=== PATIENT | male | born 1930 | race Caucasian/White ===

== ENCOUNTER 2016-10-27 18:20 | Inpatient (IN) | payer BC, MEDICARE ==
[~2016-10-27] VITALS: Ht 177.8 cm; Wt 82.7 kg
[2016-10-27] VITALS (7 sets, daily range): BP systolic 141–197; BP diastolic 57–93
[~2016-10-27 18:20] MED LIST: ASPI-482 PO; ATOR40TA59 PO; Aspirin PO; CARB1TAB2 PO; HYDR-2678 PO; MEMA10TA PO; MIDO5TAB PO; PANT40TA5 PO
[2016-10-27 18:49] LABS: BASO % 1 % (0-3); EOS % 1 % (0-3); HEMATOCRIT 32.4 % (39.0-53.0); HEMOGLOBIN 11.3 g/dL (13.0-17.5); LYMPH # 0.8 x10^3/uL (1.0-4.8); LYMPH % 16 % (24-48); MEAN CORPUSCULAR HEMOGLOBIN 34 pg (25-35); MEAN CORPUSCULAR HGB CONC 35 g/dL (31-37); MEAN CORPUSCULAR VOLUME 96 fL (79-100); MONO % 12 % (0-9); NEUT % 71 % (31-73); PLATELET COUNT 121 x10^3/uL (140-400); RED BLOOD COUNT 3.36 x10^6/uL (4.30-5.70); RED CELL DISTRIBUTION WIDTH 13.5 % (11.5-14.5); WHITE BLOOD COUNT 5.3 x10^3/uL (4.0-11.0)
[2016-10-27 18:56] LABS: INR 1.1 (0.8-1.1); PROTHROMBIN TIME PATIENT 13.7 SEC (11.7-14.0)
[2016-10-27 18:58] LABS: CALCIUM 8.6 mg/dL (8.5-10.1); CREATININE 1.8 mg/dL (0.7-1.3); GFR 36.1; POTASSIUM 4.4 mmol/L (3.5-5.1)
[2016-10-27 19:02] LABS: NEG OBC FOB NEG; POS OBC FOB POS
[2016-10-27 19:03] LABS: ALBUMIN 3.8 g/dL (3.4-5.0); ALBUMIN/GLOBULIN RATIO 1.3 (1.0-1.7); TOTAL BILIRUBIN 0.4 mg/dL (0.2-1.0); TOTAL PROTEIN 6.8 g/dL (6.4-8.2)
--- NOTE | 2016-10-27 19:16 | ED.ADGEN ---
Past Medical History Past Medical History: Diabetes-Type II, Hypertension, [place], Other Additional Past Medical Histor: Parkinson's Past Surgical History: Cholecystectomy, Coronary Bypass Surgery, Hip Replacement, Tonsillectomy, Other Additional Past Surgical Histo: lumbar sx; L hip Alcohol Use: None Drug Use: None Adult General Chief Complaint Chief Complaint: BLOODY STOOL HPI HPI Patient is a 86 year old man, history of type 2 diabetes mellitus, Parkinson's disease, hypertension, CAD, who presents to the emergency department with a complaint of blood in stool times one episode. Patient states that he was at home, was feeling otherwise well, when he was taken to the bathroom for bowel movement, he states that he "had the runs", however when he had a bowel movement was noted to be primarily blood, with a small amount of brown stool. Patient denies any nausea or vomiting, he denies any abdominal pain, states that he has been eating and drinking normally, has been taking his medications as usual, he does take a daily baby aspirin but no other blood thinners. Has no history of previous GI bleeding, no complaint of constipation. No recent travel or surgery, no easy bruising, no rashes, no swelling extremities, no urinary complaints. Patient with family at bedside or as caretakers, they state that all is well home, no injuries or other events recently. Review of Systems Review of Systems Constitutional: Denies fever or chills. [] Eyes: Denies change in visual acuity. [] HENT: Denies nasal congestion or sore throat. [] Respiratory: Denies cough or shortness of breath. [] Cardiovascular: Denies chest pain or edema. [] GI: Denies abdominal pain, nausea, vomiting, one episode of atif blood in stool. : Denies dysuria. [] Musculoskeletal: Denies back pain or joint pain. [] Integument: Denies rash. [] Neurologic: Denies headache, focal weakness or sensory changes. [] Endocrine: Denies polyuria or polydipsia. [] Lymphatic: Denies swollen glands. [] Psychiatric: Denies depression or anxiety. [] Current Medications Current Medications Current Medications Medications (Trade) Dose Ordered Sig/Romel Start Time Stop Time Status Last Admin Dose Admin Sodium Chloride 500 ml @ 500 mls/hr 1X ONCE 10/27/16 19:30 10/27/16 20:29 DC 10/27/16 19:35 500 MLS/HR Allergies Allergies Allergies Coded Allergies Type Severity Reaction Last Updated Verified No Known Drug Allergies 10/17/14 No Physical Exam Physical Exam Constitutional: Well developed, well nourished, no acute distress, non-toxic appearance. [] HENT: Normocephalic, atraumatic, bilateral external ears normal, oropharynx moist, no oral exudates, nose normal. [] Eyes: PERRLA, EOMI, conjunctiva normal, no discharge. [] Neck: Normal range of motion, no tenderness, supple, no stridor. [] Cardiovascular:Heart rate regular rhythm, no murmur, S1, S2, rubs or gallops. [] Lungs & Thorax: Bilateral breath sounds clear to auscultation, no wheezing, rhonchi, rales. No chest or crepitus or tenderness. [] Abdomen: Bowel sounds normal, soft, no tenderness, no masses, no pulsatile masses. No rebound, rigidity, no guarding, [] Skin: Warm, dry, no erythema, no rash. [] Back: No tenderness, no CVA tenderness. [] Extremities: No tenderness, no cyanosis, no clubbing, ROM intact, no edema. [ Negative Homans sign. Patient with well-healed surgical incisions from previous bypass.] Neurologic: Alert and oriented X 3, normal motor function, normal sensory function, no focal deficits noted. [] Psychologic: Affect normal, judgement normal, mood normal. [] Rectal examination: Patient with red blood noted in vault, no stool. Good tone. Nontender. No hemorrhoids or other abnormality is identified. Current Patient Data Vital Signs Vital Signs Date Time Temp Pulse Resp B/P (MAP) Pulse Ox O2 Delivery O2 Flow Rate FiO2 10/27/16 20:08 70 16 216/100 (138) 97 Room Air 10/27/16 18:20 97.5 97.5 Lab Values Laboratory Tests Test 10/27/16 18:38 10/27/16 18:45 10/27/16 19:42 White Blood Count 5.3 x10^3/uL (4.0-11.0) Red Blood Count 3.36 x10^6/uL (4.30-5.70) L Hemoglobin 11.3 g/dL (13.0-17.5) L Hematocrit 32.4 % (39.0-53.0) L Mean Corpuscular Volume 96 fL (79-100) Mean Corpuscular Hemoglobin 34 pg (25-35) Mean Corpuscular Hemoglobin Concent 35 g/dL (31-37) Red Cell Distribution Width 13.5 % (11.5-14.5) Platelet Count 121 x10^3/uL (140-400) L Neutrophils (%) (Auto) 71 % (31-73) Lymphocytes (%) (Auto) 16 % (24-48) L Monocytes (%) (Auto) 12 % (0-9) H Eosinophils (%) (Auto) 1 % (0-3) Basophils (%) (Auto) 1 % (0-3) Neutrophils # (Auto) 3.8 x10^3uL (1.8-7.7) Lymphocytes # (Auto) 0.8 x10^3/uL (1.0-4.8) L Monocytes # (Auto) 0.6 x10^3/uL (0.0-1.1) Eosinophils # (Auto) 0.0 x10^3/uL (0.0-0.7) Basophils # (Auto) 0.0 x10^3/uL (0.0-0.2) Prothrombin Time 13.7 SEC (11.7-14.0) Prothrombin Time INR 1.1 (0.8-1.1) PTT 29 SEC (24-38) Sodium Level 140 mmol/L (136-145) Potassium Level 4.4 mmol/L (3.5-5.1) Chloride Level 104 mmol/L (98-107) Carbon Dioxide Level 23 mmol/L (21-32) Anion Gap 13 (6-14) Blood Urea Nitrogen 34 mg/dL (8-26) H Creatinine 1.8 mg/dL (0.7-1.3) H Estimated GFR (Cockcroft-Gault) 36.1 BUN/Creatinine Ratio 19 (6-20) Glucose Level 207 mg/dL (70-99) H Lactic Acid Level 3.2 mmol/L (0.4-2.0) H Calcium Level 8.6 mg/dL (8.5-10.1) Total Bilirubin 0.4 mg/dL (0.2-1.0) Aspartate Amino Transferase (AST) 13 U/L (15-37) L Alanine Aminotransferase (ALT) 12 U/L (16-63) L Alkaline Phosphatase 121 U/L (46-116) H Troponin I Quantitative < 0.017 ng/mL (0.000-0.055) Total Protein 6.8 g/dL (6.4-8.2) Albumin 3.8 g/dL (3.4-5.0) Albumin/Globulin Ratio 1.3 (1.0-1.7) Stool Occult Blood Positive (NEG) Urine Collection Type Unknown Urine Color Yellow Urine Clarity Clear Urine pH 5.0 Urine Specific [place] 1.020 Urine Protein Negative mg/dL (NEG-TRACE) Urine Glucose (UA) 250 mg/dL (NEG) Urine Ketones (Stick) Negative mg/dL (NEG) Urine Blood Negative (NEG) Urine Nitrite Negative (NEG) Urine Bilirubin Negative (NEG) Urine Urobilinogen Dipstick 1.0 mg/dL (0.2 mg/dL) Urine Leukocyte Esterase Negative (NEG) Urine RBC 0 /HPF (0-2) Urine WBC 0 /HPF (0-4) Urine Squamous Epithelial Cells Few /LPF Urine Bacteria 0 /HPF (0-FEW) Urine Hyaline Casts Few /HPF Urine Mucus Mod /LPF Laboratory Tests 10/27/16 18:38 Laboratory Tests 10/27/16 18:38 EKG EKG EC: Sinus rhythm, heart rate 75 beats/minute, left axis deviation, QTC of 519, IA 180, QRS of 162, patient with occasional PVCs noted, bifascicular block noted, contour normality is noted in the anterior and lateral leads, with elevation of 1 mm noted in lead 3, ST depressions noted in aVL 1 mm, with T- wave inversions in V2, and V3, abnormal ECG, does not meet STEMI criteria. As interpreted by me. [] Radiology/Procedures Radiology/Procedures [][facility] [address] [place] [address] IMAGING REPORT Signed PATIENT: KEV SALGUERO ACCOUNT: [id number] : 1930 LOCATION: ER AGE: 86 SEX: M EXAM STATUS: REG ER ORD. PHYSICIAN: RADHA KAM DO REASON: GI bleeding/elevated lactic PROCEDURE: CT ABDOMEN PELVIS WO CONTRAST CT abdomen and pelvis without contrast: Reason for examination: Abdominal pain with GI bleeding and elevated lactic acid. Helical images were obtained through the abdomen and pelvis with no contrast administered. Reconstruction was performed in sagittal and coronal planes. Exposure: One or more of the following individualized dose reduction techniques were utilized for this examination: 1. Automated exposure control 2. Adjustment of the mA and/or kV according to patient size 3. Use of iterative reconstruction technique. There appears to be a calcified granuloma at the right lung base. There is some dependent atelectasis. The heart size appears be enlarged with no pericardial effusion seen. No acute abnormality seen at the liver, gallbladder, pancreas or adrenal glands. The gallbladder surgically absent. The kidneys show no renal masses, renal calculi, hydronephrosis or evidence of obstructive uropathy. There is arteriosclerotic calcification in the aorta with no aneurysmal dilatation. There is also calcification in the proximal portion of the superior mesenteric artery and the renal arteries bilaterally. No abnormality seen at the inferior vena cava. There is a large stomach containing fluid. The small intestinal tract shows no abnormally dilated loops of bowel or small bowel obstruction. No abnormality seen at the appendix. There is diverticulosis in the sigmoid colon without evidence of diverticulitis. There is some artifact present in the pelvis from the left hip prosthesis but no gross abnormality seen at the bladder, prostate gland or seminal vesicles. No free fluid or free air is seen in the abdomen or pelvis. There has been vertebroplasty at the L1 vertebral body. There are also mild anterior wedge compression fractures of the T12 and L2 vertebral body. No other acute bony abnormalities are seen. IMPRESSION: Cardiomegaly. Diverticulosis in the sigmoid colon but no evidence of diverticulitis. Mild anterior wedge compression deformities at the T12 and L2 vertebral bodies. Arteriosclerotic calcification in the proximal superior mesenteric artery and the renal arteries bilaterally. Electronically signed by: Saturnino Cannon MD (10/27/2016 8:42 PM) [facility] DICTATED and SIGNED BY: SATURNINO CANNON MD DATE: 10/27/162031 CC: RADHA KAM DO; JEAN AKBAR MD ~ Course & Med Decision Making Course & Med Decision Making Pertinent Labs and Imaging studies reviewed. (See chart for details) Patient with gross blood noted from rectum, no melena. No abdominal pain or tenderness. 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 Patient's heart rate is in the 80s, oxygen saturation is 96-90% on room air, respiratory rate is 20 and unlabored. Patient agreeable to receiving laboratory studies, and imaging in the ED, laboratory studies reveal a lactic acidosis of 3.2, with a hemoglobin of 11.3, electrolytes are within normal limits, creatinine is 1.8 with a BUNs of 36. I did discuss findings as above with Dr. Moore, GI on-call, as patient does not have a GI physician. Based on patient's examination, history, and laboratory studies, will proceed with noncontrast CT of the abdomen and pelvis, concern for ischemic colitis. Patient initiated IV fluids. CT of abdomen and pelvis did not reveal any acutely concerning findings. Patient noted to have elevated blood pressure, up to 216/100, remains in the 80s, I spoke with Dr. Mireles of cardiology, discussed patient's history of labile blood pressures, due to concern for possible Shy-Drager's, recommended until we have additional information, patient be initiated on a Cardizem drip for blood pressure control which can be titrated depending on his hemodynamic state. Initiated in the ED, patient on 5 of Cardizem, with blood pressures of 180s over 80s, remains comfortable. No further episodes of bleeding in the ED. I did discuss findings as above with Dr. De Jesus, on-call for the patient's primary care provider Dr. Akbar, patient accepted on behalf of Dr. Akbar, for admission to the ICU, with repeat hemoglobin to be ordered along with repeat troponins at 12:30, no indication for transfusion at this time, with hemoglobin of 11.3, and a platelet count of 121, will continue to monitor, patient consented for transfusion in the ED. Consultations as stated above, bridge orders entered per discussion. Dragon Disclaimer Dragon Disclaimer This electronic medical record was generated, in whole or in part, using a voice recognition dictation system. Departure Impression: Primary Impression: Lower GI bleeding Additional Impression: Accelerated hypertension Disposition: 09 ADMITTED INPATIENT Admitting Physician: Jean Akbar Condition: IMPROVED Critical Care Time Critical care time was [15 minutes exclusive of procedures. Problem Qualifiers RADHA KAM DO Oct 27, 2016 19:16
[2016-10-27] MEDS ORDERED: IV NORMAL SALINE 500ML BAG 500 ML IV ONE (19:30)
[2016-10-27 19:49] LABS: BILIRUBIN,URINE NEGATIVE (NEG); GLUCOSE,URINE 250 mg/dL (NEG); NITRITE,URINE NEGATIVE (NEG); PROTEIN,URINE NEGATIVE (NEG-TRACE)
[2016-10-27 19:55] LABS: BACTERIA,URINE 0 /HPF (0-FEW); RBC,URINE 0 /HPF (0-2); SQUAMOUS EPITHELIAL CELL,UR FEW /LPF; WBC,URINE 0 /HPF (0-4)
--- NOTE | 2016-10-27 20:44 | RAD ---
CT abdomen and pelvis without contrast: Reason for examination: Abdominal pain with GI bleeding and elevated lactic acid. Helical images were obtained through the abdomen and pelvis with no contrast administered. Reconstruction was performed in sagittal and coronal planes. Exposure: One or more of the following individualized dose reduction techniques were utilized for this examination: 1. Automated exposure control 2. Adjustment of the mA and/or kV according to patient size 3. Use of iterative reconstruction technique. There appears to be a calcified granuloma at the right lung base. There is some dependent atelectasis. The heart size appears be enlarged with no pericardial effusion seen. No acute abnormality seen at the liver, gallbladder, pancreas or adrenal glands. The gallbladder surgically absent. The kidneys show no renal masses, renal calculi, hydronephrosis or evidence of obstructive uropathy. There is arteriosclerotic calcification in the aorta with no aneurysmal dilatation. There is also calcification in the proximal portion of the superior mesenteric artery and the renal arteries bilaterally. No abnormality seen at the inferior vena cava. There is a large stomach containing fluid. The small intestinal tract shows no abnormally dilated loops of bowel or small bowel obstruction. No abnormality seen at the appendix. There is diverticulosis in the sigmoid colon without evidence of diverticulitis. There is some artifact present in the pelvis from the left hip prosthesis but no gross abnormality seen at the bladder, prostate gland or seminal vesicles. No free fluid or free air is seen in the abdomen or pelvis. There has been vertebroplasty at the L1 vertebral body. There are also mild anterior wedge compression fractures of the T12 and L2 vertebral body. No other acute bony abnormalities are seen. IMPRESSION: Cardiomegaly. Diverticulosis in the sigmoid colon but no evidence of diverticulitis. Mild anterior wedge compression deformities at the T12 and L2 vertebral bodies. Arteriosclerotic calcification in the proximal superior mesenteric artery and the renal arteries bilaterally. Electronically signed by: Tosha Fishman MD (10/27/2016 8:42 PM) [facility]
[2016-10-27] MEDS ORDERED: ONDANSETRON PF 4 MG/2 ML VIAL. IV PRN (21:30)
[2016-10-27] MEDS ORDERED: fentaNYL PF VIAL 100 MCG/2 ML VIAL IV PRN (21:30)
[2016-10-27] MEDS: IV NORMAL SALINE 1000ML BAG 1,000 ML IV SCH (22:18)
[2016-10-28] VITALS (14 sets, daily range): BP systolic 122–177; BP diastolic 54–88
--- NOTE | 2016-10-28 01:32 | ACF ---
Admission Forms Criteria GASTROINTESTINAL BLEEDING Clinical Indications for Inpatient Care (Place 'X' for any and all applicable criteria): Ongoing inpatient care may be indicated for gastrointestinal bleeding with ANY ONE of the following (4)(20)(21)(22)(23)(24): [ X]I. Active bleeding (eg, fresh voluminous blood in emesis or nasogastric aspirate, or per rectum) [ ]II. Hemodynamic instability [ ]III. Anticoagulation therapy or coagulopathy ((eg, advanced liver disease, irreversible anticoagulation) [ ]IV. Ischemic colitis (22) [ ]V. Endoscopy showing arterial bleeding, adherent clot, nonbleeding visible vessel, varices, flat red spots, ulcer size greater than 2 cm, or portal hypertensive gastropathy [ ]. High-risk low platelet count [ ]VII. Anemia requiring inpatient care as indicated by ANY ONE of the following a)[ ] Cognitive impairment b)[ ] Syncope c)[ ] Heart failure d)[ ] Chest pain e)[ ] Dyspnea f)[ ] Other findings suggesting inadequate perfusion (eg, peripheral or myocardial ischemia, end organ dysfunction) [ ]VIII. High-risk low platelet count [ ]IX. Suspected variceal cause of bleeding as indicated by ANY ONE of the following(27)(28): a)[ ] Known varices b)[ ] Hepatomegaly or splenomegaly c)[ ] Ascites d)[ ] Jaundice or scleral icterus e)[ ] History of liver disease (eg, cirrhosis) f)[ ] Physical findings of portal hypertension (eg, caput medusa) g)[ ] Comorbid disorder indicating risk for portal vein thrombosis (eg , abdominal surgery, sepsis, shock, exchange transfusion, prior umbilical vein catheterization) Extended stay may be needed until ALL of the following are present(20)(38)(47): [ ]a) Hemodynamic stability [ ]b) No evidence of active bleeding (eg, stable Hematocrit) [ ]c) Platelet count, prothrombin time, and partial thromboplastin time acceptable for next level of care [ ]d) Surgical or other acute intervention not needed [ ]e) Oral hydration and diet tolerated The original [employer] content created by Rachel Sung has been revised. The portions of the content which have been revised are identified through the use of italic text or in bold, and Rachel Sung has neither reviewed nor approved the modified material. All other unmodified content is copyright [facility]. Please see references footnoted in the original [facility] edition 2016 Admission Criteria Met?: Yes NATALIYA MALIK Oct 28, 2016 01:32
[2016-10-28 04:16] LABS: BASO % 0 % (0-3); EOS % 1 % (0-3); HEMATOCRIT 30.5 % (39.0-53.0); HEMOGLOBIN 10.5 g/dL (13.0-17.5); LYMPH # 1.1 x10^3/uL (1.0-4.8); LYMPH % 27 % (24-48); MEAN CORPUSCULAR HEMOGLOBIN 34 pg (25-35); MEAN CORPUSCULAR HGB CONC 34 g/dL (31-37); MEAN CORPUSCULAR VOLUME 98 fL (79-100); MONO % 14 % (0-9); NEUT % 57 % (31-73); PLATELET COUNT 106 x10^3/uL (140-400); RED BLOOD COUNT 3.13 x10^6/uL (4.30-5.70); RED CELL DISTRIBUTION WIDTH 13.4 % (11.5-14.5)
[2016-10-28 04:22] LABS: CALCIUM 8.3 mg/dL (8.5-10.1); CREATININE 1.3 mg/dL (0.7-1.3); GFR 52.6; POTASSIUM 3.7 mmol/L (3.5-5.1)
[2016-10-28] MEDS: IV NORMAL SALINE 1000ML BAG 1,000 ML IV SCH (05:15)
--- NOTE | 2016-10-28 06:29 | EKG ---
[facility] [address] [place] [address] Test Date: 2016-10-27 Test Time: 18:30:18 Pat Name: KEV SALGUERO Department: Room: 108 1 Gender: M [employer]: : 1930 Requested By: RADHA KAM Order Number: [id number] Reading MD: Toshia Mohamud Measurements Intervals Independence Rate: 75 P: 90 NV: 180 QRS: -45 QRSD: 162 T: 81 QT: 462 QTc: 519 Interpretive Statements SINUS RHYTHM VENTRICULAR PREMATURE COMPLEX(ES) ATRIAL PREMATURE COMPLEX(ES) LEFT ANTERIOR FASCICULAR BLOCK RIGHT BUNDLE BRANCH BLOCK BIFASCICULAR BLOCK QRS(T) CONTOUR ABNORMALITY CONSISTENT WITH ANTEROSEPTAL INFARCT AGE UNDETERMINED Electronically Signed On 10-30-2016 12:21:46 CDT by Toshia Mohamud
--- NOTE | 2016-10-28 08:16 | RAD ---
Acute abdomen series with chest, 3 views, 10/27/2016: History: Abdominal pain, GI tract bleeding The abdominal gas pattern is unremarkable without evidence of obstruction. No free air is seen in the abdomen. There is no evidence of organomegaly. Extensive arterial calcifications are present. A left total hip prosthesis is in place. Vertebroplasty change is noted at the L1 level. The heart is mildly enlarged. The pulmonary vascularity is normal. There has been a previous median sternotomy. There is mild scarring in the left lateral costophrenic angle. A calcified granuloma is present in the right base. No acute infiltrates are seen. IMPRESSION: No acute abdominal abnormality is detected.
--- NOTE | 2016-10-28 09:22 | PDOC2 ---
GI CONSULT Reason For Consult: GI Bleed HPI: HPI: 86 y/o male admitted through the ER. Yesterday around 4:00 p.m. had an episode of rectal bleeding at home. History from pt and family, reports had a "runny stool" earlier in the day, then later on passed red blood that "filled the toilet." No previous episodes or recurrence. No chest pain, SOA, dizziness. No abd pain or n/v. H/o reflux controlled w/ PPI QD. No chronic issues w/ diarrhea or constipation. Prior to admission was eating and drinking normally, no weight loss. Takes ASA QD, otherwise denies NSAIDs, takes Tylenol PRN. Has had several previous EGDs and colonoscopies, recalls no significant findings. Has been hypertensive w/ some bradycardia. Cardiology consulted. H/o fluctuating BP, currently off meds. ER notes indicate rectal exam grossly positive for blood. Per [employer], no bleeding since arrival. Labs significant for Hgb 11.3 (now 10.5), plt 121 (now 106), lactic acid 3.2 ( now 1.1), BUN 34 (now 29), Cr 1.8 (now 1.3), and hemoccult positive stool. (H/ o of anemia/thrombocytopenia when labs back to 2015 [address].) CT A/P w/o contrast notes cardiomegaly, sigmoid diverticulosis, and arteriosclerotic calcification in proximal SMA and renal arteries bilaterally. PMH: PMH: CAD s/p CABG x 6, DM, HTN/hypotension, Parkinson's, tonsillectomy, cholecystectomy, left hip replacement, kyphoplasty FH: Family History: No pertinent hx Social History: Smoke: No ALCOHOL: none Drugs: None ROS: GEN: Denies fevers, chills, sweats HEENT: Denies blurred vision, sore throat CV: Denies chest pain RESP: Denies shortness of air, cough GI: Per HPI : Denies hematuria, dysuria ENDO: Denies weight changes NEURO: Denies confusion, dizziness MSK: Denies weakness, joint pain/swelling SKIN: Denies jaundice, pruritus Vitals: Vitals: Vital Signs Date Time Temp Pulse Resp B/P (MAP) Pulse Ox O2 Delivery O2 Flow Rate FiO2 10/28/16 07:57 Room Air 10/28/16 06:00 60 14 167/70 (102) 98 8/14/17 04:00 97.7 97.7 Labs: Labs: Laboratory Tests Test 10/27/16 18:38 10/27/16 18:45 10/27/16 19:42 10/27/16 22:43 White Blood Count 5.3 x10^3/uL (4.0-11.0) Red Blood Count 3.36 x10^6/uL (4.30-5.70) Hemoglobin 11.3 g/dL (13.0-17.5) Hematocrit 32.4 % (39.0-53.0) Mean Corpuscular Volume 96 fL (79-100) Mean Corpuscular Hemoglobin 34 pg (25-35) Mean Corpuscular Hemoglobin Concent 35 g/dL (31-37) Red Cell Distribution Width 13.5 % (11.5-14.5) Platelet Count 121 x10^3/uL (140-400) Neutrophils (%) (Auto) 71 % (31-73) Lymphocytes (%) (Auto) 16 % (24-48) Monocytes (%) (Auto) 12 % (0-9) Eosinophils (%) (Auto) 1 % (0-3) Basophils (%) (Auto) 1 % (0-3) Neutrophils # (Auto) 3.8 x10^3uL (1.8-7.7) Lymphocytes # (Auto) 0.8 x10^3/uL (1.0-4.8) Monocytes # (Auto) 0.6 x10^3/uL (0.0-1.1) Eosinophils # (Auto) 0.0 x10^3/uL (0.0-0.7) Basophils # (Auto) 0.0 x10^3/uL (0.0-0.2) Prothrombin Time 13.7 SEC (11.7-14.0) Prothromb Time International Ratio 1.1 (0.8-1.1) Activated Partial Thromboplast Time 29 SEC (24-38) Sodium Level 140 mmol/L (136-145) Potassium Level 4.4 mmol/L (3.5-5.1) Chloride Level 104 mmol/L (98-107) Carbon Dioxide Level 23 mmol/L (21-32) Anion Gap 13 (6-14) Blood Urea Nitrogen 34 mg/dL (8-26) Creatinine 1.8 mg/dL (0.7-1.3) Estimated GFR (Cockcroft-Gault) 36.1 BUN/Creatinine Ratio 19 (6-20) Glucose Level 207 mg/dL (70-99) Lactic Acid Level 3.2 mmol/L (0.4-2.0) 2.3 mmol/L (0.4-2.0) Calcium Level 8.6 mg/dL (8.5-10.1) Total Bilirubin 0.4 mg/dL (0.2-1.0) Aspartate Amino Transf (AST/SGOT) 13 U/L (15-37) Alanine Aminotransferase (ALT/SGPT) 12 U/L (16-63) Alkaline Phosphatase 121 U/L (46-116) Troponin I Quantitative < 0.017 ng/mL (0.000-0.055) Total Protein 6.8 g/dL (6.4-8.2) Albumin 3.8 g/dL (3.4-5.0) Albumin/Globulin Ratio 1.3 (1.0-1.7) Stool Occult Blood Positive (NEG) Urine Collection Type Unknown Urine Color Yellow Urine Clarity Clear Urine pH 5.0 Urine Specific Aldie 1.020 Urine Protein Negative mg/dL (NEG-TRACE) Urine Glucose (UA) 250 mg/dL (NEG) Urine Ketones (Stick) Negative mg/dL (NEG) Urine Blood Negative (NEG) Urine Nitrite Negative (NEG) Urine Bilirubin Negative (NEG) Urine Urobilinogen Dipstick 1.0 mg/dL (0.2 mg/dL) Urine Leukocyte Esterase Negative (NEG) Urine RBC 0 /HPF (0-2) Urine WBC 0 /HPF (0-4) Urine Squamous Epithelial Cells Few /LPF Urine Bacteria 0 /HPF (0-FEW) Urine Hyaline Casts Few /HPF Urine Mucus Mod /LPF Test 10/28/16 00:30 10/28/16 03:14 10/28/16 06:28 Troponin I Quantitative < 0.017 ng/mL (0.000-0.055) < 0.017 ng/mL (0.000-0.055) White Blood Count 4.0 x10^3/uL (4.0-11.0) Red Blood Count 3.13 x10^6/uL (4.30-5.70) Hemoglobin 10.5 g/dL (13.0-17.5) Hematocrit 30.5 % (39.0-53.0) Mean Corpuscular Volume 98 fL (79-100) Mean Corpuscular Hemoglobin 34 pg (25-35) Mean Corpuscular Hemoglobin Concent 34 g/dL (31-37) Red Cell Distribution Width 13.4 % (11.5-14.5) Platelet Count 106 x10^3/uL (140-400) Neutrophils (%) (Auto) 57 % (31-73) Lymphocytes (%) (Auto) 27 % (24-48) Monocytes (%) (Auto) 14 % (0-9) Eosinophils (%) (Auto) 1 % (0-3) Basophils (%) (Auto) 0 % (0-3) Neutrophils # (Auto) 2.3 x10^3uL (1.8-7.7) Lymphocytes # (Auto) 1.1 x10^3/uL (1.0-4.8) Monocytes # (Auto) 0.6 x10^3/uL (0.0-1.1) Eosinophils # (Auto) 0.0 x10^3/uL (0.0-0.7) Basophils # (Auto) 0.0 x10^3/uL (0.0-0.2) Sodium Level 141 mmol/L (136-145) Potassium Level 3.7 mmol/L (3.5-5.1) Chloride Level 107 mmol/L (98-107) Carbon Dioxide Level 25 mmol/L (21-32) Anion Gap 9 (6-14) Blood Urea Nitrogen 29 mg/dL (8-26) Creatinine 1.3 mg/dL (0.7-1.3) Estimated GFR (Cockcroft-Gault) 52.6 Glucose Level 140 mg/dL (70-99) Lactic Acid Level 1.1 mmol/L (0.4-2.0) Calcium Level 8.3 mg/dL (8.5-10.1) Allergies: Coded Allergies: No Known Drug Allergies (Unverified , 10/17/14) Medications: Current Medications Medications (Trade) Dose Ordered Sig/Romel Route PRN Reason Start Time Stop Time Status Last Admin Dose Admin Sodium Chloride 500 ml @ 500 mls/hr 1X ONCE IV 10/27/16 19:30 10/27/16 20:29 DC 10/27/16 19:35 Diltiazem HCl 125 mg/Dextrose 125 ml @ 0 mls/hr CONT PRN IV SEE I/O RECORD 10/27/16 21:00 10/27/16 20:44 Sodium Chloride 1,000 ml @ 125 mls/hr Q8H IV 10/27/16 21:15 10/28/16 21:14 10/28/16 05:15 Imaging: Imaging: Acute Abd Series IMPRESSION: No acute abdominal abnormality is detected. CT A/P w/o contrast IMPRESSION: Cardiomegaly. Diverticulosis in the sigmoid colon but no evidence of diverticulitis. Mild anterior wedge compression deformities at the T12 and L2 vertebral bodies. Arteriosclerotic calcification in the proximal superior mesenteric artery and the renal arteries bilaterally. PE: GEN: NAD HEENT: Atraumatic, PERRL LUNGS: CTAB anteriorly HEART: distant, bradycardic ABD: NABS, S/ND/NT EXTREMITY: No edema (BLE w/ SCDs) SKIN: No rashes, no jaundice NEURO/PSYCH: A & O 3 A/P: A/P: Rectal bleeding - no recurrence -one episode yesterday afternoon, was preceded by diarrhea/loose stool x 1 -has had several previous colonoscopies, note diverticulosis on CT Normocytic anemia, thrombocytopenia, hemoccult positive stool -some elevation in BUN/Cr GERD - controlled -on PPI at home CAD, HTN -per cardiology -on ASA QD -- ?diverticular bleed Will review w/ Dr. Moore. Will start IV H2 ron, continue NPO for now. DUNCAN SLAUGHTER Oct 28, 2016 09:22
--- NOTE | 2016-10-28 09:58 | PDOC2 ---
CARDIAC CONSULT DATE OF CONSULT Date of Consult DATE: 10/28/16 TIME: 09:46 REASON FOR CONSULT Reason for Consult: Hypertension REFERRING PHYSICIAN Referring Physician: Dr. Freed SOURCE Source: Chart review, Patient HISTORY OF PRESENT ILLNESS HISTORY OF PRESENT ILLNESS This is am 86 yo male who presented secondary to rectal bleeding. Yesterday afternoon, patient had BM and had significant amount of bright red blood in the stool. Denies any hematemesis. No dizziness, diaphoresis, SOA, palpitations, CP , or nausea/vomiting. No prior h/o rectal bleeding. BP significantly elevated upon arrival, which prompted this consult. Does have a history of Parkinson's Dx, CAD s/p CABG, along with fluctuating blood pressure and orthostatic hypotension. Was previously on ACEi and BB, but had to be discontinue do to significant orthostasis. Due to history of BP fluctuations , Cardizem gtt was initiated for BP control. Patient follows closely with Dr. Mireles with [facility]. PAST MEDICAL HISTORY Cardiovascular: CAD, HTN Pulmonary: No pertinent hx CENTRAL NERVOUS SYSTEM: Other (Parkinson's Dx) GI: GERD Heme/Onc: No pertinent hx Hepatobiliary: No pertinent hx Psych: Other (PTSD) Musculoskeletal: Osteoarthritis, Other (chronic back pain) Rheumatologic: No pertinent hx Infectious disease: No pertinent hx ENT: No pertinent hx Renal/: Chronic renal insuff Endocrine: Diabetes Dermatology: No pertinent hx PAST SURGICAL HISTORY Past Surgical History: Cholecystectomy, Total hip replacement (left ), Tonsillectomy, Other (right middle finger amputation) FAMILY HISTORY Family History: Coronary Artery Disease, Diabetes, Hypertension SOCIAL HISTORY Smoke: No ALCOHOL: none Drugs: None Lives: with Family CURRENT MEDICATIONS CURRENT MEDICATIONS Current Medications Medications (Trade) Dose Ordered Sig/Romel Route PRN Reason Start Time Stop Time Status Last Admin Dose Admin Sodium Chloride 500 ml @ 500 mls/hr 1X ONCE IV 10/27/16 19:30 10/27/16 20:29 DC 10/27/16 19:35 Diltiazem HCl 125 mg/Dextrose 125 ml @ 0 mls/hr CONT PRN IV SEE I/O RECORD 10/27/16 21:00 10/27/16 20:44 Sodium Chloride 1,000 ml @ 125 mls/hr Q8H IV 10/27/16 21:15 10/28/16 21:14 10/28/16 05:15 ALLERGIES ALLERGIES: Coded Allergies: No Known Drug Allergies (Unverified , 10/17/14) ROS Review of System 14 point ROS conducted with pertinent positives noted above in HPI. PHYSICAL EXAM General: Alert, Oriented X3, Cooperative, No acute distress HEENT: Atraumatic, Mucous membr. moist/pink Lungs: Clear to auscultation, Normal air movement Heart: Regular rate, Normal S1, Normal S2, Other (2/6 systolic murmur. tele: SB with PAC's ) Abdomen: Soft Extremities: No edema, Normal pulses Skin: No breakdown, No significant lesion Neuro: Normal speech, Sensation intact Psych/Mental Status: Mental status NL, Mood NL MUSCULOSKELETAL: No joint tenderness VITALS VITALS Vital Signs Date Time Temp Pulse Resp B/P (MAP) Pulse Ox O2 Delivery O2 Flow Rate FiO2 10/28/16 09:00 56 14 177/68 (104) 97 Room Air 10/28/16 04:00 97.7 97.7 LABS Lab: Laboratory Tests Test 10/27/16 18:38 10/27/16 18:45 10/27/16 19:42 10/27/16 22:43 White Blood Count 5.3 x10^3/uL (4.0-11.0) Red Blood Count 3.36 x10^6/uL (4.30-5.70) Hemoglobin 11.3 g/dL (13.0-17.5) Hematocrit 32.4 % (39.0-53.0) Mean Corpuscular Volume 96 fL (79-100) Mean Corpuscular Hemoglobin 34 pg (25-35) Mean Corpuscular Hemoglobin Concent 35 g/dL (31-37) Red Cell Distribution Width 13.5 % (11.5-14.5) Platelet Count 121 x10^3/uL (140-400) Neutrophils (%) (Auto) 71 % (31-73) Lymphocytes (%) (Auto) 16 % (24-48) Monocytes (%) (Auto) 12 % (0-9) Eosinophils (%) (Auto) 1 % (0-3) Basophils (%) (Auto) 1 % (0-3) Neutrophils # (Auto) 3.8 x10^3uL (1.8-7.7) Lymphocytes # (Auto) 0.8 x10^3/uL (1.0-4.8) Monocytes # (Auto) 0.6 x10^3/uL (0.0-1.1) Eosinophils # (Auto) 0.0 x10^3/uL (0.0-0.7) Basophils # (Auto) 0.0 x10^3/uL (0.0-0.2) Prothrombin Time 13.7 SEC (11.7-14.0) Prothromb Time International Ratio 1.1 (0.8-1.1) Activated Partial Thromboplast Time 29 SEC (24-38) Sodium Level 140 mmol/L (136-145) Potassium Level 4.4 mmol/L (3.5-5.1) Chloride Level 104 mmol/L (98-107) Carbon Dioxide Level 23 mmol/L (21-32) Anion Gap 13 (6-14) Blood Urea Nitrogen 34 mg/dL (8-26) Creatinine 1.8 mg/dL (0.7-1.3) Estimated GFR (Cockcroft-Gault) 36.1 BUN/Creatinine Ratio 19 (6-20) Glucose Level 207 mg/dL (70-99) Lactic Acid Level 3.2 mmol/L (0.4-2.0) 2.3 mmol/L (0.4-2.0) Calcium Level 8.6 mg/dL (8.5-10.1) Total Bilirubin 0.4 mg/dL (0.2-1.0) Aspartate Amino Transf (AST/SGOT) 13 U/L (15-37) Alanine Aminotransferase (ALT/SGPT) 12 U/L (16-63) Alkaline Phosphatase 121 U/L (46-116) Troponin I Quantitative < 0.017 ng/mL (0.000-0.055) Total Protein 6.8 g/dL (6.4-8.2) Albumin 3.8 g/dL (3.4-5.0) Albumin/Globulin Ratio 1.3 (1.0-1.7) Stool Occult Blood Positive (NEG) Urine Collection Type Unknown Urine Color Yellow Urine Clarity Clear Urine pH 5.0 Urine Specific Dudley 1.020 Urine Protein Negative mg/dL (NEG-TRACE) Urine Glucose (UA) 250 mg/dL (NEG) Urine Ketones (Stick) Negative mg/dL (NEG) Urine Blood Negative (NEG) Urine Nitrite Negative (NEG) Urine Bilirubin Negative (NEG) Urine Urobilinogen Dipstick 1.0 mg/dL (0.2 mg/dL) Urine Leukocyte Esterase Negative (NEG) Urine RBC 0 /HPF (0-2) Urine WBC 0 /HPF (0-4) Urine Squamous Epithelial Cells Few /LPF Urine Bacteria 0 /HPF (0-FEW) Urine Hyaline Casts Few /HPF Urine Mucus Mod /LPF Test 10/28/16 00:30 10/28/16 03:14 10/28/16 06:28 Troponin I Quantitative < 0.017 ng/mL (0.000-0.055) < 0.017 ng/mL (0.000-0.055) White Blood Count 4.0 x10^3/uL (4.0-11.0) Red Blood Count 3.13 x10^6/uL (4.30-5.70) Hemoglobin 10.5 g/dL (13.0-17.5) Hematocrit 30.5 % (39.0-53.0) Mean Corpuscular Volume 98 fL (79-100) Mean Corpuscular Hemoglobin 34 pg (25-35) Mean Corpuscular Hemoglobin Concent 34 g/dL (31-37) Red Cell Distribution Width 13.4 % (11.5-14.5) Platelet Count 106 x10^3/uL (140-400) Neutrophils (%) (Auto) 57 % (31-73) Lymphocytes (%) (Auto) 27 % (24-48) Monocytes (%) (Auto) 14 % (0-9) Eosinophils (%) (Auto) 1 % (0-3) Basophils (%) (Auto) 0 % (0-3) Neutrophils # (Auto) 2.3 x10^3uL (1.8-7.7) Lymphocytes # (Auto) 1.1 x10^3/uL (1.0-4.8) Monocytes # (Auto) 0.6 x10^3/uL (0.0-1.1) Eosinophils # (Auto) 0.0 x10^3/uL (0.0-0.7) Basophils # (Auto) 0.0 x10^3/uL (0.0-0.2) Sodium Level 141 mmol/L (136-145) Potassium Level 3.7 mmol/L (3.5-5.1) Chloride Level 107 mmol/L (98-107) Carbon Dioxide Level 25 mmol/L (21-32) Anion Gap 9 (6-14) Blood Urea Nitrogen 29 mg/dL (8-26) Creatinine 1.3 mg/dL (0.7-1.3) Estimated GFR (Cockcroft-Gault) 52.6 Glucose Level 140 mg/dL (70-99) Lactic Acid Level 1.1 mmol/L (0.4-2.0) Calcium Level 8.3 mg/dL (8.5-10.1) ASSESSMENT/PLAN ASSESSMENT/PLAN 1. Malignant hypertension, POA; improved. On Cardizem gtt- having bradycardia 2. GI bleed; Hemoccult positives. hgb stable. As per GI 3. Bradycardia; rate low 50's asymptomatic. CCB induced 4. H/o orthostatic hypotension and fluctuating BP 5. Lactic Acidosis 6. CAD s/p CABG; stable. CP free. 7. Diabetes Recommendations 1. Hold ASA due to GI bleeding. H2 ron initiated. 2. Continue secondary prevention measures as able. 3. Stop Cardizem due to bradycardia. Avoid AV philippe blocking agents. 4. Presently NPO. Add hydralazine IV PRN for SBP >180. Will allow for high normal BP given h/o significant orthostatic hypotension 5. Supportive care. 6. Further workup of GI bleed as per GI service. Problems: BRITNI PEOPLES APRN Oct 28, 2016 09:58
[2016-10-28] MEDS ORDERED: hydrALAZINE 20 MG/ML VIAL. IVP PRN (10:00)
--- NOTE | 2016-10-28 10:19 | PDOC ---
Provider Note Provider Note Pt seen .Full H&P to be dictated. #[id number] BURTON AKBAR MD Oct 28, 2016 10:19
[2016-10-28] MEDS: CARBIDOPA/LEVODOPA 25/100MG TABLET PO SCH ×3 (10:45→21:35)
[2016-10-28] MEDS: MEMANTINE 10 MG TABLET. PO SCH ×2 (10:45→21:34)
[2016-10-28] MEDS: FAMOTIDINE 20 MG/2 ML VIAL IVP SCH ×2 (10:46→21:34)
[2016-10-28] MEDS: PANTOPRAZOLE 40 MG TABLET.DR. PO SCH (10:46)
--- NOTE | 2016-10-28 18:16 | HP ---
ADMIT DATE: 10/27/2016 LOCATION: 108. REASON FOR ADMISSION TO THE HOSPITAL: Lower GI bleed. HISTORY OF PRESENT ILLNESS: The patient is an 86-year-old male patient known to me. Has a history of Parkinson disease, coronary artery disease, bypass surgery, dementia and he went to the bathroom, had a bowel movement and says he had the runs and had some bright red blood in the stool and patient was brought into the Emergency Room. Had a CT scan, showed some diverticulosis. Hemoglobin stable. Was admitted overnight to the ICU because of GI bleed. Was seen by Cardiology as well as GI. Has a history of heart bypass surgery, on aspirin. PAST MEDICAL HISTORY: As mentioned above. History of Parkinson disease, dementia, hypertension, hyperlipidemia, coronary artery disease, borderline diabetes. PAST SURGICAL HISTORY: Bypass surgery, hip replacement, tonsillectomy, gallbladder surgery and vertebroplasty of compression fracture of the lumbar spine. ALLERGIES: HE COULD NOT TOLERATE LOT OF BLOOD PRESSURE MEDICATIONS BECAUSE OF HYPERTENSION WELL CLEM AND ARB WORSENING KIDNEY FAILURE. PERSONAL HISTORY: No history of smoking, alcohol or drug abuse. SOCIAL HISTORY: Lives with his and the children help him. MEDICATIONS AT HOME: He is on aspirin 81 mg daily, levodopa, carbidopa, Sinemet 25/100 two tablets 3 times daily, Namenda 10 mg twice a day, Protonix 40 mg daily, hydrocodone p.r.n. for pain and aspirin 81 mg daily. FAMILY HISTORY: Positive for diabetes and heart disease. REVIEW OF SYMPTOMS: CARDIAC: No chest pain. LUNGS: No short of breath. GASTROINTESTINAL: No vomiting blood. There is some bright red blood per rectum after BM one time. Rest of the 14-system was reviewed and negative. PHYSICAL EXAMINATION: GENERAL: The patient is sitting in bed in the ICU, comfortable, not in any distress. VITAL SIGNS: Temperature 97, pulse 67, respirations 18, blood pressure 159/80 and 97 on room air. HEENT: Head is atraumatic. Pupils equal. Oral cavity: Dentures present. NECK: Supple. Thyroid not enlarged. JVD not elevated. CHEST: Symmetrical. Scar of heart surgery. CARDIOVASCULAR: S1 and S2. LUNGS: Clear to auscultation. No wheezing. ABDOMEN: Soft. Bowel sounds present. No mass palpable. EXTERNAL GENITALIA: No Valles. RECTAL: Deferred. EXTREMITIES: No calf tenderness. No edema. Pulses 1+. NEUROLOGIC: Oriented to place and person, responding to questions appropriately, moving all extremities. No focal deficit noted. LABORATORY DATA: Shows white count of 5.3, hemoglobin 11.3 and platelets 121. Electrolytes show sodium 140, potassium 4.4, chloride 104 and bicarb 23. BUN 34 and creatinine 1.8. Glucose 207. Lactic acid was 3.2, went down to 1.1. Creatinine came down to 1.3. Troponin 0.017. LFTs were normal. INR 1.1. Urine was negative for leukocytes. Stool for occult blood was positive. Acute abdominal series was negative. CT scan of the abdomen and pelvis without contrast shows some diverticulosis of the sigmoid colon. FINAL IMPRESSION: 1. Lower gastrointestinal bleed. Bright red blood per rectum one time.diverticular bleed vs hemorrhoids. 2. Coronary artery disease. History of bypass surgery on Asa 81 mg. 3. Parkinson disease, on medication.stable 4. Acute renal insufficiency secondary to diarrhea, corrected with the IV fluids. 5. Dementia. 6. Lactic acidosis, improved. PLAN: At this time was admit to ICU. Seen by GI. Hemoglobin stable. No further bleeding. Seen also by Cardiology and initially put on Cardizem for blood pressure control, now blood pressure is controlled. He went into sinus bradycardia, was stopped and see how the patient's condition improves. Clear liquid diet, advance as tolerated. Probably could go home in the next 24 hours. Hold aspirin for the time being. BURTON AKBAR MD DR: NEGRITA/jay JOB#: [id number] / [id number] JEREMIAS
[2016-10-29 02:40] VITALS: BP 167/80
[2016-10-29 07:22] VITALS: BP 186/73
[2016-10-29] MEDS: PANTOPRAZOLE 40 MG TABLET.DR. PO SCH (08:06)
[2016-10-29] MEDS: FAMOTIDINE 20 MG/2 ML VIAL IVP SCH (09:00)
[2016-10-29] MEDS: MEMANTINE 10 MG TABLET. PO SCH (09:00)
[2016-10-29] MEDS: CARBIDOPA/LEVODOPA 25/100MG TABLET PO SCH (09:00)
--- NOTE | 2016-10-29 10:27 | PDOC ---
PROGRESS NOTES Subjective Subjective feeling ok,no more loose stools ,no blood in stool Objective Objective Vital Signs Date Time Temp Pulse Resp B/P (MAP) Pulse Ox O2 Delivery O2 Flow Rate FiO2 10/29/16 07:22 98.1 72 19 186/73 (110) 97 Room Air 98.1 Intake and Output 10/29/16 06:59 Intake Total 781 ml Output Total 975 ml Balance -194 ml Intake Oral 50 ml IV Total 731 ml Output Urine Total 975 ml Physical Exam Abdomen: Soft Heart: Regular rate, Normal S1, Normal S2, Other (2/6 systolic murmur. tele: SB with PAC's ) Extremities: No edema, Normal pulses General: Alert, Oriented X3, Cooperative, No acute distress HEENT: Atraumatic, Mucous membr. moist/pink Lungs: Clear to auscultation, Normal air movement MUSCULOSKELETAL: No joint tenderness Neuro: Normal speech, Sensation intact Psych/Mental Status: Mental status NL, Mood NL Skin: No breakdown, No significant lesion Diagnosis Problem List Problems Medical Problems: (1) Accelerated hypertension Status: Acute (2) Lower GI bleeding Status: Acute Assessment Assessment Problems Medical Problems: (1) Accelerated hypertension Status: Acute (2) Lower GI bleeding Status: Acute FINAL IMPRESSION: 1. Lower gastrointestinal bleed. Bright red blood per rectum one time.hemorrhoids? 2. Coronary artery disease. History of bypass surgery. 3. Parkinson disease, on medication. 4. Acute renal insufficiency secondary to diarrhea, corrected with the IV fluids. 5. Dementia. 6. Lactic acidosis, improved. PLAN: no more bleed . no loose stools. hb stable kidney function stable. d/c home with home health. At this time was admit to ICU. Seen by GI. Hemoglobin stable. No further bleeding. Seen also by Cardiology and initially put on Cardizem for blood pressure control, now blood pressure is controlled. He went into sinus bradycardia, was stopped and see how the patient's condition improves. Clear liquid diet, advance as tolerated. Probably could go home in the next 24 hours. Hold aspirin for the time being. Problems: Plan Plan of Care Problems Medical Problems: (1) Accelerated hypertension Status: Acute (2) Lower GI bleeding Status: Acute Comment Review of Relevant I have reviewed the following items kiana (where applicable) has been applied. Medications Current Medications Carbidopa/Levodopa (Sinemet 25/100) 2 tab TID PO Last administered on 8/15/ 17at 09:00; Start 10/28/16 at 11:00 Memantine (Namenda) 10 mg BID PO Last administered on 10/29/16 09:00; Start at 11:00 Pantoprazole Sodium (Protonix) 40 mg DAILYAC PO Last administered on 10/29/16 08:06; Start 10/28/16 at 11:00 Vitals/I & O Vital Sign - Last 24 Hours 10/28/16 10/28/16 10/28/16 10/28/16 11:10 15:06 19:53 20:00 Temp 97.5 97.5 Pulse 55 57 71 Resp 15 16 18 B/P (MAP) 170/72 (104) 135/61 (85) 122/59 (80) Pulse Ox 98 97 97 O2 Delivery Room Air Room Air Room Air Room Air 10/28/16 10/29/16 10/29/16 22:56 02:40 07:22 Temp 97.5 98.1 98.1 97.5 98.1 98.1 Pulse 67 59 72 Resp 18 18 19 B/P (MAP) 176/88 (117) 167/80 (109) 186/73 (110) Pulse Ox 94 96 97 O2 Delivery Room Air Room Air Room Air Intake and Output 10/28/16 10/28/16 10/29/16 14:59 22:59 06:59 Intake Total 731 ml 50 ml Output Total 125 ml 850 ml Balance 606 ml -800 ml BURTON AKBAR MD Oct 29, 2016 10:26
[2016-10-29 10:56] VITALS: BP 111/58
--- NOTE | 2016-10-29 11:41 | PDOC ---
Subjective: Subjective: Denies bleeding. Feeling better. Objective: Objective: Per RN - DC today, no further bleeding. Vital Signs: Vital Signs Date Time Temp Pulse Resp B/P (MAP) Pulse Ox O2 Delivery O2 Flow Rate FiO2 10/29/16 10:56 97.3 61 19 111/58 (75) 97 Room Air 97.3 PE: GEN: NAD, up to chair LUNGS: clear HEART: RRR ABD: S/ND/NT NEURO/PSYCH: A & O 3 A/P: Rectal bleeding - no recurrence -has had previous colonoscopies, diverticulosis on CT -on PPI for GERD -- Bleeding resolved. DC per primary. DUNCAN SLAUGHTER Oct 29, 2016 11:41
--- NOTE | 2016-10-30 22:20 | PDOC ---
Provider Note Provider Note Discharge summary dictated. #[id number] BURTON AKBAR MD Oct 30, 2016 22:20
--- NOTE | 2016-10-30 22:44 | DS ---
DATE OF DISCHARGE: 10/29/2016 REASON FOR ADMISSION TO THE HOSPITAL: Lower GI bleed, bright red blood per rectum. CONSULTATIONS: 1. Dr. Emerson, GI. 2. Cardiology. PROCEDURES DONE: CT scan of the abdomen and pelvis. COMPLICATIONS NOTED: None. HOSPITAL COURSE: The patient is an 86-year-old male with history of Parkinson disease, history of bypass surgery and he had runs with diarrhea with bright red blood per rectum, came to the Emergency Room, was admitted with the diagnosis of lower GI bleed. CT scan showed diverticulosis, no diverticulitis, and the patient was monitored in the ICU overnight and hemoglobin remained stable, vitals stable, was moved to medical floor, started on clear liquid diet, advanced as tolerated. Because of his general debility and ill health, it was decided to not to pursue further GI procedures. Hemoglobin remained stable and in the past, he had EGD and colonoscopies. The patient was seen by Cardiology, had history of bypass surgery, remained stable and the patient was discharged home the following day. FINAL DIAGNOSES: 1. Lower gastrointestinal bleed, possible internal hemorrhoid bleed versus diverticular bleed, unlikely. 2. CT scan shows diverticulosis. 3. History of bypass surgery. 4. Parkinson's disease. 5. History of orthostatic hypotension and general debility. PLAN: At this time, was discharged home. His kidney function improved with IV fluids from 1.3-1.1 and seen by Physical Therapy. BURTON AKBAR MD DR: NEGRITA/jay JOB#: [id number] / [id number] JEREMIAS
== END 2016-10-29 12:06 | disposition home health service (06) | DRG 394 ==
LOC: ER 18:20 → 1 WEST ICU 20:21 → 6 SOUTH 10-28 15:39
PROVIDERS: ADMIT Internal Medicine; ATTEND Internal Medicine
DX: K64.8 Other hemorrhoids (principal); N17.9 Acute kidney failure, unspecified; E87.2 Acidosis; D69.6 Thrombocytopenia, unspecified; G20 Parkinson's disease; I10 Essential (primary) hypertension; E11.9 Type 2 diabetes mellitus without complications; D64.9 Anemia, unspecified; I25.10 Atherosclerotic heart disease of native coronary artery without angina pectoris; E78.5 Hyperlipidemia, unspecified; N28.9 Disorder of kidney and ureter, unspecified; K21.9 Gastro-esophageal reflux disease without esophagitis; G89.29 Other chronic pain; F43.10 Post-traumatic stress disorder, unspecified; F02.80 Dementia in other diseases classified elsewhere, unspecified severity, without behavioral disturbance, psychotic disturbance, mood disturbance, and anxiety; R00.1 Bradycardia, unspecified; Z96.642 Presence of left artificial hip joint; Z95.1 Presence of aortocoronary bypass graft; Z90.49 Acquired absence of other specified parts of digestive tract; Z79.899 Other long term (current) drug therapy; Z79.82 Long term (current) use of aspirin; Z83.3 Family history of diabetes mellitus; Z82.49 Family history of ischemic heart disease and other diseases of the circulatory system; Z89.021 Acquired absence of right finger(s); K57.90 Diverticulosis of intestine, part unspecified, without perforation or abscess without bleeding
CPT/HCPCS: 36415; 74022; 74176; 80048; 80053; 81001; 82274; 83605; 84484; 85025; 85610; 85730; 86850; 86900; 86901; 87641; 93005; 96365; J3490; J7030; J7040; S0028; 97116; 97530; 97535; 99285-25

== ENCOUNTER 2016-10-31 10:34 | Inpatient (IN) | payer BC ==
[~2016-10-31] VITALS: Ht 177.8 cm; Wt 113.4 kg
[2016-10-31 11:18] LABS: BASO % 0 % (0-3); EOS % 1 % (0-3); HEMATOCRIT 28.5 % (39.0-53.0); HEMOGLOBIN 9.9 g/dL (13.0-17.5); LYMPH # 0.6 x10^3/uL (1.0-4.8); LYMPH % 11 % (24-48); MEAN CORPUSCULAR HEMOGLOBIN 34 pg (25-35); MEAN CORPUSCULAR HGB CONC 35 g/dL (31-37); MEAN CORPUSCULAR VOLUME 97 fL (79-100); MONO % 9 % (0-9); NEUT % 79 % (31-73); PLATELET COUNT 121 x10^3/uL (140-400); RED BLOOD COUNT 2.95 x10^6/uL (4.30-5.70); RED CELL DISTRIBUTION WIDTH 13.2 % (11.5-14.5); WHITE BLOOD COUNT 5.7 x10^3/uL (4.0-11.0)
[2016-10-31 11:24] LABS: CALCIUM 8.9 mg/dL (8.5-10.1); CREATININE 1.6 mg/dL (0.7-1.3); GFR 41.4; POTASSIUM 4.6 mmol/L (3.5-5.1)
[2016-10-31 11:29] LABS: ALBUMIN 3.5 g/dL (3.4-5.0); ALBUMIN/GLOBULIN RATIO 1.1 (1.0-1.7); MAGNESIUM 1.8 mg/dL (1.8-2.4); TOTAL BILIRUBIN 0.4 mg/dL (0.2-1.0); TOTAL PROTEIN 6.7 g/dL (6.4-8.2)
[2016-10-31 11:39] LABS: NEG OBC FOB NEG; POS OBC FOB POS
[2016-10-31 11:43] LABS: INR 1.2 (0.8-1.1); PROTHROMBIN TIME PATIENT 14.8 SEC (11.7-14.0)
--- NOTE | 2016-10-31 11:48 | PHYS DOC ---
Past Medical History Past Medical History: Diabetes-Type II, Hypertension, AL, Other Additional Past Medical Histor: Parkinson's Past Surgical History: Cholecystectomy, Coronary Bypass Surgery, Hip Replacement, Tonsillectomy, Other Additional Past Surgical Histo: lumbar sx; L hip Alcohol Use: None Drug Use: None Adult General Chief Complaint Chief Complaint: RECTAL BLEED [facility] HPI Patient is a 86 year old male presenting to the emergency department for evaluation of rectal bleeding that was first noted last week and he was admitted Friday through Friday for a GI bleed. CT scan did not show any definitive etiology. Patient had relatively stable hemoglobin and was sent home. And is on no blood thinners and has had no new events but he has had blood clots from his rectum since yesterday and said he had a near syncopal episode today where she had to catch him before he hit the ground. Review of Systems Review of Systems Constitutional: Denies fever or chills [] Eyes: Denies change in visual acuity, redness, or eye pain [] HENT: Denies nasal congestion or sore throat [] Respiratory: Denies cough or shortness of breath [] Cardiovascular: No additional information not addressed in HPI [] GI: Denies abdominal pain, nausea, vomiting. + bloody stools : Denies dysuria or hematuria [] Musculoskeletal: Denies back pain or joint pain [] Integument: Denies rash or skin lesions [] Neurologic: Denies headache, focal weakness or sensory changes [] Current Medications Current Medications Current Medications Medications (Trade) Dose Ordered Sig/Romel Start Time Stop Time Status Last Admin Dose Admin Ondansetron HCl (Zofran) 4 mg PRN Q8HRS PRN 10/31/16 12:00 11/01/16 11:59 Allergies Allergies Allergies Coded Allergies Type Severity Reaction Last Updated Verified No Known Drug Allergies 10/17/14 No Physical Exam Physical Exam Constitutional: Well developed, well nourished, no acute distress, non-toxic appearance. [] HENT: Normocephalic, atraumatic, bilateral external ears normal, oropharynx moist, no oral exudates, nose normal. [] Eyes: PERRLA, EOMI, conjunctiva normal, no discharge. [] Neck: Normal range of motion, no tenderness, supple, no stridor. [] Cardiovascular:Heart rate regular rhythm, no murmur [] Lungs & Thorax: Bilateral breath sounds clear to auscultation [] Abdomen: Bowel sounds normal, soft, no tenderness, no masses, no pulsatile masses. Positive gross blood on Hemoccult exam. No tenderness or masses noted. Skin: Warm, dry, no erythema, no rash. [] Back: No tenderness, no CVA tenderness. [] Extremities: No tenderness, no cyanosis, no clubbing, ROM intact, no edema. [] Neurologic: Alert and oriented X 3 Current Patient Data Vital Signs Vital Signs Date Time Temp Pulse Resp B/P (MAP) Pulse Ox O2 Delivery O2 Flow Rate FiO2 10/31/16 11:30 54 16 167/72 (103) 97 10/31/16 10:54 97.3 Room Air 97.3 Lab Values Laboratory Tests Test 10/31/16 10:53 10/31/16 10:56 White Blood Count 5.7 x10^3/uL (4.0-11.0) Red Blood Count 2.95 x10^6/uL (4.30-5.70) L Hemoglobin 9.9 g/dL (13.0-17.5) L Hematocrit 28.5 % (39.0-53.0) L Mean Corpuscular Volume 97 fL (79-100) Mean Corpuscular Hemoglobin 34 pg (25-35) Mean Corpuscular Hemoglobin Concent 35 g/dL (31-37) Red Cell Distribution Width 13.2 % (11.5-14.5) Platelet Count 121 x10^3/uL (140-400) L Neutrophils (%) (Auto) 79 % (31-73) H Lymphocytes (%) (Auto) 11 % (24-48) L Monocytes (%) (Auto) 9 % (0-9) Eosinophils (%) (Auto) 1 % (0-3) Basophils (%) (Auto) 0 % (0-3) Neutrophils # (Auto) 4.4 x10^3uL (1.8-7.7) Lymphocytes # (Auto) 0.6 x10^3/uL (1.0-4.8) L Monocytes # (Auto) 0.5 x10^3/uL (0.0-1.1) Eosinophils # (Auto) 0.0 x10^3/uL (0.0-0.7) Basophils # (Auto) 0.0 x10^3/uL (0.0-0.2) Prothrombin Time 14.8 SEC (11.7-14.0) H Prothrombin Time INR 1.2 (0.8-1.1) H PTT 32 SEC (24-38) Sodium Level 140 mmol/L (136-145) Potassium Level 4.6 mmol/L (3.5-5.1) Chloride Level 104 mmol/L (98-107) Carbon Dioxide Level 24 mmol/L (21-32) Anion Gap 12 (6-14) Blood Urea Nitrogen 32 mg/dL (8-26) H Creatinine 1.6 mg/dL (0.7-1.3) H Estimated GFR (Cockcroft-Gault) 41.4 BUN/Creatinine Ratio 20 (6-20) Glucose Level 209 mg/dL (70-99) H Calcium Level 8.9 mg/dL (8.5-10.1) Magnesium Level 1.8 mg/dL (1.8-2.4) Total Bilirubin 0.4 mg/dL (0.2-1.0) Aspartate Amino Transferase (AST) 12 U/L (15-37) L Alanine Aminotransferase (ALT) 7 U/L (16-63) L Alkaline Phosphatase 106 U/L (46-116) Total Protein 6.7 g/dL (6.4-8.2) Albumin 3.5 g/dL (3.4-5.0) Albumin/Globulin Ratio 1.1 (1.0-1.7) Stool Occult Blood Positive (NEG) Laboratory Tests 10/31/16 10:53 Laboratory Tests 10/31/16 10:53 EKG EKG [] Radiology/Procedures Radiology/Procedures [] Course & Med Decision Making Course & Med Decision Making Patient's hemoglobin is trending slightly downwards. I will speak to Dr. Carballo. He recommended admission with bleeding scan with interventional radiology consultation. Patient admitted in stable condition. Dragon Disclaimer Dragon Disclaimer This electronic medical record was generated, in whole or in part, using a voice recognition dictation system. Departure Departure Impression: Primary Impression: GI bleed Additional Impression: Anemia Disposition: 09 ADMITTED INPATIENT Admitting Physician: Burton Carballo Condition: STABLE Referrals: BURTON CARBALLO MD (PCP) Problem Qualifiers Primary Impression: GI bleed GI bleed type/associated pathology: unspecified gastrointestinal hemorrhage type Qualified Codes: K92.2 - Gastrointestinal hemorrhage, unspecified DIANA LUJAN DO Oct 31, 2016 11:48
[2016-10-31] MEDS ORDERED: ONDANSETRON PF 4 MG/2 ML VIAL. IV PRN (12:00)
--- NOTE | 2016-10-31 14:54 | ACF ---
Admit Criteria Forms Admit Criteria Forms Admit Criteria Forms GASTROINTESTINAL BLEEDING, LOWER Clinical Indications for Admission to Inpatient Care ( grindstone/check or initial the applicablecondition/criteria): Admission is indicated for 1 or more of the following(1)(2)(3)(4)(5): (X)I. Active gross bleeding per rectum II. Failure to control bleeding after colonoscopy III. Unstable comorbid illness (eg, hepatic, pulmonary,or cardiac) IV. Coagulopathy(eg, advanced liver disease, irreversible anticoagulation) V. Suspected or known ischemic colitis(6) . Previous aortic graft placement or known aortic aneurysm (X)VII. Inpatient admission required rather than observation care (Also use Gastrointestinal Bleeding, Lower: Observation Care as appropriate) because of 1 or more of the following(7 )(8): a) Hemodynamic instability that is severe or persistent X)b) Anemia requiring inpatient admission as indicated by ALL of the followin) Presence of significant clinical finding indicated by 1 or more of the following: A. Tachycardia for age B. Orthostatic vital sign changes C. Cognitive impairment D. Heart failure E. Chest pain F. Exertional dyspnea X) G. Other findings suggesting inadequate perfusion (eg, peripheral or myocardial ischemia, end organ dysfunction) 2) Initial (eg, emergency department, observation care) treatment with transfusion or volume replacement is judged inappropriate (due to severity of the finding) or has been ineffective c) Severe pain requiring acute inpatient management d) Altered mental status that is severe or persistent e) Absent bowel sounds with complete ileus f) Signs of intestinal obstruction or peritonitis [A] g) High-risk low platelet count h) Severe electrolyte abnormalities requiring inpatient care i) Acute renal failure j) High fever or infection requiring inpatient admission as indicated by 1 or more of the following(10)11): 1) Appropriate outpatient or observation care antimicrobial treatment unavailable, not effective, or not feasible 2) Documented bacteremia 3) Temperature greater than 104.9 degrees F (40.5 degrees C) (oral) 4) Temperature greater than 103.1 degrees F (39.5 degrees C) (oral) or less than 96.8 degrees F (36 degrees C) (rectal) that does not respond to all emergency treatment measures k) Immediate inpatient surgery needed l) Parenteral nutrition regimen that must be implemented on inpatient basis m) Other condition, treatment or monitoring requiring inpatient admission Extended stay beyond goal length of stay may be needed for(3)(4)(24): a) Emergency surgery b) Coagulation abnormalities(26) c) Recurrent or persistent bleeding, continued vital sign instability(20)(25) (27)(28) d) Active comorbidities (eg, renal insufficiency, heart failure, pre- existing liver disease)(22) The original [employer] [facility] content created by [employer] has been revised. The portions of the content which have been revised are identified through the use of italic text or in bold, and [facility] has neither reviewed nor approved the modified material. All other unmodified content is copyright [employer] [facility]. Please see references footnoted in the original [employer] [facility] edition 2017 HANNAH FOURNIER Oct 31, 2016 14:54
--- NOTE | 2016-10-31 15:26 | RAD ---
Radionuclide GI bleeding scan, 10/31/2016: History: Bloody stool The study was performed utilizing 33 mCi of technetium 99m and a labeled red blood cell technique. Imaging of the abdomen and pelvis out to one hour showed no abnormal accumulation of activity in the GI tract to suggest active GI tract bleeding. Increased activity in the perineal region is presumably related to the penis. IMPRESSION: Negative radionuclide GI bleeding scan.
--- NOTE | 2016-10-31 15:27 | PDOC ---
Subjective: Subjective: See GI consult from 10/28/16: admitted 10/27 w/ rectal bleeding at home, no recurrence once admitted, Hgb from 11.3 to 10.5, CT w/ diverticulosis and arteriosclerotic disease, discharged 10/29. H/o reflux controlled w/ PPI. Takes ASA QD. Several previous EGDs and colonoscopies. Rectal bleeding recurred at home on 10/30 followed by a normal-colored stool. This morning had an "episode" (h/o orthostasis) and noted passage of red blood clots in his brief. Objective: Vital Signs: Vital Signs Date Time Temp Pulse Resp B/P (MAP) Pulse Ox O2 Delivery O2 Flow Rate FiO2 10/31/16 13:13 56 20 194/79 (117) 98 Room Air 10/31/16 10:54 97.3 97.3 Labs: Laboratory Tests Test 10/31/16 10:53 10/31/16 10:56 White Blood Count 5.7 x10^3/uL Red Blood Count 2.95 x10^6/uL Hemoglobin 9.9 g/dL Hematocrit 28.5 % Mean Corpuscular Volume 97 fL Mean Corpuscular Hemoglobin 34 pg Mean Corpuscular Hemoglobin Concent 35 g/dL Red Cell Distribution Width 13.2 % Platelet Count 121 x10^3/uL Neutrophils (%) (Auto) 79 % Lymphocytes (%) (Auto) 11 % Monocytes (%) (Auto) 9 % Eosinophils (%) (Auto) 1 % Basophils (%) (Auto) 0 % Neutrophils # (Auto) 4.4 x10^3uL Lymphocytes # (Auto) 0.6 x10^3/uL Monocytes # (Auto) 0.5 x10^3/uL Eosinophils # (Auto) 0.0 x10^3/uL Basophils # (Auto) 0.0 x10^3/uL Prothrombin Time 14.8 SEC Prothromb Time International Ratio 1.2 Activated Partial Thromboplast Time 32 SEC Sodium Level 140 mmol/L Potassium Level 4.6 mmol/L Chloride Level 104 mmol/L Carbon Dioxide Level 24 mmol/L Anion Gap 12 Blood Urea Nitrogen 32 mg/dL Creatinine 1.6 mg/dL Estimated GFR (Cockcroft-Gault) 41.4 BUN/Creatinine Ratio 20 Glucose Level 209 mg/dL Calcium Level 8.9 mg/dL Magnesium Level 1.8 mg/dL Total Bilirubin 0.4 mg/dL Aspartate Amino Transf (AST/SGOT) 12 U/L Alanine Aminotransferase (ALT/SGPT) 7 U/L Alkaline Phosphatase 106 U/L Total Protein 6.7 g/dL Albumin 3.5 g/dL Albumin/Globulin Ratio 1.1 Stool Occult Blood Positive Imaging: Reviewed. GI Bleed Scan 10/31/16 Negative. PE: GEN: LUNGS: HEART: bradycardic ABD: NEURO/PSYCH: A/P: Recurrent rectal bleeding w/ normocytic anemia -one episode 10/27, recurred 10/30- -has had several previous EGDs and colonoscopies -diverticulosis and arteriosclerotic disease on CT earlier this week -h/o CAD on ASA, GERD on PPI -this week: Hgb from 11.3 to 10.5 to 9.9 -bleeding scan neg -- EGD and colonoscopy following tomorrow a.m. following prep. NPO at midnight. D/w 8 family members in room and RN. DUNCAN SLAUGHTER Oct 31, 2016 15:27
[2016-10-31 15:44] VITALS: BP 187/74
[2016-10-31] MEDS ORDERED: PEG 3350/NA SULF,BICARB,CL/KCL 4,000 ML SOLUTION. PO ONE (16:15)
[2016-10-31] MEDS: IV NORMAL SALINE 1000ML BAG 1,000 ML IV SCH (16:21)
[2016-10-31 17:36] VITALS: BP 187/74
[2016-10-31 19:00] VITALS: BP 178/65
[2016-10-31 23:00] VITALS: BP 172/77
[2016-11-01] VITALS (11 sets, daily range): BP systolic 88–192; BP diastolic 45–81
[2016-11-01] MEDS: IV NORMAL SALINE 1000ML BAG 1,000 ML IV SCH ×3 (00:15→21:26)
[2016-11-01 06:17] LABS: BASO % 0 % (0-3); EOS % 1 % (0-3); HEMATOCRIT 25.1 % (39.0-53.0); HEMOGLOBIN 8.9 g/dL (13.0-17.5); LYMPH # 0.9 x10^3/uL (1.0-4.8); LYMPH % 24 % (24-48); MEAN CORPUSCULAR HEMOGLOBIN 34 pg (25-35); MEAN CORPUSCULAR HGB CONC 35 g/dL (31-37); MEAN CORPUSCULAR VOLUME 96 fL (79-100); MONO % 12 % (0-9); NEUT % 62 % (31-73); PLATELET COUNT 107 x10^3/uL (140-400); RED BLOOD COUNT 2.62 x10^6/uL (4.30-5.70); RED CELL DISTRIBUTION WIDTH 13.3 % (11.5-14.5); WHITE BLOOD COUNT 3.7 x10^3/uL (4.0-11.0)
[2016-11-01 06:36] LABS: CALCIUM 8.4 mg/dL (8.5-10.1); CREATININE 1.1 mg/dL (0.7-1.3); GFR 63.8; POTASSIUM 3.7 mmol/L (3.5-5.1)
[2016-11-01] MEDS ORDERED: IV RINGERS,LACTATED 1000ML 1,000 ML IV ONE (09:00)
[2016-11-01] MEDS ORDERED: PROPOFOL 20 ML IV ONE (09:30)
[2016-11-01] MEDS ORDERED: LIDOCAINE 2% PF Vial for OR 5 ML VIAL. ONE (09:30)
--- NOTE | 2016-11-01 10:04 | PDOC4 ---
Operative Note Operative Note Colonoscopy with cold polypectomy/EGD Meds propofol per anesthesia Pre-op dx acute blood loss anemia/hematochezia Post-op dx erosive gastritis internal hemorrhoids diverticulosis of sigmoid and descending colon- most likely source of bleed transverse colon polyp S/P polypectomy Plan resume diet if rebleeding occurs, left sided colectomy would be recommended ENID AMADO MD Nov 01, 2016 10:04
--- NOTE | 2016-11-01 10:16 | PDOC ---
Provider Note Provider Note H&P dictated. #[id number] BURTON AKBAR MD Nov 01, 2016 10:16
[2016-11-01] MEDS: PANTOPRAZOLE 40 MG TABLET.DR. PO SCH (11:16)
[2016-11-01] MEDS: MEMANTINE 10 MG TABLET. PO SCH ×2 (11:16→21:22)
[2016-11-01] MEDS: HYDROcodone/APAP 5/325MG 1 TAB TABLET PO PRN ×2 (11:22→21:23)
--- NOTE | 2016-11-01 11:27 | HP ---
ADMIT DATE: 10/31/2016 PATIENT LOCATION: [facility]. REASON FOR ADMISSION TO THE HOSPITAL: Recurrent lower gastrointestinal bleed. HISTORY OF PRESENT ILLNESS: The patient is an 86-year-old male patient known to me, was admitted last week for lower GI bleed. At that time, he was admitted to the hospital and his bleeding stopped and he was feeling better and because of his comorbid conditions, family did not want further investigation done at this point, the patient was discharged last Friday. The patient had another episode of bleeding yesterday, lot of amount of blood in the stool. The patient was brought to the hospital again, had a GI bleeding scan negative for acute bleeding, seen by GI, scheduled for EGD and colonoscopy today. PAST MEDICAL HISTORY: He had history of coronary artery disease, bypass surgery, Parkinson disease, dementia, hypertension, mild renal insufficiency. PAST SURGICAL HISTORY: Had a gallbladder surgery, heart bypass surgery, hip replacement, tonsillectomy and vertebroplasty of the lumbar spine. ALLERGIES: THE PATIENT IS SENSITIVE TO LOT OF BLOOD PRESSURE MEDICATIONS INCLUDING BETA BLOCKERS, CLEM INHIBITORS AND CAUSING HYPOTENSION AND KIDNEY FAILURE PERSONAL HISTORY: No history of smoking, alcohol or drug abuse. MEDICATIONS AT HOME: Sinemet 25/100 two tablets 3 times daily, hydrocodone q. 6 for pain, Namenda 10 mg twice a day, Protonix 40 mg daily, aspirin was on hold since last week. REVIEW OF SYMPTOMS: CARDIAC: No chest pain. LUNGS: No cough or sputum. GASTROINTESTINAL: Bright red blood per rectum. Rest of the 14-system was reviewed and negative. PHYSICAL EXAMINATION: VITAL SIGNS: Temperature 97, pulse 58, respirations 16, blood pressure 90/83, 98% on room air. HEENT: Head is atraumatic. Pupils equal. Oral cavity: Dentures. NECK: Supple. Thyroid not enlarged. Scar of heart surgery. CARDIOVASCULAR: S1, S2. LUNGS: Clear to auscultation. ABDOMEN: Soft, slight tender in the lower abdomen. Otherwise benign. EXTERNAL GENITALIA: No Valles. RECTAL: Deferred. EXTREMITIES: No calf tenderness. No edema. NEUROLOGIC: The patient has Parkinson's features with some tremors of the hands. LABORATORY DATA: Shows a white count of 5, hemoglobin 10, platelets 121. This morning, hemoglobin dropped down to 9, INR is 1.2, BUN 32, creatinine 1.6, with hydration came down to 23 and 1.1 today. GI nuclear bleeding scan was negative for acute bleed. FINAL IMPRESSION: 1. Lower gastrointestinal bleed secondary to possible diverticular bleed. 2. Coronary artery disease, bypass surgery. 3. Parkinson disease. 4. Hypertension. 5. Dementia. PLAN: At this time, was admitted to the hospital, seen by GI, scheduled for EGD and colonoscopy today, which revealed internal hemorrhoids as well as diverticular bleed and see how the patient's condition improves. Monitor hemoglobin and holding aspirin and avail Lovenox, use SCDs for DVT prophylaxis. BURTON AKBAR MD DR: NEGRITA/jay JOB#: [id number] / [id number] JEREMIAS
[2016-11-01] MEDS: CARBIDOPA/LEVODOPA 25/100MG TABLET PO SCH ×2 (14:28→21:22)
[2016-11-02] VITALS (23 sets, daily range): BP systolic 71–171; BP diastolic 33–82
[2016-11-02 04:56] LABS: BASO % 0 % (0-3); EOS % 0 % (0-3); LYMPH # 0.5 x10^3/uL (1.0-4.8); LYMPH % 9 % (24-48); MEAN CORPUSCULAR HEMOGLOBIN 34 pg (25-35); MEAN CORPUSCULAR HGB CONC 34 g/dL (31-37); MEAN CORPUSCULAR VOLUME 100 fL (79-100); MONO % 5 % (0-9); NEUT % 86 % (31-73); PLATELET COUNT 102 x10^3/uL (140-400); RED BLOOD COUNT 1.74 x10^6/uL (4.30-5.70); RED CELL DISTRIBUTION WIDTH 13.5 % (11.5-14.5); WHITE BLOOD COUNT 5.1 x10^3/uL (4.0-11.0)
[2016-11-02 05:01] LABS: HEMATOCRIT 17.3 % (39.0-53.0); HEMOGLOBIN 5.8 g/dL (13.0-17.5)
[2016-11-02 05:14] LABS: CALCIUM 7.4 mg/dL (8.5-10.1); CREATININE 1.3 mg/dL (0.7-1.3); GFR 52.6; POTASSIUM 4.1 mmol/L (3.5-5.1)
[2016-11-02] MEDS: PANTOPRAZOLE 40 MG TABLET.DR. PO SCH (07:00)
[2016-11-02] MEDS: IV NORMAL SALINE 1000ML BAG 1,000 ML IV SCH ×4 (08:00→23:10)
[2016-11-02] MEDS: MEMANTINE 10 MG TABLET. PO SCH ×2 (09:00→13:33)
[2016-11-02] MEDS: CARBIDOPA/LEVODOPA 25/100MG TABLET PO SCH ×2 (09:00→13:33)
--- NOTE | 2016-11-02 09:21 | PDOC2 ---
CONSULT Date of Consult Date of Consult DATE: 11/02/16 TIME: 09:13 Reason for Consult Reason for Consult: Rectal bleeding Referring Physician Referring Physician: Haris Identification/Chief Complaint Chief Complaint Bloody stools Problems: Source Source: Caregiver, Patient History of Present Illness Reason for Visit: 86 yo male who had bloody stools a week ago and was admitted to the hospital at that time the bleeding stopped. Was admitted yesterday to have EGD and colonoscopy. EGD showed gastritis and Colonoscopy showed diverticulosis but no bleeding or blood. Bleeding scan on 10/31 did not show any active bleeding. Hgb is 5 today and he has received 1 unit of PRBC so far. Past Medical History Cardiovascular: CAD, HTN Pulmonary: No pertinent hx CENTRAL NERVOUS SYSTEM: Other GI: GERD Heme/Onc: No pertinent hx Hepatobiliary: No pertinent hx Psych: Other Musculoskeletal: Osteoarthritis, Other Rheumatologic: No pertinent hx Infectious disease: No pertinent hx Renal/: Chronic renal insuff Endocrine: Diabetes Past Surgical History Past Surgical History: Cholecystectomy, CABG, Total hip replacement, Tonsillectomy, Other Family History Family History: Coronary Artery Disease, Diabetes, Hypertension Social History ALCOHOL: none Drugs: None Lives: with Family Current Problem List Problem List Problems Medical Problems: (1) Anemia Status: Acute (2) GI bleed Status: Acute Current Medications Current Medications Current Medications Ondansetron HCl (Zofran) 4 mg PRN Q8HRS PRN IV NAUSEA/VOMITING; Start 10/31/16 at 12:00; Stop 11/01/16 at 11:59; Status DC Sodium Chloride 1,000 ml @ 125 mls/hr Q8H IV Last administered on 11/01/16 21 :26; Start 10/31/16 at 14:15 Sodium Cl/Sod Bicarb/Potass Cl/ PEG (Golytely) 4,000 ml 1X ONCE PO Last administered on 10/31/16 16:56; Start 10/31/16 at 16:15; Stop 10/31/16 at 16:16 ; Status DC Ringer's Solution 1,000 ml @ 75 mls/hr 1X ONCE IV Last administered on 08:54; Start 11/01/16 at 09:00; Stop 11/01/16 at 22:19; Status DC Propofol 20 ml @ As Directed STK-MED ONCE IV ; Start 11/01/16 at 09:30; Stop at 09:31; Status DC Lidocaine HCl (Lidocaine Pf 2% Vial) 5 ml STK-MED ONCE .ROUTE ; Start 11/01/16 at 09:30; Stop 11/01/16 at 09:31; Status DC Carbidopa/Levodopa (Sinemet 25/100) 2 tab TID PO Last administered on 21:22; Start 11/01/16 at 14:00 Acetaminophen/ Hydrocodone Bitart (Lortab 5/325) 1 tab PRN Q6HRS PRN PO PAIN Last administered on 11/01/16 21:23; Start 11/01/16 at 10:15 Memantine (Namenda) 10 mg BID PO Last administered on 11/01/16 21:22; Start at 11:00 Pantoprazole Sodium (Protonix) 40 mg DAILY07 PO Last administered on 11/01/16 11:16; Start 11/01/16 at 10:30 Active Scripts Active Lortab 5-325 mg Tablet (Hydrocodone/Acetaminophen) 1 Each Tablet 1 Tab PO PRN Q6HRS PRN [Aspirin] 81 MG Tablet.dr 81 Mg PO DAILY 30 Days Reported Sinemet 25-100 Mg Tablet (Carbidopa/Levodopa) 1 Each Tablet 2 Tab PO TID Namenda (Memantine Hcl) 10 Mg Tablet 1 Tab PO BID Pantoprazole Sodium 40 Mg Tablet.dr 1 Tab PO DAILY Allergies Allergies: Coded Allergies: No Known Drug Allergies (Unverified , 11/01/16) ROS Gastrointestinal: Yes Melena Physical Exam General: Alert, Oriented X3, Cooperative, No acute distress HEENT: PERRLA, EOMI Lungs: Clear to auscultation, Normal air movement Heart: Regular rate, No murmurs Abdomen: Normal bowel sounds, Soft, No tenderness Extremities: No edema Skin: No significant lesion Neuro: Normal speech Vitals VITALS Vital Signs Date Time Temp Pulse Resp B/P (MAP) Pulse Ox O2 Delivery O2 Flow Rate FiO2 11/02/16 07:00 97.9 67 16 111/43 (65) 100 Room Air 97.9 Labs Labs Laboratory Tests Test 10/31/16 10:53 10/31/16 10:56 11/01/16 04:40 11/02/16 04:05 White Blood Count 5.7 x10^3/uL (4.0-11.0) 3.7 x10^3/uL (4.0-11.0) 5.1 x10^3/uL (4.0-11.0) Red Blood Count 2.95 x10^6/uL (4.30-5.70) 2.62 x10^6/uL (4.30-5.70) 1.74 x10^6/uL (4.30-5.70) Hemoglobin 9.9 g/dL (13.0-17.5) 8.9 g/dL (13.0-17.5) 5.8 g/dL (13.0-17.5) Hematocrit 28.5 % (39.0-53.0) 25.1 % (39.0-53.0) 17.3 % (39.0-53.0) Mean Corpuscular Volume 97 fL (79-100) 96 fL (79-100) 100 fL (79-100) Mean Corpuscular Hemoglobin 34 pg (25-35) 34 pg (25-35) 34 pg (25-35) Mean Corpuscular Hemoglobin Concent 35 g/dL (31-37) 35 g/dL (31-37) 34 g/dL (31-37) Red Cell Distribution Width 13.2 % (11.5-14.5) 13.3 % (11.5-14.5) 13.5 % (11.5-14.5) Platelet Count 121 x10^3/uL (140-400) 107 x10^3/uL (140-400) 102 x10^3/uL (140-400) Neutrophils (%) (Auto) 79 % (31-73) 62 % (31-73) 86 % (31-73) Lymphocytes (%) (Auto) 11 % (24-48) 24 % (24-48) 9 % (24-48) Monocytes (%) (Auto) 9 % (0-9) 12 % (0-9) 5 % (0-9) Eosinophils (%) (Auto) 1 % (0-3) 1 % (0-3) 0 % (0-3) Basophils (%) (Auto) 0 % (0-3) 0 % (0-3) 0 % (0-3) Neutrophils # (Auto) 4.4 x10^3uL (1.8-7.7) 2.3 x10^3uL (1.8-7.7) 4.3 x10^3uL (1.8-7.7) Lymphocytes # (Auto) 0.6 x10^3/uL (1.0-4.8) 0.9 x10^3/uL (1.0-4.8) 0.5 x10^3/uL (1.0-4.8) Monocytes # (Auto) 0.5 x10^3/uL (0.0-1.1) 0.5 x10^3/uL (0.0-1.1) 0.2 x10^3/uL (0.0-1.1) Eosinophils # (Auto) 0.0 x10^3/uL (0.0-0.7) 0.1 x10^3/uL (0.0-0.7) 0.0 x10^3/uL (0.0-0.7) Basophils # (Auto) 0.0 x10^3/uL (0.0-0.2) 0.0 x10^3/uL (0.0-0.2) 0.0 x10^3/uL (0.0-0.2) Prothrombin Time 14.8 SEC (11.7-14.0) Prothromb Time International Ratio 1.2 (0.8-1.1) Activated Partial Thromboplast Time 32 SEC (24-38) Sodium Level 140 mmol/L (136-145) 143 mmol/L (136-145) 145 mmol/L (136-145) Potassium Level 4.6 mmol/L (3.5-5.1) 3.7 mmol/L (3.5-5.1) 4.1 mmol/L (3.5-5.1) Chloride Level 104 mmol/L (98-107) 107 mmol/L (98-107) 111 mmol/L (98-107) Carbon Dioxide Level 24 mmol/L (21-32) 24 mmol/L (21-32) 24 mmol/L (21-32) Anion Gap 12 (6-14) 12 (6-14) 10 (6-14) Blood Urea Nitrogen 32 mg/dL (8-26) 23 mg/dL (8-26) 27 mg/dL (8-26) Creatinine 1.6 mg/dL (0.7-1.3) 1.1 mg/dL (0.7-1.3) 1.3 mg/dL (0.7-1.3) Estimated GFR (Cockcroft-Gault) 41.4 63.8 52.6 BUN/Creatinine Ratio 20 (6-20) Glucose Level 209 mg/dL (70-99) 115 mg/dL (70-99) 237 mg/dL (70-99) Calcium Level 8.9 mg/dL (8.5-10.1) 8.4 mg/dL (8.5-10.1) 7.4 mg/dL (8.5-10.1) Magnesium Level 1.8 mg/dL (1.8-2.4) Total Bilirubin 0.4 mg/dL (0.2-1.0) Aspartate Amino Transf (AST/SGOT) 12 U/L (15-37) Alanine Aminotransferase (ALT/SGPT) 7 U/L (16-63) Alkaline Phosphatase 106 U/L (46-116) Total Protein 6.7 g/dL (6.4-8.2) Albumin 3.5 g/dL (3.4-5.0) Albumin/Globulin Ratio 1.1 (1.0-1.7) Stool Occult Blood Positive (NEG) Laboratory Tests Test 11/02/16 04:05 White Blood Count 5.1 x10^3/uL (4.0-11.0) Red Blood Count 1.74 x10^6/uL (4.30-5.70) Hemoglobin 5.8 g/dL (13.0-17.5) Hematocrit 17.3 % (39.0-53.0) Mean Corpuscular Volume 100 fL (79-100) Mean Corpuscular Hemoglobin 34 pg (25-35) Mean Corpuscular Hemoglobin Concent 34 g/dL (31-37) Red Cell Distribution Width 13.5 % (11.5-14.5) Platelet Count 102 x10^3/uL (140-400) Neutrophils (%) (Auto) 86 % (31-73) Lymphocytes (%) (Auto) 9 % (24-48) Monocytes (%) (Auto) 5 % (0-9) Eosinophils (%) (Auto) 0 % (0-3) Basophils (%) (Auto) 0 % (0-3) Neutrophils # (Auto) 4.3 x10^3uL (1.8-7.7) Lymphocytes # (Auto) 0.5 x10^3/uL (1.0-4.8) Monocytes # (Auto) 0.2 x10^3/uL (0.0-1.1) Eosinophils # (Auto) 0.0 x10^3/uL (0.0-0.7) Basophils # (Auto) 0.0 x10^3/uL (0.0-0.2) Sodium Level 145 mmol/L (136-145) Potassium Level 4.1 mmol/L (3.5-5.1) Chloride Level 111 mmol/L (98-107) Carbon Dioxide Level 24 mmol/L (21-32) Anion Gap 10 (6-14) Blood Urea Nitrogen 27 mg/dL (8-26) Creatinine 1.3 mg/dL (0.7-1.3) Estimated GFR (Cockcroft-Gault) 52.6 Glucose Level 237 mg/dL (70-99) Calcium Level 7.4 mg/dL (8.5-10.1) Assessment/Plan Assessment/Plan GI bleed with acute blood lose anemia Transfuse PRBC Obtain bleeding scan for further evaluation for bleeding site May need surgical intervention for GI bleed and at this point would favor left colon, high surgical risk for complications. Discussed with family. JOSE DEAN MD Nov 02, 2016 09:21
[2016-11-02 10:17] LABS: PLT ESTIMATE DECREASED (ADEQUATE)
--- NOTE | 2016-11-02 11:24 | PDOC ---
PROGRESS NOTES Subjective Subjective moved to ICU this am ,last night active gi bleed lower, hb low at 6.0 Objective Objective Vital Signs Date Time Temp Pulse Resp B/P (MAP) Pulse Ox O2 Delivery O2 Flow Rate FiO2 11/02/16 10:00 97.7 72 18 126/53 (77) 100 Nasal Cannula 2.0 97.7 Intake and Output 11/02/16 07:00 Intake Total 2440 ml Output Total 200 ml Balance 2240 ml Intake Oral 1440 ml IV Total 1000 ml Output Urine Total 200 ml # Voids 5 # Bowel Movements 4 Physical Exam Abdomen: Normal bowel sounds, Soft, No tenderness Heart: Regular rate, No murmurs Extremities: No edema General: Cooperative, Other (confused) HEENT: PERRLA, EOMI Lungs: Clear to auscultation, Normal air movement MUSCULOSKELETAL: No joint tenderness Neuro: Normal speech Skin: No breakdown, No significant lesion Diagnosis Problem List Problems Medical Problems: (1) Anemia Status: Acute (2) GI bleed Status: Acute Assessment Assessment Problems Medical Problems: (1) Anemia Status: Acute (2) GI bleed Status: Acute FINAL IMPRESSION: recurrent lower gi bleed-diverticular bleed 1. Lower gastrointestinal bleed secondary to possible diverticular bleed. 2. Coronary artery disease, bypass surgery. 3. Parkinson disease. 4. Hypertension. 5. Dementia. PLAN: colonoscopy yesterday showed diverticular bled transferred to ICU for active lower gi bleed Hb droped down to 6.0. hypotensive surgical consult appreciated high risk for surgery. Hg check q 8 hours transfuse to keep above 8.0 At this time, was admitted to the hospital, seen by GI, scheduled for EGD and colonoscopy today, which revealed internal hemorrhoids as well as diverticular bleed and see how the patient's condition improves. Monitor hemoglobin and holding aspirin and avail Lovenox, use SCDs for DVT prophylaxis. Problems: Plan Plan of Care Problems Medical Problems: (1) Anemia Status: Acute (2) GI bleed Status: Acute Comment Review of Relevant I have reviewed the following items kiana (where applicable) has been applied. Labs Laboratory Tests Test 11/02/16 04:05 White Blood Count 5.1 x10^3/uL (4.0-11.0) Red Blood Count 1.74 x10^6/uL (4.30-5.70) Hemoglobin 5.8 g/dL (13.0-17.5) Hematocrit 17.3 % (39.0-53.0) Mean Corpuscular Volume 100 fL (79-100) Mean Corpuscular Hemoglobin 34 pg (25-35) Mean Corpuscular Hemoglobin Concent 34 g/dL (31-37) Red Cell Distribution Width 13.5 % (11.5-14.5) Platelet Count 102 x10^3/uL (140-400) Neutrophils (%) (Auto) 86 % (31-73) Lymphocytes (%) (Auto) 9 % (24-48) Monocytes (%) (Auto) 5 % (0-9) Eosinophils (%) (Auto) 0 % (0-3) Basophils (%) (Auto) 0 % (0-3) Neutrophils # (Auto) 4.3 x10^3uL (1.8-7.7) Lymphocytes # (Auto) 0.5 x10^3/uL (1.0-4.8) Monocytes # (Auto) 0.2 x10^3/uL (0.0-1.1) Eosinophils # (Auto) 0.0 x10^3/uL (0.0-0.7) Basophils # (Auto) 0.0 x10^3/uL (0.0-0.2) Segmented Neutrophils % 94 % (35-66) Lymphocytes % 3 % (24-48) Monocytes % 3 % (0-10) Platelet Estimate Decreased (ADEQUATE) Sodium Level 145 mmol/L (136-145) Potassium Level 4.1 mmol/L (3.5-5.1) Chloride Level 111 mmol/L (98-107) Carbon Dioxide Level 24 mmol/L (21-32) Anion Gap 10 (6-14) Blood Urea Nitrogen 27 mg/dL (8-26) Creatinine 1.3 mg/dL (0.7-1.3) Estimated GFR (Cockcroft-Gault) 52.6 Glucose Level 237 mg/dL (70-99) Calcium Level 7.4 mg/dL (8.5-10.1) Medications Current Medications Carbidopa/Levodopa (Sinemet 25/100) 2 tab TID PO Last administered on t 21:22; Start 11/01/16 at 14:00 Vitals/I & O Vital Sign - Last 24 Hours 11/01/16 11/01/16 11/01/16 11/01/16 11:30 12:00 12:30 15:00 Temp 97.8 97.8 Pulse 64 69 64 52 Resp 20 20 20 20 B/P (MAP) 192/80 (117) 178/76 (110) 148/51 (83) 135/55 (81) Pulse Ox 96 95 96 96 O2 Delivery Room Air Room Air Room Air Room Air 11/01/16 11/01/16 11/01/16 11/01/16 19:59 20:16 21:23 22:24 Temp 97.6 97.6 Pulse 59 Resp 18 18 18 B/P (MAP) 119/53 (75) Pulse Ox 92 92 92 O2 Delivery Room Air Room Air Room Air Room Air 11/01/16 11/02/16 11/02/16 11/02/16 23:59 03:42 06:49 07:00 Temp 98.1 98.4 97.9 97.9 98.1 98.4 97.9 97.9 Pulse 70 66 65 67 Resp 18 16 16 16 B/P (MAP) 88/45 (59) 82/33 (49) 95/37 111/43 (65) Pulse Ox 97 98 100 O2 Delivery Room Air Room Air Room Air 11/02/16 11/02/16 11/02/16 11/02/16 08:00 08:00 09:00 09:15 Temp 98.9 98.9 98.9 98.9 Pulse 67 69 64 Resp 13 16 16 B/P (MAP) 113/44 (67) 71/42 (52) 124/48 (73) Pulse Ox 100 100 100 O2 Delivery Nasal Cannula Nasal Cannula Nasal Cannula Nasal Cannula O2 Flow Rate 2.0 2.0 2.0 2.0 11/02/16 11/02/16 09:30 10:00 Temp 97.7 97.7 Pulse 66 72 Resp 18 B/P (MAP) 116/44 (68) 126/53 (77) Pulse Ox 100 100 O2 Delivery Nasal Cannula Nasal Cannula O2 Flow Rate 2.0 2.0 Intake and Output 11/01/16 11/01/16 11/02/16 15:00 23:00 07:00 Intake Total 300 ml 900 ml 1240 ml Output Total 200 ml Balance 100 ml 900 ml 1240 ml KODOSKAR,CAROLYNAYA K MD Nov 02, 2016 11:24
[2016-11-02 13:39] LABS: HEMATOCRIT 21.6 % (39.0-53.0); HEMOGLOBIN 7.3 g/dL (13.0-17.5); RED BLOOD COUNT 2.32 x10^6/uL (4.30-5.70); RED CELL DISTRIBUTION WIDTH 16.9 % (11.5-14.5); WHITE BLOOD COUNT 10.5 x10^3/uL (4.0-11.0)
[2016-11-02] MEDS ORDERED: ALBUMIN HUMAN 25% 100 ML IV ONE (16:30)
--- NOTE | 2016-11-02 16:51 | RAD ---
Indication: Blood in stool this morning. Technique: Nuclear medicine GI blood loss study was performed utilizing 30 mCi technetium 99m labeled RBC IV. Comparison is a CT from October 27, 2016. Findings: The exam is positive for bowel activity within a loop of bowel left far lateral, probably splenic flexure and descending colon. Activity progresses to the sigmoid colon. Impression: Exam is positive for GI bleed, likely in the splenic flexure. Critical result was called to the patient's nurse, Rhona, at 1632 hours.
--- NOTE | 2016-11-02 17:25 | PDOC ---
Subjective: Subjective: Bleeding scan positive. receiving blood Objective: Vital Signs: Vital Signs Date Time Temp Pulse Resp B/P (MAP) Pulse Ox O2 Delivery O2 Flow Rate FiO2 11/02/16 16:00 Nasal Cannula 2.0 11/02/16 16:00 70 19 104/57 (73) 100 11/02/16 15:00 98.6 98.6 Labs: Laboratory Tests Test 11/02/16 04:05 11/02/16 13:30 White Blood Count 5.1 x10^3/uL (4.0-11.0) 10.5 x10^3/uL (4.0-11.0) Red Blood Count 1.74 x10^6/uL (4.30-5.70) 2.32 x10^6/uL (4.30-5.70) Hemoglobin 5.8 g/dL (13.0-17.5) 7.3 g/dL (13.0-17.5) Hematocrit 17.3 % (39.0-53.0) 21.6 % (39.0-53.0) Mean Corpuscular Volume 100 fL (79-100) 93 fL (79-100) Mean Corpuscular Hemoglobin 34 pg (25-35) 31 pg (25-35) Mean Corpuscular Hemoglobin Concent 34 g/dL (31-37) 34 g/dL (31-37) Red Cell Distribution Width 13.5 % (11.5-14.5) 16.9 % (11.5-14.5) Platelet Count 102 x10^3/uL (140-400) 102 x10^3/uL (140-400) Neutrophils (%) (Auto) 86 % (31-73) Lymphocytes (%) (Auto) 9 % (24-48) Monocytes (%) (Auto) 5 % (0-9) Eosinophils (%) (Auto) 0 % (0-3) Basophils (%) (Auto) 0 % (0-3) Neutrophils # (Auto) 4.3 x10^3uL (1.8-7.7) Lymphocytes # (Auto) 0.5 x10^3/uL (1.0-4.8) Monocytes # (Auto) 0.2 x10^3/uL (0.0-1.1) Eosinophils # (Auto) 0.0 x10^3/uL (0.0-0.7) Basophils # (Auto) 0.0 x10^3/uL (0.0-0.2) Segmented Neutrophils % 94 % (35-66) Lymphocytes % 3 % (24-48) Monocytes % 3 % (0-10) Platelet Estimate Decreased (ADEQUATE) Sodium Level 145 mmol/L (136-145) Potassium Level 4.1 mmol/L (3.5-5.1) Chloride Level 111 mmol/L (98-107) Carbon Dioxide Level 24 mmol/L (21-32) Anion Gap 10 (6-14) Blood Urea Nitrogen 27 mg/dL (8-26) Creatinine 1.3 mg/dL (0.7-1.3) Estimated GFR (Cockcroft-Gault) 52.6 Glucose Level 237 mg/dL (70-99) Calcium Level 7.4 mg/dL (8.5-10.1) Physical Exam: Physical Exam: PE: GEN: LUNGS: HEART: bradycardic ABD: NEURO/PSYCH: Assessment & Plan: Assessment : A/P: Recurrent rectal bleeding w/ normocytic anemia -one episode 10/27, recurred 10/30- -has had several previous EGDs and colonoscopies -diverticulosis and arteriosclerotic disease on CT earlier this week -h/o CAD on ASA, GERD on PPI EGD and colonoscopy unrevealing bleed scan positive today: Exam is positive for GI bleed, likely in the splenic flexure. Plan: D/w dr May. Consult IR Problems: MARCY DEUTSCH MD Nov 02, 2016 17:25
[2016-11-02] MEDS ORDERED: FUROSEMIDE 20 MG/2 ML VIAL. IVP ONE (18:00)
--- NOTE | 2016-11-02 18:29 | PDOC ---
SURGICAL PROGRESS NOTE Subjective Resting comfortably. Vital Signs Vital Signs Date Time Temp Pulse Resp B/P (MAP) Pulse Ox O2 Delivery O2 Flow Rate FiO2 11/02/16 18:00 67 16 154/78 (103) 100 Nasal Cannula 2.0 11/02/16 15:00 98.6 98.6 I&O Intake and Output 11/02/16 07:00 Intake Total 2440 ml Output Total 200 ml Balance 2240 ml Intake Oral 1440 ml IV Total 1000 ml Output Urine Total 200 ml # Voids 5 # Bowel Movements 4 PATIENT HAS A RECIO: Yes General: No acute distress Abdomen: Normal bowel sounds, Soft, No tenderness Labs Laboratory Tests Test 11/01/16 04:40 11/02/16 04:05 11/02/16 13:30 White Blood Count 3.7 x10^3/uL (4.0-11.0) 5.1 x10^3/uL (4.0-11.0) 10.5 x10^3/uL (4.0-11.0) Red Blood Count 2.62 x10^6/uL (4.30-5.70) 1.74 x10^6/uL (4.30-5.70) 2.32 x10^6/uL (4.30-5.70) Hemoglobin 8.9 g/dL (13.0-17.5) 5.8 g/dL (13.0-17.5) 7.3 g/dL (13.0-17.5) Hematocrit 25.1 % (39.0-53.0) 17.3 % (39.0-53.0) 21.6 % (39.0-53.0) Mean Corpuscular Volume 96 fL (79-100) 100 fL (79-100) 93 fL (79-100) Mean Corpuscular Hemoglobin 34 pg (25-35) 34 pg (25-35) 31 pg (25-35) Mean Corpuscular Hemoglobin Concent 35 g/dL (31-37) 34 g/dL (31-37) 34 g/dL (31-37) Red Cell Distribution Width 13.3 % (11.5-14.5) 13.5 % (11.5-14.5) 16.9 % (11.5-14.5) Platelet Count 107 x10^3/uL (140-400) 102 x10^3/uL (140-400) 102 x10^3/uL (140-400) Neutrophils (%) (Auto) 62 % (31-73) 86 % (31-73) Lymphocytes (%) (Auto) 24 % (24-48) 9 % (24-48) Monocytes (%) (Auto) 12 % (0-9) 5 % (0-9) Eosinophils (%) (Auto) 1 % (0-3) 0 % (0-3) Basophils (%) (Auto) 0 % (0-3) 0 % (0-3) Neutrophils # (Auto) 2.3 x10^3uL (1.8-7.7) 4.3 x10^3uL (1.8-7.7) Lymphocytes # (Auto) 0.9 x10^3/uL (1.0-4.8) 0.5 x10^3/uL (1.0-4.8) Monocytes # (Auto) 0.5 x10^3/uL (0.0-1.1) 0.2 x10^3/uL (0.0-1.1) Eosinophils # (Auto) 0.1 x10^3/uL (0.0-0.7) 0.0 x10^3/uL (0.0-0.7) Basophils # (Auto) 0.0 x10^3/uL (0.0-0.2) 0.0 x10^3/uL (0.0-0.2) Sodium Level 143 mmol/L (136-145) 145 mmol/L (136-145) Potassium Level 3.7 mmol/L (3.5-5.1) 4.1 mmol/L (3.5-5.1) Chloride Level 107 mmol/L (98-107) 111 mmol/L (98-107) Carbon Dioxide Level 24 mmol/L (21-32) 24 mmol/L (21-32) Anion Gap 12 (6-14) 10 (6-14) Blood Urea Nitrogen 23 mg/dL (8-26) 27 mg/dL (8-26) Creatinine 1.1 mg/dL (0.7-1.3) 1.3 mg/dL (0.7-1.3) Estimated GFR (Cockcroft-Gault) 63.8 52.6 Glucose Level 115 mg/dL (70-99) 237 mg/dL (70-99) Calcium Level 8.4 mg/dL (8.5-10.1) 7.4 mg/dL (8.5-10.1) Segmented Neutrophils % 94 % (35-66) Lymphocytes % 3 % (24-48) Monocytes % 3 % (0-10) Platelet Estimate Decreased (ADEQUATE) Laboratory Tests Test 11/02/16 04:05 11/02/16 13:30 White Blood Count 5.1 x10^3/uL (4.0-11.0) 10.5 x10^3/uL (4.0-11.0) Red Blood Count 1.74 x10^6/uL (4.30-5.70) 2.32 x10^6/uL (4.30-5.70) Hemoglobin 5.8 g/dL (13.0-17.5) 7.3 g/dL (13.0-17.5) Hematocrit 17.3 % (39.0-53.0) 21.6 % (39.0-53.0) Mean Corpuscular Volume 100 fL (79-100) 93 fL (79-100) Mean Corpuscular Hemoglobin 34 pg (25-35) 31 pg (25-35) Mean Corpuscular Hemoglobin Concent 34 g/dL (31-37) 34 g/dL (31-37) Red Cell Distribution Width 13.5 % (11.5-14.5) 16.9 % (11.5-14.5) Platelet Count 102 x10^3/uL (140-400) 102 x10^3/uL (140-400) Neutrophils (%) (Auto) 86 % (31-73) Lymphocytes (%) (Auto) 9 % (24-48) Monocytes (%) (Auto) 5 % (0-9) Eosinophils (%) (Auto) 0 % (0-3) Basophils (%) (Auto) 0 % (0-3) Neutrophils # (Auto) 4.3 x10^3uL (1.8-7.7) Lymphocytes # (Auto) 0.5 x10^3/uL (1.0-4.8) Monocytes # (Auto) 0.2 x10^3/uL (0.0-1.1) Eosinophils # (Auto) 0.0 x10^3/uL (0.0-0.7) Basophils # (Auto) 0.0 x10^3/uL (0.0-0.2) Segmented Neutrophils % 94 % (35-66) Lymphocytes % 3 % (24-48) Monocytes % 3 % (0-10) Platelet Estimate Decreased (ADEQUATE) Sodium Level 145 mmol/L (136-145) Potassium Level 4.1 mmol/L (3.5-5.1) Chloride Level 111 mmol/L (98-107) Carbon Dioxide Level 24 mmol/L (21-32) Anion Gap 10 (6-14) Blood Urea Nitrogen 27 mg/dL (8-26) Creatinine 1.3 mg/dL (0.7-1.3) Estimated GFR (Cockcroft-Gault) 52.6 Glucose Level 237 mg/dL (70-99) Calcium Level 7.4 mg/dL (8.5-10.1) Problem List Problems Medical Problems: (1) Anemia Status: Acute (2) GI bleed Status: Acute Assessment/Plan Bleeding scan positive for splenic flexure bleed. Hgb 7.2 after 3 units of PRBC' s Discussed the case with Dr Evelyn CRAWLEY who agreed to try arteriogram and selective embolization If unsuccessful may need surgical intervention. Problems: JOSE DEAN MD Nov 02, 2016 18:29
[2016-11-02] MEDS ORDERED: LIDOCAINE 1% / SOD BICARB 8.4% 20 ML VIAL. IJ ONE ×2 (18:42→19:45)
[2016-11-02] MEDS ORDERED: IOHEXOL 300 MG/ML 100ML VIAL. ONE ×2 (18:42→19:52)
[2016-11-02] MEDS ORDERED: HEPARIN for ARTERIAL LINE 1,500 ML ONE (18:43)
[2016-11-02] MEDS ORDERED: MIDAZOLAM HCL/PF 2 MG/2 ML VIAL. ONE (19:56)
[2016-11-02] MEDS ORDERED: fentaNYL PF VIAL 100 MCG/2 ML VIAL ONE (19:57)
[2016-11-02] MEDS ORDERED: CONTRAST GIVEN MC PRN (20:00)
[2016-11-02] MEDS ORDERED: IOHEXOL 300 MG/ML 100ML VIAL. IART ONE (20:00)
[2016-11-02] MEDS ORDERED: MIDAZOLAM HCL/PF 2 MG/2 ML VIAL. IV ONE (20:15)
[2016-11-02] MEDS ORDERED: fentaNYL PF VIAL 100 MCG/2 ML VIAL IV ONE (20:15)
[2016-11-02] MEDS ORDERED: GELATIN SPONGE SIZE 12-7MM SPONGE. ONE (20:23)
[2016-11-02] MEDS ORDERED: NITROGLYCERIN 200 MCG/2 ML SYRINGE FOR CATH/VASC LAB. IART ONE (20:30)
--- NOTE | 2016-11-02 21:42 | RAD ---
Procedure: Mesenteric arteriogram and embolization of the middle colic artery x3 Clinical Indication: 86-year-old with active lower intestinal gastrointestinal bleeding following recent distal transverse colon polyp biopsy Sedation: Conscious sedation was administered for 69 minutes. The patient was monitored by a qualified independent observer throughout the time of sedation. Please refer to the medical record for exact doses of medications utilized to achieve moderate sedation. Antibiotics: Antibiotic was administered intravenously within 1 hour of the procedure start time. Exposure: Kerma-Area Product: 445 Gycm2 Contrast: 121 cc of Visipaque 320 contrast media Sterility: All elements of maximal sterile barrier technique including the use of a cap, mask, sterile gown, sterile gloves, large sterile sheet, appropriate hand hygiene, and 2% chlorhexidine for cutaneous antisepsis (or acceptable alternative antiseptic per current guidelines) were followed for this procedure. Consent: The procedure was explained in its entirety to the patient or the patients designated commercial pest control representative by a member of the treatment team, including a discussion of the risks, benefits and commonly accepted alternatives to the procedure, as well as the expected consequences of no therapy whatsoever. Discussion of the risks included, but was not limited to, those that are most frequent and those that are rare but possibly severe or life-threatening, as well as the possibility of unforeseen complications. Technique and Findings: Following informed consent, the patient was prepped and draped in usual sterile fashion. Ultrasound interrogation of the right groin revealed patency of the right common femoral artery. A Hardcopy ultrasound image was recorded. A 21-gauge micropuncture needle was used to gain access to this vessel. The needle was exchanged over wire for 5 Nepali sheath. A Sos Omni catheter was then advanced into the abdominal aorta and used to engage the left gastric artery whose direct origin comes from the aorta. Contrast angiography was performed demonstrating no arterial vascular abnormality. The catheter was then used to engage the superior mesenteric artery and contrast angiography was performed using the power injector. There is no active arterial extravasation, vascular malformation, aneurysm, or pseudoaneurysm identified. There are a cluster of abnormal vascular stains in the region of the splenic flexure, without active arterial extravasation. Appropriate microcatheter was then used in conjunction with microwire to select the middle colic artery and selective angiography was performed. This further delineates the aforementioned cluster of 5-6 regions of mucosal vascular staining without active extravasation clustered splenic flexure. The microcatheter was then advanced into a terminal branch of the middle colic artery, constituting a third order division of the superior mesenteric artery, and select of angiography nicely demonstrated persistent vascular staining from this location. Gelfoam embolization to stasis followed by coil embolization of this small branch was performed. The catheter was then advanced into a second artery and contrast angiography revealed additional parenchymal stains, and this branch was also embolized with Gelfoam and a small coil. The catheter was then advanced into a third small artery, revealing similar findings, with similar treatment. Post embolization angiogram of the middle colic artery demonstrated excellent angiographic appearance of the treated vessels, with no persistent abnormal parenchymal staining or vascular abnormality. There is small branch which appears to perfuse the distal transverse colon, which does have a couple of small areas of similar-appearing parenchymal stains, however catheter access into this branch could not be achieved. The microcatheter was removed. Multiple attempt to engage the inferior mesenteric artery were all unsuccessful as well, likely due to extensive atherosclerotic disease throughout the aorta. The ELADIA may be occluded. The catheter was then removed, and contrast angiography of the right groin was performed to assess for suitability of a closure device. The sheath was exchanged for a minx closure device which was successfully utilized to obtain hemostasis. Complications: No immediate Impression: 1. Multiple areas of abnormal parenchymal staining clustered in the region of the splenic flexure, without active arterial extravasation, vascular malformation, aneurysm, or pseudoaneurysm. These findings are likely inflammatory changes associated with the patient's recent biopsy. Inflammatory neoplasm or other acute inflammatory disease could have a similar appearance. 3 of 4 contributing small arteries were embolized which abdomen coils, resulting in markedly improved angiographic appearance.
[2016-11-02 23:43] LABS: CALCIUM 6.8 mg/dL (8.5-10.1); CREATININE 1.8 mg/dL (0.7-1.3); GFR 36.1; POTASSIUM 3.7 mmol/L (3.5-5.1)
[2016-11-03] VITALS (26 sets, daily range): BP systolic 119–162; BP diastolic 35–81
[2016-11-03 05:48] LABS: CALCIUM 7.3 mg/dL (8.5-10.1); CREATININE 1.5 mg/dL (0.7-1.3); GFR 44.6; POTASSIUM 3.6 mmol/L (3.5-5.1)
[2016-11-03 05:53] LABS: BASO % 0 % (0-3); EOS % 0 % (0-3); HEMATOCRIT 21.1 % (39.0-53.0); HEMOGLOBIN 7.4 g/dL (13.0-17.5); LYMPH # 0.8 x10^3/uL (1.0-4.8); LYMPH % 8 % (24-48); MEAN CORPUSCULAR HEMOGLOBIN 30 pg (25-35); MEAN CORPUSCULAR HGB CONC 35 g/dL (31-37); MEAN CORPUSCULAR VOLUME 86 fL (79-100); MONO % 12 % (0-9); NEUT % 79 % (31-73); PLATELET COUNT 82 x10^3/uL (140-400); RED BLOOD COUNT 2.45 x10^6/uL (4.30-5.70); RED CELL DISTRIBUTION WIDTH 18.5 % (11.5-14.5); WHITE BLOOD COUNT 8.9 x10^3/uL (4.0-11.0)
[2016-11-03] MEDS: PANTOPRAZOLE 40 MG TABLET.DR. PO SCH (07:00)
[2016-11-03] MEDS: CARBIDOPA/LEVODOPA 25/100MG TABLET PO SCH ×3 (09:00→21:00)
[2016-11-03] MEDS: MEMANTINE 10 MG TABLET. PO SCH ×2 (09:00→21:00)
--- NOTE | 2016-11-03 11:13 | PDOC ---
SURGICAL PROGRESS NOTE Subjective Feeling better today, only one small bm since IR procedure. Vital Signs Vital Signs Date Time Temp Pulse Resp B/P (MAP) Pulse Ox O2 Delivery O2 Flow Rate FiO2 11/03/16 11:00 70 17 141/52 (81) 98 Room Air 11/03/16 08:00 98.0 98.0 11/03/16 01:00 2.0 I&O Intake and Output 11/03/16 07:00 Intake Total 4853 ml Output Total 1055 ml Balance 3798 ml IV Total 1530 ml Blood Product 938 ml Blood Product IV Normal Saline Flush 150 ml Other 2235 ml Output Urine Total 1055 ml # Bowel Movements 4 PATIENT HAS A RECIO: Yes General: Alert, Oriented X3, Cooperative, mild distress Abdomen: Normal bowel sounds, Soft, No tenderness Labs Laboratory Tests Test 11/02/16 04:05 11/02/16 06:52 11/02/16 13:30 11/02/16 23:00 White Blood Count 5.1 x10^3/uL (4.0-11.0) 10.5 x10^3/uL (4.0-11.0) Red Blood Count 1.74 x10^6/uL (4.30-5.70) 2.32 x10^6/uL (4.30-5.70) Hemoglobin 5.8 g/dL (13.0-17.5) 7.3 g/dL (13.0-17.5) 7.7 g/dL (13.0-17.5) Hematocrit 17.3 % (39.0-53.0) 21.6 % (39.0-53.0) Mean Corpuscular Volume 100 fL (79-100) 93 fL (79-100) Mean Corpuscular Hemoglobin 34 pg (25-35) 31 pg (25-35) Mean Corpuscular Hemoglobin Concent 34 g/dL (31-37) 34 g/dL (31-37) Red Cell Distribution Width 13.5 % (11.5-14.5) 16.9 % (11.5-14.5) Platelet Count 102 x10^3/uL (140-400) 102 x10^3/uL (140-400) Neutrophils (%) (Auto) 86 % (31-73) Lymphocytes (%) (Auto) 9 % (24-48) Monocytes (%) (Auto) 5 % (0-9) Eosinophils (%) (Auto) 0 % (0-3) Basophils (%) (Auto) 0 % (0-3) Neutrophils # (Auto) 4.3 x10^3uL (1.8-7.7) Lymphocytes # (Auto) 0.5 x10^3/uL (1.0-4.8) Monocytes # (Auto) 0.2 x10^3/uL (0.0-1.1) Eosinophils # (Auto) 0.0 x10^3/uL (0.0-0.7) Basophils # (Auto) 0.0 x10^3/uL (0.0-0.2) Segmented Neutrophils % 94 % (35-66) Lymphocytes % 3 % (24-48) Monocytes % 3 % (0-10) Platelet Estimate Decreased (ADEQUATE) Sodium Level 145 mmol/L (136-145) 146 mmol/L (136-145) Potassium Level 4.1 mmol/L (3.5-5.1) 3.7 mmol/L (3.5-5.1) Chloride Level 111 mmol/L (98-107) 113 mmol/L (98-107) Carbon Dioxide Level 24 mmol/L (21-32) 22 mmol/L (21-32) Anion Gap 10 (6-14) 11 (6-14) Blood Urea Nitrogen 27 mg/dL (8-26) 36 mg/dL (8-26) Creatinine 1.3 mg/dL (0.7-1.3) 1.8 mg/dL (0.7-1.3) Estimated GFR (Cockcroft-Gault) 52.6 36.1 Glucose Level 237 mg/dL (70-99) 177 mg/dL (70-99) Calcium Level 7.4 mg/dL (8.5-10.1) 6.8 mg/dL (8.5-10.1) Nasal Screen MRSA (PCR) Negative (Negative) Test 11/03/16 04:00 White Blood Count 8.9 x10^3/uL (4.0-11.0) Red Blood Count 2.45 x10^6/uL (4.30-5.70) Hemoglobin 7.4 g/dL (13.0-17.5) Hematocrit 21.1 % (39.0-53.0) Mean Corpuscular Volume 86 fL (79-100) Mean Corpuscular Hemoglobin 30 pg (25-35) Mean Corpuscular Hemoglobin Concent 35 g/dL (31-37) Red Cell Distribution Width 18.5 % (11.5-14.5) Platelet Count 82 x10^3/uL (140-400) Neutrophils (%) (Auto) 79 % (31-73) Lymphocytes (%) (Auto) 8 % (24-48) Monocytes (%) (Auto) 12 % (0-9) Eosinophils (%) (Auto) 0 % (0-3) Basophils (%) (Auto) 0 % (0-3) Neutrophils # (Auto) 7.0 x10^3uL (1.8-7.7) Lymphocytes # (Auto) 0.8 x10^3/uL (1.0-4.8) Monocytes # (Auto) 1.1 x10^3/uL (0.0-1.1) Eosinophils # (Auto) 0.0 x10^3/uL (0.0-0.7) Basophils # (Auto) 0.0 x10^3/uL (0.0-0.2) Sodium Level 148 mmol/L (136-145) Potassium Level 3.6 mmol/L (3.5-5.1) Chloride Level 115 mmol/L (98-107) Carbon Dioxide Level 21 mmol/L (21-32) Anion Gap 12 (6-14) Blood Urea Nitrogen 35 mg/dL (8-26) Creatinine 1.5 mg/dL (0.7-1.3) Estimated GFR (Cockcroft-Gault) 44.6 Glucose Level 157 mg/dL (70-99) Calcium Level 7.3 mg/dL (8.5-10.1) Laboratory Tests Test 11/02/16 13:30 11/02/16 23:00 11/03/16 04:00 White Blood Count 10.5 x10^3/uL (4.0-11.0) 8.9 x10^3/uL (4.0-11.0) Red Blood Count 2.32 x10^6/uL (4.30-5.70) 2.45 x10^6/uL (4.30-5.70) Hemoglobin 7.3 g/dL (13.0-17.5) 7.7 g/dL (13.0-17.5) 7.4 g/dL (13.0-17.5) Hematocrit 21.6 % (39.0-53.0) 21.1 % (39.0-53.0) Mean Corpuscular Volume 93 fL (79-100) 86 fL (79-100) Mean Corpuscular Hemoglobin 31 pg (25-35) 30 pg (25-35) Mean Corpuscular Hemoglobin Concent 34 g/dL (31-37) 35 g/dL (31-37) Red Cell Distribution Width 16.9 % (11.5-14.5) 18.5 % (11.5-14.5) Platelet Count 102 x10^3/uL (140-400) 82 x10^3/uL (140-400) Sodium Level 146 mmol/L (136-145) 148 mmol/L (136-145) Potassium Level 3.7 mmol/L (3.5-5.1) 3.6 mmol/L (3.5-5.1) Chloride Level 113 mmol/L (98-107) 115 mmol/L (98-107) Carbon Dioxide Level 22 mmol/L (21-32) 21 mmol/L (21-32) Anion Gap 11 (6-14) 12 (6-14) Blood Urea Nitrogen 36 mg/dL (8-26) 35 mg/dL (8-26) Creatinine 1.8 mg/dL (0.7-1.3) 1.5 mg/dL (0.7-1.3) Estimated GFR (Cockcroft-Gault) 36.1 44.6 Glucose Level 177 mg/dL (70-99) 157 mg/dL (70-99) Calcium Level 6.8 mg/dL (8.5-10.1) 7.3 mg/dL (8.5-10.1) Neutrophils (%) (Auto) 79 % (31-73) Lymphocytes (%) (Auto) 8 % (24-48) Monocytes (%) (Auto) 12 % (0-9) Eosinophils (%) (Auto) 0 % (0-3) Basophils (%) (Auto) 0 % (0-3) Neutrophils # (Auto) 7.0 x10^3uL (1.8-7.7) Lymphocytes # (Auto) 0.8 x10^3/uL (1.0-4.8) Monocytes # (Auto) 1.1 x10^3/uL (0.0-1.1) Eosinophils # (Auto) 0.0 x10^3/uL (0.0-0.7) Basophils # (Auto) 0.0 x10^3/uL (0.0-0.2) Problem List Problems Medical Problems: (1) Anemia Status: Acute (2) GI bleed Status: Acute Assessment/Plan Lower GI Bleed splenic flexure s/p IR embolization Hgb stable No surgical indications currently will follow. Problems: JOSE DEAN MD Nov 03, 2016 11:13
--- NOTE | 2016-11-03 13:40 | PDOC ---
PROGRESS NOTES Subjective Subjective agitated and confused at times Objective Objective Vital Signs Date Time Temp Pulse Resp B/P (MAP) Pulse Ox O2 Delivery O2 Flow Rate FiO2 11/03/16 12:00 Room Air 11/03/16 12:00 98.2 79 18 154/56 (88) 99 98.2 11/03/16 01:00 2.0 Intake and Output 11/03/16 07:00 Intake Total 4853 ml Output Total 1055 ml Balance 3798 ml IV Total 1530 ml Blood Product 938 ml Blood Product IV Normal Saline Flush 150 ml Other 2235 ml Output Urine Total 1055 ml # Bowel Movements 4 Physical Exam Abdomen: Normal bowel sounds, Soft, No tenderness Heart: Regular rate, No murmurs Extremities: No edema General: Oriented X3, mild distress HEENT: PERRLA, EOMI Lungs: Clear to auscultation, Normal air movement MUSCULOSKELETAL: No joint tenderness Neuro: Normal speech Skin: No breakdown, No significant lesion Diagnosis Problem List Problems Medical Problems: (1) Anemia Status: Acute (2) GI bleed Status: Acute Assessment Assessment Problems Medical Problems: (1) Anemia Status: Acute (2) GI bleed Status: Acute FINAL IMPRESSION: recurrent lower gi bleed-diverticular bleed. colon polyp removed 1. Lower gastrointestinal bleed secondary to possible diverticular bleed. 2. Coronary artery disease, bypass surgery. 3. Parkinson disease. 4. Hypertension. 5. Dementia. PLAN: Procedure: Mesenteric arteriogram and embolization of the middle colic artery x3 done 11/02/18. total of 4 units of PRBC given, hb 7.3 today. no more active GI bleed. spoke with family encephalopathy due to underlying parkinsons with demnetia colonoscopy 11/01 showed diverticular bled , colon polyp was removed transferred to ICU for active lower gi bleed Hb droped down to 6.0. hypotensive surgical consult appreciated high risk for surgery. Hg check q 8 hours transfuse to keep above 7.0 Problems: Plan Plan of Care Problems Medical Problems: (1) Anemia Status: Acute (2) GI bleed Status: Acute Comment Review of Relevant I have reviewed the following items kiana (where applicable) has been applied. Labs Laboratory Tests Test 11/02/16 23:00 11/03/16 04:00 Hemoglobin 7.7 g/dL (13.0-17.5) 7.4 g/dL (13.0-17.5) Sodium Level 146 mmol/L (136-145) 148 mmol/L (136-145) Potassium Level 3.7 mmol/L (3.5-5.1) 3.6 mmol/L (3.5-5.1) Chloride Level 113 mmol/L (98-107) 115 mmol/L (98-107) Carbon Dioxide Level 22 mmol/L (21-32) 21 mmol/L (21-32) Anion Gap 11 (6-14) 12 (6-14) Blood Urea Nitrogen 36 mg/dL (8-26) 35 mg/dL (8-26) Creatinine 1.8 mg/dL (0.7-1.3) 1.5 mg/dL (0.7-1.3) Estimated GFR (Cockcroft-Gault) 36.1 44.6 Glucose Level 177 mg/dL (70-99) 157 mg/dL (70-99) Calcium Level 6.8 mg/dL (8.5-10.1) 7.3 mg/dL (8.5-10.1) White Blood Count 8.9 x10^3/uL (4.0-11.0) Red Blood Count 2.45 x10^6/uL (4.30-5.70) Hematocrit 21.1 % (39.0-53.0) Mean Corpuscular Volume 86 fL (79-100) Mean Corpuscular Hemoglobin 30 pg (25-35) Mean Corpuscular Hemoglobin Concent 35 g/dL (31-37) Red Cell Distribution Width 18.5 % (11.5-14.5) Platelet Count 82 x10^3/uL (140-400) Neutrophils (%) (Auto) 79 % (31-73) Lymphocytes (%) (Auto) 8 % (24-48) Monocytes (%) (Auto) 12 % (0-9) Eosinophils (%) (Auto) 0 % (0-3) Basophils (%) (Auto) 0 % (0-3) Neutrophils # (Auto) 7.0 x10^3uL (1.8-7.7) Lymphocytes # (Auto) 0.8 x10^3/uL (1.0-4.8) Monocytes # (Auto) 1.1 x10^3/uL (0.0-1.1) Eosinophils # (Auto) 0.0 x10^3/uL (0.0-0.7) Basophils # (Auto) 0.0 x10^3/uL (0.0-0.2) Medications Current Medications Albumin Human 100 ml @ 100 mls/hr 1X ONCE IV Last administered on 11/02/16 15:46; Start 11/02/16 at 16:30; Stop 11/02/16 at 17:29; Status DC Cefazolin Sodium 50 ml @ 100 mls/hr 1X ONCE IV Last administered on 19:30; Start 11/02/16 at 19:45; Stop 11/02/16 at 20:14; Status DC Cefazolin Sodium 50 ml @ As Directed STK-MED ONCE IV ; Start 11/02/16 at 19:35; Stop 11/02/16 at 19:36; Status DC Fentanyl Citrate (Fentanyl 2ml Vial) 100 mcg 1X ONCE IV Last administered on 21:00; Start 11/02/16 at 20:15; Stop 11/02/16 at 20:16; Status DC Fentanyl Citrate (Fentanyl 2ml Vial) 100 mcg STK-MED ONCE .ROUTE ; Start at 19:57; Stop 11/02/16 at 19:58; Status DC Furosemide (Lasix) 20 mg 1X ONCE IVP Last administered on 11/02/16 17:50; Start 11/02/16 at 18:00; Stop 11/02/16 at 18:01; Status DC Gelatin (Gelfoam Size 12-7mm) 1 each STK-MED ONCE .ROUTE ; Start 11/02/16 at 20 :23; Stop 11/02/16 at 20:24; Status DC Heparin Sodium/ Sodium Chloride 1,000 unit 1X ONCE IART Last administered on 20:59; Start 11/02/16 at 19:45; Stop 11/02/16 at 19:46; Status DC Heparin Sodium/ Sodium Chloride 1,500 ml @ As Directed STK-MED ONCE .ROUTE ; Start 11/02/16 at 18:43; Stop 11/02/16 at 18:44; Status DC Info (Do NOT chart on this entry -- for MONITORING) 1 each PRN DAILY PRN MC SEE COMMENTS; Start 11/02/16 at 20:00; Stop 11/04/16 at 19:59 Iohexol (Omnipaque 300 Mg/ml) 100 ml 1X ONCE IART Last administered on 21:00; Start 11/02/16 at 20:00; Stop 11/02/16 at 20:01; Status DC Iohexol (Omnipaque 300 Mg/ml) 100 ml STK-MED ONCE .ROUTE ; Start 11/02/16 at 18: 42; Stop 11/02/16 at 18:43; Status DC Iohexol (Omnipaque 300 Mg/ml) 100 ml STK-MED ONCE .ROUTE ; Start 11/02/16 at 19: 52; Stop 11/02/16 at 19:53; Status DC Lidocaine/Sodium Bicarbonate (Buffered Lidocaine 1%) 20 ml 1X ONCE IJ Last administered on 11/02/16 20:59; Start 11/02/16 at 19:45; Stop 11/02/16 at 19:46 ; Status DC Lidocaine/Sodium Bicarbonate (Buffered Lidocaine 1%) 20 ml STK-MED ONCE IJ ; Start 11/02/16 at 18:42; Stop 11/02/16 at 18:43; Status DC Midazolam HCl (Versed) 2 mg 1X ONCE IV Last administered on 11/02/16 21:01; Start 11/02/16 at 20:15; Stop 11/02/16 at 20:16; Status DC Midazolam HCl (Versed) 2 mg STK-MED ONCE .ROUTE ; Start 11/02/16 at 19:56; Stop 11/02/16 at 19:57; Status DC Nitroglycerin (Nitroglycerin) 200 mcg 1X ONCE IART Last administered on 20:30; Start 11/02/16 at 20:30; Stop 11/02/16 at 20:33; Status DC Vitals/I & O Vital Sign - Last 24 Hours 11/02/16 11/02/16 11/02/16 11/02/16 14:00 15:00 16:00 16:00 Temp 98.6 98.6 Pulse 70 70 70 Resp 16 13 19 B/P (MAP) 96/41 (59) 115/47 (69) 104/57 (73) Pulse Ox 100 99 100 O2 Delivery Nasal Cannula Nasal Cannula Nasal Cannula Nasal Cannula O2 Flow Rate 2.0 2.0 2.0 2.0 11/02/16 11/02/16 11/02/16 11/02/16 17:00 18:00 19:00 20:00 Temp 98.9 98.9 Pulse 65 67 75 Resp 18 16 20 B/P (MAP) 133/47 (75) 154/78 (103) 162/65 Pulse Ox 100 100 O2 Delivery Nasal Cannula Nasal Cannula Nasal Cannula O2 Flow Rate 2.0 2.0 2.0 11/02/16 11/02/16 11/02/16 11/02/16 20:57 21:00 21:10 21:25 Temp 97.6 97.6 Pulse 73 71 69 Resp 20 19 13 B/P (MAP) 166/64 (98) 143/55 (84) Pulse Ox 99 99 100 100 O2 Delivery Nasal Cannula Nasal Cannula Nasal Cannula Nasal Cannula O2 Flow Rate 2.0 2.0 2.0 2.0 11/02/16 11/02/16 11/02/16 11/02/16 21:30 21:40 21:55 23:00 Pulse 68 68 73 Resp 16 17 12 20 B/P (MAP) 144/51 (82) 150/56 (87) 132/60 (84) Pulse Ox 100 100 100 O2 Delivery Nasal Cannula Nasal Cannula Nasal Cannula Nasal Cannula O2 Flow Rate 2.0 2.0 2.0 2.0 11/02/16 11/03/16 11/03/16 11/03/16 23:42 00:00 01:00 02:00 Temp 97.9 97.9 Pulse 68 68 66 Resp 26 12 10 B/P (MAP) 156/65 (95) 162/66 (98) 148/70 (96) Pulse Ox 100 99 100 O2 Delivery Nasal Cannula Nasal Cannula Nasal Cannula Room Air O2 Flow Rate 2.0 2.0 2.0 11/03/16 11/03/16 11/03/16 11/03/16 03:00 04:00 04:00 05:00 Temp 98.4 98.4 Pulse 69 71 72 Resp 24 19 15 B/P (MAP) 157/72 (100) 148/67 (94) 149/56 (87) Pulse Ox 100 96 96 O2 Delivery Room Air Room Air Room Air Room Air 11/03/16 11/03/16 11/03/1620/17 06:00 07:00 08:00 08:00 Temp 98.0 98.0 Pulse 69 71 75 Resp 23 B/P (MAP) 145/57 (86) 146/66 (92) 149/50 (83) Pulse Ox 99 96 100 O2 Delivery Room Air Room Air Room Air Room Air 11/03/16 11/03/16 11/03/16 11/03/16 09:00 10:00 11:00 12:00 Temp 98.2 98.2 Pulse 72 71 70 79 Resp 18 B/P (MAP) 160/35 (76) 151/81 (104) 141/52 (81) 154/56 (88) Pulse Ox 99 99 98 99 O2 Delivery Room Air Room Air Room Air Room Air 11/03/16 12:00 O2 Delivery Room Air Intake and Output 11/02/16 11/02/16 11/03/16 15:00 23:00 07:00 Intake Total 150 ml 3173 ml 1530 ml Output Total 625 ml 430 ml Balance 150 ml 2548 ml 1100 ml BURTON AKBAR MD Nov 03, 2016 13:40
[2016-11-03] MEDS ORDERED: HALOPERIDOL LACTATE 5 MG/ML VIAL. IVP PRN (14:00)
--- NOTE | 2016-11-03 15:08 | PDOC ---
Subjective: Subjective: events noted Objective: Vital Signs: Vital Signs Date Time Temp Pulse Resp B/P (MAP) Pulse Ox O2 Delivery O2 Flow Rate FiO2 11/03/16 14:00 77 22 138/55 (82) 96 Room Air 11/03/16 12:00 98.2 98.2 11/03/16 01:00 2.0 Labs: Laboratory Tests Test 11/02/16 23:00 11/03/16 04:00 Hemoglobin 7.7 g/dL (13.0-17.5) 7.4 g/dL (13.0-17.5) Sodium Level 146 mmol/L (136-145) 148 mmol/L (136-145) Potassium Level 3.7 mmol/L (3.5-5.1) 3.6 mmol/L (3.5-5.1) Chloride Level 113 mmol/L (98-107) 115 mmol/L (98-107) Carbon Dioxide Level 22 mmol/L (21-32) 21 mmol/L (21-32) Anion Gap 11 (6-14) 12 (6-14) Blood Urea Nitrogen 36 mg/dL (8-26) 35 mg/dL (8-26) Creatinine 1.8 mg/dL (0.7-1.3) 1.5 mg/dL (0.7-1.3) Estimated GFR (Cockcroft-Gault) 36.1 44.6 Glucose Level 177 mg/dL (70-99) 157 mg/dL (70-99) Calcium Level 6.8 mg/dL (8.5-10.1) 7.3 mg/dL (8.5-10.1) White Blood Count 8.9 x10^3/uL (4.0-11.0) Red Blood Count 2.45 x10^6/uL (4.30-5.70) Hematocrit 21.1 % (39.0-53.0) Mean Corpuscular Volume 86 fL (79-100) Mean Corpuscular Hemoglobin 30 pg (25-35) Mean Corpuscular Hemoglobin Concent 35 g/dL (31-37) Red Cell Distribution Width 18.5 % (11.5-14.5) Platelet Count 82 x10^3/uL (140-400) Neutrophils (%) (Auto) 79 % (31-73) Lymphocytes (%) (Auto) 8 % (24-48) Monocytes (%) (Auto) 12 % (0-9) Eosinophils (%) (Auto) 0 % (0-3) Basophils (%) (Auto) 0 % (0-3) Neutrophils # (Auto) 7.0 x10^3uL (1.8-7.7) Lymphocytes # (Auto) 0.8 x10^3/uL (1.0-4.8) Monocytes # (Auto) 1.1 x10^3/uL (0.0-1.1) Eosinophils # (Auto) 0.0 x10^3/uL (0.0-0.7) Basophils # (Auto) 0.0 x10^3/uL (0.0-0.2) Physical Exam: Physical Exam: GEN: NAD HEENT: OP clear CV: S1S2 without murmurs, rubs, or gallops RESP: CTAB without wheezing, rhonchi, or crackles ABD: NABS, SNT/ND EXT: No edema NEURO: AAO x 3 Assessment & Plan: Assessment : A/P: Recurrent rectal bleeding w/ normocytic anemia -one episode 10/27, recurred 10/30- -has had several previous EGDs and colonoscopies -diverticulosis and arteriosclerotic disease on CT earlier this week -h/o CAD on ASA, GERD on PPI EGD and colonoscopy unrevealing bleed scan positive for GI bleed, likely in the splenic flexure. now s/p Procedure: Mesenteric arteriogram and embolization of the middle colic artery x3 done 11/02/18. total of 4 units of PRBC given, hb 7.3 today. no more active GI bleed. Plan: monitor Hgb Problems: MARCY DEUTSCH MD Nov 03, 2016 15:08
[2016-11-03] MEDS: IV 1/2 NORMAL SALINE 1,000 ML IV SCH (17:32)
[2016-11-03] MEDS ORDERED: FUROSEMIDE 20 MG/2 ML VIAL. IVP ONE (21:30)
[2016-11-04] VITALS (44 sets, daily range): BP systolic 79–210; BP diastolic 25–85
[2016-11-04] MEDS: IV 1/2 NORMAL SALINE 1,000 ML IV SCH ×3 (01:30→17:56)
--- NOTE | 2016-11-04 08:12 | PDOC ---
Subjective: Subjective: Feeling okay. Denies pain. Objective: Objective: Reviewed chart. D/w RNs - no bleeding yesterday; this morning had a stool mixed w/ dark red blood and then when moved blood "poured out." Vital Signs: Vital Signs Date Time Temp Pulse Resp B/P (MAP) Pulse Ox O2 Delivery O2 Flow Rate FiO2 11/04/16 06:00 61 15 134/55 (81) 98 Room Air 11/04/16 04:02 97.7 97.7 11/04/16 03:00 2.0 Labs: Laboratory Tests Test 11/03/16 19:50 11/03/16 21:55 Hemoglobin 6.5 g/dL 6.4 g/dL Today's labs pending. PE: GEN: NAD LUNGS: CTAB anteriorly HEART: RRR ABD: NABS, S/ND/NT NEURO/PSYCH: A & O 3 A/P: Recurrent rectal bleeding -s/p EGD and colonoscopy 11/01: erosive gastritis, transverse colon polyp s/p polypectomy, diverticulosis (sigmoid and descending), internal hemorrhoids -s/p IR intervention 11/02: multiple areas of abnormal parenchymal staining clustered in the region of the splenic flexure likely inflammatory changes associated with the patient's recent biopsy; 3 of 4 contributing small arteries were embolized which abdomen coils, resulting in markedly improved angiographic appearance -has transfused 6 units pRBC total -- Await this morning's labs although it appears bleeding has continued. ?repeat bleeding scan - will defer to surgery Continue transfusional support. DUNCAN SLAUGHTER Nov 04, 2016 08:12
[2016-11-04 08:18] LABS: BASO % 0 % (0-3); EOS % 0 % (0-3); HEMATOCRIT 24.8 % (39.0-53.0); HEMOGLOBIN 8.5 g/dL (13.0-17.5); LYMPH % 11 % (24-48); MEAN CORPUSCULAR HEMOGLOBIN 30 pg (25-35); MEAN CORPUSCULAR HGB CONC 34 g/dL (31-37); MEAN CORPUSCULAR VOLUME 88 fL (79-100); MONO % 11 % (0-9); NEUT % 78 % (31-73); PLATELET COUNT 75 x10^3/uL (140-400); RED BLOOD COUNT 2.82 x10^6/uL (4.30-5.70); RED CELL DISTRIBUTION WIDTH 17.6 % (11.5-14.5); WHITE BLOOD COUNT 9.3 x10^3/uL (4.0-11.0)
[2016-11-04 08:35] LABS: CALCIUM 7.6 mg/dL (8.5-10.1); CREATININE 1.6 mg/dL (0.7-1.3); GFR 41.4; POTASSIUM 3.3 mmol/L (3.5-5.1)
[2016-11-04] MEDS: MEMANTINE 10 MG TABLET. PO SCH ×2 (09:00→21:00)
[2016-11-04] MEDS ORDERED: FAMOTIDINE 20 MG/2 ML VIAL IVP SCH (09:00)
[2016-11-04] MEDS: CARBIDOPA/LEVODOPA 25/100MG TABLET PO SCH ×3 (09:00→21:00)
[2016-11-04 09:47] LABS: INR 1.6 (0.8-1.1); PROTHROMBIN TIME PATIENT 18.3 SEC (11.7-14.0)
[2016-11-04] MEDS: PANTOPRAZOLE IV PUSH 40 MG VIAL. IVP SCH (10:49)
--- NOTE | 2016-11-04 11:10 | PDOC ---
SURGICAL PROGRESS NOTE Subjective significant bleeding this AM received platelets Vital Signs Vital Signs Date Time Temp Pulse Resp B/P (MAP) Pulse Ox O2 Delivery O2 Flow Rate FiO2 11/04/16 06:00 61 15 134/55 (81) 98 Room Air 11/04/16 04:02 97.7 97.7 11/04/16 03:00 2.0 I&O Intake and Output 11/04/16 07:00 Intake Total 4607 ml Output Total 2020 ml Balance 2587 ml IV Total 2539 ml Blood Product IV Normal Saline Flush 2068 ml Output Urine Total 2020 ml General: No acute distress, Other (awake) Abdomen: Soft, No tenderness Labs Laboratory Tests Test 11/02/16 13:30 11/02/16 23:00 11/03/16 04:00 11/03/16 19:50 White Blood Count 10.5 x10^3/uL (4.0-11.0) 8.9 x10^3/uL (4.0-11.0) Red Blood Count 2.32 x10^6/uL (4.30-5.70) 2.45 x10^6/uL (4.30-5.70) Hemoglobin 7.3 g/dL (13.0-17.5) 7.7 g/dL (13.0-17.5) 7.4 g/dL (13.0-17.5) 6.5 g/dL (13.0-17.5) Hematocrit 21.6 % (39.0-53.0) 21.1 % (39.0-53.0) Mean Corpuscular Volume 93 fL (79-100) 86 fL (79-100) Mean Corpuscular Hemoglobin 31 pg (25-35) 30 pg (25-35) Mean Corpuscular Hemoglobin Concent 34 g/dL (31-37) 35 g/dL (31-37) Red Cell Distribution Width 16.9 % (11.5-14.5) 18.5 % (11.5-14.5) Platelet Count 102 x10^3/uL (140-400) 82 x10^3/uL (140-400) Sodium Level 146 mmol/L (136-145) 148 mmol/L (136-145) Potassium Level 3.7 mmol/L (3.5-5.1) 3.6 mmol/L (3.5-5.1) Chloride Level 113 mmol/L (98-107) 115 mmol/L (98-107) Carbon Dioxide Level 22 mmol/L (21-32) 21 mmol/L (21-32) Anion Gap 11 (6-14) 12 (6-14) Blood Urea Nitrogen 36 mg/dL (8-26) 35 mg/dL (8-26) Creatinine 1.8 mg/dL (0.7-1.3) 1.5 mg/dL (0.7-1.3) Estimated GFR (Cockcroft-Gault) 36.1 44.6 Glucose Level 177 mg/dL (70-99) 157 mg/dL (70-99) Calcium Level 6.8 mg/dL (8.5-10.1) 7.3 mg/dL (8.5-10.1) Neutrophils (%) (Auto) 79 % (31-73) Lymphocytes (%) (Auto) 8 % (24-48) Monocytes (%) (Auto) 12 % (0-9) Eosinophils (%) (Auto) 0 % (0-3) Basophils (%) (Auto) 0 % (0-3) Neutrophils # (Auto) 7.0 x10^3uL (1.8-7.7) Lymphocytes # (Auto) 0.8 x10^3/uL (1.0-4.8) Monocytes # (Auto) 1.1 x10^3/uL (0.0-1.1) Eosinophils # (Auto) 0.0 x10^3/uL (0.0-0.7) Basophils # (Auto) 0.0 x10^3/uL (0.0-0.2) Test 11/03/16 21:55 11/04/16 07:55 11/04/16 09:30 Hemoglobin 6.4 g/dL (13.0-17.5) 8.5 g/dL (13.0-17.5) White Blood Count 9.3 x10^3/uL (4.0-11.0) Red Blood Count 2.82 x10^6/uL (4.30-5.70) Hematocrit 24.8 % (39.0-53.0) Mean Corpuscular Volume 88 fL (79-100) Mean Corpuscular Hemoglobin 30 pg (25-35) Mean Corpuscular Hemoglobin Concent 34 g/dL (31-37) Red Cell Distribution Width 17.6 % (11.5-14.5) Platelet Count 75 x10^3/uL (140-400) Neutrophils (%) (Auto) 78 % (31-73) Lymphocytes (%) (Auto) 11 % (24-48) Monocytes (%) (Auto) 11 % (0-9) Eosinophils (%) (Auto) 0 % (0-3) Basophils (%) (Auto) 0 % (0-3) Neutrophils # (Auto) 7.2 x10^3uL (1.8-7.7) Lymphocytes # (Auto) 1.0 x10^3/uL (1.0-4.8) Monocytes # (Auto) 1.0 x10^3/uL (0.0-1.1) Eosinophils # (Auto) 0.0 x10^3/uL (0.0-0.7) Basophils # (Auto) 0.0 x10^3/uL (0.0-0.2) Sodium Level 147 mmol/L (136-145) Potassium Level 3.3 mmol/L (3.5-5.1) Chloride Level 113 mmol/L (98-107) Carbon Dioxide Level 23 mmol/L (21-32) Anion Gap 11 (6-14) Blood Urea Nitrogen 27 mg/dL (8-26) Creatinine 1.6 mg/dL (0.7-1.3) Estimated GFR (Cockcroft-Gault) 41.4 Glucose Level 133 mg/dL (70-99) Calcium Level 7.6 mg/dL (8.5-10.1) Prothrombin Time 18.3 SEC (11.7-14.0) Prothromb Time International Ratio 1.6 (0.8-1.1) Activated Partial Thromboplast Time 31 SEC (24-38) Laboratory Tests Test 11/03/16 19:50 11/03/16 21:55 11/04/16 07:55 11/04/16 09:30 Hemoglobin 6.5 g/dL (13.0-17.5) 6.4 g/dL (13.0-17.5) 8.5 g/dL (13.0-17.5) White Blood Count 9.3 x10^3/uL (4.0-11.0) Red Blood Count 2.82 x10^6/uL (4.30-5.70) Hematocrit 24.8 % (39.0-53.0) Mean Corpuscular Volume 88 fL (79-100) Mean Corpuscular Hemoglobin 30 pg (25-35) Mean Corpuscular Hemoglobin Concent 34 g/dL (31-37) Red Cell Distribution Width 17.6 % (11.5-14.5) Platelet Count 75 x10^3/uL (140-400) Neutrophils (%) (Auto) 78 % (31-73) Lymphocytes (%) (Auto) 11 % (24-48) Monocytes (%) (Auto) 11 % (0-9) Eosinophils (%) (Auto) 0 % (0-3) Basophils (%) (Auto) 0 % (0-3) Neutrophils # (Auto) 7.2 x10^3uL (1.8-7.7) Lymphocytes # (Auto) 1.0 x10^3/uL (1.0-4.8) Monocytes # (Auto) 1.0 x10^3/uL (0.0-1.1) Eosinophils # (Auto) 0.0 x10^3/uL (0.0-0.7) Basophils # (Auto) 0.0 x10^3/uL (0.0-0.2) Sodium Level 147 mmol/L (136-145) Potassium Level 3.3 mmol/L (3.5-5.1) Chloride Level 113 mmol/L (98-107) Carbon Dioxide Level 23 mmol/L (21-32) Anion Gap 11 (6-14) Blood Urea Nitrogen 27 mg/dL (8-26) Creatinine 1.6 mg/dL (0.7-1.3) Estimated GFR (Cockcroft-Gault) 41.4 Glucose Level 133 mg/dL (70-99) Calcium Level 7.6 mg/dL (8.5-10.1) Prothrombin Time 18.3 SEC (11.7-14.0) Prothromb Time International Ratio 1.6 (0.8-1.1) Activated Partial Thromboplast Time 31 SEC (24-38) Problem List Problems Medical Problems: (1) Anemia Status: Acute (2) GI bleed Status: Acute Assessment/Plan GI bleed, ongoing bleeding platelets infused Will order FFP, INR 1.6 Dr May aware, will see pt Problems: LAURITA BEATTY [employer] Nov 04, 2016 11:10
[2016-11-04 12:26] LABS: RED BLOOD COUNT 1.98 x10^6/uL (4.30-5.70); RED CELL DISTRIBUTION WIDTH 16.4 % (11.5-14.5); WHITE BLOOD COUNT 12.3 x10^3/uL (4.0-11.0)
[2016-11-04 12:27] LABS: HEMOGLOBIN 5.8 g/dL (13.0-17.5)
[2016-11-04 12:28] LABS: HEMATOCRIT 17.3 % (39.0-53.0)
--- NOTE | 2016-11-04 12:36 | PDOC ---
SURGICAL PROGRESS NOTE Subjective Resting comfortably Vital Signs Vital Signs Date Time Temp Pulse Resp B/P (MAP) Pulse Ox O2 Delivery O2 Flow Rate FiO2 11/04/16 06:00 61 15 134/55 (81) 98 Room Air 11/04/16 04:02 97.7 97.7 11/04/16 03:00 2.0 I&O Intake and Output 11/04/16 07:00 Intake Total 4607 ml Output Total 2020 ml Balance 2587 ml IV Total 2539 ml Blood Product IV Normal Saline Flush 2068 ml Output Urine Total 2020 ml PATIENT HAS A RECIO: Yes Labs Laboratory Tests Test 11/02/16 13:30 11/02/16 23:00 11/03/16 04:00 11/03/16 19:50 White Blood Count 10.5 x10^3/uL (4.0-11.0) 8.9 x10^3/uL (4.0-11.0) Red Blood Count 2.32 x10^6/uL (4.30-5.70) 2.45 x10^6/uL (4.30-5.70) Hemoglobin 7.3 g/dL (13.0-17.5) 7.7 g/dL (13.0-17.5) 7.4 g/dL (13.0-17.5) 6.5 g/dL (13.0-17.5) Hematocrit 21.6 % (39.0-53.0) 21.1 % (39.0-53.0) Mean Corpuscular Volume 93 fL (79-100) 86 fL (79-100) Mean Corpuscular Hemoglobin 31 pg (25-35) 30 pg (25-35) Mean Corpuscular Hemoglobin Concent 34 g/dL (31-37) 35 g/dL (31-37) Red Cell Distribution Width 16.9 % (11.5-14.5) 18.5 % (11.5-14.5) Platelet Count 102 x10^3/uL (140-400) 82 x10^3/uL (140-400) Sodium Level 146 mmol/L (136-145) 148 mmol/L (136-145) Potassium Level 3.7 mmol/L (3.5-5.1) 3.6 mmol/L (3.5-5.1) Chloride Level 113 mmol/L (98-107) 115 mmol/L (98-107) Carbon Dioxide Level 22 mmol/L (21-32) 21 mmol/L (21-32) Anion Gap 11 (6-14) 12 (6-14) Blood Urea Nitrogen 36 mg/dL (8-26) 35 mg/dL (8-26) Creatinine 1.8 mg/dL (0.7-1.3) 1.5 mg/dL (0.7-1.3) Estimated GFR (Cockcroft-Gault) 36.1 44.6 Glucose Level 177 mg/dL (70-99) 157 mg/dL (70-99) Calcium Level 6.8 mg/dL (8.5-10.1) 7.3 mg/dL (8.5-10.1) Neutrophils (%) (Auto) 79 % (31-73) Lymphocytes (%) (Auto) 8 % (24-48) Monocytes (%) (Auto) 12 % (0-9) Eosinophils (%) (Auto) 0 % (0-3) Basophils (%) (Auto) 0 % (0-3) Neutrophils # (Auto) 7.0 x10^3uL (1.8-7.7) Lymphocytes # (Auto) 0.8 x10^3/uL (1.0-4.8) Monocytes # (Auto) 1.1 x10^3/uL (0.0-1.1) Eosinophils # (Auto) 0.0 x10^3/uL (0.0-0.7) Basophils # (Auto) 0.0 x10^3/uL (0.0-0.2) Test 11/03/16 21:55 11/04/16 07:55 11/04/16 09:30 11/04/16 12:10 Hemoglobin 6.4 g/dL (13.0-17.5) 8.5 g/dL (13.0-17.5) 5.8 g/dL (13.0-17.5) White Blood Count 9.3 x10^3/uL (4.0-11.0) 12.3 x10^3/uL (4.0-11.0) Red Blood Count 2.82 x10^6/uL (4.30-5.70) 1.98 x10^6/uL (4.30-5.70) Hematocrit 24.8 % (39.0-53.0) 17.3 % (39.0-53.0) Mean Corpuscular Volume 88 fL (79-100) 88 fL (79-100) Mean Corpuscular Hemoglobin 30 pg (25-35) 30 pg (25-35) Mean Corpuscular Hemoglobin Concent 34 g/dL (31-37) 34 g/dL (31-37) Red Cell Distribution Width 17.6 % (11.5-14.5) 16.4 % (11.5-14.5) Platelet Count 75 x10^3/uL (140-400) 110 x10^3/uL (140-400) Neutrophils (%) (Auto) 78 % (31-73) Lymphocytes (%) (Auto) 11 % (24-48) Monocytes (%) (Auto) 11 % (0-9) Eosinophils (%) (Auto) 0 % (0-3) Basophils (%) (Auto) 0 % (0-3) Neutrophils # (Auto) 7.2 x10^3uL (1.8-7.7) Lymphocytes # (Auto) 1.0 x10^3/uL (1.0-4.8) Monocytes # (Auto) 1.0 x10^3/uL (0.0-1.1) Eosinophils # (Auto) 0.0 x10^3/uL (0.0-0.7) Basophils # (Auto) 0.0 x10^3/uL (0.0-0.2) Sodium Level 147 mmol/L (136-145) Potassium Level 3.3 mmol/L (3.5-5.1) Chloride Level 113 mmol/L (98-107) Carbon Dioxide Level 23 mmol/L (21-32) Anion Gap 11 (6-14) Blood Urea Nitrogen 27 mg/dL (8-26) Creatinine 1.6 mg/dL (0.7-1.3) Estimated GFR (Cockcroft-Gault) 41.4 Glucose Level 133 mg/dL (70-99) Calcium Level 7.6 mg/dL (8.5-10.1) Prothrombin Time 18.3 SEC (11.7-14.0) Prothromb Time International Ratio 1.6 (0.8-1.1) Activated Partial Thromboplast Time 31 SEC (24-38) Laboratory Tests Test 11/03/16 19:50 11/03/16 21:55 11/04/16 07:55 11/04/16 09:30 Hemoglobin 6.5 g/dL (13.0-17.5) 6.4 g/dL (13.0-17.5) 8.5 g/dL (13.0-17.5) White Blood Count 9.3 x10^3/uL (4.0-11.0) Red Blood Count 2.82 x10^6/uL (4.30-5.70) Hematocrit 24.8 % (39.0-53.0) Mean Corpuscular Volume 88 fL (79-100) Mean Corpuscular Hemoglobin 30 pg (25-35) Mean Corpuscular Hemoglobin Concent 34 g/dL (31-37) Red Cell Distribution Width 17.6 % (11.5-14.5) Platelet Count 75 x10^3/uL (140-400) Neutrophils (%) (Auto) 78 % (31-73) Lymphocytes (%) (Auto) 11 % (24-48) Monocytes (%) (Auto) 11 % (0-9) Eosinophils (%) (Auto) 0 % (0-3) Basophils (%) (Auto) 0 % (0-3) Neutrophils # (Auto) 7.2 x10^3uL (1.8-7.7) Lymphocytes # (Auto) 1.0 x10^3/uL (1.0-4.8) Monocytes # (Auto) 1.0 x10^3/uL (0.0-1.1) Eosinophils # (Auto) 0.0 x10^3/uL (0.0-0.7) Basophils # (Auto) 0.0 x10^3/uL (0.0-0.2) Sodium Level 147 mmol/L (136-145) Potassium Level 3.3 mmol/L (3.5-5.1) Chloride Level 113 mmol/L (98-107) Carbon Dioxide Level 23 mmol/L (21-32) Anion Gap 11 (6-14) Blood Urea Nitrogen 27 mg/dL (8-26) Creatinine 1.6 mg/dL (0.7-1.3) Estimated GFR (Cockcroft-Gault) 41.4 Glucose Level 133 mg/dL (70-99) Calcium Level 7.6 mg/dL (8.5-10.1) Prothrombin Time 18.3 SEC (11.7-14.0) Prothromb Time International Ratio 1.6 (0.8-1.1) Activated Partial Thromboplast Time 31 SEC (24-38) Test 11/04/16 12:10 White Blood Count 12.3 x10^3/uL (4.0-11.0) Red Blood Count 1.98 x10^6/uL (4.30-5.70) Hemoglobin 5.8 g/dL (13.0-17.5) Hematocrit 17.3 % (39.0-53.0) Mean Corpuscular Volume 88 fL (79-100) Mean Corpuscular Hemoglobin 30 pg (25-35) Mean Corpuscular Hemoglobin Concent 34 g/dL (31-37) Red Cell Distribution Width 16.4 % (11.5-14.5) Platelet Count 110 x10^3/uL (140-400) Problem List Problems Medical Problems: (1) Anemia Status: Acute (2) GI bleed Status: Acute Assessment/Plan Has had some bloody BM's this morning. Elevated INR and low plt's will give 2 units FFP and PLT's. Stat Hgb 5.8 will transfuse 2 units PRBC. Will recheck coags, plt and Hgb once all transfused if not improved then surgery for colon resection with colostomy. Discussed this plan with the family and answered all their questions. Discussed the high risk of surgery for post op complications including being on the vent. and possibly . The family seems to understand and want to proceed with surgery if needed. Problems: JOSE DEAN MD Nov 04, 2016 12:36
[2016-11-04] MEDS ORDERED: NOREPINEPHRIN PREMIX 250 ML IV ONE (13:17)
--- NOTE | 2016-11-04 13:31 | PDOC ---
PROGRESS NOTES Subjective Subjective pt still continue to bleed per rectum Objective Objective Vital Signs Date Time Temp Pulse Resp B/P (MAP) Pulse Ox O2 Delivery O2 Flow Rate FiO2 11/04/16 06:00 61 15 134/55 (81) 98 Room Air 11/04/16 04:02 97.7 97.7 11/04/16 03:00 2.0 Intake and Output 11/04/16 06:59 Intake Total 4607 ml Output Total 2060 ml Balance 2547 ml IV Total 2539 ml Blood Product IV Normal Saline Flush 2068 ml Output Urine Total 2060 ml Physical Exam Abdomen: Soft, No tenderness Heart: Regular rate, No murmurs Extremities: No edema General: No acute distress, Other (awake) HEENT: PERRLA, EOMI Lungs: Clear to auscultation, Normal air movement MUSCULOSKELETAL: No joint tenderness Neuro: Normal speech Skin: No breakdown, No significant lesion Diagnosis Problem List Problems Medical Problems: (1) Anemia Status: Acute (2) GI bleed Status: Acute Assessment Assessment Problems Medical Problems: (1) Anemia Status: Acute (2) GI bleed Status: Acute FINAL IMPRESSION:Active lower GI bleed recurrent lower gi bleed-diverticular bleed. colon polyp removed 1. Lower gastrointestinal bleed secondary to possible diverticular bleed. 2. Coronary artery disease, bypass surgery. 3. Parkinson disease. 4. Hypertension. 5. Dementia. PLAN: FFP and platelets transfused. will need surgery, colon resection,as pt continue to bleed. 4 more units transfused over night. Procedure: Mesenteric arteriogram and embolization of the middle colic artery x3 done 11/02/18. total of 4 units of PRBC given, hb 7.3 today. no more active GI bleed. spoke with family encephalopathy due to underlying parkinsons with demnetia colonoscopy 11/01 showed diverticular bled , colon polyp was removed transferred to ICU for active lower gi bleed Hb droped down to 6.0. hypotensive surgical consult appreciated high risk for surgery. Hg check q 8 hours transfuse to keep above 7.0 Problems: Plan Plan of Care Problems Medical Problems: (1) Anemia Status: Acute (2) GI bleed Status: Acute Comment Review of Relevant I have reviewed the following items kiana (where applicable) has been applied. Labs Laboratory Tests Test 11/03/16 19:50 11/03/16 21:55 11/04/16 07:55 11/04/16 09:30 Hemoglobin 6.5 g/dL (13.0-17.5) 6.4 g/dL (13.0-17.5) 8.5 g/dL (13.0-17.5) White Blood Count 9.3 x10^3/uL (4.0-11.0) Red Blood Count 2.82 x10^6/uL (4.30-5.70) Hematocrit 24.8 % (39.0-53.0) Mean Corpuscular Volume 88 fL (79-100) Mean Corpuscular Hemoglobin 30 pg (25-35) Mean Corpuscular Hemoglobin Concent 34 g/dL (31-37) Red Cell Distribution Width 17.6 % (11.5-14.5) Platelet Count 75 x10^3/uL (140-400) Neutrophils (%) (Auto) 78 % (31-73) Lymphocytes (%) (Auto) 11 % (24-48) Monocytes (%) (Auto) 11 % (0-9) Eosinophils (%) (Auto) 0 % (0-3) Basophils (%) (Auto) 0 % (0-3) Neutrophils # (Auto) 7.2 x10^3uL (1.8-7.7) Lymphocytes # (Auto) 1.0 x10^3/uL (1.0-4.8) Monocytes # (Auto) 1.0 x10^3/uL (0.0-1.1) Eosinophils # (Auto) 0.0 x10^3/uL (0.0-0.7) Basophils # (Auto) 0.0 x10^3/uL (0.0-0.2) Sodium Level 147 mmol/L (136-145) Potassium Level 3.3 mmol/L (3.5-5.1) Chloride Level 113 mmol/L (98-107) Carbon Dioxide Level 23 mmol/L (21-32) Anion Gap 11 (6-14) Blood Urea Nitrogen 27 mg/dL (8-26) Creatinine 1.6 mg/dL (0.7-1.3) Estimated GFR (Cockcroft-Gault) 41.4 Glucose Level 133 mg/dL (70-99) Calcium Level 7.6 mg/dL (8.5-10.1) Prothrombin Time 18.3 SEC (11.7-14.0) Prothromb Time International Ratio 1.6 (0.8-1.1) Activated Partial Thromboplast Time 31 SEC (24-38) Test 11/04/16 12:10 White Blood Count 12.3 x10^3/uL (4.0-11.0) Red Blood Count 1.98 x10^6/uL (4.30-5.70) Hemoglobin 5.8 g/dL (13.0-17.5) Hematocrit 17.3 % (39.0-53.0) Mean Corpuscular Volume 88 fL (79-100) Mean Corpuscular Hemoglobin 30 pg (25-35) Mean Corpuscular Hemoglobin Concent 34 g/dL (31-37) Red Cell Distribution Width 16.4 % (11.5-14.5) Platelet Count 110 x10^3/uL (140-400) Medications Current Medications Famotidine (Pepcid) 20 mg DAILY IVP Last administered on 11/04/16 10:49; Start 11/04/16 at 09:00 Furosemide (Lasix) 20 mg 1X ONCE IVP Last administered on 11/03/16 21:11; Start 11/03/16 at 21:30; Stop 11/03/16 at 21:31; Status DC Haloperidol Lactate (Haldol) 1 mg PRN Q6HRS PRN IVP AGITATION Last administered on 11/03/16 21:10; Start 11/03/16 at 14:00 Norepinephrine Bitartrate 250 ml @ As Directed STK-MED ONCE IV ; Start at 13:17; Stop 11/04/16 at 13:18; Status DC Pantoprazole Sodium (Protonix Vial) 40 mg DAILY IVP Last administered on 10:49; Start 11/04/16 at 09:00 Sodium Chloride 1,000 ml @ 125 mls/hr Q8H IV Last administered on 11/04/16 11 :54; Start 11/03/16 at 15:00 Vitals/I & O Vital Sign - Last 24 Hours 11/03/16 11/03/16 11/03/16 11/03/16 14:00 15:00 16:00 16:00 Temp 98.5 98.5 Pulse 77 78 72 Resp 22 24 20 B/P (MAP) 138/55 (82) 138/79 (98) 137/56 (83) Pulse Ox 96 95 96 O2 Delivery Room Air Room Air Room Air Room Air 11/03/16 11/03/16 11/03/16 11/03/16 17:00 18:00 19:00 20:00 Temp 99.4 99.4 Pulse 73 70 68 70 Resp 20 25 23 22 B/P (MAP) 140/60 (86) 134/56 (82) 123/57 (79) 134/56 (82) Pulse Ox 95 97 96 96 O2 Delivery Room Air Room Air Room Air Room Air 11/03/16 11/03/16 11/03/16 11/03/16 20:00 21:00 22:00 23:00 Temp 98.0 98.0 Pulse 68 60 Resp 16 20 B/P (MAP) 119/53 (75) 144/54 (84) 131/56 (81) Pulse Ox 95 97 98 O2 Delivery Room Air Room Air Room Air Room Air 11/03/16 11/03/16 11/04/16 11/04/16 23:21 23:35 00:00 00:00 Temp 98.3 98.0 98.3 98.0 Pulse 61 74 76 Resp 16 16 20 B/P (MAP) 131/56 119/50 119/49 (72) Pulse Ox 99 O2 Delivery Room Air Room Air 11/04/16 11/04/16 11/04/16 11/04/16 01:00 01:30 02:00 02:17 Temp 97.5 97.5 97.5 97.5 Pulse 60 65 62 66 Resp 20 10 15 19 B/P (MAP) 110/46 (67) 132/51 134/55 (81) 100/60 Pulse Ox 98 97 O2 Delivery Room Air Room Air 11/04/16 11/04/16 11/04/16 11/04/16 02:32 03:00 04:00 04:00 Temp 97.7 97.7 Pulse 62 59 53 Resp 17 24 13 B/P (MAP) 132/51 104/47 (66) 132/51 (78) Pulse Ox 93 93 O2 Delivery Room Air Room Air Room Air O2 Flow Rate 2.0 11/04/16 11/04/16 11/04/16 04:02 05:00 06:00 Temp 97.7 97.7 Pulse 57 59 61 Resp 13 15 15 B/P (MAP) 128/60 126/56 (79) 134/55 (81) Pulse Ox 97 98 O2 Delivery Room Air Room Air Intake and Output 11/03/16 11/03/16 11/04/16 14:59 22:59 06:59 Intake Total 1539 ml 3068 ml Output Total 600 ml 575 ml 885 ml Balance -600 ml 964 ml 2183 ml BURTON AKBAR MD Nov 04, 2016 13:31
--- NOTE | 2016-11-04 13:38 | PATHOLOGY ---
PATHOLOGY REPORT * * * * * * * * FINAL DIAGNOSIS: Colon biopsies, transverse colon polyp: - Tubular adenoma. (JPM:vy; 11/04/2016) COMMENT: There is no high-grade dysplasia or evidence of malignancy. REPORT ELECTRONICALLY SIGNED BY: Clark Dickey M.D. DATE/TIME: 11/04/2016 13:37 * * * * * * * * GROSS PATHOLOGY: Received in formalin labeled "Kev Snyder, transverse colon polyp," are three segments of briggs soft tissue, each measuring 0.4 cm in maximum dimension. The specimen is submitted entirely in cassette A1. (JPM; 11/01/16) INITIAL CPT CODE(S): A; 37970 Professional services performed by [facility] [place] [address] Technical services performed by [facility] at [address] [place] [address] [address], [place] [address]. SPECIMEN(S) RECEIVED: A.Transverse colon polyp CLINICAL HISTORY: GI bleed PATIENT: KEV SNYDER /AGE: 8 1930 (Age: 86) PATIENT #: [id number] ALT CASE #: SPECIMEN COLLECTION DATE: 11/01/2016 SPECIMEN RECEIVED DATE: 11/01/2016 [facility] - [address] [place] [address] - PHONE: [phone] * * * END OF REPORT * * *
[2016-11-04] MEDS ORDERED: SUCCINYLCHOLINE 200 MG/10 ML VIAL. ONE (13:41)
[2016-11-04] MEDS ORDERED: VECURONIUM BOLUS 10 MG VIAL. IV ONE (13:41)
[2016-11-04] MEDS ORDERED: ETOMIDATE 20 MG/10 ML VIAL. IV ONE (13:41)
[2016-11-04] MEDS ORDERED: PHENYLEPHRINE 10 MG/ML VIAL. ONE (13:44)
[2016-11-04] MEDS ORDERED: fentaNYL PF VIAL 100 MCG/2 ML VIAL ONE ×2 (14:31→15:50)
[2016-11-04] MEDS ORDERED: ONDANSETRON PF 4 MG/2 ML VIAL. ONE (15:01)
[2016-11-04] MEDS ORDERED: DESFLURANE 61 TO 120 MINUTES IH ONE (15:01)
[2016-11-04] MEDS ORDERED: GLYCOPYRROLATE 1 MG/5 ML VIAL. ONE (15:02)
[2016-11-04] MEDS ORDERED: SURGICEL HEMOSTAT 4X8 EACH. ONE (15:04)
[2016-11-04] MEDS ORDERED: SURGICEL HEMOSTAT 4X8 EACH. TP ONE (15:24)
[2016-11-04] MEDS ORDERED: LIDOCAINE 2% PF Vial for OR 5 ML VIAL. ONE (15:53)
--- NOTE | 2016-11-04 16:13 | PDOC4 ---
Operative Note Operative Note Date: 11/04/2016 Preoperative diagnosis: Lower GI bleed Postoperative diagnosis: Splenic flexure infarct of the colon Procedure: Exploratory laparotomy with left colon resection including splenic flexure in colostomy Surgeon: Lalo Specimen: Left colon splenic flexure Fluids: 1 unit packed red blood cells 1 unit FFP 700 mL of crystalloid Dictation: 86-year-old male with recurrent lower GI bleed status post interventional radiology procedure to embolize bleeding vessels, patient became unstable with more bleeding. Procedure of exploratory laparotomy with left colon resection and colostomy was explained to the patient and his family in detail all risks benefits were also discussed including bleeding infection postoperative complications including . Patient and family seemed understanding gave both verbal and written consent to have the procedure performed. Patient was taken to the operating room placed in the supine position general anesthesia was initiated once patient was asleep and intubated anesthesia placed a heart line and central line his abdomen was then prepped and draped usual sterile fashion using ChloraPrep. Midline incision was made from the xiphoid to the umbilicus with a 10 blade scalpel this was carried down through the subcutaneous and his tissue using electrocautery to provide hemostasis down to the fascia fascia was further opened with electrocautery and the peritoneum open Metzenbaum scissors the perineum was further or open electrocautery to completely open the incision. Bookwalter retractor was then placed. The left colon was freed up from the white line of Toldt with electrocautery and blunt dissection up to the splenic flexure mid left colon was stapled and transected with a 70 mm ARY stapler. A transverse colon at about the midportion was also stapled and transected the mesentery was taken down with the impact LigaSure to the splenic flexure the splenic flexure was taken down with electrocautery. Specimen sent for pathology who opened the specimen within the operating room showing an area right at the splenic flexure that was noted showing necrosis. No malignancy was noted. There was a small bleeder on the spleen which was controlled with Surgicel and Arestra powder. At this point a circular incision was made in the left mid abdomen for the colostomy placement the in transverse colon was brought up through the circular incision using 3-0 Vicryl stick ties the colon was attached to the anterior abdominal wall. The fascia was then closed with a running #1 looped PDS skin was reapproximated with lucero. The colostomy was then matured with 3-0 Vicryl. Last meal plans was applied. Patient was awakened and taken to the ICU in stable condition all sponge instrument and needle counts were listed as correct. Estimated blood loss 60 mL. JOSE DEAN MD Nov 04, 2016 16:13
--- NOTE | 2016-11-04 16:48 | RAD ---
Chest x-ray Indication: Central line placement Technique: Portable semiupright AP chest x-ray Comparison: Study from 10/27/2016 Findings: Tip of the central venous catheter is seen in the mid SVC. NG tube is seen with its tip within the body of stomach. Sternotomy changes noted. Heart is moderately enlarged in size. Right lung and left upper lung zone is clear. Evaluation of left lower lung zone limited due to overlying cardiac silhouette. Impression: Tip of the central venous catheter within mid SVC.
[2016-11-04 16:50] LABS: ART BE ISTAT -8 mmol/L (0-3); ART GLUC ISTAT 213 mg/dL (70-99); ART HCO3 ISTAT 18 mmol/L (21-28); ART HCT ISTAT 21 % (37-52); ART HGB ISTAT 7.1 g/dL (14-18); ART K ISTAT 3.5 mmol/L (3.5-5.0); ART NA ISTAT 143 mmol/L (135-145); ART PCO2 ISTAT 36 mmHg (35-45); ART PO2 ISTAT 348 mmHg (75-100); ART SAT O2 SAT 100 % (95-99); ART TCO2 ISTAT 19 mmol/L (21-32); TOSPEC ART
[2016-11-04] MEDS ORDERED: IV RINGERS,LACTATED 1000ML 1,000 ML IV SCH (17:12)
[2016-11-04] MEDS ORDERED: fentaNYL PF VIAL 100 MCG/2 ML VIAL IV PRN ×2 (17:15)
[2016-11-04] MEDS ORDERED: PROCHLORPERAZINE 10 MG/2 ML VIAL. IV PRN (17:15)
[2016-11-04] MEDS ORDERED: HYDROmorphone 2 MG/ML VIAL IV PRN (17:15)
[2016-11-04] MEDS ORDERED: LIDOCAINE 1% 1 ML SYRINGE. ID PRN (17:15)
[2016-11-04] MEDS ORDERED: MORPHINE SULFATE 2 MG/ML DISP.SYRIN. IV PRN (17:15)
[2016-11-04] MEDS: fentaNYL PF VIAL 100 MCG/2 ML VIAL IV PRN ×2 (20:06→21:57)
[2016-11-05] VITALS (30 sets, daily range): BP systolic 115–178; BP diastolic 45–95
[2016-11-05] MEDS: fentaNYL PF VIAL 100 MCG/2 ML VIAL IV PRN ×4 (00:28→19:28)
[2016-11-05] MEDS: IV 1/2 NORMAL SALINE 1,000 ML IV SCH ×3 (00:28→16:21)
[2016-11-05 05:35] LABS: BASO % 0 % (0-3); EOS % 0 % (0-3); HEMOGLOBIN 7.2 g/dL (13.0-17.5); LYMPH # 0.4 x10^3/uL (1.0-4.8); LYMPH % 6 % (24-48); MEAN CORPUSCULAR HEMOGLOBIN 30 pg (25-35); MEAN CORPUSCULAR HGB CONC 35 g/dL (31-37); MEAN CORPUSCULAR VOLUME 84 fL (79-100); MONO % 17 % (0-9); NEUT % 78 % (31-73); PLATELET COUNT 75 x10^3/uL (140-400); RED BLOOD COUNT 2.43 x10^6/uL (4.30-5.70); RED CELL DISTRIBUTION WIDTH 14.9 % (11.5-14.5); WHITE BLOOD COUNT 7.7 x10^3/uL (4.0-11.0)
[2016-11-05 05:43] LABS: HEMATOCRIT 20.4 % (39.0-53.0)
[2016-11-05 05:50] LABS: CALCIUM 6.7 mg/dL (8.5-10.1); CREATININE 1.3 mg/dL (0.7-1.3); GFR 52.6; INR 1.5 (0.8-1.1); POTASSIUM 3.1 mmol/L (3.5-5.1); PROTHROMBIN TIME PATIENT 16.9 SEC (11.7-14.0)
[2016-11-05] MEDS ORDERED: POTASSIUM CHLORIDE 20MEQ 50 ML IV ONE (07:00)
[2016-11-05] MEDS: CARBIDOPA/LEVODOPA 25/100MG TABLET PO SCH ×3 (07:36→20:48)
[2016-11-05] MEDS: MEMANTINE 10 MG TABLET. PO SCH ×2 (07:36→20:48)
[2016-11-05] MEDS: PANTOPRAZOLE IV PUSH 40 MG VIAL. IVP SCH (07:39)
--- NOTE | 2016-11-05 09:51 | PDOC ---
Subjective: Subjective: Abd pain, thirsty. Objective: Objective: D/w RN - doing better, transfusions planned. Vital Signs: Vital Signs Date Time Temp Pulse Resp B/P (MAP) Pulse Ox O2 Delivery O2 Flow Rate FiO2 11/05/16 06:00 71 20 124/65 (84) 98 Room Air 11/05/16 04:00 99.1 99.1 11/05/16 01:00 2.0 Labs: Laboratory Tests Test 11/04/16 12:10 11/04/16 15:21 11/04/16 22:00 11/05/16 05:25 White Blood Count 12.3 x10^3/uL 7.7 x10^3/uL Red Blood Count 1.98 x10^6/uL 2.43 x10^6/uL Hemoglobin 5.8 g/dL 7.9 g/dL 7.2 g/dL Hematocrit 17.3 % 20.4 % Mean Corpuscular Volume 88 fL 84 fL Mean Corpuscular Hemoglobin 30 pg 30 pg Mean Corpuscular Hemoglobin Concent 34 g/dL 35 g/dL Red Cell Distribution Width 16.4 % 14.9 % Platelet Count 110 x10^3/uL 75 x10^3/uL Bedside Hemoglobin (Calculated) 7.1 g/dL Bedside Hematocrit 21 % Bedside Arterial pH 7.30 Arterial Blood pH (Temp corrected) 7.29 Bedside Arterial pCO2 36 mmHg Arterial Blood pCO2 (Temp correct) 37 mmHg Bedside Arterial pO2 348 mmHg Arterial Blood pO2 (Temp corrected) 351 mmHg Bedside Arterial HCO3 18 mmol/L Bedside Arterial Total CO2 19 mmol/L Arterial Bld O2 Saturation (Measur) 100 % Bedside Arterial Blood Base Excess -8 mmol/L Bedside FiO2 100.0 Bedside Sodium 143 mmol/L Bedside Potassium 3.5 mmol/L Glucose Level 213 mg/dL 158 mg/dL Bedside Ionized Calcium (Itzel) 1.00 mmol/L Neutrophils (%) (Auto) 78 % Lymphocytes (%) (Auto) 6 % Monocytes (%) (Auto) 17 % Eosinophils (%) (Auto) 0 % Basophils (%) (Auto) 0 % Neutrophils # (Auto) 6.0 x10^3uL Lymphocytes # (Auto) 0.4 x10^3/uL Monocytes # (Auto) 1.3 x10^3/uL Eosinophils # (Auto) 0.0 x10^3/uL Basophils # (Auto) 0.0 x10^3/uL Prothrombin Time 16.9 SEC Prothromb Time International Ratio 1.5 Activated Partial Thromboplast Time 33 SEC Fibrinogen 401 mg/dL D-Dimer (Delmy) 1.19 ug/mlFEU Sodium Level 143 mmol/L Potassium Level 3.1 mmol/L Chloride Level 112 mmol/L Carbon Dioxide Level 21 mmol/L Anion Gap 10 Blood Urea Nitrogen 26 mg/dL Creatinine 1.3 mg/dL Estimated GFR (Cockcroft-Gault) 52.6 Calcium Level 6.7 mg/dL PE: GEN: NAD LUNGS: clear HEART: RRR ABD: soft NEURO/PSYCH: A & O 3 A/P: Lower GI bleed s/p expl lap w/ left colon resection including splenic flexure in colostomy 11/04/16 -- Improved post-op, will follow. Has IV PPI, will continue this. DUNCAN SLAUGHTER Nov 05, 2016 09:51
--- NOTE | 2016-11-05 10:06 | PDOC ---
PROGRESS NOTES Subjective Subjective comfortable today, had colon surgery yesterday Objective Objective Vital Signs Date Time Temp Pulse Resp B/P (MAP) Pulse Ox O2 Delivery O2 Flow Rate FiO2 11/05/16 06:00 71 20 124/65 (84) 98 Room Air 11/05/16 04:00 99.1 99.1 11/05/16 01:00 2.0 Intake and Output 11/05/16 07:00 Intake Total 4515 ml Output Total 963 ml Balance 3552 ml IV Total 2525 ml Blood Product 1730 ml Blood Product IV Normal Saline Flush 260 ml Output Urine Total 953 ml Stool Total 10 ml Physical Exam Abdomen: Soft, Other (colostomy bag) Heart: Regular rate, Normal S1, Normal S2, No murmurs Extremities: No edema General: No acute distress, Other (awake) HEENT: PERRLA, EOMI Lungs: Clear to auscultation, Normal air movement MUSCULOSKELETAL: No joint tenderness Neuro: Normal speech Skin: No breakdown, No significant lesion Diagnosis Problem List Problems Medical Problems: (1) Anemia Status: Acute (2) GI bleed Status: Acute Assessment Assessment Problems Medical Problems: (1) Anemia Status: Acute (2) GI bleed Status: Acute FINAL IMPRESSION:Active lower GI bleed recurrent lower gi bleed-diverticular bleed. colon polyp removed 1. Lower gastrointestinal bleed secondary to possible diverticular bleed. 2. Coronary artery disease, bypass surgery. 3. Parkinson disease. 4. Hypertension. 5. Dementia. PLAN: Post op day #1,stable HB 7.3 pot 3.1 replace platelets 75 low FFP and platelet transfusion. Operative Note Date: 11/04/2016 Preoperative diagnosis: Lower GI bleed Postoperative diagnosis: Splenic flexure infarct of the colon Procedure: Exploratory laparotomy with left colon resection including splenic flexure in colostomy Surgeon: Lalo Specimen: Left colon splenic flexure FFP and platelets transfused. will need surgery, colon resection,as pt continue to bleed. 4 more units transfused over night. Procedure: Mesenteric arteriogram and embolization of the middle colic artery x3 done 11/02/18. total of 4 units of PRBC given, hb 7.3 today. no more active GI bleed. spoke with family encephalopathy due to underlying parkinsons with demnetia colonoscopy 11/01 showed diverticular bled , colon polyp was removed transferred to ICU for active lower gi bleed Hb droped down to 6.0. hypotensive surgical consult appreciated high risk for surgery. Hg check q 8 hours transfuse to keep above 7.0 Problems: Plan Plan of Care Problems Medical Problems: (1) Anemia Status: Acute (2) GI bleed Status: Acute Comment Review of Relevant I have reviewed the following items kiana (where applicable) has been applied. Labs Laboratory Tests Test 11/04/16 12:10 11/04/16 15:21 11/04/16 22:00 11/05/16 05:25 White Blood Count 12.3 x10^3/uL (4.0-11.0) 7.7 x10^3/uL (4.0-11.0) Red Blood Count 1.98 x10^6/uL (4.30-5.70) 2.43 x10^6/uL (4.30-5.70) Hemoglobin 5.8 g/dL (13.0-17.5) 7.9 g/dL (13.0-17.5) 7.2 g/dL (13.0-17.5) Hematocrit 17.3 % (39.0-53.0) 20.4 % (39.0-53.0) Mean Corpuscular Volume 88 fL (79-100) 84 fL (79-100) Mean Corpuscular Hemoglobin 30 pg (25-35) 30 pg (25-35) Mean Corpuscular Hemoglobin Concent 34 g/dL (31-37) 35 g/dL (31-37) Red Cell Distribution Width 16.4 % (11.5-14.5) 14.9 % (11.5-14.5) Platelet Count 110 x10^3/uL (140-400) 75 x10^3/uL (140-400) Bedside Hemoglobin (Calculated) 7.1 g/dL (14-18) Bedside Hematocrit 21 % (37-52) Bedside Arterial pH 7.30 (7.35-7.45) Arterial Blood pH (Temp corrected) 7.29 Bedside Arterial pCO2 36 mmHg (35-45) Arterial Blood pCO2 (Temp correct) 37 mmHg Bedside Arterial pO2 348 mmHg (75-100) Arterial Blood pO2 (Temp corrected) 351 mmHg Bedside Arterial HCO3 18 mmol/L (21-28) Bedside Arterial Total CO2 19 mmol/L (21-32) Arterial Bld O2 Saturation (Measur) 100 % (95-99) Bedside Arterial Blood Base Excess -8 mmol/L (0-3) Bedside FiO2 100.0 Bedside Sodium 143 mmol/L (135-145) Bedside Potassium 3.5 mmol/L (3.5-5.0) Glucose Level 213 mg/dL (70-99) 158 mg/dL (70-99) Bedside Ionized Calcium (Itzel) 1.00 mmol/L (1.13-1.32) Neutrophils (%) (Auto) 78 % (31-73) Lymphocytes (%) (Auto) 6 % (24-48) Monocytes (%) (Auto) 17 % (0-9) Eosinophils (%) (Auto) 0 % (0-3) Basophils (%) (Auto) 0 % (0-3) Neutrophils # (Auto) 6.0 x10^3uL (1.8-7.7) Lymphocytes # (Auto) 0.4 x10^3/uL (1.0-4.8) Monocytes # (Auto) 1.3 x10^3/uL (0.0-1.1) Eosinophils # (Auto) 0.0 x10^3/uL (0.0-0.7) Basophils # (Auto) 0.0 x10^3/uL (0.0-0.2) Prothrombin Time 16.9 SEC (11.7-14.0) Prothromb Time International Ratio 1.5 (0.8-1.1) Activated Partial Thromboplast Time 33 SEC (24-38) Fibrinogen 401 mg/dL (200-440) D-Dimer (Delmy) 1.19 ug/mlFEU (0.00-0.50) Sodium Level 143 mmol/L (136-145) Potassium Level 3.1 mmol/L (3.5-5.1) Chloride Level 112 mmol/L (98-107) Carbon Dioxide Level 21 mmol/L (21-32) Anion Gap 10 (6-14) Blood Urea Nitrogen 26 mg/dL (8-26) Creatinine 1.3 mg/dL (0.7-1.3) Estimated GFR (Cockcroft-Gault) 52.6 Calcium Level 6.7 mg/dL (8.5-10.1) Medications Current Medications Cefazolin Sodium/ Dextrose 50 ml @ 100 mls/hr 1X ONCE IV ; Start 11/04/16 at 14:15; Stop 11/04/16 at 14:44; Status DC Cellulose 1 each STK-MED ONCE .ROUTE Last administered on 11/04/16 15:05; Start 11/04/16 at 15:04; Stop 11/04/16 at 15:05; Status DC Cellulose 1 each STK-MED ONCE TP Last administered on 11/04/16 15:24; Start at 15:24; Stop 11/04/16 at 16:39; Status DC Desflurane (Suprane) 60 ml STK-MED ONCE IH ; Start 11/04/16 at 15:01; Stop 11/04 at 15:02; Status DC Etomidate (Amidate) 20 mg STK-MED ONCE IV ; Start 11/04/16 at 13:41; Stop at 13:42; Status DC Fentanyl Citrate (Fentanyl 2ml Vial) 25 mcg PRN Q5MIN PRN IV MILD PAIN Last administered on 11/04/16 17:18; Start 11/04/16 at 17:15; Stop 11/05/16 at 17:14 Fentanyl Citrate (Fentanyl 2ml Vial) 50 mcg PRN Q1HR PRN IV PAIN Last administered on 11/05/16 02:44; Start 11/04/16 at 17:15 Fentanyl Citrate (Fentanyl 2ml Vial) 50 mcg PRN Q5MIN PRN IV MODERATE PAIN; Start 11/04/16 at 17:15; Stop 11/05/16 at 17:14 Fentanyl Citrate (Fentanyl 2ml Vial) 100 mcg STK-MED ONCE .ROUTE ; Start at 14:31; Stop 11/04/16 at 14:32; Status DC Fentanyl Citrate (Fentanyl 2ml Vial) 100 mcg STK-MED ONCE .ROUTE ; Start at 15:50; Stop 11/04/16 at 15:51; Status DC Glycopyrrolate (Robinul) 1 mg STK-MED ONCE .ROUTE ; Start 11/04/16 at 15:02; Stop 11/04/16 at 15:03; Status DC Hydromorphone HCl (Dilaudid) 0.5 mg PRN Q10MIN PRN IV SEV PAIN, Second choice; Start 11/04/16 at 17:15; Stop 11/05/16 at 17:14 Lidocaine HCl 2 ml PRN 1X PRN ID PRIOR TO IV START; Start 11/04/16 at 17:15; Stop 11/05/16 at 17:14 Lidocaine HCl (Lidocaine Pf 2% Vial) 5 ml STK-MED ONCE .ROUTE ; Start 11/04/16 at 15:53; Stop 11/04/16 at 15:54; Status DC Morphine Sulfate 1 mg PRN Q10MIN PRN IV SEVERE PAIN; Start 11/04/16 at 17:15; Stop 11/05/16 at 17:14 Norepinephrine Bitartrate 250 ml @ As Directed STK-MED ONCE IV ; Start at 13:17; Stop 11/04/16 at 13:18; Status DC Ondansetron HCl (Zofran) 4 mg STK-MED ONCE .ROUTE ; Start 11/04/16 at 15:01; Stop 11/04/16 at 15:02; Status DC Phenylephrine HCl (Adán-Synephrine Inj) 10 mg STK-MED ONCE .ROUTE ; Start at 13:44; Stop 11/04/16 at 13:45; Status DC Potassium Chloride 50 ml @ 50 mls/hr 1X ONCE IV Last administered on t 06:32; Start 11/05/16 at 07:00; Stop 11/05/16 at 07:59; Status DC Prochlorperazine Edisylate (Compazine) 5 mg PACU PRN PRN IV NAUSEA, MRX1; Start 11/04/16 at 17:15; Stop 11/05/16 at 17:14 Ringer's Solution 1,000 ml @ 30 mls/hr Q24H IV ; Start 11/04/16 at 17:12; Stop 11/05/16 at 05:11; Status DC Succinylcholine Chloride (Anectine) 200 mg STK-MED ONCE .ROUTE ; Start 11/04/16 at 13:41; Stop 11/04/16 at 13:42; Status DC Vecuronium [place] (Norcuron Bolus) 10 mg STK-MED ONCE IV ; Start 11/04/16 at 13 :41; Stop 11/04/16 at 13:42; Status DC Vitals/I & O Vital Sign - Last 24 Hours 11/04/16 11/04/16 11/04/16 11/04/16 10:15 10:30 10:45 11:00 Pulse 64 66 64 68 Resp 20 20 14 25 B/P (MAP) 90/37 (54) 120/46 (70) 92/36 (54) 119/49 (72) Pulse Ox 100 99 100 100 O2 Delivery Room Air Room Air Room Air Room Air 11/04/16 11/04/16 11/04/16 11/04/16 11:15 11:30 11:45 12:00 Pulse 68 66 66 Resp 19 16 18 B/P (MAP) 86/40 (55) 79/41 (54) 98/41 (60) Pulse Ox 99 100 100 O2 Delivery Room Air Room Air Room Air Room Air 11/04/16 11/04/16 11/04/16 11/04/16 12:00 12:15 12:30 12:45 Temp 97.9 97.9 Pulse 66 70 70 68 Resp 24 25 20 19 B/P (MAP) 102/41 (61) 104/47 (66) 106/48 (67) 109/44 (65) Pulse Ox 100 100 100 100 O2 Delivery Room Air Room Air Room Air Room Air 11/04/16 11/04/16 11/04/16 11/04/16 13:00 13:15 13:30 13:45 Pulse 70 72 74 72 Resp 24 25 18 23 B/P (MAP) 104/51 (68) 106/45 (65) 112/42 (65) 123/25 (57) Pulse Ox 100 100 100 98 O2 Delivery Room Air Room Air Room Air Room Air 11/04/16 11/04/16 11/04/16 11/04/16 14:00 16:15 16:17 16:33 Temp 98.6 98.6 Pulse 72 73 68 Resp 19 21 25 B/P (MAP) 123/50 (74) 176/78 (110) 173/84 (113) Pulse Ox 99 99 100 O2 Delivery Room Air Mask Simple Mask Simple Mask O2 Flow Rate 8.0 8.0 8.0 11/04/16 11/04/16 11/04/16 11/04/16 16:35 16:45 17:15 17:18 Pulse 66 76 Resp 19 20 18 B/P (MAP) 210/54 (105) 176/64 (101) 174/82 (112) Pulse Ox 100 100 99 O2 Delivery Simple Mask Nasal Cannula Nasal Cannula O2 Flow Rate 8.0 6.0 8.0 11/04/16 11/04/16 11/04/16 11/04/16 17:48 18:00 19:00 19:44 Pulse 64 71 Resp 17 21 20 B/P (MAP) 152/63 (92) 168/71 (103) Pulse Ox 100 100 100 O2 Delivery Nasal Cannula Nasal Cannula Nasal Cannula Nasal Cannula O2 Flow Rate 4.0 4.0 4.0 4.0 11/04/16 11/04/16 11/04/16 11/04/16 20:00 20:00 20:06 21:00 Temp 100.0 100.0 Pulse 76 71 Resp 19 25 22 B/P (MAP) 154/66 (95) 199/56 (103) 140/64 (89) Pulse Ox 100 100 99 O2 Delivery Nasal Cannula Nasal Cannula Nasal Cannula O2 Flow Rate 4.0 4.0 4.0 11/04/16 11/04/16 11/04/16 11/05/16 21:57 22:00 23:00 00:00 Pulse 67 64 Resp 24 18 16 B/P (MAP) 144/60 (88) 124/52 (76) 153/58 (89) Pulse Ox 98 100 O2 Delivery Nasal Cannula Nasal Cannula Nasal Cannula O2 Flow Rate 4.0 2.0 2.0 11/05/16 11/05/16 11/05/16 11/05/16 00:00 00:00 00:28 00:58 Temp 100.2 100.2 Pulse 66 Resp 20 28 B/P (MAP) 136/60 (85) Pulse Ox 100 100 O2 Delivery Nasal Cannula Nasal Cannula Nasal Cannula O2 Flow Rate 2.0 2.0 2.0 2.0 11/05/16 11/05/16 11/05/16 11/05/16 01:00 02:00 02:44 03:00 Pulse 69 75 73 Resp 18 26 26 16 B/P (MAP) 155/69 (97) 149/69 (95) 139/58 (85) Pulse Ox 100 99 97 98 O2 Delivery Nasal Cannula Room Air Room Air Room Air O2 Flow Rate 2.0 11/05/16 11/05/16 11/05/16 11/05/16 03:14 03:51 04:00 04:00 Temp 99.1 99.1 Pulse 75 Resp 16 24 B/P (MAP) 148/58 (88) 178/46 (90) Pulse Ox 99 99 O2 Delivery Room Air Room Air Room Air 11/05/16 11/05/16 05:00 06:00 Pulse 73 71 Resp 18 20 B/P (MAP) 142/61 (88) 124/65 (84) Pulse Ox 98 98 O2 Delivery Room Air Room Air Intake and Output 11/04/16 11/04/16 11/05/16 15:00 23:00 07:00 Intake Total 260 ml 1730 ml 2525 ml Output Total 300 ml 403 ml 260 ml Balance -40 ml 1327 ml 2265 ml BURTON AKBAR MD Nov 05, 2016 10:06
--- NOTE | 2016-11-05 11:17 | PDOC ---
SURGICAL PROGRESS NOTE Subjective Much more alert. Denies pain. Vital Signs Vital Signs Date Time Temp Pulse Resp B/P (MAP) Pulse Ox O2 Delivery O2 Flow Rate FiO2 11/05/16 10:00 66 18 136/60 (85) 99 Room Air 11/05/16 09:25 98.1 98.1 11/05/16 01:00 2.0 I&O Intake and Output 11/05/16 07:00 Intake Total 4515 ml Output Total 963 ml Balance 3552 ml IV Total 2525 ml Blood Product 1730 ml Blood Product IV Normal Saline Flush 260 ml Output Urine Total 953 ml Stool Total 10 ml PATIENT HAS A RECIO: Yes General: Alert, Cooperative, mild distress Abdomen: Soft, Other (incisional tenderness, good ostomy output ) Labs Laboratory Tests Test 11/03/16 19:50 11/03/16 21:55 11/04/16 07:55 11/04/16 09:30 Hemoglobin 6.5 g/dL (13.0-17.5) 6.4 g/dL (13.0-17.5) 8.5 g/dL (13.0-17.5) White Blood Count 9.3 x10^3/uL (4.0-11.0) Red Blood Count 2.82 x10^6/uL (4.30-5.70) Hematocrit 24.8 % (39.0-53.0) Mean Corpuscular Volume 88 fL (79-100) Mean Corpuscular Hemoglobin 30 pg (25-35) Mean Corpuscular Hemoglobin Concent 34 g/dL (31-37) Red Cell Distribution Width 17.6 % (11.5-14.5) Platelet Count 75 x10^3/uL (140-400) Neutrophils (%) (Auto) 78 % (31-73) Lymphocytes (%) (Auto) 11 % (24-48) Monocytes (%) (Auto) 11 % (0-9) Eosinophils (%) (Auto) 0 % (0-3) Basophils (%) (Auto) 0 % (0-3) Neutrophils # (Auto) 7.2 x10^3uL (1.8-7.7) Lymphocytes # (Auto) 1.0 x10^3/uL (1.0-4.8) Monocytes # (Auto) 1.0 x10^3/uL (0.0-1.1) Eosinophils # (Auto) 0.0 x10^3/uL (0.0-0.7) Basophils # (Auto) 0.0 x10^3/uL (0.0-0.2) Sodium Level 147 mmol/L (136-145) Potassium Level 3.3 mmol/L (3.5-5.1) Chloride Level 113 mmol/L (98-107) Carbon Dioxide Level 23 mmol/L (21-32) Anion Gap 11 (6-14) Blood Urea Nitrogen 27 mg/dL (8-26) Creatinine 1.6 mg/dL (0.7-1.3) Estimated GFR (Cockcroft-Gault) 41.4 Glucose Level 133 mg/dL (70-99) Calcium Level 7.6 mg/dL (8.5-10.1) Prothrombin Time 18.3 SEC (11.7-14.0) Prothromb Time International Ratio 1.6 (0.8-1.1) Activated Partial Thromboplast Time 31 SEC (24-38) Test 11/04/16 12:10 11/04/16 15:21 11/04/16 22:00 11/05/16 05:25 White Blood Count 12.3 x10^3/uL (4.0-11.0) 7.7 x10^3/uL (4.0-11.0) Red Blood Count 1.98 x10^6/uL (4.30-5.70) 2.43 x10^6/uL (4.30-5.70) Hemoglobin 5.8 g/dL (13.0-17.5) 7.9 g/dL (13.0-17.5) 7.2 g/dL (13.0-17.5) Hematocrit 17.3 % (39.0-53.0) 20.4 % (39.0-53.0) Mean Corpuscular Volume 88 fL (79-100) 84 fL (79-100) Mean Corpuscular Hemoglobin 30 pg (25-35) 30 pg (25-35) Mean Corpuscular Hemoglobin Concent 34 g/dL (31-37) 35 g/dL (31-37) Red Cell Distribution Width 16.4 % (11.5-14.5) 14.9 % (11.5-14.5) Platelet Count 110 x10^3/uL (140-400) 75 x10^3/uL (140-400) Bedside Hemoglobin (Calculated) 7.1 g/dL (14-18) Bedside Hematocrit 21 % (37-52) Bedside Arterial pH 7.30 (7.35-7.45) Arterial Blood pH (Temp corrected) 7.29 Bedside Arterial pCO2 36 mmHg (35-45) Arterial Blood pCO2 (Temp correct) 37 mmHg Bedside Arterial pO2 348 mmHg (75-100) Arterial Blood pO2 (Temp corrected) 351 mmHg Bedside Arterial HCO3 18 mmol/L (21-28) Bedside Arterial Total CO2 19 mmol/L (21-32) Arterial Bld O2 Saturation (Measur) 100 % (95-99) Bedside Arterial Blood Base Excess -8 mmol/L (0-3) Bedside FiO2 100.0 Bedside Sodium 143 mmol/L (135-145) Bedside Potassium 3.5 mmol/L (3.5-5.0) Glucose Level 213 mg/dL (70-99) 158 mg/dL (70-99) Bedside Ionized Calcium (Itzel) 1.00 mmol/L (1.13-1.32) Neutrophils (%) (Auto) 78 % (31-73) Lymphocytes (%) (Auto) 6 % (24-48) Monocytes (%) (Auto) 17 % (0-9) Eosinophils (%) (Auto) 0 % (0-3) Basophils (%) (Auto) 0 % (0-3) Neutrophils # (Auto) 6.0 x10^3uL (1.8-7.7) Lymphocytes # (Auto) 0.4 x10^3/uL (1.0-4.8) Monocytes # (Auto) 1.3 x10^3/uL (0.0-1.1) Eosinophils # (Auto) 0.0 x10^3/uL (0.0-0.7) Basophils # (Auto) 0.0 x10^3/uL (0.0-0.2) Prothrombin Time 16.9 SEC (11.7-14.0) Prothromb Time International Ratio 1.5 (0.8-1.1) Activated Partial Thromboplast Time 33 SEC (24-38) Fibrinogen 401 mg/dL (200-440) D-Dimer (Delmy) 1.19 ug/mlFEU (0.00-0.50) Sodium Level 143 mmol/L (136-145) Potassium Level 3.1 mmol/L (3.5-5.1) Chloride Level 112 mmol/L (98-107) Carbon Dioxide Level 21 mmol/L (21-32) Anion Gap 10 (6-14) Blood Urea Nitrogen 26 mg/dL (8-26) Creatinine 1.3 mg/dL (0.7-1.3) Estimated GFR (Cockcroft-Gault) 52.6 Calcium Level 6.7 mg/dL (8.5-10.1) Laboratory Tests Test 11/04/16 12:10 11/04/16 15:21 11/04/16 22:00 11/05/16 05:25 White Blood Count 12.3 x10^3/uL (4.0-11.0) 7.7 x10^3/uL (4.0-11.0) Red Blood Count 1.98 x10^6/uL (4.30-5.70) 2.43 x10^6/uL (4.30-5.70) Hemoglobin 5.8 g/dL (13.0-17.5) 7.9 g/dL (13.0-17.5) 7.2 g/dL (13.0-17.5) Hematocrit 17.3 % (39.0-53.0) 20.4 % (39.0-53.0) Mean Corpuscular Volume 88 fL (79-100) 84 fL (79-100) Mean Corpuscular Hemoglobin 30 pg (25-35) 30 pg (25-35) Mean Corpuscular Hemoglobin Concent 34 g/dL (31-37) 35 g/dL (31-37) Red Cell Distribution Width 16.4 % (11.5-14.5) 14.9 % (11.5-14.5) Platelet Count 110 x10^3/uL (140-400) 75 x10^3/uL (140-400) Bedside Hemoglobin (Calculated) 7.1 g/dL (14-18) Bedside Hematocrit 21 % (37-52) Bedside Arterial pH 7.30 (7.35-7.45) Arterial Blood pH (Temp corrected) 7.29 Bedside Arterial pCO2 36 mmHg (35-45) Arterial Blood pCO2 (Temp correct) 37 mmHg Bedside Arterial pO2 348 mmHg (75-100) Arterial Blood pO2 (Temp corrected) 351 mmHg Bedside Arterial HCO3 18 mmol/L (21-28) Bedside Arterial Total CO2 19 mmol/L (21-32) Arterial Bld O2 Saturation (Measur) 100 % (95-99) Bedside Arterial Blood Base Excess -8 mmol/L (0-3) Bedside FiO2 100.0 Bedside Sodium 143 mmol/L (135-145) Bedside Potassium 3.5 mmol/L (3.5-5.0) Glucose Level 213 mg/dL (70-99) 158 mg/dL (70-99) Bedside Ionized Calcium (Itzel) 1.00 mmol/L (1.13-1.32) Neutrophils (%) (Auto) 78 % (31-73) Lymphocytes (%) (Auto) 6 % (24-48) Monocytes (%) (Auto) 17 % (0-9) Eosinophils (%) (Auto) 0 % (0-3) Basophils (%) (Auto) 0 % (0-3) Neutrophils # (Auto) 6.0 x10^3uL (1.8-7.7) Lymphocytes # (Auto) 0.4 x10^3/uL (1.0-4.8) Monocytes # (Auto) 1.3 x10^3/uL (0.0-1.1) Eosinophils # (Auto) 0.0 x10^3/uL (0.0-0.7) Basophils # (Auto) 0.0 x10^3/uL (0.0-0.2) Prothrombin Time 16.9 SEC (11.7-14.0) Prothromb Time International Ratio 1.5 (0.8-1.1) Activated Partial Thromboplast Time 33 SEC (24-38) Fibrinogen 401 mg/dL (200-440) D-Dimer (Delmy) 1.19 ug/mlFEU (0.00-0.50) Sodium Level 143 mmol/L (136-145) Potassium Level 3.1 mmol/L (3.5-5.1) Chloride Level 112 mmol/L (98-107) Carbon Dioxide Level 21 mmol/L (21-32) Anion Gap 10 (6-14) Blood Urea Nitrogen 26 mg/dL (8-26) Creatinine 1.3 mg/dL (0.7-1.3) Estimated GFR (Cockcroft-Gault) 52.6 Calcium Level 6.7 mg/dL (8.5-10.1) Problem List Problems Medical Problems: (1) Anemia Status: Acute (2) GI bleed Status: Acute Assessment/Plan S/P xlap with colon resection and colostomy for GI bleed Stable will D/C ngt speech for swallow eval prior to starting diet. Problems: JOSE DEAN MD Nov 05, 2016 11:17
[2016-11-05 12:25] LABS: BASO % 0 % (0-3); EOS % 0 % (0-3); LYMPH # 0.4 x10^3/uL (1.0-4.8); LYMPH % 6 % (24-48); MEAN CORPUSCULAR HEMOGLOBIN 30 pg (25-35); MEAN CORPUSCULAR HGB CONC 36 g/dL (31-37); MEAN CORPUSCULAR VOLUME 85 fL (79-100); MONO % 19 % (0-9); NEUT % 75 % (31-73); PLATELET COUNT 107 x10^3/uL (140-400); RED BLOOD COUNT 2.05 x10^6/uL (4.30-5.70); RED CELL DISTRIBUTION WIDTH 14.8 % (11.5-14.5); WHITE BLOOD COUNT 7.2 x10^3/uL (4.0-11.0)
[2016-11-05 12:28] LABS: HEMATOCRIT 17.4 % (39.0-53.0); HEMOGLOBIN 6.2 g/dL (13.0-17.5)
[2016-11-05 12:40] LABS: INR 1.4 (0.8-1.1); PROTHROMBIN TIME PATIENT 16.6 SEC (11.7-14.0)
[2016-11-06] VITALS (23 sets, daily range): BP systolic 130–167; BP diastolic 53–99
[2016-11-06] MEDS: IV 1/2 NORMAL SALINE 1,000 ML IV SCH ×3 (00:28→17:27)
[2016-11-06 06:28] LABS: BASO % 0 % (0-3); EOS % 1 % (0-3); HEMATOCRIT 21.2 % (39.0-53.0); HEMOGLOBIN 7.4 g/dL (13.0-17.5); LYMPH # 0.5 x10^3/uL (1.0-4.8); LYMPH % 5 % (24-48); MEAN CORPUSCULAR HEMOGLOBIN 30 pg (25-35); MEAN CORPUSCULAR HGB CONC 35 g/dL (31-37); MEAN CORPUSCULAR VOLUME 86 fL (79-100); MONO % 17 % (0-9); NEUT % 77 % (31-73); PLATELET COUNT 115 x10^3/uL (140-400); RED BLOOD COUNT 2.47 x10^6/uL (4.30-5.70); WHITE BLOOD COUNT 9.3 x10^3/uL (4.0-11.0)
[2016-11-06 06:36] LABS: CALCIUM 7.8 mg/dL (8.5-10.1); CREATININE 1.1 mg/dL (0.7-1.3); GFR 63.8; POTASSIUM 3.1 mmol/L (3.5-5.1)
[2016-11-06] MEDS: MEMANTINE 10 MG TABLET. PO SCH ×2 (07:54→21:44)
[2016-11-06] MEDS: CARBIDOPA/LEVODOPA 25/100MG TABLET PO SCH ×3 (07:54→21:44)
--- NOTE | 2016-11-06 10:05 | PDOC ---
PROGRESS NOTES Subjective Subjective confused ,awake ,not in distress Objective Objective Vital Signs Date Time Temp Pulse Resp B/P (MAP) Pulse Ox O2 Delivery O2 Flow Rate FiO2 11/06/16 06:00 79 24 158/68 (98) 99 Room Air 11/06/16 04:00 99.2 99.2 11/05/16 19:41 Intake and Output 11/06/16 07:00 Intake Total 2469.88 ml Output Total 1099 ml Balance 1370.88 ml Intake Oral 20 ml IV Total 2309.88 ml Blood Product IV Normal Saline Flush 140 ml Output Urine Total 839 ml Stool Total 260 ml Physical Exam Abdomen: Soft, Other (incisional tenderness, good ostomy output ) Heart: Regular rate, Normal S1, Normal S2, No murmurs Extremities: No edema General: Alert, Cooperative, mild distress HEENT: PERRLA, EOMI Lungs: Clear to auscultation, Normal air movement MUSCULOSKELETAL: No joint tenderness Neuro: Normal speech Skin: No breakdown, No significant lesion COMMENT francie present Diagnosis Problem List Problems Medical Problems: (1) Anemia Status: Acute (2) GI bleed Status: Acute Assessment Assessment Problems Medical Problems: (1) Anemia Status: Acute (2) GI bleed Status: Acute FINAL IMPRESSION:Active lower GI bleed, from 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 colon polyp removed 1. Lower gastrointestinal bleed secondary to possible diverticular bleed. 2. Coronary artery disease, bypass surgery. 3. Parkinson disease. 4. Hypertension. 5. Dementia. PLAN: Post op day #2,stable HB 7.4stable pot 3.2 replace improving dvt prevention pt/ot iv fluids Operative Note Date: 11/04/2016 Preoperative diagnosis: Lower GI bleed Postoperative diagnosis: Splenic flexure infarct of the colon Procedure: Exploratory laparotomy with left colon resection including splenic flexure in colostomy Surgeon: Lalo Specimen: Left colon splenic flexure Procedure: Mesenteric arteriogram and embolization of the middle colic artery x3 done 11/02/18. encephalopathy due to underlying parkinsonism with dementia colonoscopy 11/01 showed diverticular bled , colon polyp was removed Problems: Plan Plan of Care Problems Medical Problems: (1) Anemia Status: Acute (2) GI bleed Status: Acute Comment Review of Relevant I have reviewed the following items kiana (where applicable) has been applied. Labs Laboratory Tests Test 11/05/16 12:15 11/05/16 22:00 11/06/16 06:17 White Blood Count 7.2 x10^3/uL (4.0-11.0) 9.3 x10^3/uL (4.0-11.0) Red Blood Count 2.05 x10^6/uL (4.30-5.70) 2.47 x10^6/uL (4.30-5.70) Hemoglobin 6.2 g/dL (13.0-17.5) 7.2 g/dL (13.0-17.5) 7.4 g/dL (13.0-17.5) Hematocrit 17.4 % (39.0-53.0) 21.2 % (39.0-53.0) Mean Corpuscular Volume 85 fL (79-100) 86 fL (79-100) Mean Corpuscular Hemoglobin 30 pg (25-35) 30 pg (25-35) Mean Corpuscular Hemoglobin Concent 36 g/dL (31-37) 35 g/dL (31-37) Red Cell Distribution Width 14.8 % (11.5-14.5) 15.0 % (11.5-14.5) Platelet Count 107 x10^3/uL (140-400) 115 x10^3/uL (140-400) Neutrophils (%) (Auto) 75 % (31-73) 77 % (31-73) Lymphocytes (%) (Auto) 6 % (24-48) 5 % (24-48) Monocytes (%) (Auto) 19 % (0-9) 17 % (0-9) Eosinophils (%) (Auto) 0 % (0-3) 1 % (0-3) Basophils (%) (Auto) 0 % (0-3) 0 % (0-3) Neutrophils # (Auto) 5.4 x10^3uL (1.8-7.7) 7.1 x10^3uL (1.8-7.7) Lymphocytes # (Auto) 0.4 x10^3/uL (1.0-4.8) 0.5 x10^3/uL (1.0-4.8) Monocytes # (Auto) 1.3 x10^3/uL (0.0-1.1) 1.5 x10^3/uL (0.0-1.1) Eosinophils # (Auto) 0.0 x10^3/uL (0.0-0.7) 0.1 x10^3/uL (0.0-0.7) Basophils # (Auto) 0.0 x10^3/uL (0.0-0.2) 0.0 x10^3/uL (0.0-0.2) Prothrombin Time 16.6 SEC (11.7-14.0) Prothromb Time International Ratio 1.4 (0.8-1.1) Sodium Level 143 mmol/L (136-145) Potassium Level 3.1 mmol/L (3.5-5.1) Chloride Level 110 mmol/L (98-107) Carbon Dioxide Level 22 mmol/L (21-32) Anion Gap 11 (6-14) Blood Urea Nitrogen 19 mg/dL (8-26) Creatinine 1.1 mg/dL (0.7-1.3) Estimated GFR (Cockcroft-Gault) 63.8 Glucose Level 97 mg/dL (70-99) Calcium Level 7.8 mg/dL (8.5-10.1) Medications Current Medications Potassium Chloride 50 ml @ 50 mls/hr Q1H IV ; Start 11/06/16 at 10:00; Stop at 11:59 Vitals/I & O Vital Sign - Last 24 Hours 11/05/16 11/05/16 11/05/16 11/05/16 10:25 10:45 11:00 11:23 Temp 98.7 98.7 98.7 98.7 Pulse 68 66 64 Resp 16 21 18 20 B/P (MAP) 142/61 140/58 142/57 (85) Pulse Ox 99 99 O2 Delivery Room Air Room Air 11/05/16 11/05/16 11/05/16 11/05/16 12:00 12:00 12:45 13:00 Temp 98.9 98.9 98.9 98.9 Pulse 68 72 70 Resp 15 20 21 B/P (MAP) 128/60 (82) 142/71 142/57 (85) Pulse Ox 98 98 O2 Delivery Room Air Room Air Room Air 11/05/16 11/05/16 11/05/1617 13:00 13:30 14:00 14:00 Temp 98.9 98.8 98.7 98.9 98.8 98.7 Pulse 70 68 70 70 Resp 21 21 20 26 B/P (MAP) 142/57 144/63 133/55 (81) 133/55 Pulse Ox 99 O2 Delivery Room Air 11/05/16 11/05/16 11/05/16 11/05/16 15:00 16:00 16:00 17:00 Temp 98.9 98.9 Pulse 69 70 74 Resp 19 21 20 B/P (MAP) 149/73 (98) 147/61 (89) 165/75 (105) Pulse Ox 98 99 99 O2 Delivery Room Air Room Air Room Air Room Air 11/05/16 11/05/16 11/05/16 11/05/16 18:00 19:00 19:28 19:41 Pulse 73 72 Resp 20 24 18 B/P (MAP) 160/77 (104) 151/73 (99) Pulse Ox 98 98 99 O2 Delivery Room Air Room Air Room Air Room Air O2 Flow Rate 11/05/16 11/05/16 11/05/16 11/05/16 19:58 20:00 21:00 22:00 Temp 99.2 99.2 Pulse 73 75 68 Resp 22 20 18 19 B/P (MAP) 150/95 (113) 153/75 (101) 141/60 (87) Pulse Ox 99 98 99 99 O2 Delivery Room Air Room Air Room Air Room Air 11/05/16 11/05/16 11/06/16 11/06/16 23:00 23:31 00:00 01:00 Temp 99.6 99.6 Pulse 75 80 79 Resp 20 22 18 B/P (MAP) 145/64 (91) 155/81 (105) 165/95 (118) Pulse Ox 99 98 99 O2 Delivery Room Air Room Air Room Air Room Air 11/06/16 11/06/16 11/06/16 11/06/16 02:00 03:00 04:00 04:00 Temp 99.2 99.2 Pulse 72 72 79 Resp 20 15 24 B/P (MAP) 149/66 (93) 132/99 (110) 130/53 (78) Pulse Ox 98 98 97 O2 Delivery Room Air Room Air Room Air Room Air 11/06/16 11/06/16 05:00 06:00 Pulse 75 79 Resp 23 24 B/P (MAP) 158/76 (103) 158/68 (98) Pulse Ox 100 99 O2 Delivery Room Air Room Air Intake and Output 11/05/16 11/05/16 11/06/16 15:00 23:00 07:00 Intake Total 140 ml 1611.88 ml 718 ml Output Total 450 ml 474 ml 175 ml Balance -310 ml 1137.88 ml 543 ml BURTON AKBAR MD Nov 06, 2016 10:05
--- NOTE | 2016-11-06 10:17 | PDOC ---
SURGICAL PROGRESS NOTE Subjective Awake and alert. Vital Signs Vital Signs Date Time Temp Pulse Resp B/P (MAP) Pulse Ox O2 Delivery O2 Flow Rate FiO2 11/06/16 06:00 79 24 158/68 (98) 99 Room Air 11/06/16 04:00 99.2 99.2 11/05/16 19:41 I&O Intake and Output 11/06/16 07:00 Intake Total 2469.88 ml Output Total 1099 ml Balance 1370.88 ml Intake Oral 20 ml IV Total 2309.88 ml Blood Product IV Normal Saline Flush 140 ml Output Urine Total 839 ml Stool Total 260 ml PATIENT HAS A RECIO: Yes General: Alert, Oriented X3, Cooperative, mild distress Abdomen: Normal bowel sounds, Soft, No tenderness, Other (viable ostomy with output) Labs Laboratory Tests Test 11/04/16 12:10 11/04/16 15:21 11/04/16 22:00 11/05/16 05:25 White Blood Count 12.3 x10^3/uL (4.0-11.0) 7.7 x10^3/uL (4.0-11.0) Red Blood Count 1.98 x10^6/uL (4.30-5.70) 2.43 x10^6/uL (4.30-5.70) Hemoglobin 5.8 g/dL (13.0-17.5) 7.9 g/dL (13.0-17.5) 7.2 g/dL (13.0-17.5) Hematocrit 17.3 % (39.0-53.0) 20.4 % (39.0-53.0) Mean Corpuscular Volume 88 fL (79-100) 84 fL (79-100) Mean Corpuscular Hemoglobin 30 pg (25-35) 30 pg (25-35) Mean Corpuscular Hemoglobin Concent 34 g/dL (31-37) 35 g/dL (31-37) Red Cell Distribution Width 16.4 % (11.5-14.5) 14.9 % (11.5-14.5) Platelet Count 110 x10^3/uL (140-400) 75 x10^3/uL (140-400) Bedside Hemoglobin (Calculated) 7.1 g/dL (14-18) Bedside Hematocrit 21 % (37-52) Bedside Arterial pH 7.30 (7.35-7.45) Arterial Blood pH (Temp corrected) 7.29 Bedside Arterial pCO2 36 mmHg (35-45) Arterial Blood pCO2 (Temp correct) 37 mmHg Bedside Arterial pO2 348 mmHg (75-100) Arterial Blood pO2 (Temp corrected) 351 mmHg Bedside Arterial HCO3 18 mmol/L (21-28) Bedside Arterial Total CO2 19 mmol/L (21-32) Arterial Bld O2 Saturation (Measur) 100 % (95-99) Bedside Arterial Blood Base Excess -8 mmol/L (0-3) Bedside FiO2 100.0 Bedside Sodium 143 mmol/L (135-145) Bedside Potassium 3.5 mmol/L (3.5-5.0) Glucose Level 213 mg/dL (70-99) 158 mg/dL (70-99) Bedside Ionized Calcium (Itzel) 1.00 mmol/L (1.13-1.32) Neutrophils (%) (Auto) 78 % (31-73) Lymphocytes (%) (Auto) 6 % (24-48) Monocytes (%) (Auto) 17 % (0-9) Eosinophils (%) (Auto) 0 % (0-3) Basophils (%) (Auto) 0 % (0-3) Neutrophils # (Auto) 6.0 x10^3uL (1.8-7.7) Lymphocytes # (Auto) 0.4 x10^3/uL (1.0-4.8) Monocytes # (Auto) 1.3 x10^3/uL (0.0-1.1) Eosinophils # (Auto) 0.0 x10^3/uL (0.0-0.7) Basophils # (Auto) 0.0 x10^3/uL (0.0-0.2) Prothrombin Time 16.9 SEC (11.7-14.0) Prothromb Time International Ratio 1.5 (0.8-1.1) Activated Partial Thromboplast Time 33 SEC (24-38) Fibrinogen 401 mg/dL (200-440) D-Dimer (Delmy) 1.19 ug/mlFEU (0.00-0.50) Sodium Level 143 mmol/L (136-145) Potassium Level 3.1 mmol/L (3.5-5.1) Chloride Level 112 mmol/L (98-107) Carbon Dioxide Level 21 mmol/L (21-32) Anion Gap 10 (6-14) Blood Urea Nitrogen 26 mg/dL (8-26) Creatinine 1.3 mg/dL (0.7-1.3) Estimated GFR (Cockcroft-Gault) 52.6 Calcium Level 6.7 mg/dL (8.5-10.1) Test 11/05/16 12:15 11/05/16 22:00 11/06/16 06:17 White Blood Count 7.2 x10^3/uL (4.0-11.0) 9.3 x10^3/uL (4.0-11.0) Red Blood Count 2.05 x10^6/uL (4.30-5.70) 2.47 x10^6/uL (4.30-5.70) Hemoglobin 6.2 g/dL (13.0-17.5) 7.2 g/dL (13.0-17.5) 7.4 g/dL (13.0-17.5) Hematocrit 17.4 % (39.0-53.0) 21.2 % (39.0-53.0) Mean Corpuscular Volume 85 fL (79-100) 86 fL (79-100) Mean Corpuscular Hemoglobin 30 pg (25-35) 30 pg (25-35) Mean Corpuscular Hemoglobin Concent 36 g/dL (31-37) 35 g/dL (31-37) Red Cell Distribution Width 14.8 % (11.5-14.5) 15.0 % (11.5-14.5) Platelet Count 107 x10^3/uL (140-400) 115 x10^3/uL (140-400) Neutrophils (%) (Auto) 75 % (31-73) 77 % (31-73) Lymphocytes (%) (Auto) 6 % (24-48) 5 % (24-48) Monocytes (%) (Auto) 19 % (0-9) 17 % (0-9) Eosinophils (%) (Auto) 0 % (0-3) 1 % (0-3) Basophils (%) (Auto) 0 % (0-3) 0 % (0-3) Neutrophils # (Auto) 5.4 x10^3uL (1.8-7.7) 7.1 x10^3uL (1.8-7.7) Lymphocytes # (Auto) 0.4 x10^3/uL (1.0-4.8) 0.5 x10^3/uL (1.0-4.8) Monocytes # (Auto) 1.3 x10^3/uL (0.0-1.1) 1.5 x10^3/uL (0.0-1.1) Eosinophils # (Auto) 0.0 x10^3/uL (0.0-0.7) 0.1 x10^3/uL (0.0-0.7) Basophils # (Auto) 0.0 x10^3/uL (0.0-0.2) 0.0 x10^3/uL (0.0-0.2) Prothrombin Time 16.6 SEC (11.7-14.0) Prothromb Time International Ratio 1.4 (0.8-1.1) Sodium Level 143 mmol/L (136-145) Potassium Level 3.1 mmol/L (3.5-5.1) Chloride Level 110 mmol/L (98-107) Carbon Dioxide Level 22 mmol/L (21-32) Anion Gap 11 (6-14) Blood Urea Nitrogen 19 mg/dL (8-26) Creatinine 1.1 mg/dL (0.7-1.3) Estimated GFR (Cockcroft-Gault) 63.8 Glucose Level 97 mg/dL (70-99) Calcium Level 7.8 mg/dL (8.5-10.1) Laboratory Tests Test 11/05/16 12:15 11/05/16 22:00 11/06/16 06:17 White Blood Count 7.2 x10^3/uL (4.0-11.0) 9.3 x10^3/uL (4.0-11.0) Red Blood Count 2.05 x10^6/uL (4.30-5.70) 2.47 x10^6/uL (4.30-5.70) Hemoglobin 6.2 g/dL (13.0-17.5) 7.2 g/dL (13.0-17.5) 7.4 g/dL (13.0-17.5) Hematocrit 17.4 % (39.0-53.0) 21.2 % (39.0-53.0) Mean Corpuscular Volume 85 fL (79-100) 86 fL (79-100) Mean Corpuscular Hemoglobin 30 pg (25-35) 30 pg (25-35) Mean Corpuscular Hemoglobin Concent 36 g/dL (31-37) 35 g/dL (31-37) Red Cell Distribution Width 14.8 % (11.5-14.5) 15.0 % (11.5-14.5) Platelet Count 107 x10^3/uL (140-400) 115 x10^3/uL (140-400) Neutrophils (%) (Auto) 75 % (31-73) 77 % (31-73) Lymphocytes (%) (Auto) 6 % (24-48) 5 % (24-48) Monocytes (%) (Auto) 19 % (0-9) 17 % (0-9) Eosinophils (%) (Auto) 0 % (0-3) 1 % (0-3) Basophils (%) (Auto) 0 % (0-3) 0 % (0-3) Neutrophils # (Auto) 5.4 x10^3uL (1.8-7.7) 7.1 x10^3uL (1.8-7.7) Lymphocytes # (Auto) 0.4 x10^3/uL (1.0-4.8) 0.5 x10^3/uL (1.0-4.8) Monocytes # (Auto) 1.3 x10^3/uL (0.0-1.1) 1.5 x10^3/uL (0.0-1.1) Eosinophils # (Auto) 0.0 x10^3/uL (0.0-0.7) 0.1 x10^3/uL (0.0-0.7) Basophils # (Auto) 0.0 x10^3/uL (0.0-0.2) 0.0 x10^3/uL (0.0-0.2) Prothrombin Time 16.6 SEC (11.7-14.0) Prothromb Time International Ratio 1.4 (0.8-1.1) Sodium Level 143 mmol/L (136-145) Potassium Level 3.1 mmol/L (3.5-5.1) Chloride Level 110 mmol/L (98-107) Carbon Dioxide Level 22 mmol/L (21-32) Anion Gap 11 (6-14) Blood Urea Nitrogen 19 mg/dL (8-26) Creatinine 1.1 mg/dL (0.7-1.3) Estimated GFR (Cockcroft-Gault) 63.8 Glucose Level 97 mg/dL (70-99) Calcium Level 7.8 mg/dL (8.5-10.1) Problem List Problems Medical Problems: (1) Anemia Status: Acute (2) GI bleed Status: Acute Assessment/Plan S/P xlap with colon resection for GI bleed Stable Continue supportive care. Problems: JOSE DEAN MD Nov 06, 2016 10:17
[2016-11-06] MEDS: PANTOPRAZOLE IV PUSH 40 MG VIAL. IVP SCH (11:52)
[2016-11-06] MEDS: POTASSIUM CHLORIDE 20MEQ 50 ML IV SCH ×2 (11:57→11:58)
--- NOTE | 2016-11-06 13:01 | PDOC ---
Subjective: Subjective: "Better than nothing." +flatus yesterday Objective: Objective: D/w RN - to contact primary re: nutrition, failed swallow eval but tolerating pills w/ thick liquids. Vital Signs: Vital Signs Date Time Temp Pulse Resp B/P (MAP) Pulse Ox O2 Delivery O2 Flow Rate FiO2 11/06/16 06:00 79 24 158/68 (98) 99 Room Air 11/06/16 04:00 99.2 99.2 11/05/16 19:41 Labs: Laboratory Tests Test 11/05/16 22:00 11/06/16 06:17 Hemoglobin 7.2 g/dL 7.4 g/dL White Blood Count 9.3 x10^3/uL Red Blood Count 2.47 x10^6/uL Hematocrit 21.2 % Mean Corpuscular Volume 86 fL Mean Corpuscular Hemoglobin 30 pg Mean Corpuscular Hemoglobin Concent 35 g/dL Red Cell Distribution Width 15.0 % Platelet Count 115 x10^3/uL Neutrophils (%) (Auto) 77 % Lymphocytes (%) (Auto) 5 % Monocytes (%) (Auto) 17 % Eosinophils (%) (Auto) 1 % Basophils (%) (Auto) 0 % Neutrophils # (Auto) 7.1 x10^3uL Lymphocytes # (Auto) 0.5 x10^3/uL Monocytes # (Auto) 1.5 x10^3/uL Eosinophils # (Auto) 0.1 x10^3/uL Basophils # (Auto) 0.0 x10^3/uL Sodium Level 143 mmol/L Potassium Level 3.1 mmol/L Chloride Level 110 mmol/L Carbon Dioxide Level 22 mmol/L Anion Gap 11 Blood Urea Nitrogen 19 mg/dL Creatinine 1.1 mg/dL Estimated GFR (Cockcroft-Gault) 63.8 Glucose Level 97 mg/dL Calcium Level 7.8 mg/dL Imaging: [facility] Bedside Swallow Eval Bedside swallow eval completed. Solids NT d/t recent abd surgery. Pt w/ multiple s/s aspiration on small amts of puree, honey thick liquid and single ice chips. Reduced and possibly delayed hyolaryngeal excursion noted w/aphonia p.swallow, wet quality phonation, and inconsistent subtle throat clearing present following trials of each consistency. IMPRESSIONS: Multiple s/s aspiration, SILENT in nature given no cough present despite wet phonation, etc. No safe consistency identified. High risk of silent aspiration. Pt has dx of PD, denies hx dysphagia but questionable historian. Suspect general weakness w/PD as contributing factors to current dysphagia. Time NPO required is unclear. Will f/u to determine progress toward po over next few days. RECOMMENDATIONS: NPO meds and nutrition. [facility] will f/u per POC. PE: GEN: NAD LUNGS: clear HEART: RRR ABD: soft, tender, quiet BS NEURO/PSYCH: A & O 3 A/P: Lower GI bleed s/p resection -Hgb stable Dysphagia -swallow eval above, taking pills -- Await continued swallow evals. If taking pills, could change to PO PPI. DUNCAN SLAUGHTER Nov 06, 2016 13:00
--- NOTE | 2016-11-06 13:28 | PATHOLOGY ---
PATHOLOGY REPORT * * * * * * * * FINAL DIAGNOSIS: Segment of colon and attached mesocolon, splenic flexure of colon segmental resection: - Segmental focus of ischemic colitis with mucosal necrosis, submucosal and inner muscular wall necrosis, and transmural acute inflammation. - Additional small focus of ischemic colitis. - Proximal and distal margins of resection are viable. - Few diverticuli with mild chronic diverticulitis. COMMENT: There is no evidence of malignancy. (JPM:mgr; 11/06/2016) REPORT ELECTRONICALLY SIGNED BY: Clark Dickey M.D. DATE/TIME: 11/06/2016 13:27 * * * * * * * * GROSS PATHOLOGY: The specimen is received fresh for intraoperative consultation and is designated "colon splenic flexure." This consists of a segment of colon with attached mesocolon. The segment is stapled closed at both ends. The segment measures 32 cm in length. The attached mesocolon measures up to 4 cm in depth. There is an area of yellowish de la garza discoloration of the serosa of the mid portion of the segment. The remaining serosa on either side of this area is pinkish briggs to pinkish de la garza. The segment is opened along the antimesocolon. There is reddish purple blood and blood clot present within the lumen. Within the mid portion of the segment, there is a segmental area of yellow-green and reddish purple mucosal necrosis measuring up to approximately 6 cm in length. There is an additional small irregular area of apparent mucosal necrosis measuring up to 2 cm located between this central area and one of the resection margins. The mucosa is otherwise pink-briggs and transversely folded and appears viable. The mucosa of each stapled margin appears viable. There appear to be a few diverticula within the segment. There is no evidence of malignancy. (JPM:mgr; 11/04/2016) Belly Roller sections are submitted as follows: A1-A2 - margins A3 - smaller area of mucosal necrosis A4-A5 - larger segmental area of mucosal necrosis A6 - diverticula. (JWP; 11/05/2016) INTRAOPERATIVE CONSULTATION (Tanya Dickey M.D.) Segment of colon and attached mesocolon, splenic flexure of colon segmental resection: - Segmental area of mucosal necrosis-no gross evidence of malignancy. - Proximal and distal margins appear viable. The results are displayed to Dr. May in the operating room. The specimen is fixed in formalin prior to additional sectioning. (JPM:mgr; 11/04/2016) Testing performed by [facility] [place] [address] INITIAL CPT CODE(S): A; 15386, 04891 Professional services performed [place] [facility] [place] [address] Technical services performed by [facility] at [address] [place] [address], [facility] [address] [address]. SPECIMEN(S) RECEIVED: A.Colon-splenic flexure CLINICAL HISTORY: GI bleed PATIENT: KEV SALGUERO /AGE: 8 1930 (Age: 86) PATIENT #: [id number] ALT CASE #: SPECIMEN COLLECTION DATE: 11/04/2016 SPECIMEN RECEIVED DATE: 11/04/2016 [facility] - [address] [place] [address] - PHONE: [phone] * * * END OF REPORT * * *
[2016-11-07] VITALS (12 sets, daily range): BP systolic 138–174; BP diastolic 51–70
[2016-11-07] MEDS: IV 1/2 NORMAL SALINE 1,000 ML IV SCH ×3 (02:05→17:18)
[2016-11-07 05:35] LABS: BASO % 0 % (0-3); EOS % 1 % (0-3); HEMOGLOBIN 7.8 g/dL (13.0-17.5); LYMPH # 0.4 x10^3/uL (1.0-4.8); LYMPH % 4 % (24-48); MEAN CORPUSCULAR HEMOGLOBIN 30 pg (25-35); MEAN CORPUSCULAR HGB CONC 34 g/dL (31-37); MEAN CORPUSCULAR VOLUME 88 fL (79-100); MONO % 13 % (0-9); NEUT % 82 % (31-73); PLATELET COUNT 127 x10^3/uL (140-400); RED BLOOD COUNT 2.61 x10^6/uL (4.30-5.70); RED CELL DISTRIBUTION WIDTH 15.4 % (11.5-14.5); WHITE BLOOD COUNT 10.8 x10^3/uL (4.0-11.0)
[2016-11-07 05:49] LABS: CALCIUM 7.7 mg/dL (8.5-10.1); GFR 71.2; POTASSIUM 3.2 mmol/L (3.5-5.1)
[2016-11-07] MEDS: PANTOPRAZOLE IV PUSH 40 MG VIAL. IVP SCH (08:17)
[2016-11-07] MEDS: MEMANTINE 10 MG TABLET. PO SCH ×2 (08:17→21:08)
[2016-11-07] MEDS: CARBIDOPA/LEVODOPA 25/100MG TABLET PO SCH ×3 (08:17→21:08)
--- NOTE | 2016-11-07 08:36 | PDOC ---
SURGICAL PROGRESS NOTE Subjective Feeling better, more alert. Denies pain Vital Signs Vital Signs Date Time Temp Pulse Resp B/P (MAP) Pulse Ox O2 Delivery O2 Flow Rate FiO2 11/07/16 05:00 64 16 160/70 (100) 100 Room Air 11/07/16 04:00 98.9 98.9 I&O Intake and Output 11/07/16 07:00 Intake Total 2294 ml Output Total 1875 ml Balance 419 ml IV Total 2294 ml Output Urine Total 600 ml Stool Total 1275 ml PATIENT HAS A RECIO: Yes General: Alert, Oriented X3, Cooperative, mild distress Abdomen: Normal bowel sounds, Soft, Other (mild incisional tenderness, ostomy viable with stool) Extremities: Other Labs Laboratory Tests Test 11/05/16 12:15 11/05/16 22:00 11/06/16 06:17 11/07/16 05:15 White Blood Count 7.2 x10^3/uL (4.0-11.0) 9.3 x10^3/uL (4.0-11.0) 10.8 x10^3/uL (4.0-11.0) Red Blood Count 2.05 x10^6/uL (4.30-5.70) 2.47 x10^6/uL (4.30-5.70) 2.61 x10^6/uL (4.30-5.70) Hemoglobin 6.2 g/dL (13.0-17.5) 7.2 g/dL (13.0-17.5) 7.4 g/dL (13.0-17.5) 7.8 g/dL (13.0-17.5) Hematocrit 17.4 % (39.0-53.0) 21.2 % (39.0-53.0) 23.0 % (39.0-53.0) Mean Corpuscular Volume 85 fL (79-100) 86 fL (79-100) 88 fL (79-100) Mean Corpuscular Hemoglobin 30 pg (25-35) 30 pg (25-35) 30 pg (25-35) Mean Corpuscular Hemoglobin Concent 36 g/dL (31-37) 35 g/dL (31-37) 34 g/dL (31-37) Red Cell Distribution Width 14.8 % (11.5-14.5) 15.0 % (11.5-14.5) 15.4 % (11.5-14.5) Platelet Count 107 x10^3/uL (140-400) 115 x10^3/uL (140-400) 127 x10^3/uL (140-400) Neutrophils (%) (Auto) 75 % (31-73) 77 % (31-73) 82 % (31-73) Lymphocytes (%) (Auto) 6 % (24-48) 5 % (24-48) 4 % (24-48) Monocytes (%) (Auto) 19 % (0-9) 17 % (0-9) 13 % (0-9) Eosinophils (%) (Auto) 0 % (0-3) 1 % (0-3) 1 % (0-3) Basophils (%) (Auto) 0 % (0-3) 0 % (0-3) 0 % (0-3) Neutrophils # (Auto) 5.4 x10^3uL (1.8-7.7) 7.1 x10^3uL (1.8-7.7) 8.9 x10^3uL (1.8-7.7) Lymphocytes # (Auto) 0.4 x10^3/uL (1.0-4.8) 0.5 x10^3/uL (1.0-4.8) 0.4 x10^3/uL (1.0-4.8) Monocytes # (Auto) 1.3 x10^3/uL (0.0-1.1) 1.5 x10^3/uL (0.0-1.1) 1.4 x10^3/uL (0.0-1.1) Eosinophils # (Auto) 0.0 x10^3/uL (0.0-0.7) 0.1 x10^3/uL (0.0-0.7) 0.1 x10^3/uL (0.0-0.7) Basophils # (Auto) 0.0 x10^3/uL (0.0-0.2) 0.0 x10^3/uL (0.0-0.2) 0.0 x10^3/uL (0.0-0.2) Prothrombin Time 16.6 SEC (11.7-14.0) Prothromb Time International Ratio 1.4 (0.8-1.1) Sodium Level 143 mmol/L (136-145) 140 mmol/L (136-145) Potassium Level 3.1 mmol/L (3.5-5.1) 3.2 mmol/L (3.5-5.1) Chloride Level 110 mmol/L (98-107) 108 mmol/L (98-107) Carbon Dioxide Level 22 mmol/L (21-32) 22 mmol/L (21-32) Anion Gap 11 (6-14) 10 (6-14) Blood Urea Nitrogen 19 mg/dL (8-26) 16 mg/dL (8-26) Creatinine 1.1 mg/dL (0.7-1.3) 1.0 mg/dL (0.7-1.3) Estimated GFR (Cockcroft-Gault) 63.8 71.2 Glucose Level 97 mg/dL (70-99) 92 mg/dL (70-99) Calcium Level 7.8 mg/dL (8.5-10.1) 7.7 mg/dL (8.5-10.1) Laboratory Tests Test 11/07/16 05:15 White Blood Count 10.8 x10^3/uL (4.0-11.0) Red Blood Count 2.61 x10^6/uL (4.30-5.70) Hemoglobin 7.8 g/dL (13.0-17.5) Hematocrit 23.0 % (39.0-53.0) Mean Corpuscular Volume 88 fL (79-100) Mean Corpuscular Hemoglobin 30 pg (25-35) Mean Corpuscular Hemoglobin Concent 34 g/dL (31-37) Red Cell Distribution Width 15.4 % (11.5-14.5) Platelet Count 127 x10^3/uL (140-400) Neutrophils (%) (Auto) 82 % (31-73) Lymphocytes (%) (Auto) 4 % (24-48) Monocytes (%) (Auto) 13 % (0-9) Eosinophils (%) (Auto) 1 % (0-3) Basophils (%) (Auto) 0 % (0-3) Neutrophils # (Auto) 8.9 x10^3uL (1.8-7.7) Lymphocytes # (Auto) 0.4 x10^3/uL (1.0-4.8) Monocytes # (Auto) 1.4 x10^3/uL (0.0-1.1) Eosinophils # (Auto) 0.1 x10^3/uL (0.0-0.7) Basophils # (Auto) 0.0 x10^3/uL (0.0-0.2) Sodium Level 140 mmol/L (136-145) Potassium Level 3.2 mmol/L (3.5-5.1) Chloride Level 108 mmol/L (98-107) Carbon Dioxide Level 22 mmol/L (21-32) Anion Gap 10 (6-14) Blood Urea Nitrogen 16 mg/dL (8-26) Creatinine 1.0 mg/dL (0.7-1.3) Estimated GFR (Cockcroft-Gault) 71.2 Glucose Level 92 mg/dL (70-99) Calcium Level 7.7 mg/dL (8.5-10.1) Problem List Problems Medical Problems: (1) Anemia Status: Acute (2) GI bleed Status: Acute Assessment/Plan S/P colon resection with colostomy for GI Bleed Stable with improving Hgb Supportive care. Problems: JOSE DEAN MD Nov 07, 2016 08:36
--- NOTE | 2016-11-07 10:32 | PDOC ---
PROGRESS NOTES Subjective Subjective no more bleeding from GI tract Objective Objective Vital Signs Date Time Temp Pulse Resp B/P (MAP) Pulse Ox O2 Delivery O2 Flow Rate FiO2 11/07/16 05:00 64 16 160/70 (100) 100 Room Air 11/07/16 04:00 98.9 98.9 Intake and Output 11/07/16 06:59 Intake Total 2294 ml Output Total 1875 ml Balance 419 ml IV Total 2294 ml Output Urine Total 600 ml Stool Total 1275 ml Physical Exam Abdomen: Normal bowel sounds, Soft, Other (mild incisional tenderness, ostomy viable with stool) Heart: Regular rate, Normal S1, Normal S2, No murmurs Extremities: Other General: Alert, Oriented X3, Cooperative, mild distress HEENT: PERRLA, EOMI Lungs: Clear to auscultation, Normal air movement MUSCULOSKELETAL: No joint tenderness Neuro: Normal speech Skin: No breakdown, No significant lesion COMMENT francie present Diagnosis Problem List Problems Medical Problems: (1) Anemia Status: Acute (2) GI bleed Status: Acute Assessment Assessment Problems Medical Problems: (1) Anemia Status: Acute (2) GI bleed Status: Acute FINAL IMPRESSION:Active lower GI bleed, from 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 colon polyp removed 1. Lower gastrointestinal bleed secondary to possible diverticular bleed. 2. Coronary artery disease, bypass surgery. 3. Parkinson disease. 4. Hypertension. 5. Dementia. PLAN: Post op day #3,stable speech consult ,? vedio swallow test HB 7.8stable pot 3.2 replace today [id number] improving dvt prevention pt/ot iv fluids Operative Note Date: 11/04/2016 Preoperative diagnosis: Lower GI bleed Postoperative diagnosis: Splenic flexure infarct of the colon Procedure: Exploratory laparotomy with left colon resection including splenic flexure in colostomy Surgeon: Lalo Specimen: Left colon splenic flexure Procedure: Mesenteric arteriogram and embolization of the middle colic artery x3 done 11/02/18. encephalopathy due to underlying parkinsonism with dementia colonoscopy 11/01 showed diverticular bled , colon polyp was removed Problems: Plan Plan of Care Problems Medical Problems: (1) Anemia Status: Acute (2) GI bleed Status: Acute Comment Review of Relevant I have reviewed the following items kiana (where applicable) has been applied. Labs Laboratory Tests Test 11/07/16 05:15 White Blood Count 10.8 x10^3/uL (4.0-11.0) Red Blood Count 2.61 x10^6/uL (4.30-5.70) Hemoglobin 7.8 g/dL (13.0-17.5) Hematocrit 23.0 % (39.0-53.0) Mean Corpuscular Volume 88 fL (79-100) Mean Corpuscular Hemoglobin 30 pg (25-35) Mean Corpuscular Hemoglobin Concent 34 g/dL (31-37) Red Cell Distribution Width 15.4 % (11.5-14.5) Platelet Count 127 x10^3/uL (140-400) Neutrophils (%) (Auto) 82 % (31-73) Lymphocytes (%) (Auto) 4 % (24-48) Monocytes (%) (Auto) 13 % (0-9) Eosinophils (%) (Auto) 1 % (0-3) Basophils (%) (Auto) 0 % (0-3) Neutrophils # (Auto) 8.9 x10^3uL (1.8-7.7) Lymphocytes # (Auto) 0.4 x10^3/uL (1.0-4.8) Monocytes # (Auto) 1.4 x10^3/uL (0.0-1.1) Eosinophils # (Auto) 0.1 x10^3/uL (0.0-0.7) Basophils # (Auto) 0.0 x10^3/uL (0.0-0.2) Sodium Level 140 mmol/L (136-145) Potassium Level 3.2 mmol/L (3.5-5.1) Chloride Level 108 mmol/L (98-107) Carbon Dioxide Level 22 mmol/L (21-32) Anion Gap 10 (6-14) Blood Urea Nitrogen 16 mg/dL (8-26) Creatinine 1.0 mg/dL (0.7-1.3) Estimated GFR (Cockcroft-Gault) 71.2 Glucose Level 92 mg/dL (70-99) Calcium Level 7.7 mg/dL (8.5-10.1) Vitals/I & O Vital Sign - Last 24 Hours 11/06/16 11/06/16 11/06/16 11/06/16 11:00 12:00 12:00 13:00 Pulse 79 79 79 Resp 24 B/P (MAP) 165/71 (102) 163/78 (106) 161/66 (97) Pulse Ox 99 99 99 O2 Delivery Room Air Room Air Room Air Room Air 11/06/16 11/06/16 11/06/16 11/06/16 14:00 15:00 16:00 16:00 Pulse 79 79 79 Resp 24 B/P (MAP) 153/70 (97) 151/62 (91) 150/64 (92) Pulse Ox 99 99 99 O2 Delivery Room Air Room Air Room Air Room Air 11/06/16 11/06/16 11/06/16 11/06/16 17:00 18:00 19:00 20:00 Pulse 64 72 67 Resp 20 20 20 B/P (MAP) 151/72 (98) 167/73 (104) Pulse Ox 96 96 99 O2 Delivery Room Air Room Air Room Air Room Air 11/06/16 11/06/16 11/06/16 11/06/16 20:00 21:00 22:00 23:00 Temp 98.5 98.5 Pulse 71 70 69 68 Resp 21 16 16 16 B/P (MAP) 162/80 (107) 161/72 (101) 166/85 (112) 148/74 (98) Pulse Ox 99 99 98 97 O2 Delivery Room Air Room Air Room Air Room Air 11/07/16 11/07/16 11/07/16 11/07/16 00:00 00:00 01:00 02:00 Temp 97.9 97.9 Pulse 68 66 60 Resp 16 16 16 B/P (MAP) 149/63 (91) 151/65 (93) 153/55 (87) Pulse Ox 100 100 100 O2 Delivery Room Air Room Air Room Air Room Air 11/07/16 11/07/16 11/07/16 11/07/16 03:00 04:00 04:00 05:00 Temp 98.9 98.9 Pulse 60 64 64 Resp 16 16 16 B/P (MAP) 153/55 (87) 153/55 (87) 160/70 (100) Pulse Ox 100 99 100 O2 Delivery Room Air Room Air Room Air Room Air Intake and Output 11/06/16 11/06/16 11/07/16 14:59 22:59 06:59 Intake Total 1377 ml 917 ml Output Total 1425 ml 450 ml Balance -48 ml 467 ml BURTON AKBAR MD Nov 07, 2016 10:32
[2016-11-07] MEDS: POTASSIUM CHLORIDE 20MEQ 50 ML IV SCH ×2 (11:00→12:00)
--- NOTE | 2016-11-07 11:11 | PDOC ---
Subjective: Subjective: Doing okay. Objective: Objective: Per RN - taking pills w/ thickened liquids, to have videoswallow today, liquid stool in ostomy. Vital Signs: Vital Signs Date Time Temp Pulse Resp B/P (MAP) Pulse Ox O2 Delivery O2 Flow Rate FiO2 11/07/16 05:00 64 16 160/70 (100) 100 Room Air 11/07/16 04:00 98.9 98.9 Labs: Laboratory Tests Test 11/07/16 05:15 White Blood Count 10.8 x10^3/uL Red Blood Count 2.61 x10^6/uL Hemoglobin 7.8 g/dL Hematocrit 23.0 % Mean Corpuscular Volume 88 fL Mean Corpuscular Hemoglobin 30 pg Mean Corpuscular Hemoglobin Concent 34 g/dL Red Cell Distribution Width 15.4 % Platelet Count 127 x10^3/uL Neutrophils (%) (Auto) 82 % Lymphocytes (%) (Auto) 4 % Monocytes (%) (Auto) 13 % Eosinophils (%) (Auto) 1 % Basophils (%) (Auto) 0 % Neutrophils # (Auto) 8.9 x10^3uL Lymphocytes # (Auto) 0.4 x10^3/uL Monocytes # (Auto) 1.4 x10^3/uL Eosinophils # (Auto) 0.1 x10^3/uL Basophils # (Auto) 0.0 x10^3/uL Sodium Level 140 mmol/L Potassium Level 3.2 mmol/L Chloride Level 108 mmol/L Carbon Dioxide Level 22 mmol/L Anion Gap 10 Blood Urea Nitrogen 16 mg/dL Creatinine 1.0 mg/dL Estimated GFR (Cockcroft-Gault) 71.2 Glucose Level 92 mg/dL Calcium Level 7.7 mg/dL PE: GEN: NAD LUNGS: clear HEART: RRR ABD: +ostomy w/ liquid dark brown stool, tender NEURO/PSYCH: A & O 3 A/P: Lower GI bleed s/p resection w/ ostomy -Hgb stable, has transfused 11 units total -on IV PPI -- Await videoswallow. DUNCAN SLAUGHTER Nov 07, 2016 11:11
[2016-11-07] MEDS ORDERED: BARIUM SULFATE 40% (APPLE) 148 GM PWD. PO ONE (13:00)
--- NOTE | 2016-11-07 15:00 | RAD ---
Mediastinal study Indication: Dysphagia. Technique: Fluoroscopy-guided video swallow study. Total fluoroscopy time of 2.2 minutes Comparison: None Findings: Mild intermittent aspiration with thin liquids with clearing. Delayed transit time. Impression: Intermittent penetration with thin liquids. Please see detailed notes by speech pathology in patient's chart for more information.
[2016-11-08] MEDS: IV 1/2 NORMAL SALINE 1,000 ML IV SCH ×2 (00:28→07:00)
[2016-11-08] MEDS: fentaNYL PF VIAL 100 MCG/2 ML VIAL IV PRN (00:28)
[2016-11-08 03:00] VITALS: BP 150/59
[2016-11-08 05:46] LABS: BASO % 0 % (0-3); EOS % 1 % (0-3); HEMATOCRIT 21.9 % (39.0-53.0); HEMOGLOBIN 7.5 g/dL (13.0-17.5); LYMPH # 0.3 x10^3/uL (1.0-4.8); LYMPH % 5 % (24-48); MEAN CORPUSCULAR HEMOGLOBIN 30 pg (25-35); MEAN CORPUSCULAR HGB CONC 34 g/dL (31-37); MEAN CORPUSCULAR VOLUME 87 fL (79-100); MONO % 13 % (0-9); NEUT % 81 % (31-73); PLATELET COUNT 147 x10^3/uL (140-400); RED BLOOD COUNT 2.53 x10^6/uL (4.30-5.70); RED CELL DISTRIBUTION WIDTH 15.3 % (11.5-14.5)
[2016-11-08 06:01] LABS: CALCIUM 7.7 mg/dL (8.5-10.1); GFR 71.2; POTASSIUM 3.1 mmol/L (3.5-5.1)
[2016-11-08 07:00] VITALS: BP 155/46
--- NOTE | 2016-11-08 08:47 | PDOC ---
SURGICAL PROGRESS NOTE Subjective Comfortable. Vital Signs Vital Signs Date Time Temp Pulse Resp B/P (MAP) Pulse Ox O2 Delivery O2 Flow Rate FiO2 11/08/16 07:00 97.7 61 18 155/46 (82) 92 Room Air 97.7 I&O Intake and Output 11/08/16 07:00 Intake Total 1210 ml Output Total 3775 ml Balance -2565 ml Intake Oral 250 ml IV Total 960 ml Output Urine Total 675 ml Stool Total 3100 ml PATIENT HAS A RECIO: Yes Abdomen: Normal bowel sounds, Soft, No tenderness, Other (ostomy viable with output) Labs Laboratory Tests Test 11/07/16 05:15 11/08/16 05:35 White Blood Count 10.8 x10^3/uL (4.0-11.0) 7.0 x10^3/uL (4.0-11.0) Red Blood Count 2.61 x10^6/uL (4.30-5.70) 2.53 x10^6/uL (4.30-5.70) Hemoglobin 7.8 g/dL (13.0-17.5) 7.5 g/dL (13.0-17.5) Hematocrit 23.0 % (39.0-53.0) 21.9 % (39.0-53.0) Mean Corpuscular Volume 88 fL (79-100) 87 fL (79-100) Mean Corpuscular Hemoglobin 30 pg (25-35) 30 pg (25-35) Mean Corpuscular Hemoglobin Concent 34 g/dL (31-37) 34 g/dL (31-37) Red Cell Distribution Width 15.4 % (11.5-14.5) 15.3 % (11.5-14.5) Platelet Count 127 x10^3/uL (140-400) 147 x10^3/uL (140-400) Neutrophils (%) (Auto) 82 % (31-73) 81 % (31-73) Lymphocytes (%) (Auto) 4 % (24-48) 5 % (24-48) Monocytes (%) (Auto) 13 % (0-9) 13 % (0-9) Eosinophils (%) (Auto) 1 % (0-3) 1 % (0-3) Basophils (%) (Auto) 0 % (0-3) 0 % (0-3) Neutrophils # (Auto) 8.9 x10^3uL (1.8-7.7) 5.6 x10^3uL (1.8-7.7) Lymphocytes # (Auto) 0.4 x10^3/uL (1.0-4.8) 0.3 x10^3/uL (1.0-4.8) Monocytes # (Auto) 1.4 x10^3/uL (0.0-1.1) 0.9 x10^3/uL (0.0-1.1) Eosinophils # (Auto) 0.1 x10^3/uL (0.0-0.7) 0.1 x10^3/uL (0.0-0.7) Basophils # (Auto) 0.0 x10^3/uL (0.0-0.2) 0.0 x10^3/uL (0.0-0.2) Sodium Level 140 mmol/L (136-145) 140 mmol/L (136-145) Potassium Level 3.2 mmol/L (3.5-5.1) 3.1 mmol/L (3.5-5.1) Chloride Level 108 mmol/L (98-107) 106 mmol/L (98-107) Carbon Dioxide Level 22 mmol/L (21-32) 22 mmol/L (21-32) Anion Gap 10 (6-14) 12 (6-14) Blood Urea Nitrogen 16 mg/dL (8-26) 11 mg/dL (8-26) Creatinine 1.0 mg/dL (0.7-1.3) 1.0 mg/dL (0.7-1.3) Estimated GFR (Cockcroft-Gault) 71.2 71.2 Glucose Level 92 mg/dL (70-99) 109 mg/dL (70-99) Calcium Level 7.7 mg/dL (8.5-10.1) 7.7 mg/dL (8.5-10.1) Laboratory Tests Test 11/08/16 05:35 White Blood Count 7.0 x10^3/uL (4.0-11.0) Red Blood Count 2.53 x10^6/uL (4.30-5.70) Hemoglobin 7.5 g/dL (13.0-17.5) Hematocrit 21.9 % (39.0-53.0) Mean Corpuscular Volume 87 fL (79-100) Mean Corpuscular Hemoglobin 30 pg (25-35) Mean Corpuscular Hemoglobin Concent 34 g/dL (31-37) Red Cell Distribution Width 15.3 % (11.5-14.5) Platelet Count 147 x10^3/uL (140-400) Neutrophils (%) (Auto) 81 % (31-73) Lymphocytes (%) (Auto) 5 % (24-48) Monocytes (%) (Auto) 13 % (0-9) Eosinophils (%) (Auto) 1 % (0-3) Basophils (%) (Auto) 0 % (0-3) Neutrophils # (Auto) 5.6 x10^3uL (1.8-7.7) Lymphocytes # (Auto) 0.3 x10^3/uL (1.0-4.8) Monocytes # (Auto) 0.9 x10^3/uL (0.0-1.1) Eosinophils # (Auto) 0.1 x10^3/uL (0.0-0.7) Basophils # (Auto) 0.0 x10^3/uL (0.0-0.2) Sodium Level 140 mmol/L (136-145) Potassium Level 3.1 mmol/L (3.5-5.1) Chloride Level 106 mmol/L (98-107) Carbon Dioxide Level 22 mmol/L (21-32) Anion Gap 12 (6-14) Blood Urea Nitrogen 11 mg/dL (8-26) Creatinine 1.0 mg/dL (0.7-1.3) Estimated GFR (Cockcroft-Gault) 71.2 Glucose Level 109 mg/dL (70-99) Calcium Level 7.7 mg/dL (8.5-10.1) Problem List Problems Medical Problems: (1) Anemia Status: Acute (2) GI bleed Status: Acute Assessment/Plan Stable Continue supportive care Adv diet as determined by swallow study Problems: JOSE DEAN MD Nov 08, 2016 08:47
[2016-11-08] MEDS: CARBIDOPA/LEVODOPA 25/100MG TABLET PO SCH ×3 (09:00→21:01)
[2016-11-08] MEDS: PANTOPRAZOLE IV PUSH 40 MG VIAL. IVP SCH (09:00)
[2016-11-08] MEDS: MEMANTINE 10 MG TABLET. PO SCH ×2 (09:00→21:01)
[2016-11-08 11:00] VITALS: BP_SYST 110; BP_SYST 114; BP_DIAS 45; BP_DIAS 77
--- NOTE | 2016-11-08 11:05 | PDOC ---
Objective: Objective: Reviewed other notes. Vital Signs: Vital Signs Date Time Temp Pulse Resp B/P (MAP) Pulse Ox O2 Delivery O2 Flow Rate FiO2 11/08/16 08:20 Room Air 2.0 11/08/16 07:00 97.7 61 18 155/46 (82) 92 97.7 Labs: Laboratory Tests Test 11/08/16 05:35 White Blood Count 7.0 x10^3/uL Red Blood Count 2.53 x10^6/uL Hemoglobin 7.5 g/dL Hematocrit 21.9 % Mean Corpuscular Volume 87 fL Mean Corpuscular Hemoglobin 30 pg Mean Corpuscular Hemoglobin Concent 34 g/dL Red Cell Distribution Width 15.3 % Platelet Count 147 x10^3/uL Neutrophils (%) (Auto) 81 % Lymphocytes (%) (Auto) 5 % Monocytes (%) (Auto) 13 % Eosinophils (%) (Auto) 1 % Basophils (%) (Auto) 0 % Neutrophils # (Auto) 5.6 x10^3uL Lymphocytes # (Auto) 0.3 x10^3/uL Monocytes # (Auto) 0.9 x10^3/uL Eosinophils # (Auto) 0.1 x10^3/uL Basophils # (Auto) 0.0 x10^3/uL Sodium Level 140 mmol/L Potassium Level 3.1 mmol/L Chloride Level 106 mmol/L Carbon Dioxide Level 22 mmol/L Anion Gap 12 Blood Urea Nitrogen 11 mg/dL Creatinine 1.0 mg/dL Estimated GFR (Cockcroft-Gault) 71.2 Glucose Level 109 mg/dL Calcium Level 7.7 mg/dL Imaging: Initial Videoswallow Study Report Pt w/oral delay across consistencies. Pt experienced transient, shallow penetration of thin liquids 2-3 x's during study d/t premature loss of bolus from oral cavity. Penetration was ejected w/o evidence of residual. Numerous other thin liquid trials were w/o penetration. Solids and puree appeared safe, but inefficient. Inconsistent esophageal backflow to pyriforms was noted w/o spillover to airway. C-P bar noted in upper cervical esophagus c/w same. IMPRESSIONS: Mild-moderate oropharyngeal dysphagia. Based on current findings, low risk of aspiration overall when following general precautions (sitting up at 90* etc). CP bar visualized in upper esophagus w/o sig impact on swallow at this time but w/occasional mild backflow to pyriforms. Anticipate safe intake to meet majority of nutritional needs. RECOMMENDATIONS: Diet per surgery, no restrictions from perspective of swallow function. Will need to make sure pt sits up at 90* when eating and drinking and would maintain upright posture p. 15-20 minutes. Will f/u w/pt and family re: education and to ensure safety of intake once po is started. PE: GEN: NAD NEURO/PSYCH: asleep, did not awaken A/P: Lower GI bleed s/p resection w/ ostomy -- Trial of PO. Stop IV PPI. DUNCAN SLAUGHTER Nov 08, 2016 11:05
[2016-11-08 15:00] VITALS: BP 130/65
--- NOTE | 2016-11-08 15:38 | PDOC ---
PROGRESS NOTES Subjective Subjective moved out of icu,confused at times Objective Objective Vital Signs Date Time Temp Pulse Resp B/P (MAP) Pulse Ox O2 Delivery O2 Flow Rate FiO2 11/08/16 11:00 97.8 63 18 114/45 (68) 95 Room Air 97.8 Intake and Output 11/08/16 07:00 Intake Total 1210 ml Output Total 3775 ml Balance -2565 ml Intake Oral 250 ml IV Total 960 ml Output Urine Total 675 ml Stool Total 3100 ml Physical Exam Abdomen: Normal bowel sounds, Soft, No tenderness, Other (ostomy viable with output) Heart: Regular rate, Normal S1, Normal S2, No murmurs Extremities: Other General: Alert, Oriented X3, Cooperative, mild distress HEENT: PERRLA, EOMI Lungs: Clear to auscultation, Normal air movement MUSCULOSKELETAL: No joint tenderness Neuro: Normal speech Skin: No breakdown, No significant lesion COMMENT francie present Diagnosis Problem List Problems Medical Problems: (1) Anemia Status: Acute (2) GI bleed Status: Acute Assessment Assessment Problems Medical Problems: (1) Anemia Status: Acute (2) GI bleed Status: Acute FINAL IMPRESSION:Active lower GI bleed, from 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 colon polyp removed 1. Lower gastrointestinal bleed secondary to possible diverticular bleed. 2. Coronary artery disease, bypass surgery. 3. Parkinson disease. 4. Hypertension. 5. Dementia. PLAN: moved out of ICU. d/c iv fluids started on full liquid diet. Post op day #4,stable speech consult ,? 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 encephalopathy due to underlying parkinsonism with dementia colonoscopy 11/01 showed diverticular bled , colon polyp was removed Problems: Plan Plan of Care Problems Medical Problems: (1) Anemia Status: Acute (2) GI bleed Status: Acute Comment Review of Relevant I have reviewed the following items kiana (where applicable) has been applied. Labs Laboratory Tests Test 11/08/16 05:35 White Blood Count 7.0 x10^3/uL (4.0-11.0) Red Blood Count 2.53 x10^6/uL (4.30-5.70) Hemoglobin 7.5 g/dL (13.0-17.5) Hematocrit 21.9 % (39.0-53.0) Mean Corpuscular Volume 87 fL (79-100) Mean Corpuscular Hemoglobin 30 pg (25-35) Mean Corpuscular Hemoglobin Concent 34 g/dL (31-37) Red Cell Distribution Width 15.3 % (11.5-14.5) Platelet Count 147 x10^3/uL (140-400) Neutrophils (%) (Auto) 81 % (31-73) Lymphocytes (%) (Auto) 5 % (24-48) Monocytes (%) (Auto) 13 % (0-9) Eosinophils (%) (Auto) 1 % (0-3) Basophils (%) (Auto) 0 % (0-3) Neutrophils # (Auto) 5.6 x10^3uL (1.8-7.7) Lymphocytes # (Auto) 0.3 x10^3/uL (1.0-4.8) Monocytes # (Auto) 0.9 x10^3/uL (0.0-1.1) Eosinophils # (Auto) 0.1 x10^3/uL (0.0-0.7) Basophils # (Auto) 0.0 x10^3/uL (0.0-0.2) Sodium Level 140 mmol/L (136-145) Potassium Level 3.1 mmol/L (3.5-5.1) Chloride Level 106 mmol/L (98-107) Carbon Dioxide Level 22 mmol/L (21-32) Anion Gap 12 (6-14) Blood Urea Nitrogen 11 mg/dL (8-26) Creatinine 1.0 mg/dL (0.7-1.3) Estimated GFR (Cockcroft-Gault) 71.2 Glucose Level 109 mg/dL (70-99) Calcium Level 7.7 mg/dL (8.5-10.1) Medications Current Medications Pantoprazole Sodium (Protonix) 40 mg DAILYAC PO ; Start 8/26/17 at 07:30 Potassium Chloride 50 ml @ 50 mls/hr Q1H IV ; Start 11/08/16 at 13:00; Stop at 14:59; Status DC Vitals/I & O Vital Sign - Last 24 Hours 11/07/16 11/07/16 11/07/16 11/07/16 15:38 19:00 20:00 21:31 Temp 99.0 97.5 99.0 97.5 Pulse 67 66 Resp 16 18 B/P (MAP) 145/55 (85) 174/69 (104) 156/69 (98) Pulse Ox 98 93 O2 Delivery Room Air Room Air Room Air 11/07/16 11/08/16 11/08/16 11/08/16 23:30 00:28 01:00 03:00 Temp 98.0 97.8 98.0 97.8 Pulse 65 64 Resp 18 20 20 18 B/P (MAP) 155/68 (97) 150/59 (89) Pulse Ox 94 94 94 95 O2 Delivery Room Air Room Air Room Air Room Air 11/08/16 11/08/16 11/08/16 07:00 08:20 11:00 Temp 97.7 97.8 97.7 97.8 Pulse 61 63 Resp 18 18 B/P (MAP) 155/46 (82) 114/45 (68) Pulse Ox 92 95 O2 Delivery Room Air Room Air Room Air O2 Flow Rate 2.0 Intake and Output 11/07/16 11/07/16 11/08/16 15:00 23:00 07:00 Intake Total 200 ml 1010 ml Output Total 350 ml 1800 ml 1625 ml Balance -350 ml -1600 ml -615 ml BURTON AKBAR MD Nov 08, 2016 15:38
[2016-11-08] MEDS ORDERED: FUROSEMIDE 40 MG TABLET. PO ONE (15:45)
[2016-11-08] MEDS: POTASSIUM CHLORIDE 20MEQ 50 ML IV SCH ×2 (17:00→18:00)
[2016-11-08 19:00] VITALS: BP_SYST 100; BP_SYST 155; BP_DIAS 46; BP_DIAS 54
--- NOTE | 2016-11-08 22:35 | CONS ---
DATE OF CONSULTATION: 11/08/2016 LOCATION: He is in room 408. ATTENDING PHYSICIAN: Jean Carballo MD The patient was seen at the request of Dr. Carballo for rehab evaluation. HISTORY OF PRESENT ILLNESS: This is an 86-year-old male, right handed, known to me. The patient was admitted on 10/31/2016 with recurrent lower gastrointestinal bleeding. He was admitted a week before, but his bleeding stopped and feeling better. Because of his comorbid conditions, the family did not want further investigation done at that time, so he was discharged to home on 10/26/2016. The patient had another episode of bleeding on 10/30/2016 with lots of blood in the stool. He was admitted, had GI bleeding, saw him, he had endoscopy done. The patient underwent exploratory laparotomy with left colon resection including splenic flexure and colostomy done for treatment of lower GI bleed and splenic flexure infarct of the colon done on 11/04/2016. Postop, he is doing better. He is participating in physical therapy and occupational therapy and speech pathology did video dysphagia study and upgraded his diet. The patient admits some right-sided lower back pain. The patient is status post previous lumbar spine surgery. PAST MEDICAL HISTORY: Also includes coronary artery disease, status post coronary artery bypass graft, Parkinson disease, dementia, hypertension, mild renal insufficiency, had cholecystectomy, hip replacement, tonsillectomy, vertebroplasty, lumbar spine. ALLERGIES: THE PATIENT IS NOT KNOWN ALLERGIC TO ANY MEDICATION, BUT HE IS SENSITIVE TO BLOOD PRESSURE MEDICATION INCLUDING BETA BLOCKERS, CLEM INHIBITOR CAUSING HYPOTENSION AND KIDNEY FAILURE. SOCIAL HISTORY: He lives with his family, has 1 step to enter the house. The patient prior to the present hospitalization has been independent with his mobility and most of the aspects of his self-care. Uses cane while walking and he requires some help while taking a bath as shower is very small area. PHYSICAL EXAMINATION: Today revealed an elderly male. He is alert, oriented to place and person, follows commands appropriately, moves all 4 extremities voluntarily where he had 4+/5 grade muscle strength, deep tendon reflexes are brisk bilaterally with exaggerated knee jerks and absent ankle jerks and he had equal perception of touch and pinprick sensation bilaterally. He had mild crepitus on range of motion of his knee joints. He had tenderness to palpation over right sacroiliac joint area and straight leg raising test is negative bilaterally. He requires some help with bed mobility. I have not tested his transfers or ambulation skills at this time. He is receiving IV fluids and he had an indwelling Valles catheter in place and he had dressing to anterior abdominal operative wound area. ASSESSMENT: Mobility and self-care limitation in a patient postop laparotomy and removal of infarcted splenic flexure of colon with colostomy placement in a patient with recurrent gastrointestinal bleeding, anemia, also with Parkinson disease, coronary artery disease, status post bypass graft, hypertension, history of dementia, previous vertebroplasty for lumbar vertebral body compression fractures with continued lower back pain with radiological evidence of degenerative disk disease and degenerative joint disease of lumbar vertebrae, but no clinical evidence of ongoing lumbar radiculopathy, mild renal insufficiency. RECOMMENDATIONS: Agree with the plan for physical therapy and occupational therapy to get him up as tolerated, to consider lumbar corset or trigger point injection to his lumbar spine area if the back pain persists. Dr. Carballo, I appreciate asking me to participate in the care of this interesting patient. I will be glad to follow him with you as needed for his rehabilitation. RHONDA WAGGONER MD DR: KEHINDE/jay JOB#: [id number] / [id number]
[2016-11-08 23:00] VITALS: BP 152/54
[2016-11-09 03:00] VITALS: BP 153/57
[2016-11-09 05:22] LABS: BASO % 0 % (0-3); EOS % 1 % (0-3); HEMOGLOBIN 7.2 g/dL (13.0-17.5); LYMPH # 0.4 x10^3/uL (1.0-4.8); LYMPH % 8 % (24-48); MEAN CORPUSCULAR HEMOGLOBIN 30 pg (25-35); MEAN CORPUSCULAR HGB CONC 35 g/dL (31-37); MEAN CORPUSCULAR VOLUME 86 fL (79-100); MONO % 15 % (0-9); NEUT % 76 % (31-73); PLATELET COUNT 150 x10^3/uL (140-400); RED CELL DISTRIBUTION WIDTH 15.8 % (11.5-14.5)
[2016-11-09 05:39] LABS: HEMATOCRIT 20.7 % (39.0-53.0)
[2016-11-09 06:18] LABS: CALCIUM 7.7 mg/dL (8.5-10.1); CREATININE 0.9 mg/dL (0.7-1.3); GFR 80.4; POTASSIUM 3.1 mmol/L (3.5-5.1)
[2016-11-09 07:23] LABS: % EOS 2 % (0-5)
[2016-11-09 07:24] LABS: PLT ESTIMATE ADEQUATE (ADEQUATE)
[2016-11-09 07:36] VITALS: BP 153/60
--- NOTE | 2016-11-09 10:24 | PDOC ---
PROGRESS NOTES Subjective Subjective No new complaints. Objective Objective Vital Signs Date Time Temp Pulse Resp B/P (MAP) Pulse Ox O2 Delivery O2 Flow Rate FiO2 11/09/16 07:36 97.7 91 18 153/60 (91) 95 Room Air 97.7 11/08/16 11:00 Intake and Output 11/09/16 07:00 Intake Total 950 ml Output Total 3850 ml Balance -2900 ml Intake Oral 950 ml Output Urine Total 2350 ml Stool Total 1500 ml Physical Exam Physical Exam He is alert and comfortable but requires significant help with mobility. Assessment Assessment Problems Medical Problems: (1) Anemia Status: Acute (2) GI bleed Status: Acute Plan Plan of Care To get him up as tolerated. Comment Review of Relevant I have reviewed the following items kiana (where applicable) has been applied. Labs Laboratory Tests Test 11/08/16 05:35 11/09/16 04:55 White Blood Count 7.0 x10^3/uL (4.0-11.0) 5.0 x10^3/uL (4.0-11.0) Red Blood Count 2.53 x10^6/uL (4.30-5.70) 2.40 x10^6/uL (4.30-5.70) Hemoglobin 7.5 g/dL (13.0-17.5) 7.2 g/dL (13.0-17.5) Hematocrit 21.9 % (39.0-53.0) 20.7 % (39.0-53.0) Mean Corpuscular Volume 87 fL (79-100) 86 fL (79-100) Mean Corpuscular Hemoglobin 30 pg (25-35) 30 pg (25-35) Mean Corpuscular Hemoglobin Concent 34 g/dL (31-37) 35 g/dL (31-37) Red Cell Distribution Width 15.3 % (11.5-14.5) 15.8 % (11.5-14.5) Platelet Count 147 x10^3/uL (140-400) 150 x10^3/uL (140-400) Neutrophils (%) (Auto) 81 % (31-73) 76 % (31-73) Lymphocytes (%) (Auto) 5 % (24-48) 8 % (24-48) Monocytes (%) (Auto) 13 % (0-9) 15 % (0-9) Eosinophils (%) (Auto) 1 % (0-3) 1 % (0-3) Basophils (%) (Auto) 0 % (0-3) 0 % (0-3) Neutrophils # (Auto) 5.6 x10^3uL (1.8-7.7) 3.8 x10^3uL (1.8-7.7) Lymphocytes # (Auto) 0.3 x10^3/uL (1.0-4.8) 0.4 x10^3/uL (1.0-4.8) Monocytes # (Auto) 0.9 x10^3/uL (0.0-1.1) 0.7 x10^3/uL (0.0-1.1) Eosinophils # (Auto) 0.1 x10^3/uL (0.0-0.7) 0.1 x10^3/uL (0.0-0.7) Basophils # (Auto) 0.0 x10^3/uL (0.0-0.2) 0.0 x10^3/uL (0.0-0.2) Sodium Level 140 mmol/L (136-145) 147 mmol/L (136-145) Potassium Level 3.1 mmol/L (3.5-5.1) 3.1 mmol/L (3.5-5.1) Chloride Level 106 mmol/L (98-107) 105 mmol/L (98-107) Carbon Dioxide Level 22 mmol/L (21-32) 25 mmol/L (21-32) Anion Gap 12 (6-14) 17 (6-14) Blood Urea Nitrogen 11 mg/dL (8-26) 8 mg/dL (8-26) Creatinine 1.0 mg/dL (0.7-1.3) 0.9 mg/dL (0.7-1.3) Estimated GFR (Cockcroft-Gault) 71.2 80.4 Glucose Level 109 mg/dL (70-99) 133 mg/dL (70-99) Calcium Level 7.7 mg/dL (8.5-10.1) 7.7 mg/dL (8.5-10.1) Segmented Neutrophils % 71 % (35-66) Band Neutrophils % 2 % (0-9) Lymphocytes % 15 % (24-48) Monocytes % 8 % (0-10) Eosinophils % 2 % (0-5) Metamyelocytes % 2 % (0-0) Platelet Estimate Adequate (ADEQUATE) Laboratory Tests Test 11/09/16 04:55 White Blood Count 5.0 x10^3/uL (4.0-11.0) Red Blood Count 2.40 x10^6/uL (4.30-5.70) Hemoglobin 7.2 g/dL (13.0-17.5) Hematocrit 20.7 % (39.0-53.0) Mean Corpuscular Volume 86 fL (79-100) Mean Corpuscular Hemoglobin 30 pg (25-35) Mean Corpuscular Hemoglobin Concent 35 g/dL (31-37) Red Cell Distribution Width 15.8 % (11.5-14.5) Platelet Count 150 x10^3/uL (140-400) Neutrophils (%) (Auto) 76 % (31-73) Lymphocytes (%) (Auto) 8 % (24-48) Monocytes (%) (Auto) 15 % (0-9) Eosinophils (%) (Auto) 1 % (0-3) Basophils (%) (Auto) 0 % (0-3) Neutrophils # (Auto) 3.8 x10^3uL (1.8-7.7) Lymphocytes # (Auto) 0.4 x10^3/uL (1.0-4.8) Monocytes # (Auto) 0.7 x10^3/uL (0.0-1.1) Eosinophils # (Auto) 0.1 x10^3/uL (0.0-0.7) Basophils # (Auto) 0.0 x10^3/uL (0.0-0.2) Segmented Neutrophils % 71 % (35-66) Band Neutrophils % 2 % (0-9) Lymphocytes % 15 % (24-48) Monocytes % 8 % (0-10) Eosinophils % 2 % (0-5) Metamyelocytes % 2 % (0-0) Platelet Estimate Adequate (ADEQUATE) Sodium Level 147 mmol/L (136-145) Potassium Level 3.1 mmol/L (3.5-5.1) Chloride Level 105 mmol/L (98-107) Carbon Dioxide Level 25 mmol/L (21-32) Anion Gap 17 (6-14) Blood Urea Nitrogen 8 mg/dL (8-26) Creatinine 0.9 mg/dL (0.7-1.3) Estimated GFR (Cockcroft-Gault) 80.4 Glucose Level 133 mg/dL (70-99) Calcium Level 7.7 mg/dL (8.5-10.1) Medications Current Medications Ondansetron HCl (Zofran) 4 mg PRN Q8HRS PRN IV NAUSEA/VOMITING; Start 10/31/16 at 12:00; Stop 11/01/16 at 11:59; Status DC Sodium Chloride 1,000 ml @ 125 mls/hr Q8H IV Last administered on 11/02/16 23 :10; Start 10/31/16 at 14:15; Stop 11/03/16 at 13:56; Status DC Sodium Cl/Sod Bicarb/Potass Cl/ PEG (Golytely) 4,000 ml 1X ONCE PO Last administered on 10/31/16 16:56; Start 10/31/16 at 16:15; Stop 10/31/16 at 16:16 ; Status DC Ringer's Solution 1,000 ml @ 75 mls/hr 1X ONCE IV Last administered on 08:54; Start 11/01/16 at 09:00; Stop 11/01/16 at 22:19; Status DC Propofol 20 ml @ As Directed STK-MED ONCE IV ; Start 11/01/16 at 09:30; Stop at 09:31; Status DC Lidocaine HCl (Lidocaine Pf 2% Vial) 5 ml STK-MED ONCE .ROUTE ; Start 11/01/16 at 09:30; Stop 11/01/16 at 09:31; Status DC Carbidopa/Levodopa (Sinemet 25/100) 2 tab TID PO Last administered on 21:01; Start 11/01/16 at 14:00 Acetaminophen/ Hydrocodone Bitart (Lortab 5/325) 1 tab PRN Q6HRS PRN PO PAIN Last administered on 11/01/16 21:23; Start 11/01/16 at 10:15; Stop 11/08/16 at 15:42; Status DC Memantine (Namenda) 10 mg BID PO Last administered on 11/08/16 21:01; Start at 11:00 Pantoprazole Sodium (Protonix) 40 mg DAILY07 PO Last administered on 11/01/16 11:16; Start 11/01/16 at 10:30; Stop 11/04/16 at 08:31; Status DC Albumin Human 100 ml @ 100 mls/hr 1X ONCE IV Last administered on 11/02/16 15:46; Start 11/02/16 at 16:30; Stop 11/02/16 at 17:29; Status DC Furosemide (Lasix) 20 mg 1X ONCE IVP Last administered on 11/02/16 17:50; Start 11/02/16 at 18:00; Stop 11/02/16 at 18:01; Status DC Iohexol (Omnipaque 300 Mg/ml) 100 ml STK-MED ONCE .ROUTE ; Start 11/02/16 at 18: 42; Stop 11/02/16 at 18:43; Status DC Lidocaine/Sodium Bicarbonate (Buffered Lidocaine 1%) 20 ml STK-MED ONCE IJ ; Start 11/02/16 at 18:42; Stop 11/02/16 at 18:43; Status DC Heparin Sodium/ Sodium Chloride 1,500 ml @ As Directed STK-MED ONCE .ROUTE ; Start 11/02/16 at 18:43; Stop 11/02/16 at 18:44; Status DC Cefazolin Sodium 50 ml @ As Directed STK-MED ONCE IV ; Start 11/02/16 at 19:35; Stop 11/02/16 at 19:36; Status DC Heparin Sodium/ Sodium Chloride 1,000 unit 1X ONCE IART Last administered on 20:59; Start 11/02/16 at 19:45; Stop 11/02/16 at 19:46; Status DC Lidocaine/Sodium Bicarbonate (Buffered Lidocaine 1%) 20 ml 1X ONCE IJ Last administered on 11/02/16 20:59; Start 11/02/16 at 19:45; Stop 11/02/16 at 19:46 ; Status DC Cefazolin Sodium 50 ml @ 100 mls/hr 1X ONCE IV Last administered on 19:30; Start 11/02/16 at 19:45; Stop 11/02/16 at 20:14; Status DC Iohexol (Omnipaque 300 Mg/ml) 100 ml STK-MED ONCE .ROUTE ; Start 11/02/16 at 19: 52; Stop 11/02/16 at 19:53; Status DC Iohexol (Omnipaque 300 Mg/ml) 100 ml 1X ONCE IART Last administered on 21:00; Start 11/02/16 at 20:00; Stop 11/02/16 at 20:01; Status DC Info (Do NOT chart on this entry -- for MONITORING) 1 each PRN DAILY PRN MC SEE COMMENTS; Start 11/02/16 at 20:00; Stop 11/04/16 at 19:59; Status DC Midazolam HCl (Versed) 2 mg STK-MED ONCE .ROUTE ; Start 11/02/16 at 19:56; Stop 11/02/16 at 19:57; Status DC Fentanyl Citrate (Fentanyl 2ml Vial) 100 mcg STK-MED ONCE .ROUTE ; Start at 19:57; Stop 11/02/16 at 19:58; Status DC Midazolam HCl (Versed) 2 mg 1X ONCE IV Last administered on 11/02/16 21:01; Start 11/02/16 at 20:15; Stop 11/02/16 at 20:16; Status DC Fentanyl Citrate (Fentanyl 2ml Vial) 100 mcg 1X ONCE IV Last administered on 21:00; Start 11/02/16 at 20:15; Stop 11/02/16 at 20:16; Status DC Gelatin (Gelfoam Size 12-7mm) 1 each STK-MED ONCE .ROUTE ; Start 11/02/16 at 20 :23; Stop 11/02/16 at 20:24; Status DC Nitroglycerin (Nitroglycerin) 200 mcg 1X ONCE IART Last administered on 20:30; Start 11/02/16 at 20:30; Stop 11/02/16 at 20:33; Status DC Sodium Chloride 1,000 ml @ 125 mls/hr Q8H IV Last administered on 11/08/16 00 :28; Start 11/03/16 at 15:00; Stop 11/08/16 at 15:42; Status DC Haloperidol Lactate (Haldol) 1 mg PRN Q6HRS PRN IVP AGITATION Last administered on 11/03/16 21:10; Start 11/03/16 at 14:00 Furosemide (Lasix) 20 mg 1X ONCE IVP Last administered on 11/03/16 21:11; Start 11/03/16 at 21:30; Stop 11/03/16 at 21:31; Status DC Famotidine (Pepcid) 20 mg DAILY IVP Last administered on 11/04/16 10:49; Start 11/04/16 at 09:00; Stop 11/04/16 at 17:25; Status DC Pantoprazole Sodium (Protonix Vial) 40 mg DAILY IVP Last administered on 09:00; Start 11/04/16 at 09:00; Stop 11/08/16 at 11:06; Status DC Norepinephrine Bitartrate 250 ml @ As Directed STK-MED ONCE IV ; Start at 13:17; Stop 11/04/16 at 13:18; Status DC Etomidate (Amidate) 20 mg STK-MED ONCE IV ; Start 11/04/16 at 13:41; Stop at 13:42; Status DC Succinylcholine Chloride (Anectine) 200 mg STK-MED ONCE .ROUTE ; Start 11/04/16 at 13:41; Stop 11/04/16 at 13:42; Status DC Vecuronium [place] (Norcuron Bolus) 10 mg STK-MED ONCE IV ; Start 11/04/16 at 13 :41; Stop 11/04/16 at 13:42; Status DC Phenylephrine HCl (Adán-Synephrine Inj) 10 mg STK-MED ONCE .ROUTE ; Start at 13:44; Stop 11/04/16 at 13:45; Status DC Cefazolin Sodium/ Dextrose 50 ml @ 100 mls/hr 1X ONCE IV ; Start 11/04/16 at 14:15; Stop 11/04/16 at 14:44; Status DC Fentanyl Citrate (Fentanyl 2ml Vial) 100 mcg STK-MED ONCE .ROUTE ; Start at 14:31; Stop 11/04/16 at 14:32; Status DC Desflurane (Suprane) 60 ml STK-MED ONCE IH ; Start 11/04/16 at 15:01; Stop 11/04 at 15:02; Status DC Ondansetron HCl (Zofran) 4 mg STK-MED ONCE .ROUTE ; Start 11/04/16 at 15:01; Stop 11/04/16 at 15:02; Status DC Glycopyrrolate (Robinul) 1 mg STK-MED ONCE .ROUTE ; Start 11/04/16 at 15:02; Stop 11/04/16 at 15:03; Status DC Cellulose 1 each STK-MED ONCE .ROUTE Last administered on 11/04/16t 15:05; Start 11/04/16 at 15:04; Stop 11/04/16 at 15:05; Status DC Fentanyl Citrate (Fentanyl 2ml Vial) 100 mcg STK-MED ONCE .ROUTE ; Start at 15:50; Stop 11/04/16 at 15:51; Status DC Lidocaine HCl (Lidocaine Pf 2% Vial) 5 ml STK-MED ONCE .ROUTE ; Start 11/04/16 at 15:53; Stop 11/04/16 at 15:54; Status DC Cellulose 1 each STK-MED ONCE TP Last administered on 11/04/16 15:24; Start at 15:24; Stop 11/04/16 at 16:39; Status DC Fentanyl Citrate (Fentanyl 2ml Vial) 25 mcg PRN Q5MIN PRN IV MILD PAIN Last administered on 11/04/16 17:18; Start 11/04/16 at 17:15; Stop 11/05/16 at 17:14 ; Status DC Fentanyl Citrate (Fentanyl 2ml Vial) 50 mcg PRN Q5MIN PRN IV MODERATE PAIN; Start 11/04/16 at 17:15; Stop 11/05/16 at 17:14; Status DC Morphine Sulfate 1 mg PRN Q10MIN PRN IV SEVERE PAIN; Start 11/04/16 at 17:15; Stop 11/05/16 at 17:14; Status DC Ringer's Solution 1,000 ml @ 30 mls/hr Q24H IV ; Start 11/04/16 at 17:12; Stop 11/05/16 at 05:11; Status DC Lidocaine HCl 2 ml PRN 1X PRN ID PRIOR TO IV START; Start 11/04/16 at 17:15; Stop 11/05/16 at 17:14; Status DC Hydromorphone HCl (Dilaudid) 0.5 mg PRN Q10MIN PRN IV SEV PAIN, Second choice; Start 11/04/16 at 17:15; Stop 11/05/16 at 17:14; Status DC Prochlorperazine Edisylate (Compazine) 5 mg PACU PRN PRN IV NAUSEA, MRX1; Start 11/04/16 at 17:15; Stop 11/05/16 at 17:14; Status DC Fentanyl Citrate (Fentanyl 2ml Vial) 50 mcg PRN Q1HR PRN IV PAIN Last administered on 11/08/16 00:28; Start 11/04/16 at 17:15; Stop 11/08/16 at 15:42 ; Status DC Potassium Chloride 50 ml @ 50 mls/hr 1X ONCE IV Last administered on 06:32; Start 11/05/16 at 07:00; Stop 11/05/16 at 07:59; Status DC Potassium Chloride 50 ml @ 50 mls/hr Q1H IV Last administered on 11/06/16 11: 58; Start 11/06/16 at 10:00; Stop 11/06/16 at 11:59; Status DC Potassium Chloride 50 ml @ 50 mls/hr Q1H IV Last administered on 11/07/16 12: 00; Start 11/07/16 at 11:00; Stop 11/07/16 at 12:59; Status DC Barium Sulfate (Varibar Thin Liquid Apple) 148 gm 1X ONCE PO Last administered on 11/07/16 14:20; Start 11/07/16 at 13:00; Stop 11/07/16 at 13:01 ; Status DC Pantoprazole Sodium (Protonix) 40 mg DAILYAC PO ; Start 11/09/16 at 07:30 Potassium Chloride 50 ml @ 50 mls/hr Q1H IV Last administered on 11/08/16 18: 00; Start 11/08/16 at 13:00; Stop 11/08/16 at 14:59; Status DC Furosemide (Lasix) 40 mg 1X ONCE PO Last administered on 11/08/16 16:59; Start 11/08/16 at 15:45; Stop 11/08/16 at 15:46; Status DC Potassium Chloride 50 ml @ 50 mls/hr Q1H IV ; Start 11/09/16 at 11:00; Stop at 12:59 Active Scripts Active Lortab 5-325 mg Tablet (Hydrocodone/Acetaminophen) 1 Each Tablet 1 Tab PO PRN Q6HRS PRN [Aspirin] 81 MG Tablet. 81 Mg PO DAILY 30 Days Reported Sinemet 25-100 Mg Tablet (Carbidopa/Levodopa) 1 Each Tablet 2 Tab PO TID Namenda (Memantine Hcl) 10 Mg Tablet 1 Tab PO BID Pantoprazole Sodium 40 Mg Tablet. 1 Tab PO DAILY Vitals/I & O Vital Sign - Last 24 Hours 11/08/16 11/08/16 11/08/16 11/08/16 11:00 15:00 19:00 20:01 Temp 97.8 97.5 98.1 97.8 97.5 98.1 Pulse 63 60 67 Resp 18 18 18 B/P (MAP) 114/45 (68) 130/65 (86) 155/46 (82) Pulse Ox 95 97 97 O2 Delivery Room Air Room Air Room Air Room Air O2 Flow Rate 11/08/16 11/09/16 11/09/16 23:00 03:00 07:36 Temp 97.9 97.5 97.7 97.9 97.5 97.7 Pulse 66 89 91 Resp 18 18 18 B/P (MAP) 152/54 (86) 153/57 (89) 153/60 (91) Pulse Ox 96 95 95 O2 Delivery Room Air Room Air Room Air Intake and Output 11/08/16 11/08/16 11/09/16 15:00 23:00 07:00 Intake Total 400 ml 550 ml Output Total 1400 ml 2450 ml Balance -1000 ml -1900 ml RHONDA WAGGONER MD Nov 09, 2016 10:24
--- NOTE | 2016-11-09 11:09 | PDOC ---
PROGRESS NOTES Subjective Subjective doing well ,less confused Objective Objective Vital Signs Date Time Temp Pulse Resp B/P (MAP) Pulse Ox O2 Delivery O2 Flow Rate FiO2 11/09/16 07:36 97.7 91 18 153/60 (91) 95 Room Air 97.7 11/08/16 11:00 Intake and Output 11/09/16 07:00 Intake Total 950 ml Output Total 3850 ml Balance -2900 ml Intake Oral 950 ml Output Urine Total 2350 ml Stool Total 1500 ml Physical Exam Abdomen: Normal bowel sounds, Soft, No tenderness, Other (ostomy viable with output) Heart: Regular rate, Normal S1, Normal S2, No murmurs Extremities: Other General: Alert, Oriented X3, Cooperative, mild distress HEENT: PERRLA, EOMI Lungs: Clear to auscultation, Normal air movement MUSCULOSKELETAL: No joint tenderness Neuro: Normal speech Skin: No breakdown, No significant lesion COMMENT francie present Diagnosis Problem List Problems Medical Problems: (1) Anemia Status: Acute (2) GI bleed Status: Acute Assessment Assessment Problems Medical Problems: (1) Anemia Status: Acute (2) GI bleed Status: Acute FINAL IMPRESSION:Active lower GI bleed, from 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 colon polyp removed 1. Lower gastrointestinal bleed secondary to diverticular bleed. 2. Coronary artery disease, bypass surgery. 3. Parkinson disease. 4. Hypertension. 5. Dementia. PLAN: d/c marmolejo d/c iv fluids advance to gi soft diet. Post op day #5,stable speech consult ,? vedio swallow test noted HB 7.2stable pot 3.2 replace today [id number] improving dvt prevention pt/ot select/snu friday Operative Note Date: 11/04/2016 Preoperative diagnosis: Lower GI bleed Postoperative diagnosis: Splenic flexure infarct of the colon Procedure: Exploratory laparotomy with left colon resection including splenic flexure in colostomy Surgeon: Lalo Specimen: Left colon splenic flexure Procedure: Mesenteric arteriogram and embolization of the middle colic artery x3 done 11/02/18. encephalopathy due to underlying parkinsonism with dementia colonoscopy 11/01 showed diverticular bled , colon polyp was removed Problems: Plan Plan of Care Problems Medical Problems: (1) Anemia Status: Acute (2) GI bleed Status: Acute Comment Review of Relevant I have reviewed the following items kiana (where applicable) has been applied. Labs Laboratory Tests Test 11/09/16 04:55 White Blood Count 5.0 x10^3/uL (4.0-11.0) Red Blood Count 2.40 x10^6/uL (4.30-5.70) Hemoglobin 7.2 g/dL (13.0-17.5) Hematocrit 20.7 % (39.0-53.0) Mean Corpuscular Volume 86 fL (79-100) Mean Corpuscular Hemoglobin 30 pg (25-35) Mean Corpuscular Hemoglobin Concent 35 g/dL (31-37) Red Cell Distribution Width 15.8 % (11.5-14.5) Platelet Count 150 x10^3/uL (140-400) Neutrophils (%) (Auto) 76 % (31-73) Lymphocytes (%) (Auto) 8 % (24-48) Monocytes (%) (Auto) 15 % (0-9) Eosinophils (%) (Auto) 1 % (0-3) Basophils (%) (Auto) 0 % (0-3) Neutrophils # (Auto) 3.8 x10^3uL (1.8-7.7) Lymphocytes # (Auto) 0.4 x10^3/uL (1.0-4.8) Monocytes # (Auto) 0.7 x10^3/uL (0.0-1.1) Eosinophils # (Auto) 0.1 x10^3/uL (0.0-0.7) Basophils # (Auto) 0.0 x10^3/uL (0.0-0.2) Segmented Neutrophils % 71 % (35-66) Band Neutrophils % 2 % (0-9) Lymphocytes % 15 % (24-48) Monocytes % 8 % (0-10) Eosinophils % 2 % (0-5) Metamyelocytes % 2 % (0-0) Platelet Estimate Adequate (ADEQUATE) Sodium Level 147 mmol/L (136-145) Potassium Level 3.1 mmol/L (3.5-5.1) Chloride Level 105 mmol/L (98-107) Carbon Dioxide Level 25 mmol/L (21-32) Anion Gap 17 (6-14) Blood Urea Nitrogen 8 mg/dL (8-26) Creatinine 0.9 mg/dL (0.7-1.3) Estimated GFR (Cockcroft-Gault) 80.4 Glucose Level 133 mg/dL (70-99) Calcium Level 7.7 mg/dL (8.5-10.1) Medications Current Medications Furosemide (Lasix) 40 mg 1X ONCE PO Last administered on 11/08/16 16:59; Start 11/08/16 at 15:45; Stop 11/08/16 at 15:46; Status DC Pantoprazole Sodium (Protonix) 40 mg DAILYAC PO ; Start 11/09/16 at 07:30 Potassium Chloride 50 ml @ 50 mls/hr Q1H IV Last administered on 11/08/16 18: 00; Start 11/08/16 at 13:00; Stop 11/08/16 at 14:59; Status DC Potassium Chloride 50 ml @ 50 mls/hr Q1H IV ; Start 11/09/16 at 11:00; Stop at 12:59 Vitals/I & O Vital Sign - Last 24 Hours 11/08/16 11/08/16 11/08/16 11/08/16 15:00 19:00 20:01 23:00 Temp 97.5 98.1 97.9 97.5 98.1 97.9 Pulse 60 67 66 Resp 18 18 18 B/P (MAP) 130/65 (86) 155/46 (82) 152/54 (86) Pulse Ox 97 97 96 O2 Delivery Room Air Room Air Room Air Room Air 11/09/16 11/09/16 03:00 07:36 Temp 97.5 97.7 97.5 97.7 Pulse 89 91 Resp 18 18 B/P (MAP) 153/57 (89) 153/60 (91) Pulse Ox 95 95 O2 Delivery Room Air Room Air Intake and Output 11/08/16 11/08/16 11/09/16 15:00 23:00 07:00 Intake Total 400 ml 550 ml Output Total 1400 ml 2450 ml Balance -1000 ml -1900 ml BURTON AKBAR MD Nov 09, 2016 11:09
[2016-11-09 11:31] VITALS: BP 91/52
[2016-11-09] MEDS: POTASSIUM CHLORIDE 20MEQ 50 ML IV SCH ×2 (11:36→13:38)
[2016-11-09] MEDS: MEMANTINE 10 MG TABLET. PO SCH ×2 (11:36→21:39)
[2016-11-09] MEDS: PANTOPRAZOLE 40 MG TABLET.DR. PO SCH (11:37)
[2016-11-09] MEDS: CARBIDOPA/LEVODOPA 25/100MG TABLET PO SCH ×3 (11:37→21:39)
--- NOTE | 2016-11-09 14:10 | PDOC ---
SURGICAL PROGRESS NOTE Subjective tolerating diet no pain no n/v Vital Signs Vital Signs Date Time Temp Pulse Resp B/P (MAP) Pulse Ox O2 Delivery O2 Flow Rate FiO2 11/09/16 11:31 97.9 65 17 91/52 (65) 95 Room Air 97.9 11/08/16 11:00 I&O Intake and Output 11/09/16 06:59 Intake Total 950 ml Output Total 3850 ml Balance -2900 ml Intake Oral 950 ml Output Urine Total 2350 ml Stool Total 1500 ml General: Alert, Oriented X3, Cooperative, No acute distress Abdomen: Soft, Other (ND, incision c/d/i, no erythema, ostomy with stool,stoma pink) Labs Laboratory Tests Test 11/08/16 05:35 11/09/16 04:55 White Blood Count 7.0 x10^3/uL (4.0-11.0) 5.0 x10^3/uL (4.0-11.0) Red Blood Count 2.53 x10^6/uL (4.30-5.70) 2.40 x10^6/uL (4.30-5.70) Hemoglobin 7.5 g/dL (13.0-17.5) 7.2 g/dL (13.0-17.5) Hematocrit 21.9 % (39.0-53.0) 20.7 % (39.0-53.0) Mean Corpuscular Volume 87 fL (79-100) 86 fL (79-100) Mean Corpuscular Hemoglobin 30 pg (25-35) 30 pg (25-35) Mean Corpuscular Hemoglobin Concent 34 g/dL (31-37) 35 g/dL (31-37) Red Cell Distribution Width 15.3 % (11.5-14.5) 15.8 % (11.5-14.5) Platelet Count 147 x10^3/uL (140-400) 150 x10^3/uL (140-400) Neutrophils (%) (Auto) 81 % (31-73) 76 % (31-73) Lymphocytes (%) (Auto) 5 % (24-48) 8 % (24-48) Monocytes (%) (Auto) 13 % (0-9) 15 % (0-9) Eosinophils (%) (Auto) 1 % (0-3) 1 % (0-3) Basophils (%) (Auto) 0 % (0-3) 0 % (0-3) Neutrophils # (Auto) 5.6 x10^3uL (1.8-7.7) 3.8 x10^3uL (1.8-7.7) Lymphocytes # (Auto) 0.3 x10^3/uL (1.0-4.8) 0.4 x10^3/uL (1.0-4.8) Monocytes # (Auto) 0.9 x10^3/uL (0.0-1.1) 0.7 x10^3/uL (0.0-1.1) Eosinophils # (Auto) 0.1 x10^3/uL (0.0-0.7) 0.1 x10^3/uL (0.0-0.7) Basophils # (Auto) 0.0 x10^3/uL (0.0-0.2) 0.0 x10^3/uL (0.0-0.2) Sodium Level 140 mmol/L (136-145) 147 mmol/L (136-145) Potassium Level 3.1 mmol/L (3.5-5.1) 3.1 mmol/L (3.5-5.1) Chloride Level 106 mmol/L (98-107) 105 mmol/L (98-107) Carbon Dioxide Level 22 mmol/L (21-32) 25 mmol/L (21-32) Anion Gap 12 (6-14) 17 (6-14) Blood Urea Nitrogen 11 mg/dL (8-26) 8 mg/dL (8-26) Creatinine 1.0 mg/dL (0.7-1.3) 0.9 mg/dL (0.7-1.3) Estimated GFR (Cockcroft-Gault) 71.2 80.4 Glucose Level 109 mg/dL (70-99) 133 mg/dL (70-99) Calcium Level 7.7 mg/dL (8.5-10.1) 7.7 mg/dL (8.5-10.1) Segmented Neutrophils % 71 % (35-66) Band Neutrophils % 2 % (0-9) Lymphocytes % 15 % (24-48) Monocytes % 8 % (0-10) Eosinophils % 2 % (0-5) Metamyelocytes % 2 % (0-0) Platelet Estimate Adequate (ADEQUATE) Laboratory Tests Test 11/09/16 04:55 White Blood Count 5.0 x10^3/uL (4.0-11.0) Red Blood Count 2.40 x10^6/uL (4.30-5.70) Hemoglobin 7.2 g/dL (13.0-17.5) Hematocrit 20.7 % (39.0-53.0) Mean Corpuscular Volume 86 fL (79-100) Mean Corpuscular Hemoglobin 30 pg (25-35) Mean Corpuscular Hemoglobin Concent 35 g/dL (31-37) Red Cell Distribution Width 15.8 % (11.5-14.5) Platelet Count 150 x10^3/uL (140-400) Neutrophils (%) (Auto) 76 % (31-73) Lymphocytes (%) (Auto) 8 % (24-48) Monocytes (%) (Auto) 15 % (0-9) Eosinophils (%) (Auto) 1 % (0-3) Basophils (%) (Auto) 0 % (0-3) Neutrophils # (Auto) 3.8 x10^3uL (1.8-7.7) Lymphocytes # (Auto) 0.4 x10^3/uL (1.0-4.8) Monocytes # (Auto) 0.7 x10^3/uL (0.0-1.1) Eosinophils # (Auto) 0.1 x10^3/uL (0.0-0.7) Basophils # (Auto) 0.0 x10^3/uL (0.0-0.2) Segmented Neutrophils % 71 % (35-66) Band Neutrophils % 2 % (0-9) Lymphocytes % 15 % (24-48) Monocytes % 8 % (0-10) Eosinophils % 2 % (0-5) Metamyelocytes % 2 % (0-0) Platelet Estimate Adequate (ADEQUATE) Sodium Level 147 mmol/L (136-145) Potassium Level 3.1 mmol/L (3.5-5.1) Chloride Level 105 mmol/L (98-107) Carbon Dioxide Level 25 mmol/L (21-32) Anion Gap 17 (6-14) Blood Urea Nitrogen 8 mg/dL (8-26) Creatinine 0.9 mg/dL (0.7-1.3) Estimated GFR (Cockcroft-Gault) 80.4 Glucose Level 133 mg/dL (70-99) Calcium Level 7.7 mg/dL (8.5-10.1) Problem List Problems Medical Problems: (1) Anemia Status: Acute (2) GI bleed Status: Acute Assessment/Plan s/p resection stable no new surgical recs Problems: LAURITA BEATTY APRN Nov 09, 2016 14:10
[2016-11-09 15:22] VITALS: BP 142/52
[2016-11-09 19:00] VITALS: BP 153/56
[2016-11-09 23:00] VITALS: BP 137/53
[2016-11-10 03:00] VITALS: BP 147/57
[2016-11-10 07:10] VITALS: BP 168/64
--- NOTE | 2016-11-10 08:08 | PDOC ---
SURGICAL PROGRESS NOTE Subjective tolerating diet no pain no n/v Vital Signs Vital Signs Date Time Temp Pulse Resp B/P (MAP) Pulse Ox O2 Delivery O2 Flow Rate FiO2 11/10/16 07:10 97.5 66 17 168/64 (98) 92 Room Air 97.5 11/09/16 08:00 2.0 I&O Intake and Output 11/10/16 07:00 Intake Total 340 ml Output Total 606 ml Balance -266 ml Intake Oral 340 ml Output Urine Total 200 ml Stool Total 406 ml General: Alert, Cooperative, No acute distress Abdomen: Soft, No tenderness, Other (incision c/d/i, no erythema, ostomy with stool, stoma pink) Labs Laboratory Tests Test 11/09/16 04:55 White Blood Count 5.0 x10^3/uL (4.0-11.0) Red Blood Count 2.40 x10^6/uL (4.30-5.70) Hemoglobin 7.2 g/dL (13.0-17.5) Hematocrit 20.7 % (39.0-53.0) Mean Corpuscular Volume 86 fL (79-100) Mean Corpuscular Hemoglobin 30 pg (25-35) Mean Corpuscular Hemoglobin Concent 35 g/dL (31-37) Red Cell Distribution Width 15.8 % (11.5-14.5) Platelet Count 150 x10^3/uL (140-400) Neutrophils (%) (Auto) 76 % (31-73) Lymphocytes (%) (Auto) 8 % (24-48) Monocytes (%) (Auto) 15 % (0-9) Eosinophils (%) (Auto) 1 % (0-3) Basophils (%) (Auto) 0 % (0-3) Neutrophils # (Auto) 3.8 x10^3uL (1.8-7.7) Lymphocytes # (Auto) 0.4 x10^3/uL (1.0-4.8) Monocytes # (Auto) 0.7 x10^3/uL (0.0-1.1) Eosinophils # (Auto) 0.1 x10^3/uL (0.0-0.7) Basophils # (Auto) 0.0 x10^3/uL (0.0-0.2) Segmented Neutrophils % 71 % (35-66) Band Neutrophils % 2 % (0-9) Lymphocytes % 15 % (24-48) Monocytes % 8 % (0-10) Eosinophils % 2 % (0-5) Metamyelocytes % 2 % (0-0) Platelet Estimate Adequate (ADEQUATE) Sodium Level 147 mmol/L (136-145) Potassium Level 3.1 mmol/L (3.5-5.1) Chloride Level 105 mmol/L (98-107) Carbon Dioxide Level 25 mmol/L (21-32) Anion Gap 17 (6-14) Blood Urea Nitrogen 8 mg/dL (8-26) Creatinine 0.9 mg/dL (0.7-1.3) Estimated GFR (Cockcroft-Gault) 80.4 Glucose Level 133 mg/dL (70-99) Calcium Level 7.7 mg/dL (8.5-10.1) Problem List Problems Medical Problems: (1) Anemia Status: Acute (2) GI bleed Status: Acute Assessment/Plan s/p resection, ostomy ostomy functioning no new surgical recs dc planning Problems: LAURITA BEATTY DOCUMENT PROCESSING SPECIALIST Nov 10, 2016 08:08
--- NOTE | 2016-11-10 08:53 | PDOC ---
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 11/10/16 0853: IM PROGRESS NOTES- Subjective Subjective awake, doing okay Objective Objective alert, no distress Vitals Vital Signs Date Time Temp Pulse Resp B/P (MAP) Pulse Ox O2 Delivery O2 Flow Rate FiO2 11/10/16 07:10 97.5 66 17 168/64 (98) 92 Room Air 97.5 11/09/16 08:00 2.0 Input & Output Intake and Output 11/10/16 07:00 Intake Total 340 ml Output Total 606 ml Balance -266 ml Intake Oral 340 ml Output Urine Total 200 ml Stool Total 406 ml Physical Exam Physical Exam General appearance - alert,well appearing, and in no distress Mental Status - alert, oriented to person, place, and time, affect appropriate to mood Head - normal Chest - clear to auscultation, no wheezes, rales or rhonchi, symmetric air entry Heart - S1 and S2 normal Abdomen - soft, +tender r/t surgery, nondistended,BS +, large amount gas colostomy appliance LLQ Neurological - no acute focal neurological deficit noted Musculoskeletal - no muscular tenderness noted Extremities - no pedal edema Skin - warm and dry Labs Laboratory Tests Test 11/09/16 04:55 White Blood Count 5.0 x10^3/uL (4.0-11.0) Red Blood Count 2.40 x10^6/uL (4.30-5.70) Hemoglobin 7.2 g/dL (13.0-17.5) Hematocrit 20.7 % (39.0-53.0) Mean Corpuscular Volume 86 fL (79-100) Mean Corpuscular Hemoglobin 30 pg (25-35) Mean Corpuscular Hemoglobin Concent 35 g/dL (31-37) Red Cell Distribution Width 15.8 % (11.5-14.5) Platelet Count 150 x10^3/uL (140-400) Neutrophils (%) (Auto) 76 % (31-73) Lymphocytes (%) (Auto) 8 % (24-48) Monocytes (%) (Auto) 15 % (0-9) Eosinophils (%) (Auto) 1 % (0-3) Basophils (%) (Auto) 0 % (0-3) Neutrophils # (Auto) 3.8 x10^3uL (1.8-7.7) Lymphocytes # (Auto) 0.4 x10^3/uL (1.0-4.8) Monocytes # (Auto) 0.7 x10^3/uL (0.0-1.1) Eosinophils # (Auto) 0.1 x10^3/uL (0.0-0.7) Basophils # (Auto) 0.0 x10^3/uL (0.0-0.2) Segmented Neutrophils % 71 % (35-66) Band Neutrophils % 2 % (0-9) Lymphocytes % 15 % (24-48) Monocytes % 8 % (0-10) Eosinophils % 2 % (0-5) Metamyelocytes % 2 % (0-0) Platelet Estimate Adequate (ADEQUATE) Sodium Level 147 mmol/L (136-145) Potassium Level 3.1 mmol/L (3.5-5.1) Chloride Level 105 mmol/L (98-107) Carbon Dioxide Level 25 mmol/L (21-32) Anion Gap 17 (6-14) Blood Urea Nitrogen 8 mg/dL (8-26) Creatinine 0.9 mg/dL (0.7-1.3) Estimated GFR (Cockcroft-Gault) 80.4 Glucose Level 133 mg/dL (70-99) Calcium Level 7.7 mg/dL (8.5-10.1) Meds Current Medications Potassium Chloride 50 ml @ 50 mls/hr Q1H IV Last administered on 11/09/16t 13: 38; Start 11/09/16 at 11:00; Stop 11/09/16 at 12:59; Status DC Assessment Assessment Problems Medical Problems: (1) Anemia Status: Acute (2) GI bleed Status: Acute FINAL IMPRESSION: Active lower GI bleed, from splenic flexure of 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 colon polyp removed 1. Lower gastrointestinal bleed secondary to diverticular bleed. 2. Coronary artery disease, bypass surgery. 3. Parkinson disease. 4. Hypertension. 5. Dementia. 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 d/c marmolejo d/c iv fluids advance to gi soft diet. Post op day #5,stable speech consult ,? vedio swallow test noted HB 7.2stable pot 3.2 replace today [id number] improving dvt prevention pt/ot select/snu friday Operative Note Date: 11/04/2016 Preoperative diagnosis: Lower GI bleed Postoperative diagnosis: Splenic flexure infarct of the colon Procedure: Exploratory laparotomy with left colon resection including splenic flexure in colostomy Surgeon: Lalo Specimen: Left colon splenic flexure Procedure: Mesenteric arteriogram and embolization of the middle colic artery x3 done 11/02/18. encephalopathy due to underlying parkinsonism with dementia colonoscopy 11/01 showed diverticular bled , colon polyp was removed Plan Plan For more details regarding further plans, please refer to the orders. VERNON RIOS MD 11/10/16 0918: PROGRESS NOTES- Assessment Assessment Has some confusion.As per family,it is improving slowly. Hypokalemia- replace. Labs pending- d/w staff. D/w family,patient. The patient was seen and examined by me. Chart reviewed and plan of care formulated. Discussed with, reviewed and agree with CATERING CHEF's notes, plan of care and orders with modifications as necessary. For more details regarding further plans, please refer to the orders. CECIL DE LUNA APRN Nov 10, 2016 08:53 VERNON RIOS MD Nov 10, 2016 09:18
[2016-11-10] MEDS: PANTOPRAZOLE 40 MG TABLET.DR. PO SCH (09:24)
[2016-11-10] MEDS: MEMANTINE 10 MG TABLET. PO SCH ×2 (09:24→21:29)
[2016-11-10] MEDS: CARBIDOPA/LEVODOPA 25/100MG TABLET PO SCH ×3 (09:24→21:29)
[2016-11-10 10:39] VITALS: BP 166/60
[2016-11-10 12:04] LABS: BASO % 0 % (0-3); EOS % 1 % (0-3); HEMATOCRIT 24.7 % (39.0-53.0); HEMOGLOBIN 8.3 g/dL (13.0-17.5); LYMPH # 0.6 x10^3/uL (1.0-4.8); LYMPH % 9 % (24-48); MEAN CORPUSCULAR HEMOGLOBIN 30 pg (25-35); MEAN CORPUSCULAR HGB CONC 34 g/dL (31-37); MEAN CORPUSCULAR VOLUME 88 fL (79-100); MONO % 16 % (0-9); NEUT % 73 % (31-73); PLATELET COUNT 160 x10^3/uL (140-400); RED BLOOD COUNT 2.82 x10^6/uL (4.30-5.70); RED CELL DISTRIBUTION WIDTH 15.3 % (11.5-14.5)
[2016-11-10 12:20] LABS: CALCIUM 7.9 mg/dL (8.5-10.1); GFR 71.2; POTASSIUM 3.3 mmol/L (3.5-5.1)
[2016-11-10 13:27] LABS: PLT ESTIMATE ADEQUATE (ADEQUATE)
[2016-11-10 15:00] VITALS: BP 145/53
[2016-11-10 19:00] VITALS: BP 147/54
[2016-11-10 23:00] VITALS: BP 145/56
[2016-11-11 03:00] VITALS: BP 140/52
[2016-11-11 03:31] LABS: BASO % 0 % (0-3); EOS % 1 % (0-3); HEMOGLOBIN 7.2 g/dL (13.0-17.5); LYMPH # 0.6 x10^3/uL (1.0-4.8); LYMPH % 13 % (24-48); MEAN CORPUSCULAR HEMOGLOBIN 29 pg (25-35); MEAN CORPUSCULAR HGB CONC 33 g/dL (31-37); MEAN CORPUSCULAR VOLUME 88 fL (79-100); MONO % 14 % (0-9); NEUT % 72 % (31-73); PLATELET COUNT 155 x10^3/uL (140-400); RED BLOOD COUNT 2.49 x10^6/uL (4.30-5.70); RED CELL DISTRIBUTION WIDTH 15.4 % (11.5-14.5); WHITE BLOOD COUNT 4.9 x10^3/uL (4.0-11.0)
[2016-11-11 03:47] LABS: CALCIUM 7.5 mg/dL (8.5-10.1); GFR 71.2; POTASSIUM 3.1 mmol/L (3.5-5.1)
[2016-11-11 07:00] VITALS: BP 146/62
--- NOTE | 2016-11-11 09:04 | PDOC ---
PROGRESS NOTES Subjective Subjective C/o anterior abdominal discomfort with cough. Objective Objective Vital Signs Date Time Temp Pulse Resp B/P (MAP) Pulse Ox O2 Delivery O2 Flow Rate FiO2 11/11/16 03:00 98.6 62 18 140/52 (81) 91 Room Air 98.6 11/09/16 08:00 2.0 Intake and Output 11/11/16 07:00 Intake Total 550 ml Output Total 270 ml Balance 280 ml Intake Oral 550 ml Stool Total 270 ml # Voids 7 Physical Exam Physical Exam He is uspine in bed and alert and he has been getting up with physical therapy and he continues with generalized muscle weakness and he requires help with transfers. Assessment Assessment Problems Medical Problems: (1) Anemia Status: Acute (2) GI bleed Status: Acute Plan Plan of Care To continue present physical and occupational therapy follow up as tolerated. Comment Review of Relevant I have reviewed the following items kiana (where applicable) has been applied. Labs Laboratory Tests Test 11/10/16 11:40 11/11/16 03:24 White Blood Count 6.0 x10^3/uL (4.0-11.0) 4.9 x10^3/uL (4.0-11.0) Red Blood Count 2.82 x10^6/uL (4.30-5.70) 2.49 x10^6/uL (4.30-5.70) Hemoglobin 8.3 g/dL (13.0-17.5) 7.2 g/dL (13.0-17.5) Hematocrit 24.7 % (39.0-53.0) 22.0 % (39.0-53.0) Mean Corpuscular Volume 88 fL (79-100) 88 fL (79-100) Mean Corpuscular Hemoglobin 30 pg (25-35) 29 pg (25-35) Mean Corpuscular Hemoglobin Concent 34 g/dL (31-37) 33 g/dL (31-37) Red Cell Distribution Width 15.3 % (11.5-14.5) 15.4 % (11.5-14.5) Platelet Count 160 x10^3/uL (140-400) 155 x10^3/uL (140-400) Neutrophils (%) (Auto) 73 % (31-73) 72 % (31-73) Lymphocytes (%) (Auto) 9 % (24-48) 13 % (24-48) Monocytes (%) (Auto) 16 % (0-9) 14 % (0-9) Eosinophils (%) (Auto) 1 % (0-3) 1 % (0-3) Basophils (%) (Auto) 0 % (0-3) 0 % (0-3) Neutrophils # (Auto) 4.4 x10^3uL (1.8-7.7) 3.5 x10^3uL (1.8-7.7) Lymphocytes # (Auto) 0.6 x10^3/uL (1.0-4.8) 0.6 x10^3/uL (1.0-4.8) Monocytes # (Auto) 1.0 x10^3/uL (0.0-1.1) 0.7 x10^3/uL (0.0-1.1) Eosinophils # (Auto) 0.1 x10^3/uL (0.0-0.7) 0.1 x10^3/uL (0.0-0.7) Basophils # (Auto) 0.0 x10^3/uL (0.0-0.2) 0.0 x10^3/uL (0.0-0.2) Segmented Neutrophils % 80 % (35-66) Band Neutrophils % 3 % (0-9) Lymphocytes % 10 % (24-48) Monocytes % 5 % (0-10) Metamyelocytes % 2 % (0-0) Platelet Estimate Adequate (ADEQUATE) Sodium Level 141 mmol/L (136-145) 141 mmol/L (136-145) Potassium Level 3.3 mmol/L (3.5-5.1) 3.1 mmol/L (3.5-5.1) Chloride Level 105 mmol/L (98-107) 106 mmol/L (98-107) Carbon Dioxide Level 28 mmol/L (21-32) 28 mmol/L (21-32) Anion Gap 8 (6-14) 7 (6-14) Blood Urea Nitrogen 7 mg/dL (8-26) 5 mg/dL (8-26) Creatinine 1.0 mg/dL (0.7-1.3) 1.0 mg/dL (0.7-1.3) Estimated GFR (Cockcroft-Gault) 71.2 71.2 Glucose Level 124 mg/dL (70-99) 126 mg/dL (70-99) Calcium Level 7.9 mg/dL (8.5-10.1) 7.5 mg/dL (8.5-10.1) Laboratory Tests Test 11/10/16 11:40 11/11/16 03:24 White Blood Count 6.0 x10^3/uL (4.0-11.0) 4.9 x10^3/uL (4.0-11.0) Red Blood Count 2.82 x10^6/uL (4.30-5.70) 2.49 x10^6/uL (4.30-5.70) Hemoglobin 8.3 g/dL (13.0-17.5) 7.2 g/dL (13.0-17.5) Hematocrit 24.7 % (39.0-53.0) 22.0 % (39.0-53.0) Mean Corpuscular Volume 88 fL (79-100) 88 fL (79-100) Mean Corpuscular Hemoglobin 30 pg (25-35) 29 pg (25-35) Mean Corpuscular Hemoglobin Concent 34 g/dL (31-37) 33 g/dL (31-37) Red Cell Distribution Width 15.3 % (11.5-14.5) 15.4 % (11.5-14.5) Platelet Count 160 x10^3/uL (140-400) 155 x10^3/uL (140-400) Neutrophils (%) (Auto) 73 % (31-73) 72 % (31-73) Lymphocytes (%) (Auto) 9 % (24-48) 13 % (24-48) Monocytes (%) (Auto) 16 % (0-9) 14 % (0-9) Eosinophils (%) (Auto) 1 % (0-3) 1 % (0-3) Basophils (%) (Auto) 0 % (0-3) 0 % (0-3) Neutrophils # (Auto) 4.4 x10^3uL (1.8-7.7) 3.5 x10^3uL (1.8-7.7) Lymphocytes # (Auto) 0.6 x10^3/uL (1.0-4.8) 0.6 x10^3/uL (1.0-4.8) Monocytes # (Auto) 1.0 x10^3/uL (0.0-1.1) 0.7 x10^3/uL (0.0-1.1) Eosinophils # (Auto) 0.1 x10^3/uL (0.0-0.7) 0.1 x10^3/uL (0.0-0.7) Basophils # (Auto) 0.0 x10^3/uL (0.0-0.2) 0.0 x10^3/uL (0.0-0.2) Segmented Neutrophils % 80 % (35-66) Band Neutrophils % 3 % (0-9) Lymphocytes % 10 % (24-48) Monocytes % 5 % (0-10) Metamyelocytes % 2 % (0-0) Platelet Estimate Adequate (ADEQUATE) Sodium Level 141 mmol/L (136-145) 141 mmol/L (136-145) Potassium Level 3.3 mmol/L (3.5-5.1) 3.1 mmol/L (3.5-5.1) Chloride Level 105 mmol/L (98-107) 106 mmol/L (98-107) Carbon Dioxide Level 28 mmol/L (21-32) 28 mmol/L (21-32) Anion Gap 8 (6-14) 7 (6-14) Blood Urea Nitrogen 7 mg/dL (8-26) 5 mg/dL (8-26) Creatinine 1.0 mg/dL (0.7-1.3) 1.0 mg/dL (0.7-1.3) Estimated GFR (Cockcroft-Gault) 71.2 71.2 Glucose Level 124 mg/dL (70-99) 126 mg/dL (70-99) Calcium Level 7.9 mg/dL (8.5-10.1) 7.5 mg/dL (8.5-10.1) Medications Current Medications Ondansetron HCl (Zofran) 4 mg PRN Q8HRS PRN IV NAUSEA/VOMITING; Start 10/31/16 at 12:00; Stop 11/01/16 at 11:59; Status DC Sodium Chloride 1,000 ml @ 125 mls/hr Q8H IV Last administered on 11/02/16 23 :10; Start 10/31/16 at 14:15; Stop 11/03/16 at 13:56; Status DC Sodium Cl/Sod Bicarb/Potass Cl/ PEG (Golytely) 4,000 ml 1X ONCE PO Last administered on 10/31/16 16:56; Start 10/31/16 at 16:15; Stop 10/31/16 at 16:16 ; Status DC Ringer's Solution 1,000 ml @ 75 mls/hr 1X ONCE IV Last administered on 08:54; Start 11/01/16 at 09:00; Stop 11/01/16 at 22:19; Status DC Propofol 20 ml @ As Directed STK-MED ONCE IV ; Start 11/01/16 at 09:30; Stop at 09:31; Status DC Lidocaine HCl (Lidocaine Pf 2% Vial) 5 ml STK-MED ONCE .ROUTE ; Start 11/01/16 at 09:30; Stop 11/01/16 at 09:31; Status DC Carbidopa/Levodopa (Sinemet 25/100) 2 tab TID PO Last administered on 21:29; Start 11/01/16 at 14:00 Acetaminophen/ Hydrocodone Bitart (Lortab 5/325) 1 tab PRN Q6HRS PRN PO PAIN Last administered on 11/01/16 21:23; Start 11/01/16 at 10:15; Stop 11/08/16 at 15:42; Status DC Memantine (Namenda) 10 mg BID PO Last administered on 11/10/16 21:29; Start at 11:00 Pantoprazole Sodium (Protonix) 40 mg DAILY07 PO Last administered on 11/01/16 11:16; Start 11/01/16 at 10:30; Stop 11/04/16 at 08:31; Status DC Albumin Human 100 ml @ 100 mls/hr 1X ONCE IV Last administered on 11/02/16 15:46; Start 11/02/16 at 16:30; Stop 11/02/16 at 17:29; Status DC Furosemide (Lasix) 20 mg 1X ONCE IVP Last administered on 11/02/16 17:50; Start 11/02/16 at 18:00; Stop 11/02/16 at 18:01; Status DC Iohexol (Omnipaque 300 Mg/ml) 100 ml STK-MED ONCE .ROUTE ; Start 11/02/16 at 18: 42; Stop 11/02/16 at 18:43; Status DC Lidocaine/Sodium Bicarbonate (Buffered Lidocaine 1%) 20 ml STK-MED ONCE IJ ; Start 11/02/16 at 18:42; Stop 11/02/16 at 18:43; Status DC Heparin Sodium/ Sodium Chloride 1,500 ml @ As Directed STK-MED ONCE .ROUTE ; Start 11/02/16 at 18:43; Stop 11/02/16 at 18:44; Status DC Cefazolin Sodium 50 ml @ As Directed STK-MED ONCE IV ; Start 11/02/16 at 19:35; Stop 11/02/16 at 19:36; Status DC Heparin Sodium/ Sodium Chloride 1,000 unit 1X ONCE IART Last administered on 20:59; Start 11/02/16 at 19:45; Stop 11/02/16 at 19:46; Status DC Lidocaine/Sodium Bicarbonate (Buffered Lidocaine 1%) 20 ml 1X ONCE IJ Last administered on 11/02/16 20:59; Start 11/02/16 at 19:45; Stop 11/02/16 at 19:46 ; Status DC Cefazolin Sodium 50 ml @ 100 mls/hr 1X ONCE IV Last administered on 19:30; Start 11/02/16 at 19:45; Stop 11/02/16 at 20:14; Status DC Iohexol (Omnipaque 300 Mg/ml) 100 ml STK-MED ONCE .ROUTE ; Start 11/02/16 at 19: 52; Stop 11/02/16 at 19:53; Status DC Iohexol (Omnipaque 300 Mg/ml) 100 ml 1X ONCE IART Last administered on 21:00; Start 11/02/16 at 20:00; Stop 11/02/16 at 20:01; Status DC Info (Do NOT chart on this entry -- for MONITORING) 1 each PRN DAILY PRN MC SEE COMMENTS; Start 11/02/16 at 20:00; Stop 11/04/16 at 19:59; Status DC Midazolam HCl (Versed) 2 mg STK-MED ONCE .ROUTE ; Start 11/02/16 at 19:56; Stop 11/02/16 at 19:57; Status DC Fentanyl Citrate (Fentanyl 2ml Vial) 100 mcg STK-MED ONCE .ROUTE ; Start at 19:57; Stop 11/02/16 at 19:58; Status DC Midazolam HCl (Versed) 2 mg 1X ONCE IV Last administered on 11/02/16 21:01; Start 11/02/16 at 20:15; Stop 11/02/16 at 20:16; Status DC Fentanyl Citrate (Fentanyl 2ml Vial) 100 mcg 1X ONCE IV Last administered on 21:00; Start 11/02/16 at 20:15; Stop 11/02/16 at 20:16; Status DC Gelatin (Gelfoam Size 12-7mm) 1 each STK-MED ONCE .ROUTE ; Start 11/02/16 at 20 :23; Stop 11/02/16 at 20:24; Status DC Nitroglycerin (Nitroglycerin) 200 mcg 1X ONCE IART Last administered on 20:30; Start 11/02/16 at 20:30; Stop 11/02/16 at 20:33; Status DC Sodium Chloride 1,000 ml @ 125 mls/hr Q8H IV Last administered on 11/08/16 00 :28; Start 11/03/16 at 15:00; Stop 11/08/16 at 15:42; Status DC Haloperidol Lactate (Haldol) 1 mg PRN Q6HRS PRN IVP AGITATION Last administered on 11/03/16 21:10; Start 11/03/16 at 14:00 Furosemide (Lasix) 20 mg 1X ONCE IVP Last administered on 11/03/16 21:11; Start 11/03/16 at 21:30; Stop 11/03/16 at 21:31; Status DC Famotidine (Pepcid) 20 mg DAILY IVP Last administered on 11/04/16 10:49; Start 11/04/16 at 09:00; Stop 11/04/16 at 17:25; Status DC Pantoprazole Sodium (Protonix Vial) 40 mg DAILY IVP Last administered on 09:00; Start 11/04/16 at 09:00; Stop 11/08/16 at 11:06; Status DC Norepinephrine Bitartrate 250 ml @ As Directed STK-MED ONCE IV ; Start at 13:17; Stop 11/04/16 at 13:18; Status DC Etomidate (Amidate) 20 mg STK-MED ONCE IV ; Start 11/04/16 at 13:41; Stop at 13:42; Status DC Succinylcholine Chloride (Anectine) 200 mg STK-MED ONCE .ROUTE ; Start 11/04/16 at 13:41; Stop 11/04/16 at 13:42; Status DC Vecuronium [place] (Norcuron Bolus) 10 mg STK-MED ONCE IV ; Start 11/04/16 at 13 :41; Stop 11/04/16 at 13:42; Status DC Phenylephrine HCl (Adán-Synephrine Inj) 10 mg STK-MED ONCE .ROUTE ; Start at 13:44; Stop 11/04/16 at 13:45; Status DC Cefazolin Sodium/ Dextrose 50 ml @ 100 mls/hr 1X ONCE IV ; Start 11/04/16 at 14:15; Stop 11/04/16 at 14:44; Status DC Fentanyl Citrate (Fentanyl 2ml Vial) 100 mcg STK-MED ONCE .ROUTE ; Start at 14:31; Stop 11/04/16 at 14:32; Status DC Desflurane (Suprane) 60 ml STK-MED ONCE IH ; Start 11/04/16 at 15:01; Stop 11/04 at 15:02; Status DC Ondansetron HCl (Zofran) 4 mg STK-MED ONCE .ROUTE ; Start 11/04/16 at 15:01; Stop 11/04/16 at 15:02; Status DC Glycopyrrolate (Robinul) 1 mg STK-MED ONCE .ROUTE ; Start 11/04/16 at 15:02; Stop 11/04/16 at 15:03; Status DC Cellulose 1 each STK-MED ONCE .ROUTE Last administered on 11/04/16t 15:05; Start 11/04/16 at 15:04; Stop 11/04/16 at 15:05; Status DC Fentanyl Citrate (Fentanyl 2ml Vial) 100 mcg STK-MED ONCE .ROUTE ; Start at 15:50; Stop 11/04/16 at 15:51; Status DC Lidocaine HCl (Lidocaine Pf 2% Vial) 5 ml STK-MED ONCE .ROUTE ; Start 11/04/16 at 15:53; Stop 11/04/16 at 15:54; Status DC Cellulose 1 each STK-MED ONCE TP Last administered on 11/04/16t 15:24; Start at 15:24; Stop 11/04/16 at 16:39; Status DC Fentanyl Citrate (Fentanyl 2ml Vial) 25 mcg PRN Q5MIN PRN IV MILD PAIN Last administered on 11/04/16t 17:18; Start 11/04/16 at 17:15; Stop 11/05/16 at 17:14 ; Status DC Fentanyl Citrate (Fentanyl 2ml Vial) 50 mcg PRN Q5MIN PRN IV MODERATE PAIN; Start 11/04/16 at 17:15; Stop 11/05/16 at 17:14; Status DC Morphine Sulfate 1 mg PRN Q10MIN PRN IV SEVERE PAIN; Start 11/04/16 at 17:15; Stop 11/05/16 at 17:14; Status DC Ringer's Solution 1,000 ml @ 30 mls/hr Q24H IV ; Start 11/04/16 at 17:12; Stop 11/05/16 at 05:11; Status DC Lidocaine HCl 2 ml PRN 1X PRN ID PRIOR TO IV START; Start 11/04/16 at 17:15; Stop 11/05/16 at 17:14; Status DC Hydromorphone HCl (Dilaudid) 0.5 mg PRN Q10MIN PRN IV SEV PAIN, Second choice; Start 11/04/16 at 17:15; Stop 11/05/16 at 17:14; Status DC Prochlorperazine Edisylate (Compazine) 5 mg PACU PRN PRN IV NAUSEA, MRX1; Start 11/04/16 at 17:15; Stop 11/05/16 at 17:14; Status DC Fentanyl Citrate (Fentanyl 2ml Vial) 50 mcg PRN Q1HR PRN IV PAIN Last administered on 11/08/16t 00:28; Start 11/04/16 at 17:15; Stop 11/08/16 at 15:42 ; Status DC Potassium Chloride 50 ml @ 50 mls/hr 1X ONCE IV Last administered on 06:32; Start 11/05/16 at 07:00; Stop 11/05/16 at 07:59; Status DC Potassium Chloride 50 ml @ 50 mls/hr Q1H IV Last administered on 11/06/16 11: 58; Start 11/06/16 at 10:00; Stop 11/06/16 at 11:59; Status DC Potassium Chloride 50 ml @ 50 mls/hr Q1H IV Last administered on 11/07/16 12: 00; Start 11/07/16 at 11:00; Stop 11/07/16 at 12:59; Status DC Barium Sulfate (Varibar Thin Liquid Apple) 148 gm 1X ONCE PO Last administered on 11/07/16 14:20; Start 11/07/16 at 13:00; Stop 11/07/16 at 13:01 ; Status DC Pantoprazole Sodium (Protonix) 40 mg DAILYAC PO Last administered on 11/10/16 09:24; Start 11/09/16 at 07:30 Potassium Chloride 50 ml @ 50 mls/hr Q1H IV Last administered on 11/08/16 18: 00; Start 11/08/16 at 13:00; Stop 11/08/16 at 14:59; Status DC Furosemide (Lasix) 40 mg 1X ONCE PO Last administered on 11/08/16 16:59; Start 11/08/16 at 15:45; Stop 11/08/16 at 15:46; Status DC Potassium Chloride 50 ml @ 50 mls/hr Q1H IV Last administered on 11/09/16 13: 38; Start 11/09/16 at 11:00; Stop 11/09/16 at 12:59; Status DC Active Scripts Active Lortab 5-325 mg Tablet (Hydrocodone/Acetaminophen) 1 Each Tablet 1 Tab PO PRN Q6HRS PRN [Aspirin] 81 MG Tablet. 81 Mg PO DAILY 30 Days Reported Sinemet 25-100 Mg Tablet (Carbidopa/Levodopa) 1 Each Tablet 2 Tab PO TID Namenda (Memantine Hcl) 10 Mg Tablet 1 Tab PO BID Pantoprazole Sodium 40 Mg Tablet. 1 Tab PO DAILY Vitals/I & O Vital Sign - Last 24 Hours 11/10/16 11/10/16 11/10/1627/17 10:39 15:00 19:00 19:40 Temp 97.5 96.6 97.7 97.5 96.6 97.7 Pulse 65 69 63 Resp 18 18 18 B/P (MAP) 166/60 (95) 145/53 (83) 147/54 (85) Pulse Ox 96 94 91 O2 Delivery Room Air Room Air Room Air Room Air 11/10/16 11/11/16 23:00 03:00 Temp 98.1 98.6 98.1 98.6 Pulse 65 62 Resp 18 18 B/P (MAP) 145/56 (85) 140/52 (81) Pulse Ox 93 91 O2 Delivery Room Air Room Air Intake and Output 11/10/16 11/10/16 11/11/16 15:00 23:00 07:00 Intake Total 240 ml 310 ml Output Total 60 ml 50 ml 160 ml Balance 180 ml 260 ml -160 ml RHONDA WAGGONER MD Nov 11, 2016 09:04
[2016-11-11] MEDS: PANTOPRAZOLE 40 MG TABLET.DR. PO SCH (09:06)
[2016-11-11] MEDS: CARBIDOPA/LEVODOPA 25/100MG TABLET PO SCH ×3 (09:06→20:46)
[2016-11-11] MEDS: MEMANTINE 10 MG TABLET. PO SCH ×2 (09:06→20:46)
[2016-11-11] MEDS ORDERED: POTASSIUM CHLORIDE 20 MEQ TABLET.ER. PO ONE ×2 (10:00→12:00)
--- NOTE | 2016-11-11 10:31 | PDOC ---
PROGRESS NOTES Subjective Subjective tolerating diet, colostomy bag liquid out put Objective Objective Vital Signs Date Time Temp Pulse Resp B/P (MAP) Pulse Ox O2 Delivery O2 Flow Rate FiO2 11/11/16 07:00 97.5 58 18 146/62 (90) 97 Room Air 97.5 Intake and Output 11/11/16 07:00 Intake Total 550 ml Output Total 270 ml Balance 280 ml Intake Oral 550 ml Stool Total 270 ml # Voids 7 Physical Exam Abdomen: Soft, No tenderness, Other (incision c/d/i, no erythema, ostomy with stool, stoma pink) Heart: Regular rate, Normal S1, Normal S2, No murmurs Extremities: Other General: Alert, Cooperative, No acute distress HEENT: PERRLA, EOMI Lungs: Clear to auscultation, Normal air movement MUSCULOSKELETAL: No joint tenderness Neuro: Normal speech Skin: No breakdown, No significant lesion Diagnosis Problem List Problems Medical Problems: (1) Anemia Status: Acute (2) GI bleed Status: Acute Assessment Assessment FINAL IMPRESSION:Active lower GI bleed, from 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 colon polyp removed 1. Lower gastrointestinal bleed secondary to diverticular bleed. 2. Coronary artery disease, bypass surgery. 3. Parkinson disease. 4. Hypertension. 5. Dementia. PLAN: LTAC today. needs rehab. confusion and weakness. replace potassium 3.1 today d/cd marmolejo d/cd iv fluids advance to gi soft diet. Post op day #7,stable speech consult ,? vedio swallow test noted HB 7.2stable [id number] improving dvt prevention pt/ot / friday Problems: Plan Plan of Care Problems Medical Problems: (1) Anemia Status: Acute (2) GI bleed Status: Acute Comment Review of Relevant I have reviewed the following items kiana (where applicable) has been applied. Labs Laboratory Tests Test 11/10/16 11:40 11/11/16 03:24 White Blood Count 6.0 x10^3/uL (4.0-11.0) 4.9 x10^3/uL (4.0-11.0) Red Blood Count 2.82 x10^6/uL (4.30-5.70) 2.49 x10^6/uL (4.30-5.70) Hemoglobin 8.3 g/dL (13.0-17.5) 7.2 g/dL (13.0-17.5) Hematocrit 24.7 % (39.0-53.0) 22.0 % (39.0-53.0) Mean Corpuscular Volume 88 fL (79-100) 88 fL (79-100) Mean Corpuscular Hemoglobin 30 pg (25-35) 29 pg (25-35) Mean Corpuscular Hemoglobin Concent 34 g/dL (31-37) 33 g/dL (31-37) Red Cell Distribution Width 15.3 % (11.5-14.5) 15.4 % (11.5-14.5) Platelet Count 160 x10^3/uL (140-400) 155 x10^3/uL (140-400) Neutrophils (%) (Auto) 73 % (31-73) 72 % (31-73) Lymphocytes (%) (Auto) 9 % (24-48) 13 % (24-48) Monocytes (%) (Auto) 16 % (0-9) 14 % (0-9) Eosinophils (%) (Auto) 1 % (0-3) 1 % (0-3) Basophils (%) (Auto) 0 % (0-3) 0 % (0-3) Neutrophils # (Auto) 4.4 x10^3uL (1.8-7.7) 3.5 x10^3uL (1.8-7.7) Lymphocytes # (Auto) 0.6 x10^3/uL (1.0-4.8) 0.6 x10^3/uL (1.0-4.8) Monocytes # (Auto) 1.0 x10^3/uL (0.0-1.1) 0.7 x10^3/uL (0.0-1.1) Eosinophils # (Auto) 0.1 x10^3/uL (0.0-0.7) 0.1 x10^3/uL (0.0-0.7) Basophils # (Auto) 0.0 x10^3/uL (0.0-0.2) 0.0 x10^3/uL (0.0-0.2) Segmented Neutrophils % 80 % (35-66) Band Neutrophils % 3 % (0-9) Lymphocytes % 10 % (24-48) Monocytes % 5 % (0-10) Metamyelocytes % 2 % (0-0) Platelet Estimate Adequate (ADEQUATE) Sodium Level 141 mmol/L (136-145) 141 mmol/L (136-145) Potassium Level 3.3 mmol/L (3.5-5.1) 3.1 mmol/L (3.5-5.1) Chloride Level 105 mmol/L (98-107) 106 mmol/L (98-107) Carbon Dioxide Level 28 mmol/L (21-32) 28 mmol/L (21-32) Anion Gap 8 (6-14) 7 (6-14) Blood Urea Nitrogen 7 mg/dL (8-26) 5 mg/dL (8-26) Creatinine 1.0 mg/dL (0.7-1.3) 1.0 mg/dL (0.7-1.3) Estimated GFR (Cockcroft-Gault) 71.2 71.2 Glucose Level 124 mg/dL (70-99) 126 mg/dL (70-99) Calcium Level 7.9 mg/dL (8.5-10.1) 7.5 mg/dL (8.5-10.1) Medications Current Medications Potassium Chloride (Klor-Con) 20 meq 1X ONCE PO ; Start 11/11/16 at 12:00; Stop 11/11/16 at 12:01 Potassium Chloride (Klor-Con) 20 meq [id number] PO ; Start 11/12/16 at 08:00 Potassium Chloride (Klor-Con) 40 meq 1X ONCE PO ; Start 11/11/16 at 10:00; Stop 11/11/16 at 10:01; Status DC Vitals/I & O Vital Sign - Last 24 Hours 11/10/16 11/10/16 11/10/16 11/10/16 10:39 15:00 19:00 19:40 Temp 97.5 96.6 97.7 97.5 96.6 97.7 Pulse 65 69 63 Resp 18 18 18 B/P (MAP) 166/60 (95) 145/53 (83) 147/54 (85) Pulse Ox 96 94 91 O2 Delivery Room Air Room Air Room Air Room Air 11/10/16 11/11/16 11/11/16 23:00 03:00 07:00 Temp 98.1 98.6 97.5 98.1 98.6 97.5 Pulse 65 62 58 Resp 18 18 18 B/P (MAP) 145/56 (85) 140/52 (81) 146/62 (90) Pulse Ox 93 91 97 O2 Delivery Room Air Room Air Room Air Intake and Output 11/10/16 11/10/16 11/11/16 15:00 23:00 07:00 Intake Total 240 ml 310 ml Output Total 60 ml 50 ml 160 ml Balance 180 ml 260 ml -160 ml BURTON AKBAR MD Nov 11, 2016 10:31
[2016-11-11 11:00] VITALS: BP 159/61
--- NOTE | 2016-11-11 11:07 | PDOC ---
Subjective: Subjective: Doing "better than nothing." Objective: Vital Signs: Vital Signs Date Time Temp Pulse Resp B/P (MAP) Pulse Ox O2 Delivery O2 Flow Rate FiO2 11/11/16 08:15 Room Air 11/11/16 07:00 97.5 58 18 146/62 (90) 97 97.5 Labs: Laboratory Tests Test 11/10/16 11:40 11/11/16 03:24 White Blood Count 6.0 x10^3/uL 4.9 x10^3/uL Red Blood Count 2.82 x10^6/uL 2.49 x10^6/uL Hemoglobin 8.3 g/dL 7.2 g/dL Hematocrit 24.7 % 22.0 % Mean Corpuscular Volume 88 fL 88 fL Mean Corpuscular Hemoglobin 30 pg 29 pg Mean Corpuscular Hemoglobin Concent 34 g/dL 33 g/dL Red Cell Distribution Width 15.3 % 15.4 % Platelet Count 160 x10^3/uL 155 x10^3/uL Neutrophils (%) (Auto) 73 % 72 % Lymphocytes (%) (Auto) 9 % 13 % Monocytes (%) (Auto) 16 % 14 % Eosinophils (%) (Auto) 1 % 1 % Basophils (%) (Auto) 0 % 0 % Neutrophils # (Auto) 4.4 x10^3uL 3.5 x10^3uL Lymphocytes # (Auto) 0.6 x10^3/uL 0.6 x10^3/uL Monocytes # (Auto) 1.0 x10^3/uL 0.7 x10^3/uL Eosinophils # (Auto) 0.1 x10^3/uL 0.1 x10^3/uL Basophils # (Auto) 0.0 x10^3/uL 0.0 x10^3/uL Segmented Neutrophils % 80 % Band Neutrophils % 3 % Lymphocytes % 10 % Monocytes % 5 % Metamyelocytes % 2 % Platelet Estimate Adequate Sodium Level 141 mmol/L 141 mmol/L Potassium Level 3.3 mmol/L 3.1 mmol/L Chloride Level 105 mmol/L 106 mmol/L Carbon Dioxide Level 28 mmol/L 28 mmol/L Anion Gap 8 7 Blood Urea Nitrogen 7 mg/dL 5 mg/dL Creatinine 1.0 mg/dL 1.0 mg/dL Estimated GFR (Cockcroft-Gault) 71.2 71.2 Glucose Level 124 mg/dL 126 mg/dL Calcium Level 7.9 mg/dL 7.5 mg/dL PE: GEN: NAD LUNGS: CTAB HEART: RRR ABD: NABS, S/ND/NT, ostomy - bag just changed NEURO/PSYCH: A & O 3 A/P: Lower GI bleed s/p resection w/ ostomy -improved, ostomy functioning, tolerating PO, Hgb 7.2 -on PO PPI -- Continue same per GI, DC per primary. DUNCAN SLAUGHTER Nov 11, 2016 11:07
--- NOTE | 2016-11-11 12:24 | PDOC ---
SURGICAL PROGRESS NOTE Subjective tolerating diet no pain Vital Signs Vital Signs Date Time Temp Pulse Resp B/P (MAP) Pulse Ox O2 Delivery O2 Flow Rate FiO2 11/11/16 11:00 98.1 57 18 159/61 (93) 94 Room Air 98.1 I&O Intake and Output 11/11/16 07:00 Intake Total 550 ml Output Total 270 ml Balance 280 ml Intake Oral 550 ml Stool Total 270 ml # Voids 7 General: Alert, Oriented X3, Cooperative, No acute distress Abdomen: Soft, Other (incision c/d/i, no erythema, ostomy with stool) Labs Laboratory Tests Test 11/10/16 11:40 11/11/16 03:24 White Blood Count 6.0 x10^3/uL (4.0-11.0) 4.9 x10^3/uL (4.0-11.0) Red Blood Count 2.82 x10^6/uL (4.30-5.70) 2.49 x10^6/uL (4.30-5.70) Hemoglobin 8.3 g/dL (13.0-17.5) 7.2 g/dL (13.0-17.5) Hematocrit 24.7 % (39.0-53.0) 22.0 % (39.0-53.0) Mean Corpuscular Volume 88 fL (79-100) 88 fL (79-100) Mean Corpuscular Hemoglobin 30 pg (25-35) 29 pg (25-35) Mean Corpuscular Hemoglobin Concent 34 g/dL (31-37) 33 g/dL (31-37) Red Cell Distribution Width 15.3 % (11.5-14.5) 15.4 % (11.5-14.5) Platelet Count 160 x10^3/uL (140-400) 155 x10^3/uL (140-400) Neutrophils (%) (Auto) 73 % (31-73) 72 % (31-73) Lymphocytes (%) (Auto) 9 % (24-48) 13 % (24-48) Monocytes (%) (Auto) 16 % (0-9) 14 % (0-9) Eosinophils (%) (Auto) 1 % (0-3) 1 % (0-3) Basophils (%) (Auto) 0 % (0-3) 0 % (0-3) Neutrophils # (Auto) 4.4 x10^3uL (1.8-7.7) 3.5 x10^3uL (1.8-7.7) Lymphocytes # (Auto) 0.6 x10^3/uL (1.0-4.8) 0.6 x10^3/uL (1.0-4.8) Monocytes # (Auto) 1.0 x10^3/uL (0.0-1.1) 0.7 x10^3/uL (0.0-1.1) Eosinophils # (Auto) 0.1 x10^3/uL (0.0-0.7) 0.1 x10^3/uL (0.0-0.7) Basophils # (Auto) 0.0 x10^3/uL (0.0-0.2) 0.0 x10^3/uL (0.0-0.2) Segmented Neutrophils % 80 % (35-66) Band Neutrophils % 3 % (0-9) Lymphocytes % 10 % (24-48) Monocytes % 5 % (0-10) Metamyelocytes % 2 % (0-0) Platelet Estimate Adequate (ADEQUATE) Sodium Level 141 mmol/L (136-145) 141 mmol/L (136-145) Potassium Level 3.3 mmol/L (3.5-5.1) 3.1 mmol/L (3.5-5.1) Chloride Level 105 mmol/L (98-107) 106 mmol/L (98-107) Carbon Dioxide Level 28 mmol/L (21-32) 28 mmol/L (21-32) Anion Gap 8 (6-14) 7 (6-14) Blood Urea Nitrogen 7 mg/dL (8-26) 5 mg/dL (8-26) Creatinine 1.0 mg/dL (0.7-1.3) 1.0 mg/dL (0.7-1.3) Estimated GFR (Cockcroft-Gault) 71.2 71.2 Glucose Level 124 mg/dL (70-99) 126 mg/dL (70-99) Calcium Level 7.9 mg/dL (8.5-10.1) 7.5 mg/dL (8.5-10.1) Laboratory Tests Test 11/11/16 03:24 White Blood Count 4.9 x10^3/uL (4.0-11.0) Red Blood Count 2.49 x10^6/uL (4.30-5.70) Hemoglobin 7.2 g/dL (13.0-17.5) Hematocrit 22.0 % (39.0-53.0) Mean Corpuscular Volume 88 fL (79-100) Mean Corpuscular Hemoglobin 29 pg (25-35) Mean Corpuscular Hemoglobin Concent 33 g/dL (31-37) Red Cell Distribution Width 15.4 % (11.5-14.5) Platelet Count 155 x10^3/uL (140-400) Neutrophils (%) (Auto) 72 % (31-73) Lymphocytes (%) (Auto) 13 % (24-48) Monocytes (%) (Auto) 14 % (0-9) Eosinophils (%) (Auto) 1 % (0-3) Basophils (%) (Auto) 0 % (0-3) Neutrophils # (Auto) 3.5 x10^3uL (1.8-7.7) Lymphocytes # (Auto) 0.6 x10^3/uL (1.0-4.8) Monocytes # (Auto) 0.7 x10^3/uL (0.0-1.1) Eosinophils # (Auto) 0.1 x10^3/uL (0.0-0.7) Basophils # (Auto) 0.0 x10^3/uL (0.0-0.2) Sodium Level 141 mmol/L (136-145) Potassium Level 3.1 mmol/L (3.5-5.1) Chloride Level 106 mmol/L (98-107) Carbon Dioxide Level 28 mmol/L (21-32) Anion Gap 7 (6-14) Blood Urea Nitrogen 5 mg/dL (8-26) Creatinine 1.0 mg/dL (0.7-1.3) Estimated GFR (Cockcroft-Gault) 71.2 Glucose Level 126 mg/dL (70-99) Calcium Level 7.5 mg/dL (8.5-10.1) Problem List Problems Medical Problems: (1) Anemia Status: Acute (2) GI bleed Status: Acute Assessment/Plan s/p resection stable for dc when medically ready lucero in place for another week Problems: LAURITA BEATTY APRN Nov 11, 2016 12:24
[2016-11-11 15:00] VITALS: BP 166/58
[2016-11-11 19:00] VITALS: BP 137/53
[2016-11-11 23:05] VITALS: BP 134/62
[2016-11-12 02:52] VITALS: BP 154/60
[2016-11-12 04:37] LABS: BASO % 0 % (0-3); EOS % 1 % (0-3); HEMATOCRIT 22.4 % (39.0-53.0); HEMOGLOBIN 7.3 g/dL (13.0-17.5); LYMPH # 0.6 x10^3/uL (1.0-4.8); LYMPH % 12 % (24-48); MEAN CORPUSCULAR HEMOGLOBIN 29 pg (25-35); MEAN CORPUSCULAR HGB CONC 33 g/dL (31-37); MEAN CORPUSCULAR VOLUME 89 fL (79-100); MONO % 13 % (0-9); NEUT % 74 % (31-73); PLATELET COUNT 157 x10^3/uL (140-400); RED CELL DISTRIBUTION WIDTH 15.6 % (11.5-14.5); WHITE BLOOD COUNT 5.4 x10^3/uL (4.0-11.0)
[2016-11-12 07:00] VITALS: BP 146/55
[2016-11-12] MEDS: PANTOPRAZOLE 40 MG TABLET.DR. PO SCH (07:30)
[2016-11-12] MEDS ORDERED: POTASSIUM CHLORIDE 20 MEQ TABLET.ER. PO SCH (08:00)
[2016-11-12 08:47] LABS: CALCIUM 7.5 mg/dL (8.5-10.1); GFR 71.2; POTASSIUM 3.7 mmol/L (3.5-5.1)
[2016-11-12] MEDS: MEMANTINE 10 MG TABLET. PO SCH (09:38)
[2016-11-12] MEDS: CARBIDOPA/LEVODOPA 25/100MG TABLET PO SCH ×2 (09:39→15:08)
--- NOTE | 2016-11-12 09:43 | PDOC ---
SURGICAL PROGRESS NOTE Subjective tolerating diet no pain Vital Signs Vital Signs Date Time Temp Pulse Resp B/P (MAP) Pulse Ox O2 Delivery O2 Flow Rate FiO2 11/12/16 07:00 98.2 60 18 146/55 (85) 96 Room Air 98.2 General: Alert, Oriented X3, Cooperative, No acute distress Abdomen: Soft, Other (Ostomy with stool, incision c/d/i, no erythema ) Labs Laboratory Tests Test 11/10/16 11:40 11/11/16 03:24 11/12/16 03:15 White Blood Count 6.0 x10^3/uL (4.0-11.0) 4.9 x10^3/uL (4.0-11.0) 5.4 x10^3/uL (4.0-11.0) Red Blood Count 2.82 x10^6/uL (4.30-5.70) 2.49 x10^6/uL (4.30-5.70) 2.50 x10^6/uL (4.30-5.70) Hemoglobin 8.3 g/dL (13.0-17.5) 7.2 g/dL (13.0-17.5) 7.3 g/dL (13.0-17.5) Hematocrit 24.7 % (39.0-53.0) 22.0 % (39.0-53.0) 22.4 % (39.0-53.0) Mean Corpuscular Volume 88 fL (79-100) 88 fL (79-100) 89 fL (79-100) Mean Corpuscular Hemoglobin 30 pg (25-35) 29 pg (25-35) 29 pg (25-35) Mean Corpuscular Hemoglobin Concent 34 g/dL (31-37) 33 g/dL (31-37) 33 g/dL (31-37) Red Cell Distribution Width 15.3 % (11.5-14.5) 15.4 % (11.5-14.5) 15.6 % (11.5-14.5) Platelet Count 160 x10^3/uL (140-400) 155 x10^3/uL (140-400) 157 x10^3/uL (140-400) Neutrophils (%) (Auto) 73 % (31-73) 72 % (31-73) 74 % (31-73) Lymphocytes (%) (Auto) 9 % (24-48) 13 % (24-48) 12 % (24-48) Monocytes (%) (Auto) 16 % (0-9) 14 % (0-9) 13 % (0-9) Eosinophils (%) (Auto) 1 % (0-3) 1 % (0-3) 1 % (0-3) Basophils (%) (Auto) 0 % (0-3) 0 % (0-3) 0 % (0-3) Neutrophils # (Auto) 4.4 x10^3uL (1.8-7.7) 3.5 x10^3uL (1.8-7.7) 4.0 x10^3uL (1.8-7.7) Lymphocytes # (Auto) 0.6 x10^3/uL (1.0-4.8) 0.6 x10^3/uL (1.0-4.8) 0.6 x10^3/uL (1.0-4.8) Monocytes # (Auto) 1.0 x10^3/uL (0.0-1.1) 0.7 x10^3/uL (0.0-1.1) 0.7 x10^3/uL (0.0-1.1) Eosinophils # (Auto) 0.1 x10^3/uL (0.0-0.7) 0.1 x10^3/uL (0.0-0.7) 0.1 x10^3/uL (0.0-0.7) Basophils # (Auto) 0.0 x10^3/uL (0.0-0.2) 0.0 x10^3/uL (0.0-0.2) 0.0 x10^3/uL (0.0-0.2) Segmented Neutrophils % 80 % (35-66) Band Neutrophils % 3 % (0-9) Lymphocytes % 10 % (24-48) Monocytes % 5 % (0-10) Metamyelocytes % 2 % (0-0) Platelet Estimate Adequate (ADEQUATE) Sodium Level 141 mmol/L (136-145) 141 mmol/L (136-145) 141 mmol/L (136-145) Potassium Level 3.3 mmol/L (3.5-5.1) 3.1 mmol/L (3.5-5.1) 3.7 mmol/L (3.5-5.1) Chloride Level 105 mmol/L (98-107) 106 mmol/L (98-107) 106 mmol/L (98-107) Carbon Dioxide Level 28 mmol/L (21-32) 28 mmol/L (21-32) 29 mmol/L (21-32) Anion Gap 8 (6-14) 7 (6-14) 6 (6-14) Blood Urea Nitrogen 7 mg/dL (8-26) 5 mg/dL (8-26) 6 mg/dL (8-26) Creatinine 1.0 mg/dL (0.7-1.3) 1.0 mg/dL (0.7-1.3) 1.0 mg/dL (0.7-1.3) Estimated GFR (Cockcroft-Gault) 71.2 71.2 71.2 Glucose Level 124 mg/dL (70-99) 126 mg/dL (70-99) 126 mg/dL (70-99) Calcium Level 7.9 mg/dL (8.5-10.1) 7.5 mg/dL (8.5-10.1) 7.5 mg/dL (8.5-10.1) Laboratory Tests Test 11/12/16 03:15 White Blood Count 5.4 x10^3/uL (4.0-11.0) Red Blood Count 2.50 x10^6/uL (4.30-5.70) Hemoglobin 7.3 g/dL (13.0-17.5) Hematocrit 22.4 % (39.0-53.0) Mean Corpuscular Volume 89 fL (79-100) Mean Corpuscular Hemoglobin 29 pg (25-35) Mean Corpuscular Hemoglobin Concent 33 g/dL (31-37) Red Cell Distribution Width 15.6 % (11.5-14.5) Platelet Count 157 x10^3/uL (140-400) Neutrophils (%) (Auto) 74 % (31-73) Lymphocytes (%) (Auto) 12 % (24-48) Monocytes (%) (Auto) 13 % (0-9) Eosinophils (%) (Auto) 1 % (0-3) Basophils (%) (Auto) 0 % (0-3) Neutrophils # (Auto) 4.0 x10^3uL (1.8-7.7) Lymphocytes # (Auto) 0.6 x10^3/uL (1.0-4.8) Monocytes # (Auto) 0.7 x10^3/uL (0.0-1.1) Eosinophils # (Auto) 0.1 x10^3/uL (0.0-0.7) Basophils # (Auto) 0.0 x10^3/uL (0.0-0.2) Sodium Level 141 mmol/L (136-145) Potassium Level 3.7 mmol/L (3.5-5.1) Chloride Level 106 mmol/L (98-107) Carbon Dioxide Level 29 mmol/L (21-32) Anion Gap 6 (6-14) Blood Urea Nitrogen 6 mg/dL (8-26) Creatinine 1.0 mg/dL (0.7-1.3) Estimated GFR (Cockcroft-Gault) 71.2 Glucose Level 126 mg/dL (70-99) Calcium Level 7.5 mg/dL (8.5-10.1) Problem List Problems Medical Problems: (1) Anemia Status: Acute (2) GI bleed Status: Acute Assessment/Plan s/p resection stable for dc when medically ready lucero in place for another week, will FU in clinic after discharge Problems: LAURITA BEATTY APRN Nov 12, 2016 09:43
--- NOTE | 2016-11-12 10:11 | PDOC ---
PROGRESS NOTES Subjective Subjective doing well,waiting to go to [facility] Objective Objective Vital Signs Date Time Temp Pulse Resp B/P (MAP) Pulse Ox O2 Delivery O2 Flow Rate FiO2 11/12/16 07:00 98.2 60 18 146/55 (85) 96 Room Air 98.2 Physical Exam Abdomen: Soft, Other (Ostomy with stool, incision c/d/i, no erythema ) Heart: Regular rate, Normal S1, Normal S2, No murmurs Extremities: Other General: Alert, Oriented X3, Cooperative, No acute distress HEENT: PERRLA, EOMI Lungs: Clear to auscultation, Normal air movement MUSCULOSKELETAL: No joint tenderness Neuro: Normal speech Skin: No breakdown, No significant lesion COMMENT colostomy bag Diagnosis Problem List Problems Medical Problems: (1) Anemia Status: Acute (2) GI bleed Status: Acute Assessment Assessment FINAL IMPRESSION:Active lower GI bleed, from 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 colon polyp removed 1. Lower gastrointestinal bleed secondary to diverticular bleed. 2. Coronary artery disease, bypass surgery. 3. Parkinson disease. 4. Hypertension. 5. Dementia. PLAN:[facility] today. spoke with family. confusion and weakness at night. replace potassium 3.6 today advance to gi regular diet. Post op day #8,stable HB 7.2stable improving dvt prevention pt/ot Problems: Plan Plan of Care Problems Medical Problems: (1) Anemia Status: Acute (2) GI bleed Status: Acute Comment Review of Relevant I have reviewed the following items kiana (where applicable) has been applied. Labs Laboratory Tests Test 11/12/16 03:15 White Blood Count 5.4 x10^3/uL (4.0-11.0) Red Blood Count 2.50 x10^6/uL (4.30-5.70) Hemoglobin 7.3 g/dL (13.0-17.5) Hematocrit 22.4 % (39.0-53.0) Mean Corpuscular Volume 89 fL (79-100) Mean Corpuscular Hemoglobin 29 pg (25-35) Mean Corpuscular Hemoglobin Concent 33 g/dL (31-37) Red Cell Distribution Width 15.6 % (11.5-14.5) Platelet Count 157 x10^3/uL (140-400) Neutrophils (%) (Auto) 74 % (31-73) Lymphocytes (%) (Auto) 12 % (24-48) Monocytes (%) (Auto) 13 % (0-9) Eosinophils (%) (Auto) 1 % (0-3) Basophils (%) (Auto) 0 % (0-3) Neutrophils # (Auto) 4.0 x10^3uL (1.8-7.7) Lymphocytes # (Auto) 0.6 x10^3/uL (1.0-4.8) Monocytes # (Auto) 0.7 x10^3/uL (0.0-1.1) Eosinophils # (Auto) 0.1 x10^3/uL (0.0-0.7) Basophils # (Auto) 0.0 x10^3/uL (0.0-0.2) Sodium Level 141 mmol/L (136-145) Potassium Level 3.7 mmol/L (3.5-5.1) Chloride Level 106 mmol/L (98-107) Carbon Dioxide Level 29 mmol/L (21-32) Anion Gap 6 (6-14) Blood Urea Nitrogen 6 mg/dL (8-26) Creatinine 1.0 mg/dL (0.7-1.3) Estimated GFR (Cockcroft-Gault) 71.2 Glucose Level 126 mg/dL (70-99) Calcium Level 7.5 mg/dL (8.5-10.1) Medications Current Medications Potassium Chloride (Klor-Con) 20 meq 1X ONCE PO Last administered on 14:06; Start 11/11/16 at 12:00; Stop 11/11/16 at 12:01; Status DC Potassium Chloride (Klor-Con) 20 meq [id number] PO Last administered on 09:39; Start 11/12/16 at 08:00 Vitals/I & O Vital Sign - Last 24 Hours 11/11/16 11/11/16 11/11/16 11/11/16 11:00 15:00 19:00 20:00 Temp 98.1 96.8 97.5 98.1 96.8 97.5 Pulse 57 59 56 Resp 18 18 56 B/P (MAP) 159/61 (93) 166/58 (94) 137/53 (81) Pulse Ox 94 95 93 O2 Delivery Room Air Room Air Room Air Room Air 11/11/16 11/12/16 11/12/16 23:05 02:52 07:00 Temp 98.2 97.7 98.2 98.2 97.7 98.2 Pulse 62 63 60 Resp 20 16 18 B/P (MAP) 134/62 (86) 154/60 (91) 146/55 (85) Pulse Ox 94 96 96 O2 Delivery Room Air Room Air Room Air BURTON AKBAR MD Nov 12, 2016 10:11
--- NOTE | 2016-11-12 10:55 | PDOC ---
Subjective: Subjective: No complaints, doesn't say much. Objective: Objective: Possible transfer to [facility] today. Vital Signs: Vital Signs Date Time Temp Pulse Resp B/P (MAP) Pulse Ox O2 Delivery O2 Flow Rate FiO2 11/12/16 07:00 98.2 60 18 146/55 (85) 96 Room Air 98.2 Labs: Laboratory Tests Test 11/12/16 03:15 White Blood Count 5.4 x10^3/uL Red Blood Count 2.50 x10^6/uL Hemoglobin 7.3 g/dL Hematocrit 22.4 % Mean Corpuscular Volume 89 fL Mean Corpuscular Hemoglobin 29 pg Mean Corpuscular Hemoglobin Concent 33 g/dL Red Cell Distribution Width 15.6 % Platelet Count 157 x10^3/uL Neutrophils (%) (Auto) 74 % Lymphocytes (%) (Auto) 12 % Monocytes (%) (Auto) 13 % Eosinophils (%) (Auto) 1 % Basophils (%) (Auto) 0 % Neutrophils # (Auto) 4.0 x10^3uL Lymphocytes # (Auto) 0.6 x10^3/uL Monocytes # (Auto) 0.7 x10^3/uL Eosinophils # (Auto) 0.1 x10^3/uL Basophils # (Auto) 0.0 x10^3/uL Sodium Level 141 mmol/L Potassium Level 3.7 mmol/L Chloride Level 106 mmol/L Carbon Dioxide Level 29 mmol/L Anion Gap 6 Blood Urea Nitrogen 6 mg/dL Creatinine 1.0 mg/dL Estimated GFR (Cockcroft-Gault) 71.2 Glucose Level 126 mg/dL Calcium Level 7.5 mg/dL PE: GEN: NAD LUNGS: clear HEART: RRR ABD: BS+, soft, ostomy w/ brown stool and air NEURO/PSYCH: A & O 3 A/P: Lower GI bleed s/p resection w/ ostomy -improved, ostomy functioning, tolerating PO, Hgb stable -on PO PPI -- DC per primary. DUNCAN SLAUGHTER Nov 12, 2016 10:55
[2016-11-12 11:00] VITALS: BP 152/54
--- NOTE | 2016-11-12 11:24 | PDOC ---
PROGRESS NOTES Subjective Subjective No new complaints. Objective Objective Vital Signs Date Time Temp Pulse Resp B/P (MAP) Pulse Ox O2 Delivery O2 Flow Rate FiO2 11/12/16 07:00 98.2 60 18 146/55 (85) 96 Room Air 98.2 11/09/16 08:00 2.0 Physical Exam Physical Exam He is alert and comfortable supine in bed and he is participating with therapy and getting up with physical therapy and still requires 2 person assistance for transfers and he did walk with roller walker with bent forward posture for 15' yesterday. Assessment Assessment Problems Medical Problems: (1) Anemia Status: Acute (2) GI bleed Status: Acute Plan Plan of Care Agree with plans for discharge to SNF when medically stable. Comment Review of Relevant I have reviewed the following items kiana (where applicable) has been applied. Labs Laboratory Tests Test 11/10/16 11:40 11/11/16 03:24 11/12/16 03:15 White Blood Count 6.0 x10^3/uL (4.0-11.0) 4.9 x10^3/uL (4.0-11.0) 5.4 x10^3/uL (4.0-11.0) Red Blood Count 2.82 x10^6/uL (4.30-5.70) 2.49 x10^6/uL (4.30-5.70) 2.50 x10^6/uL (4.30-5.70) Hemoglobin 8.3 g/dL (13.0-17.5) 7.2 g/dL (13.0-17.5) 7.3 g/dL (13.0-17.5) Hematocrit 24.7 % (39.0-53.0) 22.0 % (39.0-53.0) 22.4 % (39.0-53.0) Mean Corpuscular Volume 88 fL (79-100) 88 fL (79-100) 89 fL (79-100) Mean Corpuscular Hemoglobin 30 pg (25-35) 29 pg (25-35) 29 pg (25-35) Mean Corpuscular Hemoglobin Concent 34 g/dL (31-37) 33 g/dL (31-37) 33 g/dL (31-37) Red Cell Distribution Width 15.3 % (11.5-14.5) 15.4 % (11.5-14.5) 15.6 % (11.5-14.5) Platelet Count 160 x10^3/uL (140-400) 155 x10^3/uL (140-400) 157 x10^3/uL (140-400) Neutrophils (%) (Auto) 73 % (31-73) 72 % (31-73) 74 % (31-73) Lymphocytes (%) (Auto) 9 % (24-48) 13 % (24-48) 12 % (24-48) Monocytes (%) (Auto) 16 % (0-9) 14 % (0-9) 13 % (0-9) Eosinophils (%) (Auto) 1 % (0-3) 1 % (0-3) 1 % (0-3) Basophils (%) (Auto) 0 % (0-3) 0 % (0-3) 0 % (0-3) Neutrophils # (Auto) 4.4 x10^3uL (1.8-7.7) 3.5 x10^3uL (1.8-7.7) 4.0 x10^3uL (1.8-7.7) Lymphocytes # (Auto) 0.6 x10^3/uL (1.0-4.8) 0.6 x10^3/uL (1.0-4.8) 0.6 x10^3/uL (1.0-4.8) Monocytes # (Auto) 1.0 x10^3/uL (0.0-1.1) 0.7 x10^3/uL (0.0-1.1) 0.7 x10^3/uL (0.0-1.1) Eosinophils # (Auto) 0.1 x10^3/uL (0.0-0.7) 0.1 x10^3/uL (0.0-0.7) 0.1 x10^3/uL (0.0-0.7) Basophils # (Auto) 0.0 x10^3/uL (0.0-0.2) 0.0 x10^3/uL (0.0-0.2) 0.0 x10^3/uL (0.0-0.2) Segmented Neutrophils % 80 % (35-66) Band Neutrophils % 3 % (0-9) Lymphocytes % 10 % (24-48) Monocytes % 5 % (0-10) Metamyelocytes % 2 % (0-0) Platelet Estimate Adequate (ADEQUATE) Sodium Level 141 mmol/L (136-145) 141 mmol/L (136-145) 141 mmol/L (136-145) Potassium Level 3.3 mmol/L (3.5-5.1) 3.1 mmol/L (3.5-5.1) 3.7 mmol/L (3.5-5.1) Chloride Level 105 mmol/L (98-107) 106 mmol/L (98-107) 106 mmol/L (98-107) Carbon Dioxide Level 28 mmol/L (21-32) 28 mmol/L (21-32) 29 mmol/L (21-32) Anion Gap 8 (6-14) 7 (6-14) 6 (6-14) Blood Urea Nitrogen 7 mg/dL (8-26) 5 mg/dL (8-26) 6 mg/dL (8-26) Creatinine 1.0 mg/dL (0.7-1.3) 1.0 mg/dL (0.7-1.3) 1.0 mg/dL (0.7-1.3) Estimated GFR (Cockcroft-Gault) 71.2 71.2 71.2 Glucose Level 124 mg/dL (70-99) 126 mg/dL (70-99) 126 mg/dL (70-99) Calcium Level 7.9 mg/dL (8.5-10.1) 7.5 mg/dL (8.5-10.1) 7.5 mg/dL (8.5-10.1) Laboratory Tests Test 11/12/16 03:15 White Blood Count 5.4 x10^3/uL (4.0-11.0) Red Blood Count 2.50 x10^6/uL (4.30-5.70) Hemoglobin 7.3 g/dL (13.0-17.5) Hematocrit 22.4 % (39.0-53.0) Mean Corpuscular Volume 89 fL (79-100) Mean Corpuscular Hemoglobin 29 pg (25-35) Mean Corpuscular Hemoglobin Concent 33 g/dL (31-37) Red Cell Distribution Width 15.6 % (11.5-14.5) Platelet Count 157 x10^3/uL (140-400) Neutrophils (%) (Auto) 74 % (31-73) Lymphocytes (%) (Auto) 12 % (24-48) Monocytes (%) (Auto) 13 % (0-9) Eosinophils (%) (Auto) 1 % (0-3) Basophils (%) (Auto) 0 % (0-3) Neutrophils # (Auto) 4.0 x10^3uL (1.8-7.7) Lymphocytes # (Auto) 0.6 x10^3/uL (1.0-4.8) Monocytes # (Auto) 0.7 x10^3/uL (0.0-1.1) Eosinophils # (Auto) 0.1 x10^3/uL (0.0-0.7) Basophils # (Auto) 0.0 x10^3/uL (0.0-0.2) Sodium Level 141 mmol/L (136-145) Potassium Level 3.7 mmol/L (3.5-5.1) Chloride Level 106 mmol/L (98-107) Carbon Dioxide Level 29 mmol/L (21-32) Anion Gap 6 (6-14) Blood Urea Nitrogen 6 mg/dL (8-26) Creatinine 1.0 mg/dL (0.7-1.3) Estimated GFR (Cockcroft-Gault) 71.2 Glucose Level 126 mg/dL (70-99) Calcium Level 7.5 mg/dL (8.5-10.1) Medications Current Medications Ondansetron HCl (Zofran) 4 mg PRN Q8HRS PRN IV NAUSEA/VOMITING; Start 10/31/16 at 12:00; Stop 11/01/16 at 11:59; Status DC Sodium Chloride 1,000 ml @ 125 mls/hr Q8H IV Last administered on 11/02/16t 23 :10; Start 10/31/16 at 14:15; Stop 11/03/16 at 13:56; Status DC Sodium Cl/Sod Bicarb/Potass Cl/ PEG (Golytely) 4,000 ml 1X ONCE PO Last administered on 10/31/16 16:56; Start 10/31/16 at 16:15; Stop 10/31/16 at 16:16 ; Status DC Ringer's Solution 1,000 ml @ 75 mls/hr 1X ONCE IV Last administered on 08:54; Start 11/01/16 at 09:00; Stop 11/01/16 at 22:19; Status DC Propofol 20 ml @ As Directed STK-MED ONCE IV ; Start 11/01/16 at 09:30; Stop at 09:31; Status DC Lidocaine HCl (Lidocaine Pf 2% Vial) 5 ml STK-MED ONCE .ROUTE ; Start 11/01/16 at 09:30; Stop 11/01/16 at 09:31; Status DC Carbidopa/Levodopa (Sinemet 25/100) 2 tab TID PO Last administered on 09:39; Start 11/01/16 at 14:00 Acetaminophen/ Hydrocodone Bitart (Lortab 5/325) 1 tab PRN Q6HRS PRN PO PAIN Last administered on 11/01/16 21:23; Start 11/01/16 at 10:15; Stop 11/08/16 at 15:42; Status DC Memantine (Namenda) 10 mg BID PO Last administered on 11/12/16 09:38; Start at 11:00 Pantoprazole Sodium (Protonix) 40 mg DAILY07 PO Last administered on 11/01/16 11:16; Start 11/01/16 at 10:30; Stop 11/04/16 at 08:31; Status DC Albumin Human 100 ml @ 100 mls/hr 1X ONCE IV Last administered on 11/02/16 15:46; Start 11/02/16 at 16:30; Stop 11/02/16 at 17:29; Status DC Furosemide (Lasix) 20 mg 1X ONCE IVP Last administered on 11/02/16 17:50; Start 11/02/16 at 18:00; Stop 11/02/16 at 18:01; Status DC Iohexol (Omnipaque 300 Mg/ml) 100 ml STK-MED ONCE .ROUTE ; Start 11/02/16 at 18: 42; Stop 11/02/16 at 18:43; Status DC Lidocaine/Sodium Bicarbonate (Buffered Lidocaine 1%) 20 ml STK-MED ONCE IJ ; Start 11/02/16 at 18:42; Stop 11/02/16 at 18:43; Status DC Heparin Sodium/ Sodium Chloride 1,500 ml @ As Directed STK-MED ONCE .ROUTE ; Start 11/02/16 at 18:43; Stop 11/02/16 at 18:44; Status DC Cefazolin Sodium 50 ml @ As Directed STK-MED ONCE IV ; Start 11/02/16 at 19:35; Stop 11/02/16 at 19:36; Status DC Heparin Sodium/ Sodium Chloride 1,000 unit 1X ONCE IART Last administered on 20:59; Start 11/02/16 at 19:45; Stop 11/02/16 at 19:46; Status DC Lidocaine/Sodium Bicarbonate (Buffered Lidocaine 1%) 20 ml 1X ONCE IJ Last administered on 11/02/16 20:59; Start 11/02/16 at 19:45; Stop 11/02/16 at 19:46 ; Status DC Cefazolin Sodium 50 ml @ 100 mls/hr 1X ONCE IV Last administered on 19:30; Start 11/02/16 at 19:45; Stop 11/02/16 at 20:14; Status DC Iohexol (Omnipaque 300 Mg/ml) 100 ml STK-MED ONCE .ROUTE ; Start 11/02/16 at 19: 52; Stop 11/02/16 at 19:53; Status DC Iohexol (Omnipaque 300 Mg/ml) 100 ml 1X ONCE IART Last administered on 21:00; Start 11/02/16 at 20:00; Stop 11/02/16 at 20:01; Status DC Info (Do NOT chart on this entry -- for MONITORING) 1 each PRN DAILY PRN MC SEE COMMENTS; Start 11/02/16 at 20:00; Stop 11/04/16 at 19:59; Status DC Midazolam HCl (Versed) 2 mg STK-MED ONCE .ROUTE ; Start 11/02/16 at 19:56; Stop 11/02/16 at 19:57; Status DC Fentanyl Citrate (Fentanyl 2ml Vial) 100 mcg STK-MED ONCE .ROUTE ; Start at 19:57; Stop 11/02/16 at 19:58; Status DC Midazolam HCl (Versed) 2 mg 1X ONCE IV Last administered on 11/02/16 21:01; Start 11/02/16 at 20:15; Stop 11/02/16 at 20:16; Status DC Fentanyl Citrate (Fentanyl 2ml Vial) 100 mcg 1X ONCE IV Last administered on 21:00; Start 11/02/16 at 20:15; Stop 11/02/16 at 20:16; Status DC Gelatin (Gelfoam Size 12-7mm) 1 each STK-MED ONCE .ROUTE ; Start 11/02/16 at 20 :23; Stop 11/02/16 at 20:24; Status DC Nitroglycerin (Nitroglycerin) 200 mcg 1X ONCE IART Last administered on 20:30; Start 11/02/16 at 20:30; Stop 11/02/16 at 20:33; Status DC Sodium Chloride 1,000 ml @ 125 mls/hr Q8H IV Last administered on 11/08/16 00 :28; Start 11/03/16 at 15:00; Stop 11/08/16 at 15:42; Status DC Haloperidol Lactate (Haldol) 1 mg PRN Q6HRS PRN IVP AGITATION Last administered on 11/03/16 21:10; Start 11/03/16 at 14:00 Furosemide (Lasix) 20 mg 1X ONCE IVP Last administered on 11/03/16 21:11; Start 11/03/16 at 21:30; Stop 11/03/16 at 21:31; Status DC Famotidine (Pepcid) 20 mg DAILY IVP Last administered on 11/04/16 10:49; Start 11/04/16 at 09:00; Stop 11/04/16 at 17:25; Status DC Pantoprazole Sodium (Protonix Vial) 40 mg DAILY IVP Last administered on 09:00; Start 11/04/16 at 09:00; Stop 11/08/16 at 11:06; Status DC Norepinephrine Bitartrate 250 ml @ As Directed STK-MED ONCE IV ; Start at 13:17; Stop 11/04/16 at 13:18; Status DC Etomidate (Amidate) 20 mg STK-MED ONCE IV ; Start 11/04/16 at 13:41; Stop at 13:42; Status DC Succinylcholine Chloride (Anectine) 200 mg STK-MED ONCE .ROUTE ; Start 11/04/16 at 13:41; Stop 11/04/16 at 13:42; Status DC Vecuronium [place]erson (Norcuron Bolus) 10 mg STK-MED ONCE IV ; Start 11/04/16 at 13 :41; Stop 11/04/16 at 13:42; Status DC Phenylephrine HCl (Adán-Synephrine Inj) 10 mg STK-MED ONCE .ROUTE ; Start at 13:44; Stop 11/04/16 at 13:45; Status DC Cefazolin Sodium/ Dextrose 50 ml @ 100 mls/hr 1X ONCE IV ; Start 11/04/16 at 14:15; Stop 11/04/16 at 14:44; Status DC Fentanyl Citrate (Fentanyl 2ml Vial) 100 mcg STK-MED ONCE .ROUTE ; Start at 14:31; Stop 11/04/16 at 14:32; Status DC Desflurane (Suprane) 60 ml STK-MED ONCE IH ; Start 11/04/16 at 15:01; Stop 11/04 at 15:02; Status DC Ondansetron HCl (Zofran) 4 mg STK-MED ONCE .ROUTE ; Start 11/04/16 at 15:01; Stop 11/04/16 at 15:02; Status DC Glycopyrrolate (Robinul) 1 mg STK-MED ONCE .ROUTE ; Start 11/04/16 at 15:02; Stop 11/04/16 at 15:03; Status DC Cellulose 1 each STK-MED ONCE .ROUTE Last administered on 11/04/16t 15:05; Start 11/04/16 at 15:04; Stop 11/04/16 at 15:05; Status DC Fentanyl Citrate (Fentanyl 2ml Vial) 100 mcg STK-MED ONCE .ROUTE ; Start at 15:50; Stop 11/04/16 at 15:51; Status DC Lidocaine HCl (Lidocaine Pf 2% Vial) 5 ml STK-MED ONCE .ROUTE ; Start 11/04/16 at 15:53; Stop 11/04/16 at 15:54; Status DC Cellulose 1 each STK-MED ONCE TP Last administered on 11/04/16 15:24; Start at 15:24; Stop 11/04/16 at 16:39; Status DC Fentanyl Citrate (Fentanyl 2ml Vial) 25 mcg PRN Q5MIN PRN IV MILD PAIN Last administered on 11/04/16 17:18; Start 11/04/16 at 17:15; Stop 11/05/16 at 17:14 ; Status DC Fentanyl Citrate (Fentanyl 2ml Vial) 50 mcg PRN Q5MIN PRN IV MODERATE PAIN; Start 11/04/16 at 17:15; Stop 11/05/16 at 17:14; Status DC Morphine Sulfate 1 mg PRN Q10MIN PRN IV SEVERE PAIN; Start 11/04/16 at 17:15; Stop 11/05/16 at 17:14; Status DC Ringer's Solution 1,000 ml @ 30 mls/hr Q24H IV ; Start 11/04/16 at 17:12; Stop 11/05/16 at 05:11; Status DC Lidocaine HCl 2 ml PRN 1X PRN ID PRIOR TO IV START; Start 11/04/16 at 17:15; Stop 11/05/16 at 17:14; Status DC Hydromorphone HCl (Dilaudid) 0.5 mg PRN Q10MIN PRN IV SEV PAIN, Second choice; Start 11/04/16 at 17:15; Stop 11/05/16 at 17:14; Status DC Prochlorperazine Edisylate (Compazine) 5 mg PACU PRN PRN IV NAUSEA, MRX1; Start 11/04/16 at 17:15; Stop 11/05/16 at 17:14; Status DC Fentanyl Citrate (Fentanyl 2ml Vial) 50 mcg PRN Q1HR PRN IV PAIN Last administered on 11/08/16 00:28; Start 11/04/16 at 17:15; Stop 11/08/16 at 15:42 ; Status DC Potassium Chloride 50 ml @ 50 mls/hr 1X ONCE IV Last administered on 06:32; Start 11/05/16 at 07:00; Stop 11/05/16 at 07:59; Status DC Potassium Chloride 50 ml @ 50 mls/hr Q1H IV Last administered on 11/06/16 11: 58; Start 11/06/16 at 10:00; Stop 11/06/16 at 11:59; Status DC Potassium Chloride 50 ml @ 50 mls/hr Q1H IV Last administered on 11/07/16 12: 00; Start 11/07/16 at 11:00; Stop 11/07/16 at 12:59; Status DC Barium Sulfate (Varibar Thin Liquid Apple) 148 gm 1X ONCE PO Last administered on 11/07/16 14:20; Start 11/07/16 at 13:00; Stop 11/07/16 at 13:01 ; Status DC Pantoprazole Sodium (Protonix) 40 mg DAILYAC PO Last administered on 11/12/16 07:30; Start 11/09/16 at 07:30 Potassium Chloride 50 ml @ 50 mls/hr Q1H IV Last administered on 11/08/16 18: 00; Start 11/08/16 at 13:00; Stop 11/08/16 at 14:59; Status DC Furosemide (Lasix) 40 mg 1X ONCE PO Last administered on 11/08/16 16:59; Start 11/08/16 at 15:45; Stop 11/08/16 at 15:46; Status DC Potassium Chloride 50 ml @ 50 mls/hr Q1H IV Last administered on 11/09/16 13: 38; Start 11/09/16 at 11:00; Stop 11/09/16 at 12:59; Status DC Potassium Chloride (Klor-Con) 40 meq 1X ONCE PO Last administered on 10:45; Start 11/11/16 at 10:00; Stop 11/11/16 at 10:01; Status DC Potassium Chloride (Klor-Con) 20 meq 1X ONCE PO Last administered on 14:06; Start 11/11/16 at 12:00; Stop 11/11/16 at 12:01; Status DC Potassium Chloride (Klor-Con) 20 meq [id number] PO Last administered on 09:39; Start 11/12/16 at 08:00 Active Scripts Active Lortab 5-325 mg Tablet (Hydrocodone/Acetaminophen) 1 Each Tablet 1 Tab PO PRN Q6HRS PRN [Aspirin] 81 MG Tablet.dr 81 Mg PO DAILY 30 Days Reported Sinemet 25-100 Mg Tablet (Carbidopa/Levodopa) 1 Each Tablet 2 Tab PO TID Namenda (Memantine Hcl) 10 Mg Tablet 1 Tab PO BID Pantoprazole Sodium 40 Mg Tablet. 1 Tab PO DAILY Vitals/I & O Vital Sign - Last 24 Hours 11/11/16 11/11/16 11/11/16 11/11/16 15:00 19:00 20:00 23:05 Temp 96.8 97.5 98.2 96.8 97.5 98.2 Pulse 59 56 62 Resp 18 56 20 B/P (MAP) 166/58 (94) 137/53 (81) 134/62 (86) Pulse Ox 95 93 94 O2 Delivery Room Air Room Air Room Air Room Air 11/12/16 11/12/16 02:52 07:00 Temp 97.7 98.2 97.7 98.2 Pulse 63 60 Resp 16 18 B/P (MAP) 154/60 (91) 146/55 (85) Pulse Ox 96 96 O2 Delivery Room Air Room Air RHONDA WAGGONER MD Nov 12, 2016 11:24
--- NOTE | 2016-11-12 15:13 | DS ---
DATE OF DISCHARGE: 11/12/2016 REASON FOR ADMISSION TO THE HOSPITAL: Massive lower GI bleed. CONSULTATIONS: 1. Dr. May. 2. PROCEDURES DONE: 1. Multiple blood transfusions.12 units prbc 2. GI bleeding scan. 3. Angiogram with coil embolization. 4. Colonoscopy with polypectomy. 5. Exploratory laparotomy with left colon resection, splenic flexure and colostomy bag placement. HOSPITAL COURSE: The patient is an 86-year-old male patient, was admitted a couple of days ago with lower GI bleeding which subsided. GI bleeding scan was negative. Hemoglobin remained stable, was discharged and he came back within 3-4 days with another bout of massive GI bleed, admitted to the ICU. GI bleeding scan first was negative. Second came was positive for bleeding, had a colonoscopy which shows a few diverticula and bleeding from splenic flexure area, had a colon polyp which was removed. The patient continues to bleed again and was given transfusion, had an angiogram and coil embolization of the splenic flexure area that was bleeding and coil embolization was done and this stopped bleeding for a while and the patient started bleeding again. Because the patient had almost total of 11 units of packed RBC was transfused, FFP 3 units and platelets was 2 units, the patient was taken to surgery. Because of continuous bleeding, the patient underwent exploratory laparotomy with left colon resection including splenic flexure, placement of colostomy tube. The patient's condition improved after the surgery, has some episodes of confusion, has a history of Parkinson's disease and was hallucinating at sometimes and finally was moved out of the ICU to medical-surgical floor and the patient is eating well, colostomy was working and the patient was deconditioned, was being transferred to residential unit. FINAL DIAGNOSES: 1. Massive gastrointestinal bleed secondary to ischemic colitis. 2. The patient underwent left hemicolectomy with placement of colostomy bag. 3. Parkinson's disease. 4. Coronary artery disease, bypass surgery. 5. Confusion, hallucinations, encephalopathy secondary to underlying Parkinson's disease. DISPOSITION: To residential, PT, OT, rehab. See MAR for discharge medications. BURTON AKBAR MD DR: NEGRITA/jay JOB#: [id number] / [id number] MTDD
== END 2016-11-12 18:00 | DRG 329 ==
LOC: ER 10:34 → 5 SOUTH 13:27 → 1 WEST ICU 11-02 06:19 → 4 NORTH 11-07 14:54
PROVIDERS: ADMIT Internal Medicine; ATTEND Internal Medicine
PROC: 0DBL8ZZ Excision of Transverse Colon, Via Natural or Artificial Opening Endoscopic (ICD-10-PCS; 2016-11-01)
PROC: 0DJ08ZZ Inspection of Upper Intestinal Tract, Via Natural or Artificial Opening Endoscopic (ICD-10-PCS; 2016-11-01)
PROC: 04L83DZ Occlusion of Middle Colic Artery with Intraluminal Device, Percutaneous Approach (ICD-10-PCS; principal; 2016-11-02)
PROC: 30233N1 Transfusion of Nonautologous Red Blood Cells into Peripheral Vein, Percutaneous Approach (ICD-10-PCS; 2016-11-02)
PROC: B4141ZZ Fluoroscopy of Superior Mesenteric Artery using Low Osmolar Contrast (ICD-10-PCS; 2016-11-02)
PROC: 30233L1 Transfusion of Nonautologous Fresh Plasma into Peripheral Vein, Percutaneous Approach (ICD-10-PCS; 2016-11-04)
PROC: 0DTG0ZZ Resection of Left Large Intestine, Open Approach (ICD-10-PCS; 2016-11-04)
PROC: 0D1L0Z4 Bypass Transverse Colon to Cutaneous, Open Approach (ICD-10-PCS; 2016-11-04)
PROC: 30233R1 Transfusion of Nonautologous Platelets into Peripheral Vein, Percutaneous Approach (ICD-10-PCS; 2016-11-04)
PROC: 30233K1 Transfusion of Nonautologous Frozen Plasma into Peripheral Vein, Percutaneous Approach (ICD-10-PCS; 2016-11-04)
DX: K55.9 Vascular disorder of intestine, unspecified (principal); K57.31 Diverticulosis of large intestine without perforation or abscess with bleeding; G93.49 Other encephalopathy; I95.9 Hypotension, unspecified; K56.7 Ileus, unspecified; E11.22 Type 2 diabetes mellitus with diabetic chronic kidney disease; G31.83 Neurocognitive disorder with Lewy bodies; K55.049 Acute infarction of large intestine, extent unspecified; D62 Acute posthemorrhagic anemia; R13.10 Dysphagia, unspecified; F02.80 Dementia in other diseases classified elsewhere, unspecified severity, without behavioral disturbance, psychotic disturbance, mood disturbance, and anxiety; N18.3 Chronic kidney disease, stage 3 (moderate); I25.10 Atherosclerotic heart disease of native coronary artery without angina pectoris; K21.9 Gastro-esophageal reflux disease without esophagitis; E87.6 Hypokalemia; I12.9 Hypertensive chronic kidney disease with stage 1 through stage 4 chronic kidney disease, or unspecified chronic kidney disease; D12.3 Benign neoplasm of transverse colon; K64.8 Other hemorrhoids; M19.90 Unspecified osteoarthritis, unspecified site; M47.816 Spondylosis without myelopathy or radiculopathy, lumbar region; K29.60 Other gastritis without bleeding; Z96.649 Presence of unspecified artificial hip joint; Z90.49 Acquired absence of other specified parts of digestive tract; Z95.1 Presence of aortocoronary bypass graft; Z90.89 Acquired absence of other organs; Z83.3 Family history of diabetes mellitus; Z82.49 Family history of ischemic heart disease and other diseases of the circulatory system; Z79.82 Long term (current) use of aspirin
CPT/HCPCS: 36245; 36415; 37244; 71010; 74230; 75726; 76937; 78278; 80048; 80053; 82274; 82803; 83735; 85007; 85018; 85025; 85027; 85379; 85384; 85610; 85730; 86850; 86900; 86901; 86920; 86927; 87641; 88305; 88307; 96374; 99152; 99153; A9560; C1713; C1760; C1769; C1887; C1892; C1894; C9113; J0330; J0690; J1630; J1644; J2250; J2405; J2704; J3010; J3480; J3490; J7030; J7120; P9016; P9017; P9035; P9046; Q9967; S0028; 92526; 92610; 92611; 97110; 97116; 97530; 97535; 99285-25; J2001

== ENCOUNTER → 2017-04-14 | Outpatient (CLI) | payer BC | END | disposition home or self-care (01) | LOC: ECHO 09:34 | DX: I08.1 Rheumatic disorders of both mitral and tricuspid valves (principal); I27.20 Pulmonary hypertension, unspecified | CPT/HCPCS: 93306 ==

== ENCOUNTER 2018-05-10 09:44 | Inpatient (IN) | payer BC, OTHER ==
[~2018-05-10] VITALS: Ht 177.8 cm; Wt 88.9 kg
[~2018-05-10 09:44] MED LIST changes: +ASPI-612 PO; +ATOR10TA60 PO; +CARV3.1210 PO; +CEFP100T PO; +DONE10TA7 PO; +FURO-69 PO; +FURO40TA4 PO; +IPRA3AMP29 NEB; +POTA10TA12 PO; +PRED-220 PO; +SACU1TAB PO
[2018-05-10] MEDS ORDERED: IPRATRPIUM/ALBUTEROL 0.5/2.5MG 3 ML NEBU. NEB ONE (10:15)
--- NOTE | 2018-05-10 10:18 | PHYS DOC ---
Past Medical History Past Medical History: CHF, Diabetes-Type II, Hypertension, [place], Other Additional Past Medical Histor: Parkinson's Past Surgical History: Cholecystectomy, Colectomy, Coronary Bypass Surgery, Hip Replacement, Pacemaker, Tonsillectomy, Other Additional Past Surgical Histo: lumbar sx; L hip,COLOSTOMY 2018,AICD-2018 Alcohol Use: None Drug Use: None Adult General Chief Complaint Chief Complaint: WEAKNESS/GENERALIZED HPI HPI Patient is a 87 year old male who presents with flu symptoms such as cough, nasal congestion, coughing up winters mucus and low-grade fever for the last week. Patient sees Dr. Akbar and saw him on this past . At that time he was put on Tamiflu and Mucinex. The patient had been around some he also had the flu so he was not tested just treated. Family states that the pharmacy did not have the Tamiflu and so the patient did not start the Tamiflu until either yesterday or the day before. Patient has not had a dose of Tamiflu today. Patient's states the patient has been drinking and eating but his appetite has been decreased in the patient has been sweating off and on. Patient and family deny the patient vomiting or having diarrhea. states that patient has Parkinson's and in the past he would have a side effect of Parkinson's where he will just come in waves over and become disoriented and can't walk or talk and then he is fine. states he started doing that again recently and that this is nothing new but it hasn't happened in a while. Review of Systems Review of Systems Constitutional: fever or chills [] Eyes: Denies change in visual acuity, redness, or eye pain [] HENT: nasal congestion or denies sore throat [] Respiratory: cough or denies shortness of breath [] Cardiovascular: No additional information not addressed in HPI [] GI: Denies abdominal pain, nausea, vomiting, bloody stools or diarrhea [] : Denies dysuria or hematuria [] Musculoskeletal: Generalized weakness. Denies back pain or joint pain [] Integument: Denies rash or skin lesions [] Neurologic: Denies headache, focal weakness or sensory changes [] All other systems were reviewed and found to be within normal limits, except as documented in this note. Current Medications Current Medications Current Medications Medications (Trade) Dose Ordered Sig/Romel Start Time Stop Time Status Last Admin Dose Admin Albuterol/ Ipratropium (Duoneb) 3 ml 1X ONCE 05/10/18 10:15 05/10/18 10:16 DC 05/10/18 10:25 3 ML Sodium Chloride 1,000 ml @ 1,000 mls/hr 1X ONCE 05/10/18 12:00 05/10/18 12:59 Allergies Allergies Allergies Coded Allergies Type Severity Reaction Last Updated Verified No Known Drug Allergies 05/10/18 No Physical Exam Physical Exam Constitutional: Well developed, well nourished, no acute distress, non-toxic appearance. [] HENT: Normocephalic, atraumatic, bilateral external ears normal, oropharynx moist, no oral exudates, nose normal. [] Eyes: PERRLA, EOMI, conjunctiva normal, no discharge. [] Neck: Normal range of motion, no tenderness, supple, no stridor. [] Cardiovascular:Heart rate regular rhythm, no murmur [] Lungs & Thorax: Bilateral breath sounds inspiratory and expiratory wheezes and upper lobes also having coarse sounds to auscultation [] Abdomen: Bowel sounds normal, soft, no tenderness, no masses, no pulsatile masses. [] Skin: Warm, dry, no erythema, no rash. [] Back: No tenderness, no CVA tenderness. [] Extremities: No tenderness, no cyanosis, no clubbing, ROM intact, no edema. [] Neurologic: Alert and oriented X 3, normal motor function, normal sensory function, no focal deficits noted. [] Psychologic: Affect normal, judgement normal, mood normal. [] Current Patient Data Vital Signs Vital Signs Date Time Temp Pulse Resp B/P (MAP) Pulse Ox O2 Delivery O2 Flow Rate FiO2 05/10/18 10:28 95 Room Air 05/10/18 09:52 97.7 70 18 140/68 (92) 97.7 Lab Values Laboratory Tests Test 05/10/18 10:05 05/10/18 10:15 Urine Collection Type Void Urine Color Yellow Urine Clarity Clear Urine pH 5.0 Urine Specific [place] 1.020 Urine Protein 30 mg/dL (NEG-TRACE) Urine Glucose (UA) Negative mg/dL (NEG) Urine Ketones (Stick) Negative mg/dL (NEG) Urine Blood Negative (NEG) Urine Nitrite Negative (NEG) Urine Bilirubin Negative (NEG) Urine Urobilinogen Dipstick 0.2 mg/dL (0.2 mg/dL) Urine Leukocyte Esterase Negative (NEG) Urine RBC 0 /HPF (0-2) Urine WBC Occ /HPF (0-4) Urine Squamous Epithelial Cells Few /LPF Urine Amorphous Sediment Present /HPF Urine Bacteria 0 /HPF (0-FEW) Urine Hyaline Casts Few /HPF Urine Mucus Slight /LPF White Blood Count 8.6 x10^3/uL (4.0-11.0) Red Blood Count 3.38 x10^6/uL (4.30-5.70) L Hemoglobin 10.1 g/dL (13.0-17.5) L Hematocrit 31.3 % (39.0-53.0) L Mean Corpuscular Volume 92 fL (79-100) Mean Corpuscular Hemoglobin 30 pg (25-35) Mean Corpuscular Hemoglobin Concent 32 g/dL (31-37) Red Cell Distribution Width 18.1 % (11.5-14.5) H Platelet Count 92 x10^3/uL (140-400) L Neutrophils (%) (Auto) 85 % (31-73) H Lymphocytes (%) (Auto) 3 % (24-48) L Monocytes (%) (Auto) 12 % (0-9) H Eosinophils (%) (Auto) 0 % (0-3) Basophils (%) (Auto) 0 % (0-3) Neutrophils # (Auto) 7.3 x10^3uL (1.8-7.7) Lymphocytes # (Auto) 0.2 x10^3/uL (1.0-4.8) L Monocytes # (Auto) 1.0 x10^3/uL (0.0-1.1) Eosinophils # (Auto) 0.0 x10^3/uL (0.0-0.7) Basophils # (Auto) 0.0 x10^3/uL (0.0-0.2) Segmented Neutrophils % 83 % (35-66) H Band Neutrophils % 8 % (0-9) Lymphocytes % 1 % (24-48) L Monocytes % 8 % (0-10) Platelet Estimate Decreased (ADEQUATE) Large Platelets Few Poikilocytosis Present Anisocytosis Slight Ovalocytes Present Acanthocytes (Spur Cells) Present Sodium Level 134 mmol/L (136-145) L Potassium Level 4.3 mmol/L (3.5-5.1) Chloride Level 97 mmol/L (98-107) L Carbon Dioxide Level 18 mmol/L (21-32) L Anion Gap 19 (6-14) H Blood Urea Nitrogen 79 mg/dL (8-26) H Creatinine 2.5 mg/dL (0.7-1.3) H Estimated GFR (Cockcroft-Gault) 24.7 BUN/Creatinine Ratio 32 (6-20) H Glucose Level 167 mg/dL (70-99) H Lactic Acid Level 3.9 mmol/L (0.4-2.0) H Calcium Level 9.0 mg/dL (8.5-10.1) Total Bilirubin 1.6 mg/dL (0.2-1.0) H Aspartate Amino Transferase (AST) 62 U/L (15-37) H Alanine Aminotransferase (ALT) 18 U/L (16-63) Alkaline Phosphatase 122 U/L (46-116) H Troponin I Quantitative 0.085 ng/mL (0.000-0.055) Total Protein 8.0 g/dL (6.4-8.2) Albumin 3.4 g/dL (3.4-5.0) Albumin/Globulin Ratio 0.7 (1.0-1.7) L Influenza Type A Antigen Positive (NEGATIVE) Influenza Type B Antigen Negative (NEGATIVE) Laboratory Tests 05/10/18 10:15 Laboratory Tests 05/10/18 10:15 EKG EKG Sinus rhythm, Atrial premature complexes, RBBB Interpretation Time: [address] Jung Radiology/Procedures Radiology/Procedures [] Impressions: [facility] [address] [place], [place] [id number] IMAGING REPORT Signed PATIENT: KEV SALGUERO ACCOUNT: [id number] : 1930 LOCATION: ER AGE: 87 SEX: M EXAM STATUS: REG ER ORD. PHYSICIAN: NELIA REAVES APRN REASON: cough PROCEDURE: CHEST PA & LATERAL CHEST PA LATERAL History: COUGH, SOA, FEVER X1 WEEK Comparison: November 07, 2017. FINDINGS: Heart size remains enlarged. Pacemaker an defibrillator device again seen. Lung apices are slightly obscured by the neck. No evidence of pneumothorax or effusion. No focal airspace consolidation. Mild interstitial opacities in both lungs. Compression fracture of an upper lumbar vertebrae with kyphoplasty cement. IMPRESSION: Mild interstitial opacities in both lungs, to some extent present previously, may be due to a combination of chronic fibrosis and mild interstitial infiltrates/edema. Electronically signed by: Alexis Contreras MD (05/10/2018 11:26 AM) [facility] DICTATED and SIGNED BY: ALEXIS CONTRERAS MD DATE: 05/10/18 1123 Course & Med Decision Making Course & Med Decision Making Patient is a 87 year old male who presents with flu symptoms such as cough, nasal congestion, coughing up winters mucus and low-grade fever for the last week. Patient sees Dr. Akbar and saw him on this past . At that time he was put on Tamiflu and Mucinex. The patient had been around some he also had the flu so he was not tested just treated. Family states that the pharmacy did not have the Tamiflu and so the patient did not start the Tamiflu until either yesterday or the day before. Patient has not had a dose of Tamiflu today. Patient's states the patient has been drinking and eating but his appetite has been decreased in the patient has been sweating off and on. Patient and family deny the patient vomiting or having diarrhea. states that patient has Parkinson's and in the past he would have a side effect of Parkinson's where he will just come in waves over and become disoriented and can't walk or talk and then he is fine. states he started doing that again recently and that this is nothing new but it hasn't happened in a while. The patient is alert and oriented and answers all questions appropriately. Neurologically intact. Patient was able to get up from the wheelchair and over to the bed. Patient has no extremity swelling. Lungs bilaterally in upper and lower have inspiratory x-ray wheezes with upper lungs also having coarse sounds. Patient denies any pain at this time. Patient is 73 heart rate is irregular, 97.7, 20 respirations, 140/68, 95% on room air. Skin is pink warm and dry. Mucous membranes are moist. Patient denies shortness of air, chest pain, nausea, vomiting, diarrhea. Patient states that he does have some generalized weakness. Patient does not have focal weaknesses. PERRLA. Chest xray shows Mild interstitial opacities in both lungs, to some extent present previously, may be due to a combination of chronic fibrosis and mild interstitial infiltrates/edema. Flu a positive. Troponin is 0.085. Lactic acid 3.9. BUN is 79 and creatinine is 2.5. EKG shows sinus rhythm with atrial premature complexes and a right bundle-branch block with no STEMI. 1200: I have talked to any states that he will admit the patient for sepsis and influenza. He also wants to consult nephrology and states he is fine with a 1 L bolus of normal saline given to the patient and then start the patient 75 mL per hour normal saline and a gram of Rocephin. The patient is also to be started on Tamiflu. Dragon Disclaimer Dragon Disclaimer This electronic medical record was generated, in whole or in part, using a voice recognition dictation system. Departure Departure Impression: Primary Impression: Sepsis Additional Impressions: Influenza A Elevated troponin Disposition: ADMITTED INPATIENT Admitting Physician: Jean Akbar Condition: STABLE Referrals: JEAN AKBAR MD (PCP) Problem Qualifiers Primary Impression: Sepsis Sepsis type: sepsis due to unspecified organism Qualified Codes: A41.9 - Sepsis, unspecified organism NELIA REAVES [employer] May 10, 2018 10:18
[2018-05-10 10:22] LABS: BILIRUBIN,URINE NEGATIVE (NEG); CLARITY,URINE CLEAR; COLOR,URINE YELLOW; NITRITE,URINE NEGATIVE (NEG); PROTEIN,URINE 30 mg/dL (NEG-TRACE); UROBILINOGEN,URINE 0.2 mg/dL (0.2 mg/dL)
[2018-05-10 10:40] LABS: BASO % 0 % (0-3); EOS % 0 % (0-3); HEMATOCRIT 31.3 % (39.0-53.0); HEMOGLOBIN 10.1 g/dL (13.0-17.5); LYMPH # 0.2 x10^3/uL (1.0-4.8); LYMPH % 3 % (24-48); MEAN CORPUSCULAR HEMOGLOBIN 30 pg (25-35); MEAN CORPUSCULAR HGB CONC 32 g/dL (31-37); MEAN CORPUSCULAR VOLUME 92 fL (79-100); MONO % 12 % (0-9); NEUT # 7.3 x10^3uL (1.8-7.7); NEUT % 85 % (31-73); PLATELET COUNT 92 x10^3/uL (140-400); RED BLOOD COUNT 3.38 x10^6/uL (4.30-5.70); RED CELL DISTRIBUTION WIDTH 18.1 % (11.5-14.5); WHITE BLOOD COUNT 8.6 x10^3/uL (4.0-11.0)
[2018-05-10 10:42] LABS: HYALINE CASTS, URINE FEW /HPF; SQUAMOUS EPITHELIAL CELL,UR FEW /LPF
[2018-05-10 10:43] LABS: AMORPHOUS SEDIMENT,UR PRESENT /HPF; BACTERIA,URINE 0 /HPF (0-FEW); RBC,URINE 0 /HPF (0-2); WBC,URINE OCC /HPF (0-4)
[2018-05-10 10:55] LABS: CREATININE 2.5 mg/dL (0.7-1.3); GFR 24.7; POTASSIUM 4.3 mmol/L (3.5-5.1)
[2018-05-10 11:01] LABS: ALBUMIN 3.4 g/dL (3.4-5.0); ALBUMIN/GLOBULIN RATIO 0.7 (1.0-1.7); TOTAL BILIRUBIN 1.6 mg/dL (0.2-1.0)
--- NOTE | 2018-05-10 11:09 | EKG ---
[facility] [address] [place] [address] Test Date: 2018-05-10 Test Time: 11:02:49 Pat Name: KEV SALGUERO Department: Room: Gender: M [employer]: : 1930 Requested By: NELIA REAVES Order Number: [id number] Reading MD: Yang Lange Measurements Intervals [place] Rate: 68 P: 47 AK: 162 QRS: -84 QRSD: 160 T: 77 QT: 478 QTc: 514 Interpretive Statements SINUS RHYTHM ATRIAL PREMATURE COMPLEX(ES) ABNORMAL LEFT AXIS DEVIATION RIGHT BUNDLE BRANCH BLOCK ABNORMAL ECG Electronically Signed On 05-19-2018 10:38:55 [employer] by Yang Lange
[2018-05-10 11:14] LABS: INFLUENZA A PATIENT POSITIVE (NEGATIVE); INFLUENZA B PATIENT NEGATIVE (NEGATIVE)
--- NOTE | 2018-05-10 11:29 | RAD ---
CHEST PA LATERAL History: COUGH, SOA, FEVER X1 WEEK Comparison: November 07, 2017. FINDINGS: Heart size remains enlarged. Pacemaker an defibrillator device again seen. Lung apices are slightly obscured by the neck. No evidence of pneumothorax or effusion. No focal airspace consolidation. Mild interstitial opacities in both lungs. Compression fracture of an upper lumbar vertebrae with kyphoplasty cement. IMPRESSION: Mild interstitial opacities in both lungs, to some extent present previously, may be due to a combination of chronic fibrosis and mild interstitial infiltrates/edema. Electronically signed by: Alexis Contreras MD (05/10/2018 11:26 AM) [facility]
[2018-05-10 11:45] LABS: % BANDS 8 % (0-9); % LYMPHS 1 % (24-48); % MONOS 8 % (0-10); % SEGS 83 % (35-66); PLT ESTIMATE DECREASED (ADEQUATE)
[2018-05-10 11:46] LABS: ANISOCYTOSIS SLIGHT
[2018-05-10 11:47] LABS: ACANTHOCYTES PRESENT; OVALOCYTES PRESENT; POIKILOCYTOSIS PRESENT
[2018-05-10] MEDS ORDERED: IV NORMAL SALINE 1000ML BAG 1,000 ML IV ONE (12:00)
[2018-05-10] MEDS ORDERED: ACETAMINOPHEN 325 MG TABLET. PO PRN (12:15)
[2018-05-10] MEDS ORDERED: ONDANSETRON PF 4 MG/2 ML VIAL. IV PRN (12:15)
[2018-05-10] MEDS ORDERED: cefTRIAXone IV Push 1 GM VIAL. IVP ONE (12:15)
[2018-05-10 13:00] VITALS: BP 141/71
[2018-05-10] MEDS: IV NORMAL SALINE 1000ML BAG 1,000 ML IV SCH (14:28)
[2018-05-10] MEDS: OSELTAMIVIR 30 MG CAPSULE PO SCH (14:29)
[2018-05-10 15:00] VITALS: BP 131/66
[2018-05-10] MEDS: IPRATRPIUM/ALBUTEROL 0.5/2.5MG 3 ML NEBU. NEB SCH ×2 (16:28→19:34)
[2018-05-10] MEDS ORDERED: DEXTROSE 50% 25 GM / 50ML DISP.SYRIN. IV PRN (19:15)
[2018-05-10] MEDS ORDERED: methylPREDNISolone SOD SUCC PF 125 MG/2 ML VIAL. IV ONE (19:30)
[2018-05-10 19:57] VITALS: BP 158/71
[2018-05-10] MEDS: INSULIN LISPRO 300 UNITS/3 ML INSULN.PEN. SQ SCH (20:00)
[2018-05-10] MEDS: CARVEDILOL 3.125 MG TABLET. PO SCH (21:27)
[2018-05-10] MEDS: ENOXAPARIN 30 MG/0.3 ML SYRINGE. SQ SCH (21:27)
[2018-05-10] MEDS: ATORVASTATIN CALCIUM 10 MG TABLET. PO SCH (21:27)
[2018-05-10] MEDS: CARBIDOPA/LEVODOPA 25/100MG TABLET PO SCH (21:28)
[2018-05-10 22:40] VITALS: BP 127/67
[2018-05-11] MEDS: IV NORMAL SALINE 1000ML BAG 1,000 ML IV SCH ×2 (01:24→17:00)
[2018-05-11 02:33] VITALS: BP 133/61
[2018-05-11 07:31] LABS: BASO % 0 % (0-3); EOS % 0 % (0-3); HEMATOCRIT 29.6 % (39.0-53.0); HEMOGLOBIN 9.4 g/dL (13.0-17.5); LYMPH # 0.1 x10^3/uL (1.0-4.8); LYMPH % 5 % (24-48); MEAN CORPUSCULAR HEMOGLOBIN 29 pg (25-35); MEAN CORPUSCULAR HGB CONC 32 g/dL (31-37); MEAN CORPUSCULAR VOLUME 92 fL (79-100); MONO # 0.1 x10^3/uL (0.0-1.1); MONO % 4 % (0-9); NEUT # 2.7 x10^3uL (1.8-7.7); NEUT % 91 % (31-73); PLATELET COUNT 80 x10^3/uL (140-400); RED BLOOD COUNT 3.22 x10^6/uL (4.30-5.70); RED CELL DISTRIBUTION WIDTH 17.9 % (11.5-14.5)
[2018-05-11 07:46] LABS: CALCIUM 8.4 mg/dL (8.5-10.1); GFR 31.9; POTASSIUM 4.5 mmol/L (3.5-5.1)
[2018-05-11 08:00] VITALS: BP_SYST 154; BP_SYST 192; BP_DIAS 72; BP_DIAS 81
[2018-05-11] MEDS: IPRATRPIUM/ALBUTEROL 0.5/2.5MG 3 ML NEBU. NEB SCH ×3 (08:11→15:20)
[2018-05-11] MEDS: CARBIDOPA/LEVODOPA 25/100MG TABLET PO SCH ×4 (08:34→21:31)
[2018-05-11] MEDS: OSELTAMIVIR 30 MG CAPSULE PO SCH (08:34)
[2018-05-11] MEDS: predniSONE 10 MG TABLET PO SCH (08:34)
[2018-05-11] MEDS: PANTOPRAZOLE 40 MG TABLET.DR. PO SCH (08:35)
[2018-05-11] MEDS: CARVEDILOL 3.125 MG TABLET. PO SCH ×2 (08:35→16:54)
[2018-05-11] MEDS: cefTRIAXone IV Push 1 GM VIAL. IVP SCH (08:36)
[2018-05-11] MEDS: ASPIRIN ENTERIC COATED 81 MG TABLET.DR. PO SCH (08:36)
[2018-05-11] MEDS: INSULIN LISPRO 300 UNITS/3 ML INSULN.PEN. SQ SCH ×3 (08:51→17:02)
--- NOTE | 2018-05-11 09:30 | RAD ---
EXAM: Gibbons scale and color Doppler renal artery sonogram. HISTORY: Renal failure. TECHNIQUE: Gibbons scale and color Doppler sonographic imaging the kidneys and renal arteries with spectral waveform analysis was performed. COMPARISON: None. FINDINGS: The exam is limited due to patient immobility, bowel gas and a left colostomy bag. The right kidney measures 12.0 cm airu-he-wtfu. The left kidney is not seen. There is moderate abdominal ascites. The bladder is distended to a volume of 521 cc. The patient was unable to void for the exam. The peak systolic velocity within the right renal artery is 60 cc/s. There is normal right renal artery to aorta velocity ratio. IMPRESSION: 1. Limited exam due to patient immobility, bowel gas and a left colostomy bag. The left kidney and left renal artery are not adequately seen. 2. Grossly unremarkable grayscale evaluation of the right kidney and no Doppler evidence of right renal artery stenosis. 3. Distended urinary bladder. 4. Moderate abdominal ascites. Electronically signed by: Mercedes Narvaez MD (05/11/2018 9:27 AM) [place] [id number]
--- NOTE | 2018-05-11 09:30 | RAD ---
EXAM: Gibbons scale and color Doppler renal artery sonogram. HISTORY: Renal failure. TECHNIQUE: Gibbons scale and color Doppler sonographic imaging the kidneys and renal arteries with spectral waveform analysis was performed. COMPARISON: None. FINDINGS: The exam is limited due to patient immobility, bowel gas and a left colostomy bag. The right kidney measures 12.0 cm alsd-ze-iewn. The left kidney is not seen. There is moderate abdominal ascites. The bladder is distended to a volume of 521 cc. The patient was unable to void for the exam. The peak systolic velocity within the right renal artery is 60 cc/s. There is normal right renal artery to aorta velocity ratio. IMPRESSION: 1. Limited exam due to patient immobility, bowel gas and a left colostomy bag. The left kidney and left renal artery are not adequately seen. 2. Grossly unremarkable grayscale evaluation of the right kidney and no Doppler evidence of right renal artery stenosis. 3. Distended urinary bladder. 4. Moderate abdominal ascites. Electronically signed by: Mercedes Narvaez MD (05/11/2018 9:27 AM) [place] [id number]
--- NOTE | 2018-05-11 09:45 | PDOC ---
Provider Note Provider Note Pt seen.H&P dictated..#[id number] BURTON AKBAR MD May 11, 2018 09:45
--- NOTE | 2018-05-11 09:47 | NUR ---
IP: Pt is influenza + requiring droplet precautions for 5 days and 24 hours without a fever, whichever is longest.
--- NOTE | 2018-05-11 09:55 | CARD ---
MR#: [id number] Date of Study: 05/11/2018 Ordering Physician: BRITNI PEOPLES, Referring Physician: BURTON AKBAR Tech: Lizbeth Henriquez, [facility] APPROVED REPORT EXAM: Two-dimensional and M-mode echocardiogram with Doppler and color Doppler. Other Information Quality : AverageHR: 52bpm Rhythm : Bradycardia INDICATION Congestive Heart Failure 2D DIMENSIONS RVDd4.5 (2.9-3.5cm)Left Atrium(2D)5.1 (1.6-4.0cm) IVSd0.8 (0.7-1.1cm)Aortic Root(2D)3.6 (2.0-3.7cm) LVDd6.6 (3.9-5.9cm)LVOT Diameter2.3 (1.8-2.4cm) PWd0.9 (0.7-1.1cm)LVDs5.8 (2.5-4.0cm) FS (%) 11.1 %SV52.3 ml LVEF(%)23.6 (>50%) M-Mode DIMENSIONS Left Atrium(MM)4.74 (2.5-4.0cm)Aortic Root3.87 (2.2-3.7cm) Aortic Valve AoV Peak Todd.195.7cm/sAoV VTI45.7cm AO Peak GR.15.3mmHgLVOT VTI 11.02cm AO Mean GR.9mmHg Mitral Valve MV E Neujbdyl54.9cm/sMV E Peak Gr.83mmHg MV DECEL PLEO842gmIF A Rfssrzpz39.9cm/s E/A Ratio1.3MV A Obpcqpdy402cu MVA Planimetry1.20cm2 TDI Lateral E' P. V5.47cm/sE/Lateral E'13.3 Tricuspid Valve TR P. Flyngucv980os/sRAP QUTZYRQL28gpWp TR Peak Gr.95lfHfNSXA41jkZi LEFT VENTRICLE The Left Ventricle is moderately dilated. There is normal left ventricular wall thickness. The left v entricular systolic function is severely impaired. The Ejection Fraction is 20%. There is global hypo kinesis of the left ventricle. Transmitral Doppler flow pattern is Grade II-pseudonormal filling fany mics. RIGHT VENTRICLE The right ventricle is moderately dilated. There is normal right ventricular wall thickness. Systolic function is moderately reduced. Pacer lead noted in RV/RA. ATRIA The left atrium is moderately dilated. The right atrium is mildly dilated. The interatrial septum is intact with no evidence for an atrial septal defect or patent foramen ovale as noted on 2-D or Dopple r imaging. AORTIC VALVE The aortic valve is moderately calcified. The aortic valve is trileaflet. Doppler and Color Flow reve aled no significant aortic regurgitation. There is mild to moderate aortic stenosis. Calculated aorti c valve area is 1.0 cm2 with maximum pressure gradient of 15 mmHg and mean pressure gradient of 9 mmH g. MITRAL VALVE Mitral annular calcification is moderate. There is no evidence of mitral valve prolapse. There is no mitral valve stenosis. Doppler and Color-flow revealed mild mitral regurgitation. TRICUSPID VALVE The tricuspid valve is normal in structure and function. Doppler and Color Flow revealed moderate to severe tricuspid regurgitation. There is moderate pulmonary hypertension. The PA pressure was estimat ed at 45 mmHg. There is no tricuspid valve prolapse or vegetation. There is no tricuspid valve stenos is. PULMONIC VALVE The pulmonary valve is normal in structure and function. Doppler and Color Flow revealed mild pulmoni c valvular regurgitation. There is no pulmonic valvular stenosis. GREAT VESSELS The aortic root is normal in size. The ascending aorta is normal in size. The IVC is dilated and pam apses <50% with inspiration. PERICARDIAL EFFUSION Pleural Effusion noted. There is no evidence of significant pericardial effusion. Critical Notification Critical Value: No <Conclusion> The left ventricular systolic function is severely impaired. The Ejection Fraction is 20%. Transmitral Doppler flow pattern is Grade II-pseudonormal filling dynamics. Pacer lead noted in RV/RA. There is mild to moderate aortic stenosis. Mild mitral regurgitation. Moderate to severe tricuspid regurgitation. There is moderate pulmonary hypertension. The PA pressure was estimated at 45 mmHg. There is no evidence of significant pericardial effusion. Signed by : Yang Lange, Electronically Approved : 05/11/2018 09:54:48
--- NOTE | 2018-05-11 10:16 | PDOC2 ---
CARDIAC CONSULT DATE OF CONSULT Date of Consult DATE: 05/11/18 TIME: 10:04 REASON FOR CONSULT Reason for Consult: Elevated troponin REFERRING PHYSICIAN Referring Physician: Dr. Bland SOURCE Source: Chart review, Patient HISTORY OF PRESENT ILLNESS HISTORY OF PRESENT ILLNESS This is a 87 yo male, with a history of CAD, HTN, CHF, ICM s/p ICD, CKD, and Parkinson's, who presented secondary to cough, congestion, and decreased appetite. Family member as home was diagnosed with Influenza. Patient was given Tamiflu prophylactically last week, but was unable to fill over the weekend. Began having non-productive cough. Has been intermittently diaphoretic. Patient denies any chest pain, palpitations, dizziness, or nausea/vomiting. PAST MEDICAL HISTORY Past Medical History Cardiovascular: CAD, HTN, Congestive heart failure (systolic), ICM (LVEF 20%) Pulmonary: No pertinent hx CENTRAL NERVOUS SYSTEM: Other (Parkinson's Disease) GI: GERD, GI bleed (diverticular bleed), ischemic colon Heme/Onc: No pertinent hx Hepatobiliary: No pertinent hx Psych: Other (PTSD) Musculoskeletal: Osteoarthritis, Other (chronic back pain) Rheumatologic: No pertinent hx Infectious disease: No pertinent hx ENT: No pertinent hx Renal/: Chronic renal insuff Endocrine: Diabetes Dermatology: No pertinent hx PAST SURGICAL HISTORY Past Surgical History CABG, bi-V AIVD (Biotronik), Cholecystectomy, Total hip replacement (left ), Tonsillectomy, Other (right middle finger amputation, hemicolectomy with colostomy) FAMILY HISTORY Family History Coronary Artery Disease, Diabetes, Hypertension SOCIAL HISTORY Social History Smoke: No ALCOHOL: none Drugs: None Lives: with Family CURRENT MEDICATIONS CURRENT MEDICATIONS Current Medications Medications (Trade) Dose Ordered Sig/Romel Route PRN Reason Start Time Stop Time Status Last Admin Dose Admin Albuterol/ Ipratropium (Duoneb) 3 ml 1X ONCE NEB 05/10/18 10:15 05/10/18 10:16 DC 05/10/18 10:25 Sodium Chloride 1,000 ml @ 1,000 mls/hr 1X ONCE IV 05/10/18 12:00 05/10/18 12:59 DC 05/10/18 12:02 Sodium Chloride 1,000 ml @ 75 mls/hr [id number] IV 05/10/18 12:04 05/11/18 12:03 05/11/18 01:24 Albuterol/ Ipratropium (Duoneb) 3 ml RTQID NEB 05/10/18 16:00 05/11/18 15:59 05/11/18 08:11 Ceftriaxone Sodium (Rocephin) 1 gm 1X ONCE IVP 05/10/18 12:15 05/10/18 12:16 DC 05/10/18 12:21 Oseltamivir Phosphate (Tamiflu) 30 mg DAILY PO 05/10/18 13:00 05/15/18 12:59 05/11/18 08:34 Ceftriaxone Sodium (Rocephin) 1 gm Q24H IVP 05/11/18 09:00 05/11/18 08:36 Aspirin (Ecotrin) 81 mg DAILY PO 05/11/18 09:00 05/11/18 08:36 Atorvastatin Calcium (Lipitor) 10 mg QHS PO 05/10/18 21:00 05/10/18 21:27 Carbidopa/Levodopa (Sinemet 25/100) 1.5 tab QID PO 05/10/18 21:00 05/11/18 08:34 Carvedilol (Coreg) 3.125 mg BIDWMEALS PO 05/10/18 20:00 05/11/18 08:35 Pantoprazole Sodium (Protonix) 40 mg DAILYAC PO 05/11/18 07:30 05/11/18 08:35 Prednisone (Prednisone) 50 mg DAILY PO 05/11/18 09:00 05/11/18 08:34 Methylprednisolone Sodium Succinate (SOLU-Medrol 125MG VIAL) 125 mg 1X ONCE IV 05/10/18 19:30 05/10/18 19:31 DC 05/10/18 21:27 Insulin Human Lispro (HumaLOG) 0-7 UNITS TIDWMEALS SQ 05/10/18 20:00 05/11/18 08:51 Enoxaparin Sodium (Lovenox 30mg Syringe) 30 mg QHS SQ 05/10/18 21:00 05/10/18 21:27 ALLERGIES ALLERGIES: Coded Allergies: No Known Drug Allergies (Unverified , 05/10/18) ROS Review of System 14 point ROS conducted with pertinent positives noted above in HPI. PHYSICAL EXAM PHYSICAL EXAM General: Cooperative, alert HEENT: Atraumatic Lungs: Other (bibasilar crackles- faint) Heart: regular rhythm and reate. Normal S1, Normal S2 Abdomen: distended Extremities: Trace bilateral LE edema Skin: No rashes Neuro: confused MUSCULOSKELETAL: Osteoarthritic changes both hands VITALS VITALS Vital Signs Date Time Temp Pulse Resp B/P (MAP) Pulse Ox O2 Delivery O2 Flow Rate FiO2 05/11/18 08:35 55 154/72 05/11/18 08:15 100 Nasal Cannula 4.0 05/11/18 08:00 97.6 16 97.6 LABS Lab: Laboratory Tests Test 05/10/18 10:05 05/10/18 10:15 05/10/18 14:40 05/10/18 20:48 Urine Collection Type Void Urine Color Yellow Urine Clarity Clear Urine pH 5.0 Urine Specific [place] 1.020 Urine Protein 30 mg/dL (NEG-TRACE) Urine Glucose (UA) Negative mg/dL (NEG) Urine Ketones (Stick) Negative mg/dL (NEG) Urine Blood Negative (NEG) Urine Nitrite Negative (NEG) Urine Bilirubin Negative (NEG) Urine Urobilinogen Dipstick 0.2 mg/dL (0.2 mg/dL) Urine Leukocyte Esterase Negative (NEG) Urine RBC 0 /HPF (0-2) Urine WBC Occ /HPF (0-4) Urine Squamous Epithelial Cells Few /LPF Urine Amorphous Sediment Present /HPF Urine Bacteria 0 /HPF (0-FEW) Urine Hyaline Casts Few /HPF Urine Mucus Slight /LPF White Blood Count 8.6 x10^3/uL (4.0-11.0) Red Blood Count 3.38 x10^6/uL (4.30-5.70) Hemoglobin 10.1 g/dL (13.0-17.5) Hematocrit 31.3 % (39.0-53.0) Mean Corpuscular Volume 92 fL (79-100) Mean Corpuscular Hemoglobin 30 pg (25-35) Mean Corpuscular Hemoglobin Concent 32 g/dL (31-37) Red Cell Distribution Width 18.1 % (11.5-14.5) Platelet Count 92 x10^3/uL (140-400) Neutrophils (%) (Auto) 85 % (31-73) Lymphocytes (%) (Auto) 3 % (24-48) Monocytes (%) (Auto) 12 % (0-9) Eosinophils (%) (Auto) 0 % (0-3) Basophils (%) (Auto) 0 % (0-3) Neutrophils # (Auto) 7.3 x10^3uL (1.8-7.7) Lymphocytes # (Auto) 0.2 x10^3/uL (1.0-4.8) Monocytes # (Auto) 1.0 x10^3/uL (0.0-1.1) Eosinophils # (Auto) 0.0 x10^3/uL (0.0-0.7) Basophils # (Auto) 0.0 x10^3/uL (0.0-0.2) Segmented Neutrophils % 83 % (35-66) Band Neutrophils % 8 % (0-9) Lymphocytes % 1 % (24-48) Monocytes % 8 % (0-10) Platelet Estimate Decreased (ADEQUATE) Large Platelets Few Poikilocytosis Present Anisocytosis Slight Ovalocytes Present Acanthocytes Present Sodium Level 134 mmol/L (136-145) Potassium Level 4.3 mmol/L (3.5-5.1) Chloride Level 97 mmol/L (98-107) Carbon Dioxide Level 18 mmol/L (21-32) Anion Gap 19 (6-14) Blood Urea Nitrogen 79 mg/dL (8-26) Creatinine 2.5 mg/dL (0.7-1.3) Estimated GFR (Cockcroft-Gault) 24.7 BUN/Creatinine Ratio 32 (6-20) Glucose Level 167 mg/dL (70-99) Lactic Acid Level 3.9 mmol/L (0.4-2.0) 2.8 mmol/L (0.4-2.0) Calcium Level 9.0 mg/dL (8.5-10.1) Total Bilirubin 1.6 mg/dL (0.2-1.0) Aspartate Amino Transf (AST/SGOT) 62 U/L (15-37) Alanine Aminotransferase (ALT/SGPT) 18 U/L (16-63) Alkaline Phosphatase 122 U/L (46-116) Troponin I Quantitative 0.085 ng/mL (0.000-0.055) 0.103 ng/mL (0.000-0.055) YA-Pnv-G-Type Natriuretic Peptide > 27110 pg/mL (0-449) Total Protein 8.0 g/dL (6.4-8.2) Albumin 3.4 g/dL (3.4-5.0) Albumin/Globulin Ratio 0.7 (1.0-1.7) Influenza Type A Antigen Positive (NEGATIVE) Influenza Type B Antigen Negative (NEGATIVE) Glucose (Fingerstick) 176 mg/dL (70-99) Test 05/11/18 06:30 05/11/18 07:52 White Blood Count 3.0 x10^3/uL (4.0-11.0) Red Blood Count 3.22 x10^6/uL (4.30-5.70) Hemoglobin 9.4 g/dL (13.0-17.5) Hematocrit 29.6 % (39.0-53.0) Mean Corpuscular Volume 92 fL (79-100) Mean Corpuscular Hemoglobin 29 pg (25-35) Mean Corpuscular Hemoglobin Concent 32 g/dL (31-37) Red Cell Distribution Width 17.9 % (11.5-14.5) Platelet Count 80 x10^3/uL (140-400) Neutrophils (%) (Auto) 91 % (31-73) Lymphocytes (%) (Auto) 5 % (24-48) Monocytes (%) (Auto) 4 % (0-9) Eosinophils (%) (Auto) 0 % (0-3) Basophils (%) (Auto) 0 % (0-3) Neutrophils # (Auto) 2.7 x10^3uL (1.8-7.7) Lymphocytes # (Auto) 0.1 x10^3/uL (1.0-4.8) Monocytes # (Auto) 0.1 x10^3/uL (0.0-1.1) Eosinophils # (Auto) 0.0 x10^3/uL (0.0-0.7) Basophils # (Auto) 0.0 x10^3/uL (0.0-0.2) Sodium Level 133 mmol/L (136-145) Potassium Level 4.5 mmol/L (3.5-5.1) Chloride Level 100 mmol/L (98-107) Carbon Dioxide Level 19 mmol/L (21-32) Anion Gap 14 (6-14) Blood Urea Nitrogen 69 mg/dL (8-26) Creatinine 2.0 mg/dL (0.7-1.3) Estimated GFR (Cockcroft-Gault) 31.9 Glucose Level 195 mg/dL (70-99) Lactic Acid Level 1.5 mmol/L (0.4-2.0) Calcium Level 8.4 mg/dL (8.5-10.1) Glucose (Fingerstick) 192 mg/dL (70-99) ECHOCARDIOGRAM ECHOCARDIOGRAM <Conclusion> The systolic function is severely impaired. The Ejection Fraction is <20%. There is severe global hypokinesis of the left ventricle. Tissue Doppler imaging reveals severe left ventricular diastolic dysfunction. Visually, the valve appears moderately stenotic, but by color doppler and velocities, there is mild aortic stenosis. Discrepancy likely related to LV dysfunction. Doppler and Color Flow revealed moderate to severe tricuspid regurgitation. There is moderate pulmonary hypertension. PASP is 54mmHg. There is a large pleural effusion. DATE: 08/19/17 1118 <Conclusion> The left ventricular systolic function is severely impaired. The Ejection Fraction is 20%. Transmitral Doppler flow pattern is Grade II-pseudonormal filling dynamics. Pacer lead noted in RV/RA. There is mild to moderate aortic stenosis. Mild mitral regurgitation. Moderate to severe tricuspid regurgitation. There is moderate pulmonary hypertension. The PA pressure was estimated at 45 mmHg. There is no evidence of significant pericardial effusion. DATE: 05/11/18 0954 ASSESSMENT/PLAN ASSESSMENT/PLAN 1. Influenza A; Tamiflu. afebrile ? PNA. antibiotics as per PCP 2. NSTEMI; highest 0.103. CP free. most probably type II, demand ischemia in the setting of influenza, AMADO, and a/c HF 3. 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 Appears fairly well compensated clinically. 4. CAD s/p remote CABG. CP free 4. ICM; s/p bi-V AICD (Biotronik) 5. Hypertension; controlled 6. Hyperlipidemia; statin 7. AMADO on CKD; improved. dehydration. Nephrology consulted. 8. Urinary retention; s/p Valles 9. Lactic acidosis 10. Parkinson's disease Recommendations Continue secondary prevention measures. Including ASA, BB, statin. No ACEi with AMADO Echo to assess LV systolic function Treatment of Influenza as per PCP Follow renal recommendations. Supportive care BRITNI PEOPLES APRN May 11, 2018 10:15
--- NOTE | 2018-05-11 10:19 | HP ---
ADMIT DATE: 05/10/2018 REASON FOR ADMISSION TO THE HOSPITAL: Kwcsq-uf-pwyfzut renal failure, influenza A infection, and uojhv-[id number] systolic heart failure. HISTORY OF PRESENT ILLNESS: The patient is an 87-year-old male patient known to me. The patient has history of chronic systolic heart failure, has AICD, has Parkinson's disease, chronic kidney disease. His daughter was sick couple of days ago with influenza A and then he started having runny nose and he is not eating. He is taking diuretics at home because of heart failure. He has come to a point where it is hard for him to move around, is not eating, family brought him to the hospital. Influenza A was positive. The patient was given a prescription for Tamiflu for chemo prophylaxis and he also had influenza A vaccination. The patient was in kidney failure with BUN 80, creatinine 2.5. Influenza was positive and also chest x-ray showed some congestion with infiltrates. He was started on Rocephin to prevent possible secondary lung infection from influenza. PAST MEDICAL HISTORY: As mentioned above, the patient has Parkinson's disease, congestive heart failure, chronic systolic ejection fraction around 30%, chronic kidney disease stage 3, hypertension, hyperlipidemia, orthostatic hypotension, borderline diabetes. PAST SURGICAL HISTORY: The patient has a pacemaker defibrillator, last admission was 4 months ago, gallbladder surgery, partial colon resection with colostomy secondary to GI bleeding that is why had to have part of the colon removed, heart bypass surgery, hip replacement, tonsillectomy, lumbar spine vertebroplasty. ALLERGIES: MORPHINE causes agitation. MEDICATIONS: Aspirin 81 mg daily, potassium 10 mEq daily, atorvastatin 10 mg daily, Sinemet 1.5 tablets 4 times daily, Aricept 15 mg at bedtime, Lasix 40 mg twice a day, Namenda 10 mg twice a day, Protonix 40 mg daily, Entresto 24 mg 1 daily Coreg 6.25 twice a day. PERSONAL HISTORY: No history of smoking, alcohol, drug abuse. The patient is [place] . SOCIAL HISTORY: Lives with his , is wheelchair level, ambulates with a walker at home. REVIEW OF SYSTEMS: CARDIAC: No chest pain. GASTROINTESTINAL: No appetite. The patient is weak, not eating. Had cough, congestion. Rest of the 14-system was reviewed and negative. PHYSICAL EXAMINATION: GENERAL: The patient is progressively getting weaker. VITAL SIGNS: Shows temperature of 97, pulse 70, respirations 18, blood pressure 140/68, 95% on room air. HEENT: Head is atraumatic. Pupils equal. Oral cavity: Dentures. NECK: Supple. Thyroid not enlarged. JVD not elevated. CHEST: Symmetrical, scar of heart surgery, has a pacemaker defibrillator on left side of chest. CARDIOVASCULAR: S1, S2. No murmurs. LUNGS: Few crackles at the bases, 1/3. ABDOMEN: Soft. Bowel sounds are present. The patient has a colostomy bag. Incision in the midline from previous colon surgery. EXTERNAL GENITALIA: No Valles. RECTAL: Deferred. EXTREMITIES: Trace edema. No calf tenderness. Pulses 1+. NEUROLOGIC: The patient has generalized weakness. LABORATORY DATA: Shows white count 8, hemoglobin 10, platelets 92. Electrolytes showed sodium 134, potassium 4.3, chloride 97, bicarbonate 18, anion gap was 19, BUN 80, creatinine 2.5, glucose 167. Lactic acid 3.9. LFTs were within the normal range. Troponin 0.085, peaked to 0.1. ProBNP more than 35,000. Urine negative for infection. Serology for influenza A was positive antigen. Chest x-ray shows interstitial opacities both lungs. Ultrasound showed some ascites, distended bladder. FINAL IMPRESSION: 1. Acute influenza A lung infection. 2. Secondary lung infection with bacterial, suspect Gram-negative. 3. Xvlrc-zq-aqyuict congestive heart failure. 4. Qokzq-gm-rvjcokf kidney failure. 5. Parkinson's disease. 6. Hypertension. 7. History of bypass surgery, has ACD. 8. History of colostomy. 9. Parkinson's disease. PLAN: At this time, was admitted to hospital, hydrate with IV fluids, ultrasound of the kidneys, Renal consult. The patient was given cautious hydration and also Tamiflu for influenza A, adjusting the dose to the renal dose. BURTON AKBAR MD DR: NEGRITA/jay JOB#: [id number] / [id number] MTDD
[2018-05-11 11:00] VITALS: BP 134/63
--- NOTE | 2018-05-11 12:16 | PDOC2 ---
CONSULT Date of Consult Date of Consult DATE: 05/11/18 TIME: 12:10 Reason for Consult Reason for Consult: AMADO Referring Physician Referring Physician: NAOMIE Identification/Chief Complaint Chief Complaint SOB Source Source: Chart review History of Present Illness Reason for Visit: THIS IS AN 87 YR OLD CONFUSED PT WITH ACUTE INFLUENZA TYPE A. HE IS NOTED TO HAVE A CR OF 2.0. HE HAS CKD DUE TO HTN HX AND A BASELINE CR OF 1.5 C/W STAGE 3 CKD. NO NEPHROTOXINS NOTED. PO INTAKE POOR FOR SEVERAL DAYS PER REPORT. WAS TREATED ON AN OP BASIS BUT DID NOT IMPROVE AND CAME INTO THE ER. NOW THERE IS CONCERNS OF AN SECONDARY BACTERIAL INFECTION WELL. HAS SOME BPH HX. ? BLADDER FULLNESS ON EXAM NOTED. NO OTHER HX Past Medical History Cardiovascular: CAD, CHF, HTN Pulmonary: No pertinent hx CENTRAL NERVOUS SYSTEM: Other GI: GERD Heme/Onc: No pertinent hx Hepatobiliary: No pertinent hx Psych: Other Musculoskeletal: Osteoarthritis, Other Rheumatologic: No pertinent hx Infectious disease: No pertinent hx Renal/: Chronic renal insuff Endocrine: Diabetes Past Surgical History Past Surgical History: Cholecystectomy, CABG, Total hip replacement, Tonsillectomy, Colon Resection Family History Family History: Coronary Artery Disease, Diabetes, Hypertension Social History ALCOHOL: none Drugs: None Lives: with Family Current Problem List Problem List Problems Medical Problems: (1) Elevated troponin Status: Acute (2) Influenza A Status: Acute (3) Sepsis Status: Acute Current Medications Current Medications Current Medications Albuterol/ Ipratropium (Duoneb) 3 ml 1X ONCE NEB Last administered on at 10:25; Start 05/10/18 at 10:15; Stop 05/10/18 at 10:16; Status DC Sodium Chloride 1,000 ml @ 1,000 mls/hr 1X ONCE IV Last administered on at 12:02; Start 05/10/18 at 12:00; Stop 05/10/18 at 12:59; Status DC Ondansetron HCl (Zofran) 4 mg PRN Q8HRS PRN IV NAUSEA/VOMITING; Start 05/10/18 at 12:15; Stop 05/11/18 at 12:14 Sodium Chloride 1,000 ml @ 75 mls/hr [id number] IV Last administered on at 01:24; Start 05/10/18 at 12:04; Stop 05/11/18 at 12:03; Status DC Acetaminophen (Tylenol) 650 mg PRN Q4HRS PRN PO FEVER; Start 05/10/18 at 12:15 ; Stop 05/11/18 at 12:14 Albuterol/ Ipratropium (Duoneb) 3 ml RTQID NEB Last administered on 05/11/18 11:17; Start 05/10/18 at 16:00; Stop 05/11/18 at 15:59 Ceftriaxone Sodium (Rocephin) 1 gm 1X ONCE IVP Last administered on 05/10/18 12:21; Start 05/10/18 at 12:15; Stop 05/10/18 at 12:16; Status DC Oseltamivir Phosphate (Tamiflu) 30 mg DAILY PO Last administered on 05/11/18 08:34; Start 05/10/18 at 13:00; Stop 05/15/18 at 12:59 Ceftriaxone Sodium (Rocephin) 1 gm Q24H IVP Last administered on 05/11/18 08: 36; Start 05/11/18 at 09:00 Aspirin (Ecotrin) 81 mg DAILY PO Last administered on 05/11/18 08:36; Start at 09:00 Atorvastatin Calcium (Lipitor) 10 mg QHS PO Last administered on 05/10/18 21: 27; Start 05/10/18 at 21:00 Carbidopa/Levodopa (Sinemet 25/100) 1.5 tab QID PO Last administered on 08:34; Start 05/10/18 at 21:00 Carvedilol (Coreg) 3.125 mg BIDWMEALS PO Last administered on 05/11/18 08:35; Start 05/10/18 at 20:00 Pantoprazole Sodium (Protonix) 40 mg DAILYAC PO Last administered on 05/11/18 08:35; Start 05/11/18 at 07:30 Prednisone (Prednisone) 50 mg DAILY PO Last administered on 05/11/18 08:34; Start 05/11/18 at 09:00 Methylprednisolone Sodium Succinate (SOLU-Medrol 125MG VIAL) 125 mg 1X ONCE IV Last administered on 05/10/18 21:27; Start 05/10/18 at 19:30; Stop 05/10/18 at 19:31; Status DC Insulin Human Lispro (HumaLOG) 0-7 UNITS TIDWMEALS SQ Last administered on 05/11at 08:51; Start 05/10/18 at 20:00 Dextrose (Dextrose 50%-Water Syringe) 12.5 gm PRN Q15MIN PRN IV SEE COMMENTS; Start 05/10/18 at 19:15 Enoxaparin Sodium (Lovenox 30mg Syringe) 30 mg QHS SQ Last administered on 05/10at 21:27; Start 05/10/18 at 21:00 Active Scripts Active Prednisone (Prednisone) 10 Mg Tablet 10 Mg PO DAILY 5 Days Duoneb 0.5-3(2.5) Mg/3 Ml (Albuterol/Ipratropium) 3 Ml Ampul.neb 3 Ml NEB RTQID 30 Days Cefpodoxime Proxetil 100 Mg Tablet 100 Mg PO BID 5 Days Klor-Con 10 (Potassium Chloride) 10 Meq Tablet.er 10 Meq PO BID Furosemide 40 Mg Tablet 40 Mg PO [id number] Carvedilol (Carvedilol) 3.125 Mg Tablet 3.125 Mg PO BIDWMEALS Atorvastatin Calcium 10 Mg Tablet 10 Mg PO QHS Reported Entresto 24 mg-26 mg Tablet (Sacubitril/Valsartan) 1 Each Tablet 1 Each PO DAILY Namenda (Memantine Hcl) 10 Mg Tablet 1 Tab PO BID Donepezil Hcl 10 Mg Tablet 15 Mg PO HS Aspirin Ec (Aspirin) 81 Mg Tablet.dr 1 Tab PO DAILY Sinemet 25-100 Mg Tablet (Carbidopa/Levodopa) 1 Each Tablet 1.5 Tab PO QID Pantoprazole Sodium 40 Mg Tablet.dr 1 Tab PO DAILY Allergies Allergies: Coded Allergies: No Known Drug Allergies (Unverified , 05/10/18) ROS Review of System UNABLE TO OBTAIN, PT CONFUSED Physical Exam Physical Exam BLADDER FULLNESS General: Alert, Cooperative, mild distress HEENT: Atraumatic, PERRLA Lungs: Normal air movement Heart: Regular rate, Normal S1 Abdomen: Normal bowel sounds, Soft Extremities: No clubbing, No cyanosis, No edema Skin: No significant lesion Neuro: Other (CONFUSED) Psych/Mental Status: Other (CONFUSED) MUSCULOSKELETAL: No deformity, No swelling Vitals VITALS Vital Signs Date Time Temp Pulse Resp B/P (MAP) Pulse Ox O2 Delivery O2 Flow Rate FiO2 05/11/18 11:18 Nasal Cannula 4.0 05/11/18 11:00 97.2 53 16 134/63 (86) 97 97.2 Labs Labs Laboratory Tests Test 05/10/18 10:05 05/10/18 10:15 05/10/18 14:40 05/10/18 20:48 Urine Collection Type Void Urine Color Yellow Urine Clarity Clear Urine pH 5.0 Urine Specific [place] 1.020 Urine Protein 30 mg/dL (NEG-TRACE) Urine Glucose (UA) Negative mg/dL (NEG) Urine Ketones (Stick) Negative mg/dL (NEG) Urine Blood Negative (NEG) Urine Nitrite Negative (NEG) Urine Bilirubin Negative (NEG) Urine Urobilinogen Dipstick 0.2 mg/dL (0.2 mg/dL) Urine Leukocyte Esterase Negative (NEG) Urine RBC 0 /HPF (0-2) Urine WBC Occ /HPF (0-4) Urine Squamous Epithelial Cells Few /LPF Urine Amorphous Sediment Present /HPF Urine Bacteria 0 /HPF (0-FEW) Urine Hyaline Casts Few /HPF Urine Mucus Slight /LPF White Blood Count 8.6 x10^3/uL (4.0-11.0) Red Blood Count 3.38 x10^6/uL (4.30-5.70) Hemoglobin 10.1 g/dL (13.0-17.5) Hematocrit 31.3 % (39.0-53.0) Mean Corpuscular Volume 92 fL (79-100) Mean Corpuscular Hemoglobin 30 pg (25-35) Mean Corpuscular Hemoglobin Concent 32 g/dL (31-37) Red Cell Distribution Width 18.1 % (11.5-14.5) Platelet Count 92 x10^3/uL (140-400) Neutrophils (%) (Auto) 85 % (31-73) Lymphocytes (%) (Auto) 3 % (24-48) Monocytes (%) (Auto) 12 % (0-9) Eosinophils (%) (Auto) 0 % (0-3) Basophils (%) (Auto) 0 % (0-3) Neutrophils # (Auto) 7.3 x10^3uL (1.8-7.7) Lymphocytes # (Auto) 0.2 x10^3/uL (1.0-4.8) Monocytes # (Auto) 1.0 x10^3/uL (0.0-1.1) Eosinophils # (Auto) 0.0 x10^3/uL (0.0-0.7) Basophils # (Auto) 0.0 x10^3/uL (0.0-0.2) Segmented Neutrophils % 83 % (35-66) Band Neutrophils % 8 % (0-9) Lymphocytes % 1 % (24-48) Monocytes % 8 % (0-10) Platelet Estimate Decreased (ADEQUATE) Large Platelets Few Poikilocytosis Present Anisocytosis Slight Ovalocytes Present Acanthocytes Present Sodium Level 134 mmol/L (136-145) Potassium Level 4.3 mmol/L (3.5-5.1) Chloride Level 97 mmol/L (98-107) Carbon Dioxide Level 18 mmol/L (21-32) Anion Gap 19 (6-14) Blood Urea Nitrogen 79 mg/dL (8-26) Creatinine 2.5 mg/dL (0.7-1.3) Estimated GFR (Cockcroft-Gault) 24.7 BUN/Creatinine Ratio 32 (6-20) Glucose Level 167 mg/dL (70-99) Lactic Acid Level 3.9 mmol/L (0.4-2.0) 2.8 mmol/L (0.4-2.0) Calcium Level 9.0 mg/dL (8.5-10.1) Total Bilirubin 1.6 mg/dL (0.2-1.0) Aspartate Amino Transf (AST/SGOT) 62 U/L (15-37) Alanine Aminotransferase (ALT/SGPT) 18 U/L (16-63) Alkaline Phosphatase 122 U/L (46-116) Troponin I Quantitative 0.085 ng/mL (0.000-0.055) 0.103 ng/mL (0.000-0.055) EL-Nne-D-Type Natriuretic Peptide > 47809 pg/mL (0-449) Total Protein 8.0 g/dL (6.4-8.2) Albumin 3.4 g/dL (3.4-5.0) Albumin/Globulin Ratio 0.7 (1.0-1.7) Influenza Type A Antigen Positive (NEGATIVE) Influenza Type B Antigen Negative (NEGATIVE) Glucose (Fingerstick) 176 mg/dL (70-99) Test 05/11/18 06:30 05/11/18 07:52 05/11/18 10:53 White Blood Count 3.0 x10^3/uL (4.0-11.0) Red Blood Count 3.22 x10^6/uL (4.30-5.70) Hemoglobin 9.4 g/dL (13.0-17.5) Hematocrit 29.6 % (39.0-53.0) Mean Corpuscular Volume 92 fL (79-100) Mean Corpuscular Hemoglobin 29 pg (25-35) Mean Corpuscular Hemoglobin Concent 32 g/dL (31-37) Red Cell Distribution Width 17.9 % (11.5-14.5) Platelet Count 80 x10^3/uL (140-400) Neutrophils (%) (Auto) 91 % (31-73) Lymphocytes (%) (Auto) 5 % (24-48) Monocytes (%) (Auto) 4 % (0-9) Eosinophils (%) (Auto) 0 % (0-3) Basophils (%) (Auto) 0 % (0-3) Neutrophils # (Auto) 2.7 x10^3uL (1.8-7.7) Lymphocytes # (Auto) 0.1 x10^3/uL (1.0-4.8) Monocytes # (Auto) 0.1 x10^3/uL (0.0-1.1) Eosinophils # (Auto) 0.0 x10^3/uL (0.0-0.7) Basophils # (Auto) 0.0 x10^3/uL (0.0-0.2) Sodium Level 133 mmol/L (136-145) Potassium Level 4.5 mmol/L (3.5-5.1) Chloride Level 100 mmol/L (98-107) Carbon Dioxide Level 19 mmol/L (21-32) Anion Gap 14 (6-14) Blood Urea Nitrogen 69 mg/dL (8-26) Creatinine 2.0 mg/dL (0.7-1.3) Estimated GFR (Cockcroft-Gault) 31.9 Glucose Level 195 mg/dL (70-99) Lactic Acid Level 1.5 mmol/L (0.4-2.0) Calcium Level 8.4 mg/dL (8.5-10.1) Glucose (Fingerstick) 192 mg/dL (70-99) 216 mg/dL (70-99) Laboratory Tests Test 05/10/18 14:40 05/10/18 20:48 05/11/18 06:30 05/11/18 07:52 Lactic Acid Level 2.8 mmol/L (0.4-2.0) 1.5 mmol/L (0.4-2.0) Troponin I Quantitative 0.103 ng/mL (0.000-0.055) Glucose (Fingerstick) 176 mg/dL (70-99) 192 mg/dL (70-99) White Blood Count 3.0 x10^3/uL (4.0-11.0) Red Blood Count 3.22 x10^6/uL (4.30-5.70) Hemoglobin 9.4 g/dL (13.0-17.5) Hematocrit 29.6 % (39.0-53.0) Mean Corpuscular Volume 92 fL (79-100) Mean Corpuscular Hemoglobin 29 pg (25-35) Mean Corpuscular Hemoglobin Concent 32 g/dL (31-37) Red Cell Distribution Width 17.9 % (11.5-14.5) Platelet Count 80 x10^3/uL (140-400) Neutrophils (%) (Auto) 91 % (31-73) Lymphocytes (%) (Auto) 5 % (24-48) Monocytes (%) (Auto) 4 % (0-9) Eosinophils (%) (Auto) 0 % (0-3) Basophils (%) (Auto) 0 % (0-3) Neutrophils # (Auto) 2.7 x10^3uL (1.8-7.7) Lymphocytes # (Auto) 0.1 x10^3/uL (1.0-4.8) Monocytes # (Auto) 0.1 x10^3/uL (0.0-1.1) Eosinophils # (Auto) 0.0 x10^3/uL (0.0-0.7) Basophils # (Auto) 0.0 x10^3/uL (0.0-0.2) Sodium Level 133 mmol/L (136-145) Potassium Level 4.5 mmol/L (3.5-5.1) Chloride Level 100 mmol/L (98-107) Carbon Dioxide Level 19 mmol/L (21-32) Anion Gap 14 (6-14) Blood Urea Nitrogen 69 mg/dL (8-26) Creatinine 2.0 mg/dL (0.7-1.3) Estimated GFR (Cockcroft-Gault) 31.9 Glucose Level 195 mg/dL (70-99) Calcium Level 8.4 mg/dL (8.5-10.1) Test 05/11/18 10:53 Glucose (Fingerstick) 216 mg/dL (70-99) Assessment/Plan Assessment/Plan IMP AMADO WITH CR OF 2.0 CKD STAGE 3 WITH CR OF 1.5 DEHYDRATION URINARY RETENTION INFLUENZA TYPE A POSSIBLE SECONDARY BACTERIAL PNEUMONIA PARKINSON DISEASE HX OF COLOSTOMY DEHYDRATION PLAN HYDRATE WELL RENAL SONOGRAM RECIO ANTIBIOTICS WILL FOLLOW MARGE MALIK MD May 11, 2018 12:16
--- NOTE | 2018-05-11 12:25 | NUR ---
SS following for discharge planning. SS reviewed pt chart. Pt is from home and currently requiring oxygen. PT/OT ordered. SS will await PT/OT evaluations and recommendations and will proceed accordingly.
[2018-05-11 15:50] VITALS: BP 153/65
[2018-05-11 19:00] VITALS: BP 141/66
[2018-05-11] MEDS: ATORVASTATIN CALCIUM 10 MG TABLET. PO SCH (21:30)
[2018-05-11] MEDS: LACTOBACILLUS RHAMNOSUS GG 1 CAPSULE. PO SCH (21:31)
[2018-05-11] MEDS: ENOXAPARIN 30 MG/0.3 ML SYRINGE. SQ SCH (21:33)
--- NOTE | 2018-05-11 22:51 | NUR ---
Stoma is red and healthy appearing, but seems to be herniated about 5-6cm outside of the abdominal wall, and then will retract to protrude only 2-3 cm. Pt states this has been the appearance "for a long time" and that Dr. Carballo is aware of it. Will continue to monitor.
[2018-05-11 23:06] VITALS: BP 164/76
[2018-05-12 02:46] VITALS: BP 143/68
[2018-05-12 03:49] LABS: CALCIUM 8.2 mg/dL (8.5-10.1); CREATININE 1.9 mg/dL (0.7-1.3); GFR 33.9; POTASSIUM 4.3 mmol/L (3.5-5.1)
[2018-05-12 05:14] LABS: BASO % 0 % (0-3); EOS % 0 % (0-3); HEMATOCRIT 27.1 % (39.0-53.0); HEMOGLOBIN 8.9 g/dL (13.0-17.5); LYMPH # 0.1 x10^3/uL (1.0-4.8); LYMPH % 4 % (24-48); MEAN CORPUSCULAR HEMOGLOBIN 30 pg (25-35); MEAN CORPUSCULAR HGB CONC 33 g/dL (31-37); MEAN CORPUSCULAR VOLUME 91 fL (79-100); MONO # 0.4 x10^3/uL (0.0-1.1); MONO % 13 % (0-9); NEUT # 2.7 x10^3uL (1.8-7.7); NEUT % 83 % (31-73); PLATELET COUNT 80 x10^3/uL (140-400); RED BLOOD COUNT 2.96 x10^6/uL (4.30-5.70); RED CELL DISTRIBUTION WIDTH 17.3 % (11.5-14.5); WHITE BLOOD COUNT 3.3 x10^3/uL (4.0-11.0)
[2018-05-12 07:13] VITALS: BP 150/85
[2018-05-12] MEDS: predniSONE 10 MG TABLET PO SCH (08:32)
[2018-05-12] MEDS: OSELTAMIVIR 30 MG CAPSULE PO SCH (08:33)
[2018-05-12] MEDS: CARBIDOPA/LEVODOPA 25/100MG TABLET PO SCH ×4 (08:33→21:10)
[2018-05-12] MEDS: ASPIRIN ENTERIC COATED 81 MG TABLET.DR. PO SCH (08:33)
[2018-05-12] MEDS: PANTOPRAZOLE 40 MG TABLET.DR. PO SCH (08:33)
[2018-05-12] MEDS: LACTOBACILLUS RHAMNOSUS GG 1 CAPSULE. PO SCH ×2 (08:33→21:10)
[2018-05-12] MEDS: cefTRIAXone IV Push 1 GM VIAL. IVP SCH (08:34)
[2018-05-12] MEDS: CARVEDILOL 3.125 MG TABLET. PO SCH ×2 (08:34→17:39)
[2018-05-12] MEDS: INSULIN LISPRO 300 UNITS/3 ML INSULN.PEN. SQ SCH ×3 (08:47→17:44)
--- NOTE | 2018-05-12 10:23 | PDOC ---
PROGRESS NOTES Subjective Subjective bladder retention yesterday ,marmolejo placed Objective Objective Vital Signs Date Time Temp Pulse Resp B/P (MAP) Pulse Ox O2 Delivery O2 Flow Rate FiO2 05/12/18 08:34 150/85 05/12/18 07:13 98.4 56 16 95 Room Air 98.4 05/11/18 11:18 4.0 Intake and Output 05/12/18 07:00 Intake Total 880 ml Output Total 2300 ml Balance -1420 ml Intake Oral 880 ml Output Urine Total 1700 ml Stool Total 600 ml Physical Exam Abdomen: Normal bowel sounds, Soft Heart: Regular rate, Normal S1 Extremities: No clubbing, No cyanosis, No edema General: Alert, Cooperative, mild distress HEENT: Atraumatic, PERRLA Lungs: Normal air movement MUSCULOSKELETAL: No deformity, No swelling Neuro: Other (CONFUSED) Psych/Mental Status: Other (CONFUSED) Skin: No significant lesion COMMENT marmolejo placed Diagnosis Problem List Problems Medical Problems: (1) Elevated troponin Status: Acute (2) Influenza A Status: Acute (3) Sepsis Status: Acute Assessment Assessment Problems Medical Problems: (1) Elevated troponin Status: Acute (2) Influenza A Status: Acute (3) Sepsis Status: Acute FINAL IMPRESSION: 1. Acute influenza A lung infection. 2. Secondary lung infection with bacterial, suspect Gram-negative. 3. Hicuj-zd-dghzeav congestive heart failure.20% ejf 4. Ejymu-ko-adkzyig kidney failure.cr 1.9 5. Parkinson's disease. 6. GH/o Orthostatic Hypotension. 7. History of bypass surgery, has AICD. 8. History of colostomy. 9. Hyperlipidemia PLAN: marmolejo placed for bladder retention sono kidneys no hydro. ECHO 20% EJF. cr 1.9 slight improvement with fluids Tamiflue for influenza spoke with pts Pt/OT urology consult. nephrology consult At this time, was admitted to hospital, hydrate with IV fluids, ultrasound of the kidneys, Renal consult. The patient was given cautious hydration and also Tamiflu for influenza A, adjusting the dose to the renal dose. Plan Plan of Care Problems Medical Problems: (1) Elevated troponin Status: Acute (2) Influenza A Status: Acute (3) Sepsis Status: Acute Comment Review of Relevant I have reviewed the following items kiana (where applicable) has been applied. Labs Laboratory Tests Test 05/11/18 10:53 05/11/18 15:55 05/11/18 17:08 05/11/18 20:57 Glucose (Fingerstick) 216 mg/dL (70-99) 347 mg/dL (70-99) 322 mg/dL (70-99) 301 mg/dL (70-99) Test 05/12/18 02:55 05/12/18 07:15 White Blood Count 3.3 x10^3/uL (4.0-11.0) Red Blood Count 2.96 x10^6/uL (4.30-5.70) Hemoglobin 8.9 g/dL (13.0-17.5) Hematocrit 27.1 % (39.0-53.0) Mean Corpuscular Volume 91 fL (79-100) Mean Corpuscular Hemoglobin 30 pg (25-35) Mean Corpuscular Hemoglobin Concent 33 g/dL (31-37) Red Cell Distribution Width 17.3 % (11.5-14.5) Platelet Count 80 x10^3/uL (140-400) Neutrophils (%) (Auto) 83 % (31-73) Lymphocytes (%) (Auto) 4 % (24-48) Monocytes (%) (Auto) 13 % (0-9) Eosinophils (%) (Auto) 0 % (0-3) Basophils (%) (Auto) 0 % (0-3) Neutrophils # (Auto) 2.7 x10^3uL (1.8-7.7) Lymphocytes # (Auto) 0.1 x10^3/uL (1.0-4.8) Monocytes # (Auto) 0.4 x10^3/uL (0.0-1.1) Eosinophils # (Auto) 0.0 x10^3/uL (0.0-0.7) Basophils # (Auto) 0.0 x10^3/uL (0.0-0.2) Sodium Level 132 mmol/L (136-145) Potassium Level 4.3 mmol/L (3.5-5.1) Chloride Level 98 mmol/L (98-107) Carbon Dioxide Level 19 mmol/L (21-32) Anion Gap 15 (6-14) Blood Urea Nitrogen 75 mg/dL (8-26) Creatinine 1.9 mg/dL (0.7-1.3) Estimated GFR (Cockcroft-Gault) 33.9 Glucose Level 340 mg/dL (70-99) Calcium Level 8.2 mg/dL (8.5-10.1) Glucose (Fingerstick) 330 mg/dL (70-99) Microbiology 05/10/18 Blood Culture - Preliminary, Resulted NO GROWTH AFTER 1 DAY Medications Current Medications Lactobacillus Rhamnosus (Culturelle) 1 cap BID PO Last administered on at 08:33; Start 05/11/18 at 21:00 Sodium Chloride 1,000 ml @ 75 mls/hr [id number] IV Last administered on at 17:00; Start 05/11/18 at 17:15 Vitals/I & O Vital Sign - Last 24 Hours 05/11/18 05/11/18 05/11/18 05/11/18 11:00 11:18 15:21 15:50 Temp 97.2 98.4 97.2 98.4 Pulse 53 54 Resp 16 20 B/P (MAP) 134/63 (86) 153/65 (94) Pulse Ox 97 97 O2 Delivery Room Air Nasal Cannula Room Air Room Air O2 Flow Rate 4.0 05/11/18 05/11/18 05/11/18 05/11/18 16:54 19:00 20:00 23:06 Temp 98.6 98.7 98.6 98.7 Pulse 54 50 53 Resp 18 16 B/P (MAP) 153/65 141/66 (91) 164/76 (105) Pulse Ox 96 97 O2 Delivery Room Air Room Air Room Air 05/12/18 05/12/18 05/12/18 02:46 07:13 08:34 Temp 97.2 98.4 97.2 98.4 Pulse 49 56 Resp 16 16 B/P (MAP) 143/68 (93) 150/85 (106) 150/85 Pulse Ox 94 95 O2 Delivery Room Air Room Air Intake and Output 05/11/18 05/11/18 05/12/18 15:00 23:00 07:00 Intake Total 180 ml 480 ml 220 ml Output Total 1300 ml 450 ml 550 ml Balance -1120 ml 30 ml -330 ml BURTON AKBAR MD May 12, 2018 10:23
--- NOTE | 2018-05-12 10:57 | NUR ---
SS following up with discharge planning. SS met with pt to discuss longterm unit and discharge planning. Pt reported that he spoke with his this morning and they do not want to go to longterm unit. Pt reported being agreeable to to home healthcare at discharge and reported that he would discuss with his .
[2018-05-12 11:00] VITALS: BP 169/79
--- NOTE | 2018-05-12 11:14 | PDOC2 ---
UROLOGY CONSULT Date of Consult Date of Consult DATE: 05/12/18 TIME: 11:09 Reason for Consult Reason for Consult: Urinary Retention Identification/Chief Complaint Chief Complaint Urinary Retention Source Source: Caregiver, Chart review, Patient History of Present Illness Reason for Visit: This pleasant 87 year old male admitted for as cough, nasal congestion, coughing up winters mucus and low-grade fever for the last week. Patient sees Dr. Carballo and saw him on this past for these symptoms and was prescribed Tamiflu but did not pick it up, so he presented to the ER with these symptoms. While receiving treatment for these symptoms in house, he had some trouble with urinary retention even though he was voiding. Nursing noted a PVR of 500 via bladder scan yesterday and so a Valles was inserted; initial amount out was not documented. Patient relates that this is the first time he has ever had any trouble with voiding prior to this. He also denies a history of LUTS, nocturia, dysuria or hematuria. He denies a history of prostate cancer or enlarged prostate. He had kidney stone eighteen years ago but these passed on their won and did not require any surgical intervention. He denies flank or belly pain today. The Valles catheter is not bothering him and he thinks that it is working well. Past Medical History Cardiovascular: CAD, CHF, HTN Pulmonary: No pertinent hx CENTRAL NERVOUS SYSTEM: Other GI: GERD Heme/Onc: No pertinent hx Hepatobiliary: No pertinent hx Psych: Other Musculoskeletal: Osteoarthritis, Other Rheumatologic: No pertinent hx Infectious disease: No pertinent hx Renal/: Chronic renal insuff Endocrine: Diabetes Past Surgical History Past Surgical History: Cholecystectomy, CABG, Total hip replacement, Tonsillectomy, Colon Resection Family History Family History: Coronary Artery Disease, Diabetes, Hypertension Social History ALCOHOL: none Drugs: None Lives: with Family Current Problem List Problems: (1) Valles catheter in place (2) Urinary retention Current Medications Current Medications Current Medications Lactobacillus Rhamnosus (Culturelle) 1 cap BID PO Last administered on at 08:33; Start 05/11/18 at 21:00 Prednisone (Prednisone) 30 mg DAILY PO ; Start 05/13/18 at 09:00 Sodium Chloride 1,000 ml @ 75 mls/hr [id number] IV Last administered on at 17:00; Start 05/11/18 at 17:15 Allergies Allergies: Coded Allergies: No Known Drug Allergies (Unverified , 05/10/18) ROS Review Of Systems: CONSTITUTIONAL: No fever or chills EYES: No recent changes SKIN: No rash or itching CARDIOVASCULAR: No chest pain, syncope, palpitations, or edema RESPIRATORY: No SOB or cough GASTROINTESTINAL: No nausea, vomiting or abdominal pain NEUROLOGICAL: No headaches or weakness ENDOCRINE: No cold or heat intolerance GENITOURINARY: No urgency or frequency of urination piror to catheter insertion. Valles in place now, not bothering him. MUSCULOSKELETAL: No back pain or joint pain LYMPHATICS: No enlarged lymph nodes PSYCHIATRIC: No anxiety or depression Physical Exam Physical Exam: General: Pleasant, no acute distress, well groomed Eyes: conjunctiva anicteric, eyes full range of motion ENT: moist oral mucosa, normal dentition Neck: Trachea midline, no masses Respiratory: unlabored breathing, not using accessory muscles : Circ phallus with Valles in place draining clear yellow urine. Abdomen: nontender, somewhat distended secondary to ascites. Skin: no rashes or skin lesions on visualized skin Psych: normal mood, affect. Alert and oriented x 3. Vitals VITALS Vital Signs Date Time Temp Pulse Resp B/P (MAP) Pulse Ox O2 Delivery O2 Flow Rate FiO2 05/12/18 08:34 150/85 05/12/18 07:13 98.4 56 16 95 Room Air 98.4 05/11/18 11:18 4.0 Labs Labs Laboratory Tests Test 05/10/18 13:50 05/10/18 14:40 05/10/18 20:48 05/11/18 06:30 Nasal Screen MRSA (PCR) Negative (Negative) Lactic Acid Level 2.8 mmol/L (0.4-2.0) 1.5 mmol/L (0.4-2.0) Troponin I Quantitative 0.103 ng/mL (0.000-0.055) 0.023 ng/mL (0.000-0.055) Glucose (Fingerstick) 176 mg/dL (70-99) White Blood Count 3.0 x10^3/uL (4.0-11.0) Red Blood Count 3.22 x10^6/uL (4.30-5.70) Hemoglobin 9.4 g/dL (13.0-17.5) Hematocrit 29.6 % (39.0-53.0) Mean Corpuscular Volume 92 fL (79-100) Mean Corpuscular Hemoglobin 29 pg (25-35) Mean Corpuscular Hemoglobin Concent 32 g/dL (31-37) Red Cell Distribution Width 17.9 % (11.5-14.5) Platelet Count 80 x10^3/uL (140-400) Neutrophils (%) (Auto) 91 % (31-73) Lymphocytes (%) (Auto) 5 % (24-48) Monocytes (%) (Auto) 4 % (0-9) Eosinophils (%) (Auto) 0 % (0-3) Basophils (%) (Auto) 0 % (0-3) Neutrophils # (Auto) 2.7 x10^3uL (1.8-7.7) Lymphocytes # (Auto) 0.1 x10^3/uL (1.0-4.8) Monocytes # (Auto) 0.1 x10^3/uL (0.0-1.1) Eosinophils # (Auto) 0.0 x10^3/uL (0.0-0.7) Basophils # (Auto) 0.0 x10^3/uL (0.0-0.2) Sodium Level 133 mmol/L (136-145) Potassium Level 4.5 mmol/L (3.5-5.1) Chloride Level 100 mmol/L (98-107) Carbon Dioxide Level 19 mmol/L (21-32) Anion Gap 14 (6-14) Blood Urea Nitrogen 69 mg/dL (8-26) Creatinine 2.0 mg/dL (0.7-1.3) Estimated GFR (Cockcroft-Gault) 31.9 Glucose Level 195 mg/dL (70-99) Calcium Level 8.4 mg/dL (8.5-10.1) Test 05/11/18 07:52 05/11/18 10:53 05/11/18 15:55 05/11/18 17:08 Glucose (Fingerstick) 192 mg/dL (70-99) 216 mg/dL (70-99) 347 mg/dL (70-99) 322 mg/dL (70-99) Test 05/11/18 20:57 05/12/18 02:55 05/12/18 07:15 Glucose (Fingerstick) 301 mg/dL (70-99) 330 mg/dL (70-99) White Blood Count 3.3 x10^3/uL (4.0-11.0) Red Blood Count 2.96 x10^6/uL (4.30-5.70) Hemoglobin 8.9 g/dL (13.0-17.5) Hematocrit 27.1 % (39.0-53.0) Mean Corpuscular Volume 91 fL (79-100) Mean Corpuscular Hemoglobin 30 pg (25-35) Mean Corpuscular Hemoglobin Concent 33 g/dL (31-37) Red Cell Distribution Width 17.3 % (11.5-14.5) Platelet Count 80 x10^3/uL (140-400) Neutrophils (%) (Auto) 83 % (31-73) Lymphocytes (%) (Auto) 4 % (24-48) Monocytes (%) (Auto) 13 % (0-9) Eosinophils (%) (Auto) 0 % (0-3) Basophils (%) (Auto) 0 % (0-3) Neutrophils # (Auto) 2.7 x10^3uL (1.8-7.7) Lymphocytes # (Auto) 0.1 x10^3/uL (1.0-4.8) Monocytes # (Auto) 0.4 x10^3/uL (0.0-1.1) Eosinophils # (Auto) 0.0 x10^3/uL (0.0-0.7) Basophils # (Auto) 0.0 x10^3/uL (0.0-0.2) Sodium Level 132 mmol/L (136-145) Potassium Level 4.3 mmol/L (3.5-5.1) Chloride Level 98 mmol/L (98-107) Carbon Dioxide Level 19 mmol/L (21-32) Anion Gap 15 (6-14) Blood Urea Nitrogen 75 mg/dL (8-26) Creatinine 1.9 mg/dL (0.7-1.3) Estimated GFR (Cockcroft-Gault) 33.9 Glucose Level 340 mg/dL (70-99) Calcium Level 8.2 mg/dL (8.5-10.1) Laboratory Tests Test 05/11/18 15:55 05/11/18 17:08 05/11/18 20:57 05/12/18 02:55 Glucose (Fingerstick) 347 mg/dL (70-99) 322 mg/dL (70-99) 301 mg/dL (70-99) White Blood Count 3.3 x10^3/uL (4.0-11.0) Red Blood Count 2.96 x10^6/uL (4.30-5.70) Hemoglobin 8.9 g/dL (13.0-17.5) Hematocrit 27.1 % (39.0-53.0) Mean Corpuscular Volume 91 fL (79-100) Mean Corpuscular Hemoglobin 30 pg (25-35) Mean Corpuscular Hemoglobin Concent 33 g/dL (31-37) Red Cell Distribution Width 17.3 % (11.5-14.5) Platelet Count 80 x10^3/uL (140-400) Neutrophils (%) (Auto) 83 % (31-73) Lymphocytes (%) (Auto) 4 % (24-48) Monocytes (%) (Auto) 13 % (0-9) Eosinophils (%) (Auto) 0 % (0-3) Basophils (%) (Auto) 0 % (0-3) Neutrophils # (Auto) 2.7 x10^3uL (1.8-7.7) Lymphocytes # (Auto) 0.1 x10^3/uL (1.0-4.8) Monocytes # (Auto) 0.4 x10^3/uL (0.0-1.1) Eosinophils # (Auto) 0.0 x10^3/uL (0.0-0.7) Basophils # (Auto) 0.0 x10^3/uL (0.0-0.2) Sodium Level 132 mmol/L (136-145) Potassium Level 4.3 mmol/L (3.5-5.1) Chloride Level 98 mmol/L (98-107) Carbon Dioxide Level 19 mmol/L (21-32) Anion Gap 15 (6-14) Blood Urea Nitrogen 75 mg/dL (8-26) Creatinine 1.9 mg/dL (0.7-1.3) Estimated GFR (Cockcroft-Gault) 33.9 Glucose Level 340 mg/dL (70-99) Calcium Level 8.2 mg/dL (8.5-10.1) Test 05/12/18 07:15 Glucose (Fingerstick) 330 mg/dL (70-99) Images Images 1. Limited exam due to patient immobility, bowel gas and a left colostomy bag. The left kidney and left renal artery are not adequately seen. 2. Grossly unremarkable grayscale evaluation of the right kidney and no Doppler evidence of right renal artery stenosis. 3. Distended urinary bladder. 4. Moderate abdominal ascites. Assessment/Plan Assessment/Plan Urinary retention: Keep Valles in place for 3-4 days to allow for healing/ decompression Encourage ambulation, good bowel program. Start Flomax daily. All questions answered. Will follow. TOMY HANLEY APRN May 12, 2018 11:14
[2018-05-12] MEDS: IV NORMAL SALINE 1000ML BAG 1,000 ML IV SCH (13:13)
[2018-05-12] MEDS: TAMSULOSIN 0.4 MG CAP.ER.24H. PO SCH (13:13)
--- NOTE | 2018-05-12 14:30 | PDOC ---
Renal-Progress Notes Subjective Notes Notes NONE History of Present Illness Hx of present illness STABLE Vitals Vitals Vital Signs Date Time Temp Pulse Resp B/P (MAP) Pulse Ox O2 Delivery O2 Flow Rate FiO2 05/12/18 11:00 98.2 55 18 169/79 (109) 95 Room Air 98.2 05/11/18 11:18 4.0 Weight Weight [ ] I.O. Intake and Output Intake and Output 05/12/18 06:59 Intake Total 880 ml Output Total 2300 ml Balance -1420 ml Intake Oral 880 ml Output Urine Total 1700 ml Stool Total 600 ml Labs Labs Laboratory Tests Test 05/11/18 15:55 05/11/18 17:08 05/11/18 20:57 05/12/18 02:55 Glucose (Fingerstick) 347 mg/dL (70-99) 322 mg/dL (70-99) 301 mg/dL (70-99) White Blood Count 3.3 x10^3/uL (4.0-11.0) Red Blood Count 2.96 x10^6/uL (4.30-5.70) Hemoglobin 8.9 g/dL (13.0-17.5) Hematocrit 27.1 % (39.0-53.0) Mean Corpuscular Volume 91 fL (79-100) Mean Corpuscular Hemoglobin 30 pg (25-35) Mean Corpuscular Hemoglobin Concent 33 g/dL (31-37) Red Cell Distribution Width 17.3 % (11.5-14.5) Platelet Count 80 x10^3/uL (140-400) Neutrophils (%) (Auto) 83 % (31-73) Lymphocytes (%) (Auto) 4 % (24-48) Monocytes (%) (Auto) 13 % (0-9) Eosinophils (%) (Auto) 0 % (0-3) Basophils (%) (Auto) 0 % (0-3) Neutrophils # (Auto) 2.7 x10^3uL (1.8-7.7) Lymphocytes # (Auto) 0.1 x10^3/uL (1.0-4.8) Monocytes # (Auto) 0.4 x10^3/uL (0.0-1.1) Eosinophils # (Auto) 0.0 x10^3/uL (0.0-0.7) Basophils # (Auto) 0.0 x10^3/uL (0.0-0.2) Sodium Level 132 mmol/L (136-145) Potassium Level 4.3 mmol/L (3.5-5.1) Chloride Level 98 mmol/L (98-107) Carbon Dioxide Level 19 mmol/L (21-32) Anion Gap 15 (6-14) Blood Urea Nitrogen 75 mg/dL (8-26) Creatinine 1.9 mg/dL (0.7-1.3) Estimated GFR (Cockcroft-Gault) 33.9 Glucose Level 340 mg/dL (70-99) Calcium Level 8.2 mg/dL (8.5-10.1) Test 05/12/18 07:15 05/12/18 12:22 Glucose (Fingerstick) 330 mg/dL (70-99) 316 mg/dL (70-99) Micro Micro Microbiology 05/10/18 Blood Culture - Preliminary, Resulted NO GROWTH AFTER 2 DAYS Review of Systems Constitutional: yes: weakness, alert, other (CONFUSED) Physical Exam General Appearance: no apparent distress Skin: warm Respiratory: decreased breath sounds Heart: S1S2 Abdomen: soft, bowel sounds present Genitourinary: bladder flat Extremities: pulses present Neurology: alert, oriented Musculoskeletal: Osteoarthritis, Other Assessment Assessment IMP AMADO WITH CR DOWN TO 1.9 CKD STAGE 3 WITH CR OF 1.5 DEHYDRATION URINARY RETENTION INFLUENZA TYPE A POSSIBLE SECONDARY BACTERIAL PNEUMONIA PARKINSON DISEASE HX OF COLOSTOMY DEHYDRATION PLAN HYDRATE WELL RENAL SONOGRAM-NEG FOR HYDRO RECIO ANTIBIOTICS WILL FOLLOW MARGE MALIK MD May 12, 2018 14:30
[2018-05-12 15:00] VITALS: BP 163/79
[2018-05-12 19:44] VITALS: BP 153/71
[2018-05-12] MEDS: ATORVASTATIN CALCIUM 10 MG TABLET. PO SCH (21:10)
[2018-05-12] MEDS: ENOXAPARIN 30 MG/0.3 ML SYRINGE. SQ SCH (21:20)
[2018-05-12] MEDS: INSULIN GLARGINE 300 UNITS/3 ML INSULN.PEN. SQ SCH (21:23)
[2018-05-12 23:27] VITALS: BP 155/73
[2018-05-13 03:34] VITALS: BP 175/79
[2018-05-13] MEDS: IV NORMAL SALINE 1000ML BAG 1,000 ML IV SCH ×2 (06:17→09:15)
[2018-05-13 08:00] VITALS: BP 148/67
[2018-05-13] MEDS: INSULIN LISPRO 300 UNITS/3 ML INSULN.PEN. SQ SCH ×3 (08:00→18:03)
[2018-05-13 08:05] LABS: BASO % 0 % (0-3); EOS % 0 % (0-3); HEMATOCRIT 29.5 % (39.0-53.0); HEMOGLOBIN 9.5 g/dL (13.0-17.5); LYMPH # 0.2 x10^3/uL (1.0-4.8); LYMPH % 4 % (24-48); MEAN CORPUSCULAR HEMOGLOBIN 29 pg (25-35); MEAN CORPUSCULAR HGB CONC 32 g/dL (31-37); MEAN CORPUSCULAR VOLUME 92 fL (79-100); MONO # 0.3 x10^3/uL (0.0-1.1); MONO % 7 % (0-9); NEUT # 4.2 x10^3uL (1.8-7.7); NEUT % 89 % (31-73); PLATELET COUNT 79 x10^3/uL (140-400); RED BLOOD COUNT 3.22 x10^6/uL (4.30-5.70); RED CELL DISTRIBUTION WIDTH 17.8 % (11.5-14.5); WHITE BLOOD COUNT 4.7 x10^3/uL (4.0-11.0)
[2018-05-13 08:25] LABS: CALCIUM 8.7 mg/dL (8.5-10.1); CREATININE 1.6 mg/dL (0.7-1.3); GFR 41.3; POTASSIUM 4.4 mmol/L (3.5-5.1)
[2018-05-13 08:27] LABS: CHOLESTEROL/HDL RATIO 3.9
[2018-05-13] MEDS ORDERED: predniSONE 10 MG TABLET PO SCH (09:00)
[2018-05-13] MEDS: LACTOBACILLUS RHAMNOSUS GG 1 CAPSULE. PO SCH ×2 (09:01→20:54)
[2018-05-13] MEDS: PANTOPRAZOLE 40 MG TABLET.DR. PO SCH (09:01)
[2018-05-13] MEDS: ASPIRIN ENTERIC COATED 81 MG TABLET.DR. PO SCH (09:01)
[2018-05-13] MEDS: OSELTAMIVIR 30 MG CAPSULE PO SCH ×2 (09:02→20:54)
[2018-05-13] MEDS: CARBIDOPA/LEVODOPA 25/100MG TABLET PO SCH ×4 (09:02→20:54)
[2018-05-13] MEDS: TAMSULOSIN 0.4 MG CAP.ER.24H. PO SCH (09:02)
--- NOTE | 2018-05-13 09:02 | RAD ---
PORTABLE CHEST 1V Clinical indications: CHF COMPARISON: May 10, 2018. November 07, 2017. Findings: The interstitium is chronically prominent bilaterally. There is a new developing left lung base infiltrate or atelectasis with a new small left-sided pleural effusion. The heart size, pulmonary vasculature, mediastinum and both osvaldo are stable. Impression: New developing left lung base infiltrate or atelectasis with a new small left-sided pleural effusion. Electronically signed by: Ney Parker MD (05/13/2018 8:59 AM) [facility]
[2018-05-13] MEDS: cefTRIAXone IV Push 1 GM VIAL. IVP SCH (09:14)
--- NOTE | 2018-05-13 10:03 | PDOC ---
PROGRESS NOTES Subjective Subjective feels better today Objective Objective Vital Signs Date Time Temp Pulse Resp B/P (MAP) Pulse Ox O2 Delivery O2 Flow Rate FiO2 05/13/18 08:00 97.7 80 20 148/67 (94) 97 Nasal Cannula 2.0 97.7 Intake and Output 05/13/18 07:00 Intake Total 500 ml Output Total 1700 ml Balance -1200 ml Intake Oral 500 ml Output Urine Total 1700 ml # Bowel Movements 2 Physical Exam Abdomen: Normal bowel sounds, Soft Heart: Regular rate, Normal S1 Extremities: No clubbing, No cyanosis, No edema General: Alert, Cooperative, mild distress HEENT: Atraumatic, PERRLA Lungs: Normal air movement MUSCULOSKELETAL: No deformity, No swelling Neuro: Other (CONFUSED) Psych/Mental Status: Other (CONFUSED) Skin: No significant lesion COMMENT marmolejo placed Diagnosis Problem List Problems Medical Problems: (1) Elevated troponin Status: Acute (2) Influenza A Status: Acute (3) Sepsis Status: Acute Assessment Assessment Problems Medical Problems: (1) Elevated troponin Status: Acute (2) Influenza A Status: Acute (3) Sepsis Status: Acute FINAL IMPRESSION: 1. Acute influenza A lung infection. 2. Secondary lung infection with bacterial, suspect Gram-negative. 3. Eryjg-om-aumqveg congestive heart failure.20% ejf 4. Huyhs-uy-buwbpot kidney failure.cr 1.9 5. Parkinson's disease. 6. GH/o Orthostatic Hypotension. 7. History of bypass surgery, has AICD. 8. History of colostomy. 9. Hyperlipidemia PLAN:cr 1.6 improving, continue iv fluids marmolejo placed for bladder retention sono kidneys no hydro. ECHO 20% EJF. bradycardia ,pt has AICD Tamiflue for influenza spoke with pts Pt/OT urology consult appreciated. nephrology consult appreciated Plan Plan of Care Problems Medical Problems: (1) Elevated troponin Status: Acute (2) Influenza A Status: Acute (3) Sepsis Status: Acute Comment Review of Relevant I have reviewed the following items kiana (where applicable) has been applied. Labs Laboratory Tests Test 05/12/18 12:22 05/12/18 16:43 05/12/18 20:51 05/13/18 06:00 Glucose (Fingerstick) 316 mg/dL (70-99) 344 mg/dL (70-99) 231 mg/dL (70-99) White Blood Count 4.7 x10^3/uL (4.0-11.0) Red Blood Count 3.22 x10^6/uL (4.30-5.70) Hemoglobin 9.5 g/dL (13.0-17.5) Hematocrit 29.5 % (39.0-53.0) Mean Corpuscular Volume 92 fL (79-100) Mean Corpuscular Hemoglobin 29 pg (25-35) Mean Corpuscular Hemoglobin Concent 32 g/dL (31-37) Red Cell Distribution Width 17.8 % (11.5-14.5) Platelet Count 79 x10^3/uL (140-400) Neutrophils (%) (Auto) 89 % (31-73) Lymphocytes (%) (Auto) 4 % (24-48) Monocytes (%) (Auto) 7 % (0-9) Eosinophils (%) (Auto) 0 % (0-3) Basophils (%) (Auto) 0 % (0-3) Neutrophils # (Auto) 4.2 x10^3uL (1.8-7.7) Lymphocytes # (Auto) 0.2 x10^3/uL (1.0-4.8) Monocytes # (Auto) 0.3 x10^3/uL (0.0-1.1) Eosinophils # (Auto) 0.0 x10^3/uL (0.0-0.7) Basophils # (Auto) 0.0 x10^3/uL (0.0-0.2) Sodium Level 137 mmol/L (136-145) Potassium Level 4.4 mmol/L (3.5-5.1) Chloride Level 104 mmol/L (98-107) Carbon Dioxide Level 19 mmol/L (21-32) Anion Gap 14 (6-14) Blood Urea Nitrogen 66 mg/dL (8-26) Creatinine 1.6 mg/dL (0.7-1.3) Estimated GFR (Cockcroft-Gault) 41.3 Glucose Level 193 mg/dL (70-99) Calcium Level 8.7 mg/dL (8.5-10.1) Triglycerides Level 87 mg/dL (0-150) Cholesterol Level 81 mg/dL (0-200) LDL Cholesterol, Calculated 43 mg/dL (0-100) VLDL Cholesterol, Calculated 17 mg/dL (0-40) Non-HDL Cholesterol Calculated 60 mg/dL (0-129) HDL Cholesterol 21 mg/dL (40-60) Cholesterol/HDL Ratio 3.9 Thyroid Stimulating Hormone (TSH) 0.695 uIU/mL (0.358-3.74) Test 05/13/18 08:12 Glucose (Fingerstick) 155 mg/dL (70-99) Microbiology 05/10/18 Blood Culture - Preliminary, Resulted NO GROWTH AFTER 2 DAYS Medications Current Medications Insulin Glargine (Lantus) 10 units QHS SQ Last administered on 05/12/18at 21:23 ; Start 05/12/18 at 21:00 Prednisone (Prednisone) 30 mg DAILY PO Last administered on 05/13/18at 09:02; Start 05/13/18 at 09:00 Tamsulosin HCl (Flomax) 0.4 mg DAILY PO Last administered on 05/13/18at 09:02; Start 05/12/18 at 12:00 Vitals/I & O Vital Sign - Last 24 Hours 05/12/18 05/12/18 05/12/18 05/12/18 11:00 15:00 17:39 19:44 Temp 98.2 98.1 97.6 98.2 98.1 97.6 Pulse 55 53 53 52 Resp 18 18 19 B/P (MAP) 169/79 (109) 163/79 (107) 163/79 153/71 (98) Pulse Ox 95 94 100 O2 Delivery Room Air Room Air Room Air 05/12/18 05/12/18 05/13/18 05/13/18 20:00 23:27 03:34 07:00 Temp 97.6 97.5 97.6 97.5 Pulse 49 49 Resp 19 18 B/P (MAP) 155/73 (100) 175/79 (111) Pulse Ox 96 98 O2 Delivery Room Air Room Air Room Air Room Air 05/13/18 05/13/18 07:30 08:00 Temp 97.7 97.7 Pulse 80 Resp 20 B/P (MAP) 148/67 (94) Pulse Ox 97 O2 Delivery Room Air Nasal Cannula O2 Flow Rate 2.0 Intake and Output 05/12/18 05/12/18 05/13/18 15:00 23:00 07:00 Intake Total 500 ml Output Total 800 ml 900 ml Balance -800 ml -400 ml BURTON AKBAR MD May 13, 2018 10:03
[2018-05-13] MEDS: CARVEDILOL 3.125 MG TABLET. PO SCH ×2 (10:35→17:30)
--- NOTE | 2018-05-13 10:36 | NUR ---
Spoke to Dr. Carballo about patients HR being 50 in regards to giving coreg. Dr. Carballo stated to give him his coreg since he has a PPM.
[2018-05-13 11:00] VITALS: BP 153/72
--- NOTE | 2018-05-13 11:17 | NUR ---
SS following up with discharge planning. Pt requesting home healthcare at discharge. Pt met with novelties sales representative from [facility] and is agreeable to home healthcare with [facility] at discharge. SS will continue to follow for discharge planning.
--- NOTE | 2018-05-13 11:57 | PDOC ---
Renal-Progress Notes Subjective Notes Notes FEELING BETTER History of Present Illness Hx of present illness STABLE Vitals Vitals Vital Signs Date Time Temp Pulse Resp B/P (MAP) Pulse Ox O2 Delivery O2 Flow Rate FiO2 05/13/18 10:35 50 148/67 05/13/18 08:00 97.7 20 97 Nasal Cannula 2.0 97.7 Weight Weight [ ] I.O. Intake and Output Intake and Output 05/13/18 07:00 Intake Total 500 ml Output Total 1700 ml Balance -1200 ml Intake Oral 500 ml Output Urine Total 1700 ml # Bowel Movements 2 Labs Labs Laboratory Tests Test 05/12/18 12:22 05/12/18 16:43 05/12/18 20:51 05/13/18 06:00 Glucose (Fingerstick) 316 mg/dL (70-99) 344 mg/dL (70-99) 231 mg/dL (70-99) White Blood Count 4.7 x10^3/uL (4.0-11.0) Red Blood Count 3.22 x10^6/uL (4.30-5.70) Hemoglobin 9.5 g/dL (13.0-17.5) Hematocrit 29.5 % (39.0-53.0) Mean Corpuscular Volume 92 fL (79-100) Mean Corpuscular Hemoglobin 29 pg (25-35) Mean Corpuscular Hemoglobin Concent 32 g/dL (31-37) Red Cell Distribution Width 17.8 % (11.5-14.5) Platelet Count 79 x10^3/uL (140-400) Neutrophils (%) (Auto) 89 % (31-73) Lymphocytes (%) (Auto) 4 % (24-48) Monocytes (%) (Auto) 7 % (0-9) Eosinophils (%) (Auto) 0 % (0-3) Basophils (%) (Auto) 0 % (0-3) Neutrophils # (Auto) 4.2 x10^3uL (1.8-7.7) Lymphocytes # (Auto) 0.2 x10^3/uL (1.0-4.8) Monocytes # (Auto) 0.3 x10^3/uL (0.0-1.1) Eosinophils # (Auto) 0.0 x10^3/uL (0.0-0.7) Basophils # (Auto) 0.0 x10^3/uL (0.0-0.2) Sodium Level 137 mmol/L (136-145) Potassium Level 4.4 mmol/L (3.5-5.1) Chloride Level 104 mmol/L (98-107) Carbon Dioxide Level 19 mmol/L (21-32) Anion Gap 14 (6-14) Blood Urea Nitrogen 66 mg/dL (8-26) Creatinine 1.6 mg/dL (0.7-1.3) Estimated GFR (Cockcroft-Gault) 41.3 Glucose Level 193 mg/dL (70-99) Calcium Level 8.7 mg/dL (8.5-10.1) Triglycerides Level 87 mg/dL (0-150) Cholesterol Level 81 mg/dL (0-200) LDL Cholesterol, Calculated 43 mg/dL (0-100) VLDL Cholesterol, Calculated 17 mg/dL (0-40) Non-HDL Cholesterol Calculated 60 mg/dL (0-129) HDL Cholesterol 21 mg/dL (40-60) Cholesterol/HDL Ratio 3.9 Thyroid Stimulating Hormone (TSH) 0.695 uIU/mL (0.358-3.74) Test 05/13/18 08:12 Glucose (Fingerstick) 155 mg/dL (70-99) Micro Micro Microbiology 05/10/18 Blood Culture - Preliminary, Resulted NO GROWTH AFTER 2 DAYS Review of Systems Constitutional: yes: weakness, alert, other (CONFUSED) Physical Exam General Appearance: no apparent distress Skin: warm Respiratory: decreased breath sounds Heart: S1S2 Abdomen: soft, bowel sounds present Genitourinary: bladder flat Extremities: pulses present Neurology: alert, oriented Musculoskeletal: Osteoarthritis, Other Assessment Assessment IMP AMADO WITH CR DOWN TO 1.7 CKD STAGE 3 WITH CR OF 1.5 DEHYDRATION-BETTER URINARY RETENTION INFLUENZA TYPE A POSSIBLE SECONDARY BACTERIAL PNEUMONIA PARKINSON DISEASE HX OF COLOSTOMY DEHYDRATION PLAN HYDRATE WELL RENAL SONOGRAM-NEG FOR HYDRO RECIO ANTIBIOTICS WILL FOLLOW MARGE MALIK MD May 13, 2018 11:57
--- NOTE | 2018-05-13 15:02 | PDOC ---
SUBJECTIVE Subjective Patient comfortable, sitting up in chair, catheter is not bothering him. OBJECTIVE Objective General: Pleasant, no acute distress, well groomed Eyes: conjunctiva anicteric, eyes full range of motion ENT: moist oral mucosa, normal dentition Neck: Trachea midline, no masses Respiratory: unlabored breathing, not using accessory muscles : Circ phallus with Marmolejo in place draining clear yellow urine. Device in good working order. Abdomen: nontender, somewhat distended secondary to ascites. Skin: no rashes or skin lesions on visualized skin Psych: normal mood, affect. Alert and oriented x 3. Vital Signs Vital Signs Date Time Temp Pulse Resp B/P (MAP) Pulse Ox O2 Delivery O2 Flow Rate FiO2 05/13/18 10:35 50 148/67 05/13/18 08:00 97.7 80 20 148/67 (94) 97 Nasal Cannula 2.0 97.7 05/13/18 07:30 Room Air 05/13/18 07:00 Room Air 05/13/18 03:34 97.5 49 18 175/79 (111) 98 Room Air 97.5 05/12/18 23:27 97.6 49 19 155/73 (100) 96 Room Air 97.6 05/12/18 20:00 Room Air 05/12/18 19:44 97.6 52 19 153/71 (98) 100 Room Air 97.6 05/12/18 17:39 53 163/79 I & O Intake and Output 05/13/18 07:00 Intake Total 500 ml Output Total 1700 ml Balance -1200 ml Intake Oral 500 ml Output Urine Total 1700 ml # Bowel Movements 2 PHYSICAL EXAM Physical Exam General: Pleasant, no acute distress, well groomed Eyes: conjunctiva anicteric, eyes full range of motion ENT: moist oral mucosa, normal dentition Neck: Trachea midline, no masses Respiratory: unlabored breathing, not using accessory muscles : Circ phallus with Marmolejo in place draining clear yellow urine. Device in good working order. Abdomen: nontender, somewhat distended secondary to ascites. Skin: no rashes or skin lesions on visualized skin Psych: normal mood, affect. Alert and oriented x 3. ASSESSMENT/PLAN Assessment/Plan Urinary retention: Keep Marmolejo in place for 3-4 days to allow for healing/ decompression. For now, nursing to maintain marmolejo catheter Encourage ambulation, good bowel program. Continue Flomax daily. All questions answered. Will check with patient on Friday to see if he is willing to do a voiding trial at that time. COMMENT Lab Laboratory Tests Test 05/12/18 16:43 05/12/18 20:51 05/13/18 06:00 05/13/18 08:12 Glucose (Fingerstick) 344 mg/dL (70-99) 231 mg/dL (70-99) 155 mg/dL (70-99) White Blood Count 4.7 x10^3/uL (4.0-11.0) Red Blood Count 3.22 x10^6/uL (4.30-5.70) Hemoglobin 9.5 g/dL (13.0-17.5) Hematocrit 29.5 % (39.0-53.0) Mean Corpuscular Volume 92 fL (79-100) Mean Corpuscular Hemoglobin 29 pg (25-35) Mean Corpuscular Hemoglobin Concent 32 g/dL (31-37) Red Cell Distribution Width 17.8 % (11.5-14.5) Platelet Count 79 x10^3/uL (140-400) Neutrophils (%) (Auto) 89 % (31-73) Lymphocytes (%) (Auto) 4 % (24-48) Monocytes (%) (Auto) 7 % (0-9) Eosinophils (%) (Auto) 0 % (0-3) Basophils (%) (Auto) 0 % (0-3) Neutrophils # (Auto) 4.2 x10^3uL (1.8-7.7) Lymphocytes # (Auto) 0.2 x10^3/uL (1.0-4.8) Monocytes # (Auto) 0.3 x10^3/uL (0.0-1.1) Eosinophils # (Auto) 0.0 x10^3/uL (0.0-0.7) Basophils # (Auto) 0.0 x10^3/uL (0.0-0.2) Sodium Level 137 mmol/L (136-145) Potassium Level 4.4 mmol/L (3.5-5.1) Chloride Level 104 mmol/L (98-107) Carbon Dioxide Level 19 mmol/L (21-32) Anion Gap 14 (6-14) Blood Urea Nitrogen 66 mg/dL (8-26) Creatinine 1.6 mg/dL (0.7-1.3) Estimated GFR (Cockcroft-Gault) 41.3 Glucose Level 193 mg/dL (70-99) Calcium Level 8.7 mg/dL (8.5-10.1) Triglycerides Level 87 mg/dL (0-150) Cholesterol Level 81 mg/dL (0-200) LDL Cholesterol, Calculated 43 mg/dL (0-100) VLDL Cholesterol, Calculated 17 mg/dL (0-40) Non-HDL Cholesterol Calculated 60 mg/dL (0-129) HDL Cholesterol 21 mg/dL (40-60) Cholesterol/HDL Ratio 3.9 Thyroid Stimulating Hormone (TSH) 0.695 uIU/mL (0.358-3.74) Test 05/13/18 12:06 Glucose (Fingerstick) 222 mg/dL (70-99) TOMY HANLEY APRN May 13, 2018 15:02
--- NOTE | 2018-05-13 16:40 | NUR ---
Patient was visiting his ailing brother in the ICU. Unable to give Carbidopa/Levadopa at 1300.
[2018-05-13 16:45] VITALS: BP 163/75
[2018-05-13 19:52] VITALS: BP 165/78
[2018-05-13] MEDS: ENOXAPARIN 40 MG/0.4 ML SYRINGE. SQ SCH (20:53)
[2018-05-13] MEDS: ATORVASTATIN CALCIUM 10 MG TABLET. PO SCH (20:54)
[2018-05-13] MEDS: INSULIN GLARGINE 300 UNITS/3 ML INSULN.PEN. SQ SCH (21:08)
[2018-05-13 23:19] VITALS: BP 174/76
--- NOTE | 2018-05-13 23:31 | NUR ---
Pt had an episode of confusion at from 2030 to about 2230. Pt was aware of this fact and responded briefly to repeated re-orientation, but this RN called his son at his request. Pt is not experiencing Parkinson's hallucinations, but pt has described these to me from the recent past. Family visited Roger dougherty as they were here at [facility] in the ICU as his brother has ladonna in the ICU. Patient is NOT aware of this and family has asked that he NOT be told until his visits in the morning to inform him.
[2018-05-14 00:11] LABS: HEMOGLOBIN A1C 7.4 % (4.8-5.6)
[2018-05-14 02:34] VITALS: BP 160/74
[2018-05-14 05:10] LABS: CALCIUM 8.5 mg/dL (8.5-10.1); CREATININE 1.8 mg/dL (0.7-1.3); POTASSIUM 4.5 mmol/L (3.5-5.1)
[2018-05-14 07:00] VITALS: BP 162/77
[2018-05-14] MEDS: IV NORMAL SALINE 1000ML BAG 1,000 ML IV SCH ×2 (09:00→11:01)
[2018-05-14] MEDS ORDERED: predniSONE 10 MG TABLET PO ONE (09:00)
[2018-05-14] MEDS: PANTOPRAZOLE 40 MG TABLET.DR. PO SCH (09:01)
[2018-05-14] MEDS: OSELTAMIVIR 30 MG CAPSULE PO SCH ×2 (09:01→21:26)
[2018-05-14] MEDS: TAMSULOSIN 0.4 MG CAP.ER.24H. PO SCH (09:01)
[2018-05-14] MEDS: CARBIDOPA/LEVODOPA 25/100MG TABLET PO SCH ×4 (09:01→21:26)
[2018-05-14] MEDS: LACTOBACILLUS RHAMNOSUS GG 1 CAPSULE. PO SCH ×2 (09:01→21:25)
[2018-05-14] MEDS: ASPIRIN ENTERIC COATED 81 MG TABLET.DR. PO SCH (09:01)
[2018-05-14] MEDS: cefTRIAXone IV Push 1 GM VIAL. IVP SCH (09:01)
[2018-05-14] MEDS: CARVEDILOL 3.125 MG TABLET. PO SCH (09:02)
[2018-05-14] MEDS: INSULIN LISPRO 300 UNITS/3 ML INSULN.PEN. SQ SCH ×3 (09:02→17:56)
[2018-05-14] MEDS ORDERED: BENZOCAINE/MENTHOL LOZENGE. PO PRN (09:45)
--- NOTE | 2018-05-14 10:02 | PDOC ---
PROGRESS NOTES Subjective Subjective mild confusion today Objective Objective Vital Signs Date Time Temp Pulse Resp B/P (MAP) Pulse Ox O2 Delivery O2 Flow Rate FiO2 05/14/18 09:02 52 162/77 05/14/18 07:00 96.6 20 97 Room Air 96.6 05/13/18 08:00 2.0 Intake and Output 05/14/18 07:00 Intake Total 2290 ml Output Total 1350 ml Balance 940 ml Intake Oral 2290 ml Output Urine Total 1225 ml Stool Total 125 ml Physical Exam Abdomen: Soft, Other (distended, colostomy bag+) Heart: Regular rate, Normal S1 Extremities: No clubbing, No cyanosis, No edema General: Alert, Cooperative, mild distress HEENT: Atraumatic, PERRLA Lungs: Normal air movement MUSCULOSKELETAL: No deformity, No swelling Neuro: Normal speech, Other (CONFUSED) Psych/Mental Status: Mood NL, Other (CONFUSED) Skin: No significant lesion COMMENT marmolejo placed Diagnosis Problem List Problems Medical Problems: (1) Elevated troponin Status: Acute (2) Influenza A Status: Acute (3) Sepsis Status: Acute Assessment Assessment Problems Medical Problems: (1) Elevated troponin Status: Acute (2) Influenza A Status: Acute (3) Sepsis Status: Acute FINAL IMPRESSION: Abdominal distention 1. Acute influenza A lung infection. 2. Secondary lung infection with bacterial, suspect Gram-negative. 3. Ysirc-la-grixuyk congestive heart failure.20% ejf 4. Nkacg-rc-tjoeyef kidney failure.cr 1.9 5. Parkinson's disease. 6. GH/o Orthostatic Hypotension. 7. History of bypass surgery, has AICD. 8. History of colostomy. 9. Hyperlipidemia PLAN:KUB today for abd distention Ascites on abd sono, GI consult. cr 1.8 improving, continue iv fluids marmolejo placed for bladder retention sono kidneys no hydro. ECHO 20% EJF. bradycardia ,pt has AICD Tamiflue for influenza spoke with RN Pt/OT urology consult appreciated. nephrology consult appreciated Plan Plan of Care Problems Medical Problems: (1) Elevated troponin Status: Acute (2) Influenza A Status: Acute (3) Sepsis Status: Acute Comment Review of Relevant I have reviewed the following items kiana (where applicable) has been applied. Labs Laboratory Tests Test 05/13/18 12:06 05/13/18 16:55 05/13/18 20:32 05/14/18 04:15 Glucose (Fingerstick) 222 mg/dL (70-99) 229 mg/dL (70-99) 281 mg/dL (70-99) Sodium Level 135 mmol/L (136-145) Potassium Level 4.5 mmol/L (3.5-5.1) Chloride Level 101 mmol/L (98-107) Carbon Dioxide Level 19 mmol/L (21-32) Anion Gap 15 (6-14) Blood Urea Nitrogen 67 mg/dL (8-26) Creatinine 1.8 mg/dL (0.7-1.3) Estimated GFR (Cockcroft-Gault) 36.0 Glucose Level 342 mg/dL (70-99) Calcium Level 8.5 mg/dL (8.5-10.1) Test 05/14/18 07:27 Glucose (Fingerstick) 266 mg/dL (70-99) Microbiology 05/10/18 Blood Culture - Preliminary, Resulted NO GROWTH AFTER 3 DAYS Medications Current Medications Enoxaparin Sodium (Lovenox 40mg Syringe) 40 mg QHS SQ Last administered on 05/13at 20:53; Start 05/13/18 at 21:00 Oseltamivir Phosphate (Tamiflu) 30 mg BID PO Last administered on 05/14/18at 09: 01; Start 05/13/18 at 21:00; Stop 05/15/18 at 20:59 Prednisone (Prednisone) 10 mg 1X ONCE PO Last administered on 05/14/18at 09:01 ; Start 05/14/18 at 09:00; Stop 05/14/18 at 09:01; Status DC Throat Lozenges (Cepacol Sore Throat Lozenge) 1 shailesh PRN Q2HRS PRN PO SORE THROAT Last administered on 05/14/18at 09:45; Start 05/14/18 at 09:45 Vitals/I & O Vital Sign - Last 24 Hours 05/13/18 05/13/18 05/13/18 05/13/18 10:35 11:00 15:00 16:45 Temp 96.3 96.3 Pulse 50 50 53 Resp 20 20 B/P (MAP) 148/67 153/72 (99) 163/75 (104) Pulse Ox 96 97 O2 Delivery Room Air Room Air Room Air 205/13/18 05/13/18 05/13/18 17:30 19:52 20:16 23:19 Temp 97.8 97.5 97.8 97.5 Pulse 53 57 53 Resp 20 18 B/P (MAP) 163/75 165/78 (107) 174/76 (108) Pulse Ox 98 96 O2 Delivery Room Air Room Air Room Air 05/14/18 05/14/18 05/14/18 02:34 07:00 09:02 Temp 97.4 96.6 97.4 96.6 Pulse 53 52 52 Resp 18 20 B/P (MAP) 160/74 (102) 162/77 (105) 162/77 Pulse Ox 96 97 O2 Delivery Room Air Room Air Intake and Output 05/13/18 05/13/18 05/14/18 15:00 23:00 07:00 Intake Total 1250 ml 600 ml 440 ml Output Total 750 ml 600 ml Balance 500 ml 600 ml -160 ml BURTON AKBAR MD May 14, 2018 10:02
--- NOTE | 2018-05-14 11:04 | PDOC ---
Renal-Progress Notes Subjective Notes Notes STABLE History of Present Illness Hx of present illness NONE Vitals Vitals Vital Signs Date Time Temp Pulse Resp B/P (MAP) Pulse Ox O2 Delivery O2 Flow Rate FiO2 05/14/18 09:02 52 162/77 05/14/18 07:45 Room Air 05/14/18 07:00 96.6 20 97 96.6 05/13/18 08:00 2.0 Weight Weight [ ] I.O. Intake and Output Intake and Output 05/14/18 06:59 Intake Total 2290 ml Output Total 1350 ml Balance 940 ml Intake Oral 2290 ml Output Urine Total 1225 ml Stool Total 125 ml Labs Labs Laboratory Tests Test 05/13/18 12:06 05/13/18 16:55 05/13/18 20:32 05/14/18 04:15 Glucose (Fingerstick) 222 mg/dL (70-99) 229 mg/dL (70-99) 281 mg/dL (70-99) Sodium Level 135 mmol/L (136-145) Potassium Level 4.5 mmol/L (3.5-5.1) Chloride Level 101 mmol/L (98-107) Carbon Dioxide Level 19 mmol/L (21-32) Anion Gap 15 (6-14) Blood Urea Nitrogen 67 mg/dL (8-26) Creatinine 1.8 mg/dL (0.7-1.3) Estimated GFR (Cockcroft-Gault) 36.0 Glucose Level 342 mg/dL (70-99) Calcium Level 8.5 mg/dL (8.5-10.1) Test 05/14/18 07:27 Glucose (Fingerstick) 266 mg/dL (70-99) Micro Micro Microbiology 05/10/18 Blood Culture - Preliminary, Resulted NO GROWTH AFTER 3 DAYS Review of Systems Constitutional: yes: weakness, alert, other (CONFUSED) Physical Exam General Appearance: no apparent distress Skin: warm Respiratory: decreased breath sounds Heart: S1S2 Abdomen: soft, bowel sounds present Genitourinary: bladder flat Extremities: pulses present Neurology: alert, oriented Musculoskeletal: Osteoarthritis, Other Assessment Assessment IMP AMADO WITH CR OF 1.8 CKD STAGE 3 WITH CR OF 1.5 DEHYDRATION-BETTER URINARY RETENTION INFLUENZA TYPE A POSSIBLE SECONDARY BACTERIAL PNEUMONIA PARKINSON DISEASE HX OF COLOSTOMY DEHYDRATION-RESOLVED FLUID RETENTION CURRENTLY PLAN STOP IVF'S LASIX ONCE RENAL SONOGRAM-NEG FOR HYDRO RECIO ANTIBIOTICS D/W ATTENDING WILL FOLLOW MARGE MALIK MD May 14, 2018 11:04
[2018-05-14 11:10] VITALS: BP 151/77
[2018-05-14] MEDS ORDERED: FUROSEMIDE 40 MG/4 ML VIAL. IVP ONE (12:30)
--- NOTE | 2018-05-14 14:08 | PDOC ---
CARDIO Progress Notes Date and Time Date of Service 05/14/2018 Time of Evaluation 1100 Subjective Subjective: No Chest Pain, No shortness of breath (on RA), No Palpitations, Other (sitting up tolerated transfer with OT) Vitals Vitals Vital Signs Date Time Temp Pulse Resp B/P (MAP) Pulse Ox O2 Delivery O2 Flow Rate FiO2 05/14/18 11:10 96.3 51 20 151/77 (101) 97 Room Air 96.3 05/13/18 08:00 2.0 Weight Weight [ ] Input and Output Intake and Output Intake and Output 05/14/18 06:59 Intake Total 2290 ml Output Total 1350 ml Balance 940 ml Intake Oral 2290 ml Output Urine Total 1225 ml Stool Total 125 ml Laboratory Labs Laboratory Tests Test 05/13/18 16:55 05/13/18 20:32 05/14/18 04:15 05/14/18 07:27 Glucose (Fingerstick) 229 mg/dL (70-99) 281 mg/dL (70-99) 266 mg/dL (70-99) Sodium Level 135 mmol/L (136-145) Potassium Level 4.5 mmol/L (3.5-5.1) Chloride Level 101 mmol/L (98-107) Carbon Dioxide Level 19 mmol/L (21-32) Anion Gap 15 (6-14) Blood Urea Nitrogen 67 mg/dL (8-26) Creatinine 1.8 mg/dL (0.7-1.3) Estimated GFR (Cockcroft-Gault) 36.0 Glucose Level 342 mg/dL (70-99) Calcium Level 8.5 mg/dL (8.5-10.1) Test 05/14/18 11:43 Glucose (Fingerstick) 221 mg/dL (70-99) Microbiology Micro Microbiology 05/10/18 Blood Culture - Preliminary, Resulted NO GROWTH AFTER 4 DAYS Review of Systems Constitutional: yes: weakness, alert, other (CONFUSED) Physical Exam HEENT: Neck Supple W Full Motion Chest: Symmetric LUNGS: Other (diminished bases) Heart: RRR (AV paced) Abdomen: Soft N/T, Other (distended, scrotal edema) Extremities: Other (2+ bilateral LE pitting edema) Neurology: alert, oriented, follow commands Assessment Assessment 1. Influenza A; doing well. On tamiflu 2. NSTEMI; highest 0.103. type 2 with CHF, AMADO 3. Acute on chronic combined systolic/diastolic CHF; LVEF 20%: no SOA, notable for peripheral edema 4. CAD s/p remote CABG. CP free 4. ICM; s/p bi-V AICD (Biotronik). AV paced 5. Hypertension; labile 6. Hyperlipidemia; statin 7. AMADO on CKD3: noted with dehydration, improving. Cr near baseline. Nephrology following 8. Urinary retention/scrotal-penile edema; s/p Valles per urology 9. Valvular insufficiency: mod to severe TR, mild MR, and mild to mod 10. Parkinson's disease Recommendations Continue secondary prevention measures Entresto on hold due to AMADO. Increase coreg for now. Lasix to restart. BMP and Mg in AM. PHUC SUBRAMANIAN APRN May 14, 2018 14:08
--- NOTE | 2018-05-14 14:50 | RAD ---
KUB History: Abdominal distention Comparison: October 27, 2016 Findings: 2 supine AP views of the abdomen are submitted. Exam is insufficient for the evaluation for free air. There is scattered gas in the large and small bowel, not considered significantly dilated. There has been vertebroplasty at L1. There has been cholecystectomy. There is left hip arthroplasty. There is vascular calcification. Calcifications in the pelvis of the left are probably due to phleboliths. Impression: 1. There is scattered gas in large and small bowel although not considered significantly dilated. Electronically signed by: Saeed Leblanc MD (05/14/2018 2:47 PM) [id number]
--- NOTE | 2018-05-14 14:54 | PDOC2 ---
DUNCAN SLAUGHTER 05/14/18 1454: GI CONSULT Reason For Consult: Abd distention HPI: HPI: 87 y/o male admitted earlier this week w/ influenza A, NSTEMI, AMADO, and urinary retention. Noted w/ abdominal distention and we were asked to see for same. H/ o lower GI bleed w/ left colon resection and ostomy - has air in ostomy bag, unclear when last passed stool. Tolerating PO w/o n/v and denies abd pain. KUB is pending, previous renal US noted moderate ascites. On date of admission , bili was 1.6 w/ AST 62, ALT 18, and Alk Phos 122. BNP was >23492. Chronic anemia and thrombocytopenia. Iron deficient in 2018, retic count normal then. Has had some confusion (asks me if he "should just hide puller here") but also able to answer questions. PMH: PMH: CAD s/p CABG, ICM, CHF, HTN, DM, CKD, diverticulosis, adenomatous colon polyp, GI bleed w/ embolization and left colon resection w/ ostomy, Parkinson's, tonsillectomy, cholecystectomy, left hip replacement, kyphoplasty, right finger amputation FH: Family History: No pertinent hx Social History: ALCOHOL: none Drugs: None ROS: GEN: Denies fevers, chills, sweats HEENT: Denies blurred vision, sore throat CV: Denies chest pain RESP: Denies shortness of air, cough GI: Per HPI : Denies hematuria, dysuria ENDO: Denies weight changes NEURO: Denies confusion, dizziness MSK: Denies weakness, joint pain/swelling SKIN: Denies jaundice, pruritus Vitals: Vitals: Vital Signs Date Time Temp Pulse Resp B/P (MAP) Pulse Ox O2 Delivery O2 Flow Rate FiO2 05/14/18 11:10 96.3 51 20 151/77 (101) 97 Room Air 96.3 05/13/18 08:00 2.0 Labs: Labs: Laboratory Tests Test 05/13/18 16:55 05/13/18 20:32 05/14/18 04:15 05/14/18 07:27 Glucose (Fingerstick) 229 mg/dL (70-99) 281 mg/dL (70-99) 266 mg/dL (70-99) Sodium Level 135 mmol/L (136-145) Potassium Level 4.5 mmol/L (3.5-5.1) Chloride Level 101 mmol/L (98-107) Carbon Dioxide Level 19 mmol/L (21-32) Anion Gap 15 (6-14) Blood Urea Nitrogen 67 mg/dL (8-26) Creatinine 1.8 mg/dL (0.7-1.3) Estimated GFR (Cockcroft-Gault) 36.0 Glucose Level 342 mg/dL (70-99) Calcium Level 8.5 mg/dL (8.5-10.1) Test 05/14/18 11:43 Glucose (Fingerstick) 221 mg/dL (70-99) Allergies: Coded Allergies: No Known Drug Allergies (Unverified , 05/10/18) Medications: Current Medications Medications (Trade) Dose Ordered Sig/Romel Route PRN Reason Start Time Stop Time Status Last Admin Dose Admin Prednisone (Prednisone) 10 mg 1X ONCE PO 05/14/18 09:00 05/14/18 09:01 DC 05/14/18 09:01 Enoxaparin Sodium (Lovenox 40mg Syringe) 40 mg QHS SQ 05/13/18 21:00 05/13/18 20:53 Oseltamivir Phosphate (Tamiflu) 30 mg BID PO 05/13/18 21:00 05/15/18 20:59 05/14/18 09:01 Throat Lozenges (Cepacol Sore Throat Lozenge) 1 shailesh PRN Q2HRS PRN PO SORE THROAT 05/14/18 09:45 05/14/18 09:45 Furosemide (Lasix) 40 mg 1X ONCE IVP 05/14/18 12:30 05/14/18 12:31 DC 05/14/18 12:08 Imaging: Imaging: CXR 05/10 IMPRESSION: Mild interstitial opacities in both lungs, to some extent present previously, may be due to a combination of chronic fibrosis and mild interstitial infiltrates/edema. Renal US 05/11 IMPRESSION: 1. Limited exam due to patient immobility, bowel gas and a left colostomy bag. The left kidney and left renal artery are not adequately seen. 2. Grossly unremarkable grayscale evaluation of the right kidney and no Doppler evidence of right renal artery stenosis. 3. Distended urinary bladder. 4. Moderate abdominal ascites. CXR 05/13 Impression: New developing left lung base infiltrate or atelectasis with anew small left-sided pleural effusion. PE: GEN: NAD, up to chair HEENT: Atraumatic, PERRL LUNGS: diminished anteriorly HEART: RRR +murm ABD: NABS, distended and tight, left-sided ostomy w/ air, also note scrotal edema EXTREMITY: BLE edema SKIN: No rashes, no jaundice NEURO/PSYCH: intermittent confusion A/P: A/P: +influenza A, NSTEMI, AMADO, urinary retention Abd distention w/ ascites H/o GI bleed s/p left colon resection w/ ostomy Chronic anemia and thrombocytopenia CRC screen, h/o adenomatous polyp, diverticulosis S/p cholecystectomy H/o CAD, CHF, NICM, CKD, Parkinson's -- Will ask for paracentesis tomorrow, check doppler US, and check additional labs. Await KUB report. ENID AMADO MD 05/14/18 1454: DUNCAN SLAUGHTER May 14, 2018 14:54 ENID AMADO MD May 14, 2018 14:54
[2018-05-14 15:08] VITALS: BP 150/64
[2018-05-14] MEDS: CARVEDILOL 6.25 MG TABLET. PO SCH (17:47)
[2018-05-14 18:20] LABS: PROTHROMBIN TIME PATIENT 17.6 SEC (11.7-14.0)
[2018-05-14 19:19] VITALS: BP 135/68
[2018-05-14] MEDS: ENOXAPARIN 40 MG/0.4 ML SYRINGE. SQ SCH (21:25)
[2018-05-14] MEDS: ATORVASTATIN CALCIUM 10 MG TABLET. PO SCH (21:25)
[2018-05-14] MEDS: INSULIN GLARGINE 300 UNITS/3 ML INSULN.PEN. SQ SCH (21:31)
[2018-05-14 22:17] VITALS: BP 158/61
[2018-05-15 03:18] VITALS: BP 152/65
[2018-05-15 07:12] LABS: BASO % 0 % (0-3); EOS # 0.1 x10^3/uL (0.0-0.7); EOS % 1 % (0-3); HEMATOCRIT 30.8 % (39.0-53.0); HEMOGLOBIN 9.7 g/dL (13.0-17.5); LYMPH # 0.5 x10^3/uL (1.0-4.8); LYMPH % 8 % (24-48); MEAN CORPUSCULAR HEMOGLOBIN 29 pg (25-35); MEAN CORPUSCULAR HGB CONC 32 g/dL (31-37); MEAN CORPUSCULAR VOLUME 93 fL (79-100); MONO # 0.6 x10^3/uL (0.0-1.1); MONO % 10 % (0-9); NEUT % 81 % (31-73); PLATELET COUNT 88 x10^3/uL (140-400); RED BLOOD COUNT 3.32 x10^6/uL (4.30-5.70); RED CELL DISTRIBUTION WIDTH 17.9 % (11.5-14.5); WHITE BLOOD COUNT 6.2 x10^3/uL (4.0-11.0)
[2018-05-15] MEDS: PANTOPRAZOLE 40 MG TABLET.DR. PO SCH (07:30)
[2018-05-15 07:35] VITALS: BP 153/74
[2018-05-15 07:35] LABS: CALCIUM 8.6 mg/dL (8.5-10.1); CREATININE 1.5 mg/dL (0.7-1.3); GFR 44.5; POTASSIUM 4.3 mmol/L (3.5-5.1)
[2018-05-15 07:41] LABS: ALBUMIN 2.8 g/dL (3.4-5.0); DIRECT BILIRUBIN 0.3 mg/dL (0.0-0.2); TOTAL BILIRUBIN 0.7 mg/dL (0.2-1.0); TOTAL PROTEIN 6.5 g/dL (6.4-8.2)
--- NOTE | 2018-05-15 07:43 | PDOC ---
SUBJECTIVE Subjective Patient is sleepy, not very communicative. Was confused yesterday and last night per attending RN. He is going to have a paracentesis today. OBJECTIVE Objective Physical Exam: General appearance: Sleeping, not very communicative, appears comfortable Head: Normocephalic, without obvious abnormality Eyes: conjunctivae/corneas clear. PERRL, EOM's intact. Fundi benign Lungs: Regular respirations, occ cough. Abdomen: soft, non-tender. No masses, no organomegaly Pelvic:+ Valles in place draining clear yellow urine. Device in good working order. Vital Signs Vital Signs Date Time Temp Pulse Resp B/P (MAP) Pulse Ox O2 Delivery O2 Flow Rate FiO2 05/15/18 03:18 97.7 55 22 152/65 (94) 95 Room Air 97.7 05/14/18 22:17 97.2 59 22 158/61 (93) 97 Room Air 97.2 05/14/18 20:00 Room Air 05/14/18 19:19 97.1 54 22 135/68 (90) 96 Room Air 97.1 05/14/18 17:47 52 150/64 05/14/18 15:08 96.6 52 22 150/64 (92) 94 Room Air 96.6 05/14/18 11:10 96.3 51 20 151/77 (101) 97 Room Air 96.3 05/14/18 09:02 52 162/77 05/14/18 07:45 Room Air I & O Intake and Output 05/15/18 06:59 Intake Total 1525 ml Output Total 2100 ml Balance -575 ml Intake Oral 1300 ml IV Total 225 ml Output Urine Total 1700 ml Stool Total 400 ml PHYSICAL EXAM Physical Exam Physical Exam: General appearance: Sleeping, not very communicative, appears comfortable Head: Normocephalic, without obvious abnormality Eyes: conjunctivae/corneas clear. PERRL, EOM's intact. Fundi benign Lungs: Regular respirations, occ cough. Abdomen: soft, non-tender. . No masses, no organomegaly Pelvic:+ Valles in place draining clear yellow urine. Device in good working order. ASSESSMENT/PLAN Assessment/Plan In light of recent confusion, the fact that patient is very sleepy and has paracentesis today, will defer voiding trial. Continue Flomax Continue good bowel program, ambulation. Proceed for paracentesis. ABD US done this am at midnight, results pending. Dr. Logan to round on patient over the weekend. Problems: (1) Urinary retention (2) Valles catheter in place COMMENT Lab Laboratory Tests Test 05/14/18 11:43 05/14/18 17:02 05/14/18 18:00 05/15/18 06:50 Glucose (Fingerstick) 221 mg/dL (70-99) 186 mg/dL (70-99) Prothrombin Time 17.6 SEC (11.7-14.0) Prothromb Time International Ratio 1.5 (0.8-1.1) Ammonia < 10 mcmol/L (11-34) Hepatitis A IgM Antibody Nonreactive (Nonreactive) Hepatitis B Surface Antigen Nonreactive (Nonreactive) Hepatitis B Core IgM Antibody Nonreactive (Nonreactive) Hepatitis C IgG Antibody Nonreactive (Nonreactive) White Blood Count 6.2 x10^3/uL (4.0-11.0) Red Blood Count 3.32 x10^6/uL (4.30-5.70) Hemoglobin 9.7 g/dL (13.0-17.5) Hematocrit 30.8 % (39.0-53.0) Mean Corpuscular Volume 93 fL (79-100) Mean Corpuscular Hemoglobin 29 pg (25-35) Mean Corpuscular Hemoglobin Concent 32 g/dL (31-37) Red Cell Distribution Width 17.9 % (11.5-14.5) Platelet Count 88 x10^3/uL (140-400) Neutrophils (%) (Auto) 81 % (31-73) Lymphocytes (%) (Auto) 8 % (24-48) Monocytes (%) (Auto) 10 % (0-9) Eosinophils (%) (Auto) 1 % (0-3) Basophils (%) (Auto) 0 % (0-3) Neutrophils # (Auto) 5.0 x10^3uL (1.8-7.7) Lymphocytes # (Auto) 0.5 x10^3/uL (1.0-4.8) Monocytes # (Auto) 0.6 x10^3/uL (0.0-1.1) Eosinophils # (Auto) 0.1 x10^3/uL (0.0-0.7) Basophils # (Auto) 0.0 x10^3/uL (0.0-0.2) Sodium Level 139 mmol/L (136-145) Potassium Level 4.3 mmol/L (3.5-5.1) Chloride Level 104 mmol/L (98-107) Carbon Dioxide Level 23 mmol/L (21-32) Anion Gap 12 (6-14) Blood Urea Nitrogen 64 mg/dL (8-26) Creatinine 1.5 mg/dL (0.7-1.3) Estimated GFR (Cockcroft-Gault) 44.5 Glucose Level 113 mg/dL (70-99) Calcium Level 8.6 mg/dL (8.5-10.1) Magnesium Level 2.4 mg/dL (1.8-2.4) TOMY HANLEY APRN May 15, 2018 07:43
[2018-05-15] MEDS: CARVEDILOL 6.25 MG TABLET. PO SCH ×2 (08:00→17:28)
[2018-05-15] MEDS: INSULIN LISPRO 300 UNITS/3 ML INSULN.PEN. SQ SCH ×3 (08:00→17:00)
--- NOTE | 2018-05-15 08:22 | RAD ---
Duplex ultrasound, hepatic vasculature 05/15/2018 INDICATION: New onset ascites. COMPARISON STUDY: None Discussion: Ultrasound evaluation of hepatic vasculature was performed including color Doppler imaging spectral analysis. Main, left, and right portal veins are patent. Portal venous flows in the normal (hepatopedal) direction. Portal vein velocity is estimated at 33 cm/s. Main portal vein diameter measures 1.8 cm, which is somewhat prominent. Left right and middle hepatic veins are grossly patent. Waveform morphology is mildly abnormal. The appearance is somewhat nonspecific could relate to right heart failure, or tricuspid regurgitation. The splenic vein is not visualized Hepatic arteries are somewhat poorly visualized but appear grossly patent. Also noted is ascites, and right pleural effusion. Small renal cysts noted on the right. IMPRESSION: 1. Patent portal vein, mildly prominent in diameter which is nonspecific. Portal venous velocity not reduced. 2. Patent hepatic veins. Mildly abnormal hepatic venous waveform is seen. The appearance is nonspecific and could relate to right heart failure or tricuspid regurgitation. Electronically signed by: Johnny Turner MD (05/15/2018 8:19 AM) [id number]
[2018-05-15] MEDS ORDERED: FUROSEMIDE 40 MG/4 ML VIAL. IVP ONE (08:30)
[2018-05-15] MEDS: OSELTAMIVIR 30 MG CAPSULE PO SCH (09:00)
[2018-05-15] MEDS: CARBIDOPA/LEVODOPA 25/100MG TABLET PO SCH ×4 (09:00→21:21)
[2018-05-15] MEDS: LACTOBACILLUS RHAMNOSUS GG 1 CAPSULE. PO SCH ×2 (09:00→21:21)
[2018-05-15] MEDS: TAMSULOSIN 0.4 MG CAP.ER.24H. PO SCH (09:00)
[2018-05-15] MEDS: ASPIRIN ENTERIC COATED 81 MG TABLET.DR. PO SCH (09:00)
[2018-05-15] MEDS ORDERED: FUROSEMIDE 40 MG TABLET. PO SCH (09:00)
--- NOTE | 2018-05-15 09:58 | PDOC ---
Subjective: Subjective: and daughter present - he has been sleeping. His brother in ICU on 05/13 - they think he might be a little confused from that experience; however, some intermittent confusion "episodes" are "normal with his Parkinson's." Objective: Objective: Reviewed w/ RN - stool from ostomy yesterday, abd softer. Vital Signs: Vital Signs Date Time Temp Pulse Resp B/P (MAP) Pulse Ox O2 Delivery O2 Flow Rate FiO2 05/15/18 03:18 97.7 55 22 152/65 (94) 95 Room Air 97.7 Labs: Laboratory Tests Test 05/14/18 11:43 05/14/18 17:02 05/14/18 18:00 05/15/18 06:50 Glucose (Fingerstick) 221 mg/dL 186 mg/dL Prothrombin Time 17.6 SEC Prothromb Time International Ratio 1.5 Ammonia < 10 mcmol/L Hepatitis A IgM Antibody Nonreactive Hepatitis B Surface Antigen Nonreactive Hepatitis B Core IgM Antibody Nonreactive Hepatitis C IgG Antibody Nonreactive White Blood Count 6.2 x10^3/uL Red Blood Count 3.32 x10^6/uL Hemoglobin 9.7 g/dL Hematocrit 30.8 % Mean Corpuscular Volume 93 fL Mean Corpuscular Hemoglobin 29 pg Mean Corpuscular Hemoglobin Concent 32 g/dL Red Cell Distribution Width 17.9 % Platelet Count 88 x10^3/uL Neutrophils (%) (Auto) 81 % Lymphocytes (%) (Auto) 8 % Monocytes (%) (Auto) 10 % Eosinophils (%) (Auto) 1 % Basophils (%) (Auto) 0 % Neutrophils # (Auto) 5.0 x10^3uL Lymphocytes # (Auto) 0.5 x10^3/uL Monocytes # (Auto) 0.6 x10^3/uL Eosinophils # (Auto) 0.1 x10^3/uL Basophils # (Auto) 0.0 x10^3/uL Sodium Level 139 mmol/L Potassium Level 4.3 mmol/L Chloride Level 104 mmol/L Carbon Dioxide Level 23 mmol/L Anion Gap 12 Blood Urea Nitrogen 64 mg/dL Creatinine 1.5 mg/dL Estimated GFR (Cockcroft-Gault) 44.5 Glucose Level 113 mg/dL Calcium Level 8.6 mg/dL Magnesium Level 2.4 mg/dL Total Bilirubin 0.7 mg/dL Direct Bilirubin 0.3 mg/dL Aspartate Amino Transf (AST/SGOT) 16 U/L Alanine Aminotransferase (ALT/SGPT) 12 U/L Alkaline Phosphatase 101 U/L Total Protein 6.5 g/dL Albumin 2.8 g/dL Imaging: Abd doppler 05/15 IMPRESSION: 1. Patent portal vein, mildly prominent in diameter which is nonspecific. Portal venous velocity not reduced. 2. Patent hepatic veins. Mildly abnormal hepatic venous waveform is seen. The appearance is nonspecific and could relate to right heart failure or tricuspid regurgitation. PE: GEN: NAD LUNGS: clear anteriorly HEART: bradycardic ABD: seems softer today (though laying down instead of sitting in chair), left- sided ostomy EXTREMITY: No edema NEURO/PSYCH: sleeping - did not awaken during exam A/P: +influenza A, NSTEMI, AMADO, urinary retention (has Valles) Abd distention w/ ascites - new S/p left colon resection w/ ostomy -- ?distention better today - had a stool Unclear etiology of ascites - ?heart failure LFTs and ammonia WNL, Hep serologies neg. INR elevated (1.5 - h/o this along w / anemia and thrombocytopenia which are stable). Doppler as above w/o thrombosis. Await paracentesis and fluid studies. AFP also pending. DUNCAN SLAUGHTER May 15, 2018 09:57
--- NOTE | 2018-05-15 10:04 | PDOC ---
PROGRESS NOTES Subjective Subjective pt feels better Objective Objective Vital Signs Date Time Temp Pulse Resp B/P (MAP) Pulse Ox O2 Delivery O2 Flow Rate FiO2 05/15/18 03:18 97.7 55 22 152/65 (94) 95 Room Air 97.7 Intake and Output 05/15/18 06:59 Intake Total 1525 ml Output Total 2100 ml Balance -575 ml Intake Oral 1300 ml IV Total 225 ml Output Urine Total 1700 ml Stool Total 400 ml Physical Exam Abdomen: Soft, Other (distended, colostomy bag+) Heart: Regular rate, Normal S1 Extremities: No clubbing, No cyanosis, No edema General: Alert, Cooperative, mild distress HEENT: Atraumatic, PERRLA Lungs: Normal air movement MUSCULOSKELETAL: No deformity, No swelling Neuro: Normal speech, Other (CONFUSED) Psych/Mental Status: Mood NL, Other (CONFUSED) Skin: No significant lesion COMMENT marmolejo placed Diagnosis Problem List Problems Medical Problems: (1) Elevated troponin Status: Acute (2) Influenza A Status: Acute (3) Sepsis Status: Acute Assessment Assessment Problems Medical Problems: (1) Elevated troponin Status: Acute (2) Influenza A Status: Acute (3) Sepsis Status: Acute FINAL IMPRESSION: Abdominal distention/Ascites new onset 1. Acute influenza A lung infection. 2. Secondary lung infection with bacterial, suspect Gram-negative. 3. Hxsnp-ch-dixyzci congestive heart failure.20% ejf 4. Lccpe-tu-dngqngi kidney failure.cr 1.9 5. Parkinson's disease. 6. GH/o Orthostatic Hypotension. 7. History of bypass surgery, has AICD. 8. History of colostomy. 9. Hyperlipidemia PLAN: Doppler liver ok . neg for hepatitis. Paracentesis today. d/c marmolejo in am. cr 1.6 KUB today mild ileus Ascites on abd sono, GI consult. marmolejo placed for bladder retention sono kidneys no hydro. ECHO 20% EJF. bradycardia ,pt has AICD [place] for influenza spoke with RN Pt/OT urology consult appreciated. nephrology consult appreciated Plan Plan of Care Problems Medical Problems: (1) Elevated troponin Status: Acute (2) Influenza A Status: Acute (3) Sepsis Status: Acute Comment Review of Relevant I have reviewed the following items kiana (where applicable) has been applied. Labs Laboratory Tests Test 05/14/18 11:43 05/14/18 17:02 05/14/18 18:00 05/15/18 06:50 Glucose (Fingerstick) 221 mg/dL (70-99) 186 mg/dL (70-99) Prothrombin Time 17.6 SEC (11.7-14.0) Prothromb Time International Ratio 1.5 (0.8-1.1) Ammonia < 10 mcmol/L (11-34) Hepatitis A IgM Antibody Nonreactive (Nonreactive) Hepatitis B Surface Antigen Nonreactive (Nonreactive) Hepatitis B Core IgM Antibody Nonreactive (Nonreactive) Hepatitis C IgG Antibody Nonreactive (Nonreactive) White Blood Count 6.2 x10^3/uL (4.0-11.0) Red Blood Count 3.32 x10^6/uL (4.30-5.70) Hemoglobin 9.7 g/dL (13.0-17.5) Hematocrit 30.8 % (39.0-53.0) Mean Corpuscular Volume 93 fL (79-100) Mean Corpuscular Hemoglobin 29 pg (25-35) Mean Corpuscular Hemoglobin Concent 32 g/dL (31-37) Red Cell Distribution Width 17.9 % (11.5-14.5) Platelet Count 88 x10^3/uL (140-400) Neutrophils (%) (Auto) 81 % (31-73) Lymphocytes (%) (Auto) 8 % (24-48) Monocytes (%) (Auto) 10 % (0-9) Eosinophils (%) (Auto) 1 % (0-3) Basophils (%) (Auto) 0 % (0-3) Neutrophils # (Auto) 5.0 x10^3uL (1.8-7.7) Lymphocytes # (Auto) 0.5 x10^3/uL (1.0-4.8) Monocytes # (Auto) 0.6 x10^3/uL (0.0-1.1) Eosinophils # (Auto) 0.1 x10^3/uL (0.0-0.7) Basophils # (Auto) 0.0 x10^3/uL (0.0-0.2) Sodium Level 139 mmol/L (136-145) Potassium Level 4.3 mmol/L (3.5-5.1) Chloride Level 104 mmol/L (98-107) Carbon Dioxide Level 23 mmol/L (21-32) Anion Gap 12 (6-14) Blood Urea Nitrogen 64 mg/dL (8-26) Creatinine 1.5 mg/dL (0.7-1.3) Estimated GFR (Cockcroft-Gault) 44.5 Glucose Level 113 mg/dL (70-99) Calcium Level 8.6 mg/dL (8.5-10.1) Magnesium Level 2.4 mg/dL (1.8-2.4) Total Bilirubin 0.7 mg/dL (0.2-1.0) Direct Bilirubin 0.3 mg/dL (0.0-0.2) Aspartate Amino Transf (AST/SGOT) 16 U/L (15-37) Alanine Aminotransferase (ALT/SGPT) 12 U/L (16-63) Alkaline Phosphatase 101 U/L (46-116) Total Protein 6.5 g/dL (6.4-8.2) Albumin 2.8 g/dL (3.4-5.0) Microbiology 05/10/18 Blood Culture - Preliminary, Resulted NO GROWTH AFTER 4 DAYS Medications Current Medications Carvedilol (Coreg) 6.25 mg BIDWMEALS PO Last administered on 05/14/18at 17:47; Start 05/14/18 at 17:00 Furosemide (Lasix) 40 mg 1X ONCE IVP Last administered on 05/14/18at 12:08; Start 05/14/18 at 12:30; Stop 05/14/18 at 12:31; Status DC Furosemide (Lasix) 40 mg 1X ONCE IVP ; Start 05/15/18 at 08:30; Stop 05/15/18 at 08:31; Status DC Furosemide (Lasix) 40 mg DAILY PO ; Start 05/15/18 at 09:00; Stop 05/15/18 at 09: 00; Status DC Furosemide (Lasix) 40 mg DAILY PO ; Start 05/16/18 at 09:00 Vitals/I & O Vital Sign - Last 24 Hours 05/14/18 05/14/18 05/14/18 05/14/18 11:10 15:08 17:47 19:19 Temp 96.3 96.6 97.1 96.3 96.6 97.1 Pulse 51 52 52 54 Resp 20 22 22 B/P (MAP) 151/77 (101) 150/64 (92) 150/64 135/68 (90) Pulse Ox 97 94 96 O2 Delivery Room Air Room Air Room Air 05/14/18 05/14/18 05/15/18 20:00 22:17 03:18 Temp 97.2 97.7 97.2 97.7 Pulse 59 55 Resp 22 22 B/P (MAP) 158/61 (93) 152/65 (94) Pulse Ox 97 95 O2 Delivery Room Air Room Air Room Air Intake and Output 05/14/18 05/14/18 05/15/18 14:59 22:59 06:59 Intake Total 1025 ml 500 ml Output Total 900 ml 1200 ml Balance 1025 ml -400 ml -1200 ml BURTON AKBAR MD May 15, 2018 10:04
--- NOTE | 2018-05-15 10:59 | PDOC ---
Renal-Progress Notes Subjective Notes Notes NONE History of Present Illness Hx of present illness STABLE Vitals Vitals Vital Signs Date Time Temp Pulse Resp B/P (MAP) Pulse Ox O2 Delivery O2 Flow Rate FiO2 05/15/18 03:18 97.7 55 22 152/65 (94) 95 Room Air 97.7 Weight Weight [ ] I.O. Intake and Output Intake and Output 05/15/18 07:00 Intake Total 1525 ml Output Total 2100 ml Balance -575 ml Intake Oral 1300 ml IV Total 225 ml Output Urine Total 1700 ml Stool Total 400 ml Labs Labs Laboratory Tests Test 05/14/18 11:43 05/14/18 17:02 05/14/18 18:00 05/15/18 06:50 Glucose (Fingerstick) 221 mg/dL (70-99) 186 mg/dL (70-99) Prothrombin Time 17.6 SEC (11.7-14.0) Prothromb Time International Ratio 1.5 (0.8-1.1) Ammonia < 10 mcmol/L (11-34) Tumor Marker Alpha Fetoprotein 1.5 ng/mL (0.0-8.3) Hepatitis A IgM Antibody Nonreactive (Nonreactive) Hepatitis B Surface Antigen Nonreactive (Nonreactive) Hepatitis B Core IgM Antibody Nonreactive (Nonreactive) Hepatitis C IgG Antibody Nonreactive (Nonreactive) White Blood Count 6.2 x10^3/uL (4.0-11.0) Red Blood Count 3.32 x10^6/uL (4.30-5.70) Hemoglobin 9.7 g/dL (13.0-17.5) Hematocrit 30.8 % (39.0-53.0) Mean Corpuscular Volume 93 fL (79-100) Mean Corpuscular Hemoglobin 29 pg (25-35) Mean Corpuscular Hemoglobin Concent 32 g/dL (31-37) Red Cell Distribution Width 17.9 % (11.5-14.5) Platelet Count 88 x10^3/uL (140-400) Neutrophils (%) (Auto) 81 % (31-73) Lymphocytes (%) (Auto) 8 % (24-48) Monocytes (%) (Auto) 10 % (0-9) Eosinophils (%) (Auto) 1 % (0-3) Basophils (%) (Auto) 0 % (0-3) Neutrophils # (Auto) 5.0 x10^3uL (1.8-7.7) Lymphocytes # (Auto) 0.5 x10^3/uL (1.0-4.8) Monocytes # (Auto) 0.6 x10^3/uL (0.0-1.1) Eosinophils # (Auto) 0.1 x10^3/uL (0.0-0.7) Basophils # (Auto) 0.0 x10^3/uL (0.0-0.2) Sodium Level 139 mmol/L (136-145) Potassium Level 4.3 mmol/L (3.5-5.1) Chloride Level 104 mmol/L (98-107) Carbon Dioxide Level 23 mmol/L (21-32) Anion Gap 12 (6-14) Blood Urea Nitrogen 64 mg/dL (8-26) Creatinine 1.5 mg/dL (0.7-1.3) Estimated GFR (Cockcroft-Gault) 44.5 Glucose Level 113 mg/dL (70-99) Calcium Level 8.6 mg/dL (8.5-10.1) Magnesium Level 2.4 mg/dL (1.8-2.4) Total Bilirubin 0.7 mg/dL (0.2-1.0) Direct Bilirubin 0.3 mg/dL (0.0-0.2) Aspartate Amino Transf (AST/SGOT) 16 U/L (15-37) Alanine Aminotransferase (ALT/SGPT) 12 U/L (16-63) Alkaline Phosphatase 101 U/L (46-116) Total Protein 6.5 g/dL (6.4-8.2) Albumin 2.8 g/dL (3.4-5.0) Micro Micro Microbiology 05/10/18 Blood Culture - Preliminary, Resulted NO GROWTH AFTER 4 DAYS Review of Systems Constitutional: yes: weakness, alert, other (CONFUSED) Physical Exam General Appearance: no apparent distress Skin: warm Respiratory: decreased breath sounds Heart: S1S2 Abdomen: soft, bowel sounds present Genitourinary: bladder flat Extremities: pulses present Neurology: alert, oriented, follow commands Musculoskeletal: Osteoarthritis, Other Assessment Assessment IMP AMADO RESOLVED - CR AT BASELINE CKD STAGE 3 WITH CR OF 1.5 DEHYDRATION-BETTER URINARY RETENTION INFLUENZA TYPE A POSSIBLE SECONDARY BACTERIAL PNEUMONIA PARKINSON DISEASE HX OF COLOSTOMY DEHYDRATION-RESOLVED FLUID RETENTION CURRENTLY PLAN OFF IVF'S LASIX DAILY RENAL SONOGRAM-NEG FOR HYDRO RECIO ANTIBIOTICS D/W ATTENDING GI EVALUATION WILL FOLLOW MARGE MALIK MD May 15, 2018 10:59
[2018-05-15 11:00] VITALS: BP 141/65
--- NOTE | 2018-05-15 12:00 | NUR ---
SS following up with discharge planning. SS phoned and faxed referral for home healthcare to [facility], ; fax [phone]. If discharged over the weekend discharge orders for home healthcare RN/PT/OT will need to be faxed to [facility], ; fax [phone].
[2018-05-15] MEDS: cefTRIAXone IV Push 1 GM VIAL. IVP SCH (12:04)
[2018-05-15 12:42] LABS: BF CLARITY HAZY; BF COLOR STRAW; BF SOURCE ASCITES
[2018-05-15 12:43] LABS: BF WBC COUNT 276 /cmm (Not Established)
[2018-05-15 12:44] LABS: BF MON % 78 %; BF OTHER % 13 %; BF PMN % 9 %; BF RBC COUNT 4063 /cmm (Not Established)
[2018-05-15 15:00] VITALS: BP 142/71
[2018-05-15 19:35] VITALS: BP 123/60
[2018-05-15] MEDS: ATORVASTATIN CALCIUM 10 MG TABLET. PO SCH (21:21)
[2018-05-15] MEDS: ENOXAPARIN 40 MG/0.4 ML SYRINGE. SQ SCH (21:22)
[2018-05-15] MEDS: INSULIN GLARGINE 300 UNITS/3 ML INSULN.PEN. SQ SCH (21:28)
[2018-05-15] MEDS ORDERED: ACETAMINOPHEN 325 MG TABLET. PO PRN (23:00)
[2018-05-15 23:12] VITALS: BP 139/63
[2018-05-16 03:00] VITALS: BP 157/74
[2018-05-16 05:12] LABS: CALCIUM 8.2 mg/dL (8.5-10.1); CREATININE 1.5 mg/dL (0.7-1.3); GFR 44.5
[2018-05-16 07:35] VITALS: BP 138/64
[2018-05-16] MEDS: PANTOPRAZOLE 40 MG TABLET.DR. PO SCH (07:44)
[2018-05-16] MEDS: CARBIDOPA/LEVODOPA 25/100MG TABLET PO SCH ×4 (07:44→21:26)
[2018-05-16] MEDS: LACTOBACILLUS RHAMNOSUS GG 1 CAPSULE. PO SCH ×2 (07:45→21:26)
[2018-05-16] MEDS: TAMSULOSIN 0.4 MG CAP.ER.24H. PO SCH (07:45)
[2018-05-16] MEDS: ASPIRIN ENTERIC COATED 81 MG TABLET.DR. PO SCH (07:45)
--- NOTE | 2018-05-16 07:45 | PDOC ---
Progress Note ROS ROS No nausea No vomiting No pain No rash Vital Sign Vital Signs Vital Signs Date Time Temp Pulse Resp B/P (MAP) Pulse Ox O2 Delivery O2 Flow Rate FiO2 05/16/18 03:00 98.1 50 22 157/74 (101) 95 Room Air 98.1 Physical Exam PHYSICAL EXAM GENERAL: NAD, Alert HEENT: PERRL, OC/OP NECK: Supple, no JVD, no LN LUNGS: Clear HEART: S1S2, no gallop, no murmur ABD: Soft, NT, no organomegaly, no rebound EXT: No edema, no cyanosis ELASTIC TAPE INSERTER: Alert, oriented x 3, no focal neurologic deficit SKIN: No rash IV: ok Labs Lab Laboratory Tests Test 05/15/18 11:39 05/15/18 16:52 05/15/18 20:59 05/16/18 04:00 Glucose (Fingerstick) 72 mg/dL (70-99) 88 mg/dL (70-99) 172 mg/dL (70-99) Sodium Level 138 mmol/L (136-145) Potassium Level 4.0 mmol/L (3.5-5.1) Chloride Level 104 mmol/L (98-107) Carbon Dioxide Level 23 mmol/L (21-32) Anion Gap 11 (6-14) Blood Urea Nitrogen 60 mg/dL (8-26) Creatinine 1.5 mg/dL (0.7-1.3) Estimated GFR (Cockcroft-Gault) 44.5 Glucose Level 144 mg/dL (70-99) Calcium Level 8.2 mg/dL (8.5-10.1) Objective Assessment An 87 years old male patient with past medical history of hypertension, hyperlipidemia, coronary artery disease s/p CABG, congestive heart failure with EF 20% s/p biventricular ICD/CONSTRUCTION QUALITY CONTROL MANAGER-D implantation and ischemic colitis ( with bleeding) 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 he is currently mange for Influenza A. GI consulted for abdominal distension with new ascites.Labs reviewed. Has evidence of anemia with Hgb 9.7, thrombocytopenia 88 and elevated INR ( 1.5). Albumin noted to below ( 2.8). Cr is also elevated to 1.5. No evidence of spontaneous bacterial peritonitis on ascitic fluid analysis. Called and discussed with lab to run the ascitic fluid for albumin as it was not included on the ascitic fluid analysis. Doppler ultrasound of abdomen ruled out underlying thrombosis. No recent imaging to assess liver and spleen. The ascites may be related to underlying CHF versus cardiac cirrhosis of the liver with thrombocytopenia and hypoalbuminemia. Plan Plan of Care * Continue with supportive care as per primary team. * Await for final ascitic fluid analysis including albumin. * Please obtain ultrasound of abdomen. * GI available for any Q's Thank you for involving us in the care of this interesting patient. MOLLY ECKERT MD May 16, 2018 07:45
[2018-05-16] MEDS: cefTRIAXone IV Push 1 GM VIAL. IVP SCH (07:47)
[2018-05-16] MEDS: INSULIN LISPRO 300 UNITS/3 ML INSULN.PEN. SQ SCH ×3 (08:00→17:00)
[2018-05-16] MEDS: CARVEDILOL 6.25 MG TABLET. PO SCH ×2 (08:00→17:22)
--- NOTE | 2018-05-16 10:11 | PDOC ---
Subjective: Subjective: Patient was seen and examined at bed side. Discussed with RN in the floor. No acute events overnight. Objective: Vital Signs: Vital Signs Date Time Temp Pulse Resp B/P (MAP) Pulse Ox O2 Delivery O2 Flow Rate FiO2 05/16/18 07:35 97.5 49 20 138/64 (88) 95 Room Air 97.5 Labs: Laboratory Tests Test 05/15/18 11:39 05/15/18 16:52 05/15/18 20:59 05/16/18 07:38 Glucose (Fingerstick) 72 mg/dL (70-99) 88 mg/dL (70-99) 172 mg/dL (70-99) 92 mg/dL (70-99) PE: GEN: NAD HEENT: Atraumatic, PERRLA LUNGS: CTAB HEART: RRR, no murmurs ABD:Moderately distended abdomen with flank dullness. Has well healed midline surgical scar from history of partial colectomy with end colostomy. 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 he is currently mange for Influenza A. GI consulted for abdominal distension with new ascites.Labs reviewed. Has evidence of anemia with Hgb 9.7, thrombocytopenia 88 and elevated INR ( 1.5). Albumin noted to below ( 2.8). Cr is also elevated to 1.5. No evidence of spontaneous bacterial peritonitis on ascitic fluid analysis. Called and discussed with lab to run the ascitic fluid for albumin as it was not included on the ascitic fluid analysis. Doppler ultrasound of abdomen ruled out underlying thrombosis. No recent imaging to assess liver and spleen. The ascites may be related to underlying CHF versus cardiac cirrhosis of the liver with thrombocytopenia and hypoalbuminemia. Plan Plan of Care * Continue with supportive care as per primary team. * Await for final ascitic fluid analysis including albumin. * Please obtain ultrasound of abdomen to examine liver and spleen. * GI available for any Q's Thank you for involving us in the care of this interesting patient. MOLLY ECKERT MD May 16, 2018 10:11
[2018-05-16 11:06] VITALS: BP 148/67
[2018-05-16] MEDS: FUROSEMIDE 40 MG TABLET. PO SCH (11:19)
--- NOTE | 2018-05-16 12:08 | PDOC ---
PROGRESS NOTES Subjective Subjective feels ok today Objective Objective Vital Signs Date Time Temp Pulse Resp B/P (MAP) Pulse Ox O2 Delivery O2 Flow Rate FiO2 05/16/18 11:06 98.1 57 20 148/67 (94) 96 Room Air 98.1 Intake and Output 05/16/18 06:59 Intake Total 550 ml Output Total 7150 ml Balance -6600 ml Intake Oral 550 ml Output Urine Total 3150 ml Drainage Total 4000 ml Physical Exam Abdomen: Soft, Other (distended, colostomy bag+) Heart: Regular rate, Normal S1 Extremities: No clubbing, No cyanosis, No edema General: Alert, Cooperative, mild distress HEENT: Atraumatic, PERRLA Lungs: Normal air movement MUSCULOSKELETAL: No deformity, No swelling Neuro: Normal speech, Other (CONFUSED) Psych/Mental Status: Mood NL, Other (CONFUSED) Skin: No significant lesion COMMENT marmolejo placed Diagnosis Problem List Problems Medical Problems: (1) Elevated troponin Status: Acute (2) Influenza A Status: Acute (3) Sepsis Status: Acute Assessment Assessment Problems Medical Problems: (1) Elevated troponin Status: Acute (2) Influenza A Status: Acute (3) Sepsis Status: Acute FINAL IMPRESSION: Abdominal distention/Ascites new onset 1. Acute influenza A lung infection. 2. Secondary lung infection with bacterial, suspect Gram-negative. 3. Yhuuk-qh-lxposzy congestive heart failure.20% ejf 4. Zgfhw-wg-nrhdvpy kidney failure.cr 1.9 5. Parkinson's disease. 6. GH/o Orthostatic Hypotension. 7. History of bypass surgery, has AICD. 8. History of colostomy. 9. Hyperlipidemia PLAN:paracentesis done Doppler liver ok . neg for hepatitis. labs cr 1.6 d/c marmolejo today,watch for bladder retention ? home tomorrow poor prognosis chance of readmission high Plan Plan of Care Problems Medical Problems: (1) Elevated troponin Status: Acute (2) Influenza A Status: Acute (3) Sepsis Status: Acute Comment Review of Relevant I have reviewed the following items kiana (where applicable) has been applied. Labs Laboratory Tests Test 05/15/18 16:52 05/15/18 20:59 05/16/18 04:00 05/16/18 07:38 Glucose (Fingerstick) 88 mg/dL (70-99) 172 mg/dL (70-99) 92 mg/dL (70-99) Sodium Level 138 mmol/L (136-145) Potassium Level 4.0 mmol/L (3.5-5.1) Chloride Level 104 mmol/L (98-107) Carbon Dioxide Level 23 mmol/L (21-32) Anion Gap 11 (6-14) Blood Urea Nitrogen 60 mg/dL (8-26) Creatinine 1.5 mg/dL (0.7-1.3) Estimated GFR (Cockcroft-Gault) 44.5 Glucose Level 144 mg/dL (70-99) Calcium Level 8.2 mg/dL (8.5-10.1) Test 05/16/18 11:19 Glucose (Fingerstick) 108 mg/dL (70-99) Microbiology 05/10/18 Blood Culture - Final, Complete NO GROWTH AFTER 5 DAYS Medications Current Medications Acetaminophen (Tylenol) 650 mg PRN Q6HRS PRN PO MILD PAIN / TEMP; Start at 23:00 Furosemide (Lasix) 40 mg DAILY PO Last administered on 05/16/18at 11:19; Start at 09:00 Vitals/I & O Vital Sign - Last 24 Hours 05/15/18 05/15/18 05/15/18 05/15/18 15:00 17:28 19:35 20:00 Temp 98.1 97.6 98.1 97.6 Pulse 54 54 65 Resp 21 B/P (MAP) 142/71 (94) 142/71 123/60 (81) Pulse Ox 95 95 O2 Delivery Room Air Room Air Room Air 05/15/18 05/16/18 05/16/18 05/16/18 23:12 03:00 07:35 08:00 Temp 96.9 98.1 97.5 96.9 98.1 97.5 Pulse 49 50 49 49 Resp 20 22 20 B/P (MAP) 139/63 (88) 157/74 (101) 138/64 (88) 138/64 Pulse Ox 95 95 95 O2 Delivery Room Air Room Air Room Air 05/16/18 05/16/18 08:00 11:06 Temp 98.1 98.1 Pulse 57 Resp 20 B/P (MAP) 148/67 (94) Pulse Ox 96 O2 Delivery Room Air Room Air Intake and Output 05/15/18 05/15/18 05/16/18 14:59 22:59 06:59 Intake Total 200 ml 50 ml 300 ml Output Total 4800 ml 1200 ml 1150 ml Balance -4600 ml -1150 ml -850 ml BURTON AKBAR MD May 16, 2018 12:08
[2018-05-16 15:01] VITALS: BP 149/67
--- NOTE | 2018-05-16 15:54 | NUR ---
Valles DC'd this am with immediate bladder scan revealing 25cc residual. Later PVR bladder scan showed only 7cc. Pt able to void about every 1 1/2 hours with complete empty.
--- NOTE | 2018-05-16 15:56 | NUR ---
Ostomy bag changed this am. Skin appears in good condition under the bag. Area cleaned thoroughly, dried, and a new bag placed successfully. Pt is eliminating apparently well with good stool and flatulence production. Bag was 1/3 full in 3 hours from last empty.
[2018-05-16 18:26] VITALS: BP 138/74
--- NOTE | 2018-05-16 19:38 | RAD ---
Complete Abdominal Ultrasound: Clinical History: Elevated liver enzymes. Technique: Sonographic examination of the abdomen was performed and multiple static images were obtained. Findings: The majority of the liver is visualized and appears homogeneous. There is mild increased echogenicity. The common bile duct appears normal measures 3 mm in diameter. The gallbladder has been removed. The pancreas is not well visualized due to overlying bowel gas. The right kidney appears normal and measures 11 cm in length. The left kidney appears normal and measures 11 cm in length. The spleen is not enlarged. Visualized portions of the abdominal aorta and IVC appear normal. There is mild free fluid seen around the liver. Impression: 1. Fatty infiltration of the liver. 2. Mild ascites. Electronically signed by: Js Smith III, MD (05/16/2018 7:35 PM) [id number]
[2018-05-16] MEDS: ATORVASTATIN CALCIUM 10 MG TABLET. PO SCH (21:26)
[2018-05-16] MEDS: ENOXAPARIN 40 MG/0.4 ML SYRINGE. SQ SCH (21:27)
[2018-05-16] MEDS: INSULIN GLARGINE 300 UNITS/3 ML INSULN.PEN. SQ SCH (21:34)
[2018-05-16 22:54] VITALS: BP 155/67
[2018-05-17 03:29] VITALS: BP 146/64
[2018-05-17 07:08] VITALS: BP 155/68
[2018-05-17] MEDS: INSULIN LISPRO 300 UNITS/3 ML INSULN.PEN. SQ SCH (08:00)
[2018-05-17] MEDS: FUROSEMIDE 40 MG TABLET. PO SCH (08:39)
[2018-05-17] MEDS: TAMSULOSIN 0.4 MG CAP.ER.24H. PO SCH (08:39)
[2018-05-17] MEDS: cefTRIAXone IV Push 1 GM VIAL. IVP SCH (08:39)
[2018-05-17] MEDS: LACTOBACILLUS RHAMNOSUS GG 1 CAPSULE. PO SCH (08:39)
[2018-05-17] MEDS: CARVEDILOL 6.25 MG TABLET. PO SCH (08:40)
[2018-05-17] MEDS: PANTOPRAZOLE 40 MG TABLET.DR. PO SCH (08:40)
[2018-05-17] MEDS: ASPIRIN ENTERIC COATED 81 MG TABLET.DR. PO SCH (08:40)
[2018-05-17] MEDS: CARBIDOPA/LEVODOPA 25/100MG TABLET PO SCH (08:40)
--- NOTE | 2018-05-17 10:45 | PDOC ---
PROGRESS NOTES Subjective Subjective feels better ,anxious to go home Objective Objective Vital Signs Date Time Temp Pulse Resp B/P (MAP) Pulse Ox O2 Delivery O2 Flow Rate FiO2 05/17/18 08:40 52 155/68 05/17/18 07:08 97.4 16 99 Room Air 97.4 Intake and Output 05/17/18 07:00 Intake Total 850 ml Output Total 3675 ml Balance -2825 ml Intake Oral 850 ml Output Urine Total 3675 ml Physical Exam Abdomen: Soft, Other (distended, colostomy bag+) Heart: Regular rate, Normal S1 Extremities: No clubbing, No cyanosis, No edema General: Alert, Cooperative, mild distress HEENT: Atraumatic, PERRLA Lungs: Normal air movement MUSCULOSKELETAL: No deformity, No swelling Neuro: Normal speech, Other (CONFUSED) Psych/Mental Status: Mood NL, Other (CONFUSED) Skin: No significant lesion COMMENT marmolejo removed yesterday,voiding ok Diagnosis Problem List Problems Medical Problems: (1) Elevated troponin Status: Acute (2) Influenza A Status: Acute (3) Sepsis Status: Acute Assessment Assessment Problems Medical Problems: (1) Elevated troponin Status: Acute (2) Influenza A Status: Acute (3) Sepsis Status: Acute FINAL IMPRESSION: Abdominal distention/Ascites new onset, probably from chf 1. Acute influenza A lung infection. 2. Secondary lung infection with bacterial, suspect Gram-negative. 3. Rjewr-zb-iyrtbou congestive heart failure.20% ejf 4. Cxskb-ko-wptxjpr kidney failure.cr 1.9 5. Parkinson's disease. 6. GH/o Orthostatic Hypotension. 7. History of bypass surgery, has AICD. 8. History of colostomy. 9. Hyperlipidemia PLAN:paracentesis done,c/s neg transudative fluid Doppler liver ok . neg for hepatitis. labs cr 1.6 d/cd marmolejo yesterday,voiding ok home today poor prognosis chance of readmission high Plan Plan of Care Problems Medical Problems: (1) Elevated troponin Status: Acute (2) Influenza A Status: Acute (3) Sepsis Status: Acute Comment Review of Relevant I have reviewed the following items kiana (where applicable) has been applied. Labs Laboratory Tests Test 05/16/18 11:19 05/16/18 16:49 05/16/18 18:43 05/16/18 21:25 Glucose (Fingerstick) 108 mg/dL (70-99) 89 mg/dL (70-99) 159 mg/dL (70-99) 205 mg/dL (70-99) Test 05/17/18 07:15 Glucose (Fingerstick) 97 mg/dL (70-99) Microbiology 05/10/18 Blood Culture - Final, Complete NO GROWTH AFTER 5 DAYS 05/15/18 Anaerobic/Aerobic Culture, Resulted Pending 05/15/18 Anaerobic Culture Result 1 (EVELIO), Resulted Pending 05/15/18 Aerobic Culture, Resulted Pending 05/15/18 Aerobic Culture Result 1 (EVELIO), Resulted Pending 05/15/18 Gram Stain - Final, Resulted 05/15/18 Gram Stain Result 1 (EVELIO) - Final, Resulted 05/15/18 Gram Stain Result 2 (EVELIO) - Final, Resulted Vitals/I & O Vital Sign - Last 24 Hours 05/16/18 05/16/18 05/16/18 05/16/18 11:06 15:01 17:22 18:26 Temp 98.1 97.4 98.1 97.4 Pulse 57 54 54 55 Resp 20 12 20 B/P (MAP) 148/67 (94) 149/67 (94) 144/66 138/74 (95) Pulse Ox 96 96 100 O2 Delivery Room Air Room Air Room Air 05/16/18 05/16/18 05/17/18 05/17/18 19:57 22:54 03:29 07:08 Temp 97.7 97.7 97.4 97.7 97.7 97.4 Pulse 50 53 52 Resp 18 20 16 B/P (MAP) 155/67 (96) 146/64 (91) 155/68 (97) Pulse Ox 97 96 99 O2 Delivery Room Air Room Air Room Air Room Air 05/17/18 08:40 Pulse 52 B/P (MAP) 155/68 Intake and Output 05/16/18 05/16/18 05/17/18 15:00 23:00 07:00 Intake Total 250 ml 600 ml 0 ml Output Total 1350 ml 1725 ml 600 ml Balance -1100 ml -1125 ml -600 ml BURTON AKBAR MD May 17, 2018 10:45
[2018-05-17] MEDS ORDERED: TAMS0.4C97 PO (10:50)
[2018-05-17 11:00] VITALS: BP 141/63
--- NOTE | 2018-05-17 11:00 | DISCH ---
DISCHARGE WITH HOME HEALTH DISCHARGE INFORMATION: Discharge Date: May 17, 2018 Final Diagnosis: Problems Medical Problems: (1) Elevated troponin Status: Acute (2) Influenza A Status: Acute (3) Sepsis Status: Acute Condition on Discharge: Stable CODE STATUS: Code Status: Full HOME HEALTH: Face to Face: I certify this patient is under my care and that I, or a nurse practitioner or physician's executive chef assistant working with me, had a face to face encounter that meets the physician face to face encounter requirements with this patient on [05/17/2018 ]. Medical Complications: CABG, CHF, Pneumonia Mcc For: Bowel/Bladder Training, Medication Management Physical Therapy For: Evalulation/Treatment Occupational Therapy For: Evaluation/Treatment Pt Meets Homebound Status: Poor coordination w/ amb. POST DISCHARGE ORDERS: Activity Instructions for Disc: Activity as tolerated Weight Bearing Status after Di: As tolerated Bathing Instructions: Shower-keep dressing dry DIET AFTER DISCHARGE: Regular Wound/Incision Care: Other, see below CHECKS AFTER DISCHARGE: Checks after discharge: Check blood press - daily, Weigh Yourself Daily Comment: bmp TREATMENT/EQUIPMENT ORDERS: Discharge Respiratory Equipmen: Nebulizer CERTIFICATION STATEMENT: Certification Statement: Certification Statement: Based on the above finding, I certify that this patient is confined to the home and needs intermittent detention care, physical therapy and/or speech therapy, or continues to need occupational therapy.~ This patient is under my care, and I have initiated the establishment of the plan of care.~ This patient will be followed by myself or a community physician who will periodically review the plan of care. Home Meds Active Scripts Tamsulosin Hcl (FLOMAX) 0.4 Mg Cap.er.24h, 0.4 MG PO DAILY for bph for 30 Days, #30 CAP.SR Prov:BURTON AKBAR MD 05/17/18 Ipratropium/Albuterol Sulfate (DUONEB 0.5-3(2.5) MG/3 ML) 3 Ml Ampul.neb, 3 ML NEB RTQID for 30 Days, #120 EACH Prov:BURTON AKBAR MD 11/10/17 Potassium Chloride (KLOR-CON 10) 10 Meq Tablet.er, 10 MEQ PO BID, #180 TAB.SR Prov:CECIL DE LUNA APRN 08/23/17 Furosemide (FUROSEMIDE) 40 Mg Tablet, 40 MG PO BID94, #180 TAB Prov:CECIL DE LUNA ASSEMBLER [employer] 08/23/17 Carvedilol (CARVEDILOL ) 3.125 Mg Tablet, 3.125 MG PO BIDWMEALS, #180 TAB Prov:CECIL DE LUNA ASSEMBLER [employer] 08/23/17 Atorvastatin Calcium (ATORVASTATIN CALCIUM) 10 Mg Tablet, 10 MG PO QHS, #90 TAB Prov:CECIL DE LUNA ASSEMBLER [employer] 08/23/17 Reported Medications Sacubitril/Valsartan (Entresto 24 mg-26 mg Tablet) 1 Each Tablet, 1 EACH PO DAILY, TAB 08/17/17 Memantine Hcl (NAMENDA) 10 Mg Tablet, 1 TAB PO BID, #180 TAB 1 Refill 08/17/17 Donepezil Hcl (DONEPEZIL HCL) 10 Mg Tablet, 15 MG PO HS, TAB 01/13/17 Aspirin (ASPIRIN EC) 81 Mg Tablet.dr, 1 TAB PO DAILY, #30 TAB 3 Refills 01/13/17 Carbidopa/Levodopa (SINEMET 25-100 MG TABLET) 1 Each Tablet, 1.5 TAB PO QID, # 90 TAB 5 Refills 10/17/14 Pantoprazole Sodium (PANTOPRAZOLE SODIUM) 40 Mg Tablet.dr, 1 TAB PO DAILY, #30 TAB 3 Refills 10/17/14 Discontinued Scripts Prednisone (PREDNISONE ) 10 Mg Tablet, 10 MG PO DAILY for 5 Days, #5 TAB Prov:BURTON AKBAR MD 11/10/17 Cefpodoxime Proxetil (CEFPODOXIME PROXETIL) 100 Mg Tablet, 100 MG PO BID for 5 Days, #10 TAB Prov:BURTON AKBAR MD 11/10/17 BURTON AKBAR MD May 17, 2018 11:00
--- NOTE | 2018-05-17 14:09 | NUR ---
Reviewed discharge instructions and provided education to patient and family. Provided copy of discharge instructions and prescription to fill. Advised patient and family that home health services will contact soon to set up home visits. Verbalized understanding.
--- NOTE | 2018-05-18 11:06 | RAD ---
Ultrasound-guided paracentesis 05/18/2018 11:02 AM Procedure: The risks and benefits of the procedure were discussed the patient. Informed consent was obtained. A timeout procedure was performed. Sonographic evaluation of the abdomen was performed demonstrating ascites . The right lower quadrant was prepped and draped using maximum sterile barrier technique. 1% lidocaine without epinephrine was administered for local anesthesia. Real-time ultrasonographic guidance was used in passing a 5 Greenlandic Yueh catheter into the fluid collection. 4 L of ascites was removed. The catheter was removed and pressure held to achieve hemostasis. A sterile dressing was applied. Impression: Successful ultrasound-guided paracentesis
--- NOTE | 2018-05-18 15:19 | PDOC ---
Provider Note Provider Note Discharge summary dictated. #[id number] BURTON AKBAR MD May 18, 2018 15:19
--- NOTE | 2018-05-18 18:06 | PATHOLOGY ---
Note [facility] Accession Number: [id number] TESTS RESULT FLAG UNITS REF RANGE LAB Clinician Provided Cytology Information No. of containers..01 Other (Miscellaneous) Source: ASCITES DIAGNOSIS: 02 ASCITES NEGATIVE FOR MALIGNANT CELLS. FOCALLY REACTIVE MESOTHELIAL AND FEW INFLAMMATORY CELLS PRESENT. THIS INTERPRETATION INCLUDES EVALUATION OF A CELL BLOCK. Signed out by: Clark Dickey MD, Pathologist NPI- [id number] Performed by: Declan Valdes, Sewage Treatment Plant Operator ([facility]) Gross description: 34ML, YELLOW, CLOUDY /LCS FLAG LEGEND: L-Low Normal,H-High Normal,LL-Alert Low,HH-Alert High <-Panic Low,>-Panic High,A-Abnormal,AA-Critical Abnormal Performed at: [address] [place] [address] Joel Brito MD, [address] [facility] [place] [address] Clark Dickey MD, Spec[facility] Comment: A courtesy copy of this report has been sent to [employer] Comment: [phone], , . Specimen Comment: Report sent to [facility] Comment: A duplicate report has been generated due to demographic updates. Performed at: [address] [place], [place] [id number] [facility] [address], [place], [place] [id number] MD Joel Brito MD Phone: [phone]
--- NOTE | 2018-05-18 22:14 | DS ---
DATE OF DISCHARGE: 05/17/2018 REASON FOR ADMISSION TO THE HOSPITAL: 1. Influenza A lung infection. 2. Congestive heart failure, chronic. 3. Knobt-ns-qqssdll kidney failure. 4. Ascites. CONSULTATIONS: Cardiology, Dr. Lange; Dr. Zelaya, Renal; Urology and GI, Dr. Emerson. PROCEDURES DONE: Ultrasound of the kidneys, renal Doppler, paracentesis, ultrasound of the abdomen. HOSPITAL COURSE: The patient is an 87-year-old male patient, has a history of Parkinson's disease, diet-controlled diabetes, hypertension, hyperlipidemia, dementia and Parkinson's disease. He was having upper respiratory infection. His daughter was sick, had influenza A and he was given Tamiflu, in spite of that he was sick, came in and was found to have influenza A lung infection. Chest x-ray showed infiltrate in the lung. The patient was treated with Rocephin IV, given Tamiflu. His BUN and creatinine was up, 80 BUN and creatinine 2.5. The patient was given IV fluids. Ultrasound of the kidneys was negative, renal Doppler negative for stenosis, seen by Renal. At the time of discharge, BUN came down to 64, creatinine 1.5. The patient also had problem with the bladder retention more than 500 mL, not able to void, Valles catheter was placed, seen by Urology, was started on Flomax. The patient was given Rocephin for possible secondary pneumonia. Developed abdominal distention, had a sonogram, showed ascites, 4 liters of fluid was removed. Culture was negative, more of a transudative fluid. Was seen by GI, had a portal vein sonogram, negative for hypertension. Hepatitis was negative. On the whole, the patient's condition improved and he was discharged home. FINAL DIAGNOSES: 1. Influenza A. lung infection. 2. Secondary bacterial pneumonitis, suspect Gram negative. 3. New onset of ascites, 4 liters of paracentesis was removed. 4. 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 5. Parkinson's disease. 6. Acute bladder retention. Valles was placed, which was removed. 7. Parkinson's disease. 8. Coronary artery disease, history of bypass surgery 9. History of diabetes. 10. Hypertension. 11. General debility. 12 .Ac on chronic systolic heart failure, 20% EJF DISPOSITION: Home. DISCHARGE MEDICATIONS: See MRAD for discharge medications. DISPOSITION: Home with home health. PROGNOSIS: Poor. Echo showed an ejection fraction of 20%, did not improve with AICD placement. BURTON AKBAR MD DR: NEGRITA/jay JOB#: [id number] / [id number] JEREMIAS
== END 2018-05-17 14:00 | disposition home health service (06) | DRG 871 ==
LOC: ER 09:44 → 1 WEST ICU 11:57 → 2 NORTH 19:37
PROVIDERS: ADMIT Internal Medicine; ATTEND Internal Medicine
PROC: 0W9G3ZZ Drainage of Peritoneal Cavity, Percutaneous Approach (ICD-10-PCS; principal; 2018-05-15)
DX: A41.9 Sepsis, unspecified organism (principal); J10.08 Influenza due to other identified influenza virus with other specified pneumonia; J15.6 Pneumonia due to other Gram-negative bacteria; I50.23 Acute on chronic systolic (congestive) heart failure; I21.A1 Myocardial infarction type 2; E87.2 Acidosis; N17.9 Acute kidney failure, unspecified; R18.8 Other ascites; I13.0 Hypertensive heart and chronic kidney disease with heart failure and stage 1 through stage 4 chronic kidney disease, or unspecified chronic kidney disease; D69.6 Thrombocytopenia, unspecified; E11.22 Type 2 diabetes mellitus with diabetic chronic kidney disease; E78.5 Hyperlipidemia, unspecified; E86.0 Dehydration; F03.90 Unspecified dementia, unspecified severity, without behavioral disturbance, psychotic disturbance, mood disturbance, and anxiety; F43.10 Post-traumatic stress disorder, unspecified; G20 Parkinson's disease; I25.10 Atherosclerotic heart disease of native coronary artery without angina pectoris; K21.9 Gastro-esophageal reflux disease without esophagitis; N18.3 Chronic kidney disease, stage 3 (moderate); N48.89 Other specified disorders of penis; D53.9 Nutritional anemia, unspecified; I08.3 Combined rheumatic disorders of mitral, aortic and tricuspid valves; K57.90 Diverticulosis of intestine, part unspecified, without perforation or abscess without bleeding; Z96.642 Presence of left artificial hip joint; G89.29 Other chronic pain; J06.9 Acute upper respiratory infection, unspecified; M19.90 Unspecified osteoarthritis, unspecified site; R33.9 Retention of urine, unspecified; Z82.49 Family history of ischemic heart disease and other diseases of the circulatory system; Z83.3 Family history of diabetes mellitus; Z87.442 Personal history of urinary calculi; Z90.49 Acquired absence of other specified parts of digestive tract; Z93.3 Colostomy status; Z95.1 Presence of aortocoronary bypass graft; Z95.810 Presence of automatic (implantable) cardiac defibrillator; Z90.89 Acquired absence of other organs; Z79.899 Other long term (current) drug therapy; Z79.82 Long term (current) use of aspirin; Z89.021 Acquired absence of right finger(s)
CPT/HCPCS: 36415; 49083; 71045; 71046; 74018; 76700; 76770; 80048; 80053; 80061; 80076; 81001; 82042; 82105; 82140; 82150; 82945; 82962; 83036; 83605; 83615; 83735; 83880; 84157; 84443; 84484; 85007; 85025; 85610; 86705; 86709; 86803; 87040; 87071; 87075; 87340; 87641; 87804; 88112; 88305; 89050; 93005; 93306; 93975; 93976; 94640; 94760; 96361; 96374; J0696; J1650; J1815; J1940; J2930; J7030; J7512; J7620; 97110; 97116; 97530; 97535; 99285-25

== ENCOUNTER 2018-06-26 04:05 | Emergency (ER) | payer BC, OTHER ==
[~2018-06-26 04:05] MED LIST changes: +TAMS0.4C97 PO
--- NOTE | 2018-06-26 04:51 | PHYS DOC ---
Past Medical History Past Medical History: CHF, Diabetes-Type II, Hypertension, MD, Other Additional Past Medical Histor: Parkinson's Past Surgical History: Cholecystectomy, Colectomy, Coronary Bypass Surgery, Hip Replacement, Pacemaker, Tonsillectomy, Other Additional Past Surgical Histo: lumbar sx; L hip,COLOSTOMY 2018,AICD-2018 Alcohol Use: None Drug Use: None Adult General Chief Complaint Chief Complaint: CPR/FULL ARREST HPI HPI Patient is a 87 year old was brought here by EMS in cardiac arrest. Per report , patient was having coughing spell this morning, then became unresponsive. EMS was called at 320 am. Upon arrival, EMS found patient in his bed, unresponsive, no spontaneous respiration. Patient was in PEA initially. They placed a temporary airway, MALICK AIRWAY. They gave him six doses of epinephrine. On route, he went into VF. He was shocked twice and he went back in PEA. NO ROSC. EMS worked on him for 37 minutes. Upon arrival to ER, CPR was in progress. Patient in PEA, NO SPONTANEOUS RESPIRATION, NO PULSES. Review of Systems Review of Systems Review of Systems: not able to obtain due to patient's condition. Allergies Allergies Allergies Coded Allergies Type Severity Reaction Last Updated Verified No Known Drug Allergies 05/10/18 No Physical Exam Physical Exam Constitutional: Well developed, well nourished, obtunded, UNRESPONSIVE, HENT: Normocephalic, atraumatic, bilateral external ears normal, PINK FROSTY SPUTUM IN ORAL AIRWAY. Eyes: PALE, NO CORNEA REFLEX, FIXED. Neck: NO EVIDENCE OF TRAUMA, POSITIVE FOR BILATERAL JVD. Cardiovascular: NO PULSE, PATIENT IN PEA. Lungs & Thorax: NO SPONTANEOUS RESPIRATION. Abdomen: COLOSTOMY BAG IN PLACE, Skin: PALE AND COLD. Back: NO TRAUMA. Extremities: NO TRAUMA. Neurologic:PATIENT WAS UNRESPONSIVE TO VERBAL OR PAINFUL STIMULI, NO CORNEA REFLEX, NO GAG REFLEX Psychologic: NOT ABLE TO EVALUATE DUE UNRESPONSIVE STAGE. EKG EKG [] Radiology/Procedures Radiology/Procedures [] Course & Med Decision Making Course & Med Decision Making Pertinent Labs and Imaging studies reviewed. (See chart for details) Patient was in cardiac arrest since 320 am. Despite of resuscitation effort, He was in PEA, NO ROSC. Patient was pronounced by this physician at 420 am on this day. His family doctor, Dr. Burton Carballo, was notified, agreed to sign the certificate. Dragon Disclaimer Dragon Disclaimer This electronic medical record was generated, in whole or in part, using a voice recognition dictation system. Departure Departure Impression: Primary Impression: Cardiac arrest Disposition: 20 (at 0420 am) Condition: Referrals: BURTON CARBALLO MD (PCP) Intubation Procedure Intub Indication: Respiratory failure, cardiac arrest Consent: Unable to give consent due to emergent nature. Medications Used: no medication was used. Procedure: The patient was placed in the appropriate position. Intubation was performed [CORD VISUALIZATION METHOD] [ET TUBE SIZE] endotracheal tube 7.5 was used, Mac 4 was used to intubate patient. ET SECURED AT 24 AT LIP Initial confirmation of placement included bilateral breath sounds, tube fogging, adequate chest rise, adequate pulse oximetry reading. Patient was stilled pulseless, in PEA. Complications: none. YEIMI FERREIRA DO Jun 26, 2018 04:51
[2018-06-26] MEDS ORDERED: EPINEPHrine SYRINGE 1 MG/10 ML SYRINGE ONE (15:00)
== END 2018-06-26 07:20 | disposition expired ==
LOC: ER 04:05
DX: I46.9 Cardiac arrest, cause unspecified (principal); J96.90 Respiratory failure, unspecified, unspecified whether with hypoxia or hypercapnia; I11.0 Hypertensive heart disease with heart failure; I50.9 Heart failure, unspecified; E11.9 Type 2 diabetes mellitus without complications; I25.2 Old myocardial infarction; Z95.1 Presence of aortocoronary bypass graft; Z95.0 Presence of cardiac pacemaker
CPT/HCPCS: 31500; 92950; 99285; J0171